=== PATIENT | male | born 1985 | race Caucasian/White ===

== ENCOUNTER 2023-11-25 17:47 | Inpatient (IN) | payer MEDICAID, OTHER, SELFPAY ==
[2023-11-25 17:55] VITALS: BP 139/98; PULSE 123; RESP 18; TEMP 36.5; O2SAT 97; BMI 27.1
[2023-11-25 18:05] VITALS: BP 139/98; PULSE 123; RESP 18; TEMP 36.5; O2SAT 97
[2023-11-25 18:23] LABS: Appearance Urine Clear; Color Urine Yellow; Glucose Urine UA Negative (Negative); Leukocyte Esterase Urine Negative (Negative); Nitrite Urine Negative (Negative); Specific Gravity - Urine <= 1.005 (1.005-1.025); Urine Blood Negative (Negative); Urine Ketones Negative (Negative); Urine Protein Negative (Neg-Trace)
[2023-11-25] MEDS: LORazepam 1 MG TABLET 2 MG PO (18:25)
--- NOTE | 2023-11-25 18:25 | ED.PSYCH ---
HPI - Psych General Chief Complaint: Psychiatric Symptoms Stated Complaint: sec.12 Time Seen by Provider: 11/25/23 17:49 Source: patient and eye care professional Mode of arrival: EMS Limitations: other (poor historian) History of Present Illness HPI Narrative: 38 yo male with reported schizophrenia per S12 here with agitation, aggression not on medications and ETOH use. No SI/HI. MD complaint: anxiety and alcohol abuse Onset (ago): unknown Duration: constant History of same: Yes Relieving factors: none Exacerbating factors: alcohol Context: not taking psychiatric medications Associated psychiatric symptoms: racing thoughts Associated symptoms: denies other symptoms Treatments prior to arrival: placed on mental health hold Related Data Allergies Allergy/AdvReac Type Severity Reaction Status Date / Time Unable to Assess Allergy Verified 11/25/23 17:57 Review of Systems Review of Systems: ROS unable to be obtained due to poor historian PMFSH Past Medical History Source: old records reviewed Medical History (Updated 11/25/23 @ 18:29 by Nisha Alegre DO) Schizophrenia Social History Social History Alcohol intake: current Alcohol intake frequency: a few times a week Alcohol type: beer Smoked in Last 30 Days: Yes Use of substances other than those prescribed or required for medical reasons: No Any prior treatment program specific to substance use: No Physical Exam Vital Signs: Vital Signs: Last Vital Signs Temp 97.7 F 11/25/23 18:05 Pulse 123 H 11/25/23 18:05 Resp 18 11/25/23 18:05 BP 139/98 H 11/25/23 18:05 Pulse Ox 97 11/25/23 18:05 O2 Del Method Room Air 11/25/23 18:05 BMI result Body Mass Index 27.1 Appearance: Alert. Oriented X3. ETOH odor, very loud belligerent talks about forming roll operator and money over and over. very close in proximity to staff and somewhat touchy with staff at times including myself. No acute distress. Eyes: Pupils equal, round and reactive to light. ENT: Pharynx normal. atraumatic. Neck: Normal inspection. Neck supple. CVS: Normal heart rate and rhythm. Pulses normal. Respiratory: No respiratory distress. Breath sounds normal. Abdomen: Soft and non-tender. Skin: Skin warm and dry. Normal skin color. Normal skin turgor. Extremities: No lower extremity edema. Neuro: Oriented X 3. No motor deficit. No sensory deficit. CN2-12 intact Course Course Course Narrative: physician observation started at 631pm Medical Decision Making Medical Decision Making [facility] Narrative: 38 yo male with PMH of schizophrenia seen here with c/o not taking meds, ETOH, agitation he is aggressive with certain staff was yelling into the eye care professional phone fixated on money and forming roll operator then inappropriately rubbing my arm and telling me he liked my ugandan body. At this time will obtain labs, given oral zyprexa and ativan - refer to CARE team as I cannot get much of a history. Differential Diagnosis Differential Diagnoses: The differential diagnosis associated with the presentation includes alcohol intoxication, schizophrenia Admission/Observation Consideration of admission/observation: Escalation of care including admission/observation considered observation until seen by CARE team Consult Healthcare Provider Management of the patient was discussed with: Behavioral Health Provider Lab Data [facility] Lab Attestation statement: I reviewed the patient's lab results. Labs: Lab Results 11/25/23 Range/Units 18:16 Urine Color Yellow Urine Appearance Clear Urine pH 6.0 (5.0-9.0) Ur Specific [place] <= 1.005 (1.005-1.025) Urine Protein Negative (Neg-Trace) mg/dL Urine Glucose (UA) Negative (Negative) mg/dL Urine Ketones Negative (Negative) mg/dL Urine Blood Negative (Negative) Urine Nitrite Negative (Negative) Ur Leukocyte Esterase Negative (Negative) Independent Historian Clinical information obtained from an independent historian. History obtained from or confirmed by: EMS External Record Review External record reviewed: Outpatient record Discharge Plan Discharge Clinical Impression: Alcohol abuse Patient Disposition: Still a Patient Interventions: Mccracken-Suicide Risk Severity Scale Last Done: 11/25/23 18:15
[2023-11-25] MEDS: OLANZapine ODT 10 MG TAB.RAPDIS TRANSLINGU (18:26)
[2023-11-25 18:32] LABS: Amphetamine Screen Urine Not Detected (Not Detect); Barbiturates, Urine Not Detected (Not Detect); Benzodiazepines Screen Urine Not Detected (Not Detect); Cannabinoid Screen Urine Not Detected (Not Detect); Cocaine Screen Urine Not Detected (Not Detect); Fentanyl, urine Not Detected (Not Detect); Opiate Screen Urine Not Detected (Not Detect); Phencyclidine Screen Urine Not Detected (Not Detect)
[2023-11-25 18:50] LABS: MANUAL DIFF FLAG NO
[2023-11-25 18:58] LABS: Basophils Absolute Auto 0.1 X10*3/uL (0.0-0.2); Eosinophils Absolute Auto 0.2 X10*3/uL (0.0-0.4); Hematocrit 39.2 % (42.0-52.0); Hemoglobin 13.5 g/dl (14.0-18.0); Imm Gran Abs Auto 0.02 X10*3/uL (0.00-0.03); Imm Gran Pct Auto 0.3 % (0.0-0.4); Lymphocytes Absolute Auto 2.3 X10*3/uL (1.2-4.9); Lymphocytes Percent Auto 33.6 % (20-40); Mean Corpuscular HGB Conc 34.4 g/dl (31.0-36.0); Mean Corpuscular Hemoglobin 28.9 pg (27.0-33.0); Mean Corpuscular Volume 83.9 fL (80.0-98.0); Mean Platelet Volume 10.1 fL (9.4-12.4); Monocytes Absolute Auto 0.6 X10*3/uL (0.1-1.2); Monocytes Percent Auto 8.2 % (2-11); Neutrophils Absolute Auto 3.6 x10*3/uL (2.0-8.3); Neutrophils Percent Auto 53.9 % (45-73); Platelet Count 314 X10*3/uL (160-400); Red Blood Count 4.67 X10*6/uL (4.60-5.80); Red Cell Distribution Width 13.4 % (11.0-16.0); White Blood Count 6.7 X10*3/uL (4.8-10.8)
[2023-11-25 18:59] LABS: Influenza A PCR NEGATIVE (Negative); Influenza B PCR NEGATIVE (Negative); Resp Syncy Virus RNA Qual PCR NEGATIVE (Negative); SARS COV2 PCR INHOUSE NEGATIVE (Negative)
[2023-11-25 19:08] LABS: Alanine Aminotransferase 20 U/L (0-40); Albumin Level 4.3 g/dL (3.5-5.0); Alkaline Phosphatase 79 U/L (39-117); Anion Gap 12 (12-20); Aspartate Amino Transferase 27 U/L (5-37); Bilirubin Direct 0.2 mg/dL (0.0-0.5); Bilirubin Total 0.5 mg/dL (0.0-1.0); Blood Urea Nitrogen 7 mg/dL (9-16); Carbon Dioxide 25 mmol/L (22-29); Chloride 109 mmol/L (96-108); Creatinine Clr Calc Pharmacy 98.8; Estimated Glomerular Filt Rate > 60; Ethanol 211 mg/dL; Glucose Random 120 mg/dL (60-115); Magnesium 2.1 mg/dL (1.6-2.6); Sodium 142 mmol/L (135-145); Total Protein 7.3 g/dL (6.5-8.0)
--- NOTE | 2023-11-25 19:13 | PC.NURSE ---
patient appears to remain at rest at present respirations are even and unlabored patient appears in no distress.
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
--- NOTE | 2023-11-26 00:07 | PC.NURSE ---
sister called inquiring about brothers conduct, phone number- jennifer [phone]
[2023-11-26 07:15] VITALS: RESP 12
--- NOTE | 2023-11-26 07:15 | MHC.EDTECH ---
Pt is asleep, reparations were documented and are even and unlabored, rn aware
--- NOTE | 2023-11-26 08:00 | PC.NURSE ---
PT IS ASLEEP, RESP EVEN AND UNLABORED. WILL CONTINUE TO MONITOR.
[2023-11-26 08:47] VITALS: RESP 16
--- NOTE | 2023-11-26 09:00 | PC.NURSE ---
PT SEEN BY CARE TEAM, PT AWARE OF PLAN OF CARE.
--- NOTE | 2023-11-26 11:26 | ECG_ITS ---
Test Reason : CHECK QTC INTERVAL Blood Pressure : / mmHG Vent. Rate : 064 BPM Atrial Rate : 064 BPM P-R Int : 162 ms QRS Dur : 084 ms QT Int : 406 ms P-R-T Axes : 038 035 039 degrees QTc Int : 418 ms Normal sinus rhythm with sinus arrhythmia Normal ECG No previous ECGs available Referred By: Reilly Caceres Electronically Signed By:JASON MULLER MD
[2023-11-26 13:45] VITALS: BP 146/91; PULSE 91; RESP 15; TEMP 37.1; O2SAT 96
--- NOTE | 2023-11-26 14:42 | PC.NURSE ---
RN TO RN REPORT GIVEN TO NELY. PT AWARE OF PLAN OF CARE FOR TRANSFER TO M3.
[2023-11-26 15:12] VITALS: BP 149/91; PULSE 105; RESP 18; TEMP 36.7; O2SAT 98
[2023-11-26 16:15] VITALS: BP 167/75; BP 171/96; PULSE 67; PULSE 97; RESP 15; RESP 16; TEMP 36.7; TEMP 36.8; O2SAT 97
[2023-11-26 17:25] VITALS: BMI 30.7
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
--- NOTE | 2023-11-26 22:50 | PC.NURSE ---
Patient reported that he is allergic to Sudanese medication and refused to take scheduled medications.
[2023-11-27 06:00] VITALS: BP 151/90; PULSE 84; RESP 16; TEMP 36.9; O2SAT 97
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
[2023-11-27] MEDS: Lithium Carbonate ER 300 MG TABLET.ER 600 MG PO (20:32)
[2023-11-27 20:35] VITALS: BP 154/90; PULSE 98; RESP 18; TEMP 36.1; O2SAT 100
[2023-11-28 08:45] VITALS: BP 154/101; PULSE 73; RESP 16; TEMP 36.3; O2SAT 97
--- NOTE | 2023-11-28 18:14 | P.PNPSI_ITS ---
Subjective Subjective Date of Service: 11/28/23 Reason For Visit: Marge Interim History: labile, irritable, quickly escalates to screaming at MD in akhtar about prosthetic assistant and court. interview impossible. per staff, 12b up tomorrow. not attending groups. sitting on floor rocking back and forth talking to himself. Mental Status Exam Mental Status Exam Narrative: adequately dressed and groomed. not cooperative. PMA of screaming at MD in akhtar, leaning forward, intrusion in personal space. speech british virgin islander language, rapid, increased amount, incr loudness, decr latency. thoughts perseverative on prosthetic assistant and court. affect hyper-intense, labile. mood not assessed. no SI/SIBI/HI/AVH expressed. Diagnostics Vital Signs (24Hr): Vital Signs - 24 hr 11/27/23 20:35 11/28/23 08:45 Temperature 97.0 F 97.3 F Pulse Rate 98 73 Respiratory Rate 18 16 Blood Pressure 154/90 H 154/101 H Pulse Oximetry 100 97 Oxygen Delivery Method Room Air Room Air BMI result Body Mass Index 30.7 Labs 11/25/23 18:46 11/25/23 18:46 Medications Medications Current Medications Acetaminophen (Acetaminophen 325 Mg Tablet) 650 mg PO Q6H PRN PRN Reason: Headache/Pain Mild Scale (1-3) Al Hydroxide/Mg Hydroxide (Magnesium Hydrox/Alum Hydrox 30 Ml Oral.Susp) 30 ml PO Q6H PRN PRN Reason: Heartburn/Nausea Hydroxyzine HCl (Hydroxyzine Hcl 25 Mg Tablet) 25 mg PO Q6H PRN PRN Reason: Anxiety [place] Carbonate ([place] Carbonate Er 300 Mg Tablet.Er) 1,200 mg PO BEDTIME KENDALL Lorazepam (Lorazepam 1 Mg Tablet) 2 mg PO Q6H PRN PRN Reason: agitation Lorazepam (Lorazepam 1 Mg Tablet) 1 mg PO Q2H PRN PRN Reason: CIWA 8-11 Lorazepam (Lorazepam 1 Mg Tablet) 2 mg PO Q2H PRN PRN Reason: CIWA 12-15 Lorazepam (Lorazepam 1 Mg Tablet) 3 mg PO Q2H PRN PRN Reason: CIWA > 15; and call MD Magnesium Hydroxide (Milk Of Magnesia 30 Ml Oral.Susp) 30 ml PO DAILY PRN PRN Reason: Constipation Nicotine Polacrilex (Nicotine Polacrilex 2 Mg Gum) 4 mg BUCCAL Q2H PRN PRN Reason: Nicotine Cravings Olanzapine (Olanzapine Odt 10 Mg Tab.Rapdis) 10 mg TRANSLINGU Q6H PRN PRN Reason: agitation Trazodone HCl (Trazodone Hcl 50 Mg Tablet) 50 mg PO BEDTIME MRX1 PRN PRN Reason: Insomnia Allergies Allergies Allergy/AdvReac Type Severity Reaction Status Date / Time Unable to Assess Allergy Verified 11/25/23 17:57 Assessment & Plan Assessment & Plan (1) Moderate bipolar I disorder with marge as current episode: Status: Acute Code(s): F31.12 - Bipolar disorder, current episode manic without psychotic features, moderate Plan 11/26: offer lithium. hold haldol for now. 11/27: took HS dose, refused morning dose. reportedly he will only take medications at night. reschedule all lithium to HS, 1200 mg. Reason for continued inpatient stay Substantial Risk for: harm to others and inability to function Time Spent With Patient Time: Total time managing care of this patient today __25__ minutes.
[2023-11-29 07:10] VITALS: BP 117/73; PULSE 69; RESP 14; TEMP 36.4; O2SAT 95
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
[2023-11-29 20:05] VITALS: BP 136/90; PULSE 91; RESP 16; TEMP 37.3; O2SAT 98
--- NOTE | 2023-11-30 05:09 | PC.NURSE ---
Robyn is noted to have been very irritable during the evening. loud pressured speech, pressured pacing. pleasant with peers verbally aggressive with staff. refused HS medications. repeatedly told this engineering writer his name is Blue and demanding that we speak to him only in Bulgarian. Patient refused to use the LIANA for Bulgarian interpretation. Patient has been yelling, swearing, making grunting noises; he has also been rude, demanding, intentionally intimidating. patient said we were all going to alf and getting fired. continue to encourage medication compliance, encourage appropriate behaviors and tone of voice monitor for safety, continue Plan of Care
[2023-11-30 07:28] VITALS: BP 133/90; PULSE 93; RESP 16; TEMP 36.6; O2SAT 97
--- NOTE | 2023-11-30 11:37 | HO.PSYCHPN ---
Subjective Subjective Date of Service: 11/30/23 Reason For Visit: Marge Subjective Notes: Section 7 Interim History: met with patient. Discussed with Nursing. Patient has been loud on the unit, can be intimidating, speaking in Guinean and Kazakh. Earlier in the day verbally hostile with marketing copywriter, later pleasant, but would not engage in interview. Has been calling the police and telephone restriction in place, which expires today. Running along the chairs in the common area. Medication Compliance: No Side effects from medications: No Attending Groups: No Review of Systems Acute medical concerns: No Mental Status Exam Mental Status Exam Narrative: In common area. Casually dressed. Loud, pressured speech, internally preoccupied, paranoid. angry. Unable to assess SI or HI. Insight and judgment poor Diagnostics Vital Signs (24Hr): Vital Signs - 24 hr 11/29/23 20:05 11/30/23 07:28 Temperature 99.1 F 97.9 F Pulse Rate 91 93 Respiratory Rate 16 16 Blood Pressure 136/90 H 133/90 H Pulse Oximetry 98 97 Oxygen Delivery Method Room Air Room Air BMI result Body Mass Index 30.7 Labs 11/25/23 18:46 11/25/23 18:46 Medications Medications Current Medications Acetaminophen (Acetaminophen 325 Mg Tablet) 650 mg PO Q6H PRN PRN Reason: Headache/Pain Mild Scale (1-3) Al Hydroxide/Mg Hydroxide (Magnesium Hydrox/Alum Hydrox 30 Ml Oral.Susp) 30 ml PO Q6H PRN PRN Reason: Heartburn/Nausea Hydroxyzine HCl (Hydroxyzine Hcl 25 Mg Tablet) 25 mg PO Q6H PRN PRN Reason: Anxiety [place] Carbonate ([place] Carbonate Er 300 Mg Tablet.Er) 1,200 mg PO BEDTIME KENDALL Last Admin: 11/30/23 00:58 Dose: Not Given Lorazepam (Lorazepam 1 Mg Tablet) 2 mg PO Q6H PRN PRN Reason: agitation Magnesium Hydroxide (Milk Of Magnesia 30 Ml Oral.Susp) 30 ml PO DAILY PRN PRN Reason: Constipation Nicotine Polacrilex (Nicotine Polacrilex 2 Mg Gum) 4 mg BUCCAL Q2H PRN PRN Reason: Nicotine Cravings Olanzapine (Olanzapine Odt 10 Mg Tab.Rapdis) 10 mg TRANSLINGU Q6H PRN PRN Reason: agitation Olanzapine (Olanzapine Odt 10 Mg Tab.Rapdis) 20 mg TRANSLINGU BEDTIME KENDALL Last Admin: 11/30/23 00:58 Dose: Not Given Trazodone HCl (Trazodone Hcl 50 Mg Tablet) 50 mg PO BEDTIME MRX1 PRN PRN Reason: Insomnia Allergies Allergies Allergy/AdvReac Type Severity Reaction Status Date / Time Unable to Assess Allergy Verified 11/25/23 17:57 Assessment & Plan Assessment & Plan (1) Moderate bipolar I disorder with marge as current episode: Status: Acute Code(s): F31.12 - Bipolar disorder, current episode manic without psychotic features, moderate Plan 11/26: offer lithium. hold haldol for now. 11/27: took HS dose, refused morning dose. reportedly he will only take medications at night. reschedule all lithium to HS, 1200 mg. 11/28: pt refused lithium last night. screamed at MD yesterday, calmly declines interview today: see you in court. olanzapine 20 mg QHS added to regimen, commitment paperwork filed. records from [facility] received and reviewed. 11/29: Court hearing pending. Declining medications in the meantime. Reason for continued inpatient stay Substantial Risk for: harm to others and inability to function Time Spent With Patient Time: Total time managing care of this patient today ____ minutes.
[2023-11-30 19:53] VITALS: BP 147/92; PULSE 76; RESP 18; TEMP 36.8; O2SAT 98
[2023-12-01 06:00] VITALS: BP 139/92; PULSE 77; RESP 16; TEMP 36.9; O2SAT 98
--- NOTE | 2023-12-01 11:40 | P.PNPSI_ITS ---
Subjective Subjective Date of Service: 12/01/23 Reason For Visit: Marge Subjective Notes: Section 7 Interim History: met with patient. Discussed with Nursing. Patient continues to be psychotic, talking to himself, internally preoccupied. Last night was running across the chairs. Through a hard back book which almost hit another patient. Also swelling some food at another patient. Significant difficulty with personal boundaries and space and very intrusive. Did not want to meet with contract technical writer today- was last hostile regarding this. Continues to refuse medications. Medication Compliance: No Side effects from medications: No Attending Groups: No Review of Systems Acute medical concerns: No Review of Systems Review of Systems ROS unable to be obtained due to poor historian Yes Unobtainable due to mental condition Mental Status Exam Mental Status Exam Narrative: In common area. Casually dressed. Loud, pressured speech, internally preoccupied, paranoid. Labile. Unable to assess SI or HI. Insight and judgment poor Diagnostics Vital Signs (24Hr): Vital Signs - 24 hr 11/30/23 19:53 12/01/23 06:00 Temperature 98.3 F 98.5 F Pulse Rate 76 77 Respiratory Rate 18 16 Blood Pressure 147/92 H 139/92 H Pulse Oximetry 98 98 Oxygen Delivery Method Room Air Room Air BMI result Body Mass Index 30.7 Labs 11/25/23 18:46 11/25/23 18:46 Medications Medications Current Medications Acetaminophen (Acetaminophen 325 Mg Tablet) 650 mg PO Q6H PRN PRN Reason: Headache/Pain Mild Scale (1-3) Al Hydroxide/Mg Hydroxide (Magnesium Hydrox/Alum Hydrox 30 Ml Oral.Susp) 30 ml PO Q6H PRN PRN Reason: Heartburn/Nausea Hydroxyzine HCl (Hydroxyzine Hcl 25 Mg Tablet) 25 mg PO Q6H PRN PRN Reason: Anxiety [place] Carbonate ([place] Carbonate Er 300 Mg Tablet.Er) 1,200 mg PO BEDTIME KENDALL Last Admin: 11/30/23 20:56 Dose: Not Given Lorazepam (Lorazepam 1 Mg Tablet) 2 mg PO Q6H PRN PRN Reason: agitation Magnesium Hydroxide (Milk Of Magnesia 30 Ml Oral.Susp) 30 ml PO DAILY PRN PRN Reason: Constipation Nicotine Polacrilex (Nicotine Polacrilex 2 Mg Gum) 4 mg BUCCAL Q2H PRN PRN Reason: Nicotine Cravings Olanzapine (Olanzapine Odt 10 Mg Tab.Rapdis) 10 mg TRANSLINGU Q6H PRN PRN Reason: agitation Olanzapine (Olanzapine Odt 10 Mg Tab.Rapdis) 20 mg TRANSLINGU BEDTIME KENDALL Last Admin: 11/30/23 20:56 Dose: Not Given Trazodone HCl (Trazodone Hcl 50 Mg Tablet) 50 mg PO BEDTIME MRX1 PRN PRN Reason: Insomnia Allergies Allergies Allergy/AdvReac Type Severity Reaction Status Date / Time Unable to Assess Allergy Verified 11/25/23 17:57 Assessment & Plan Assessment & Plan (1) Moderate bipolar I disorder with marge as current episode: Status: Acute Code(s): F31.12 - Bipolar disorder, current episode manic without psychotic features, moderate Plan 11/26: offer lithium. hold haldol for now. 11/27: took HS dose, refused morning dose. reportedly he will only take medications at night. reschedule all lithium to HS, 1200 mg. 11/28: pt refused lithium last night. screamed at MD yesterday, calmly declines interview today: see you in court. olanzapine 20 mg QHS added to regimen, commitment paperwork filed. records from [facility] [place] received and reviewed. 11/29: Court hearing pending. Declining medications in the meantime. 11/30: no changes Reason for continued inpatient stay Substantial Risk for: harm to others and inability to function Time Spent With Patient Time: Total time managing care of this patient today ____ minutes.
[2023-12-01 20:00] VITALS: BP 135/90; PULSE 85; RESP 18; TEMP 36.5; O2SAT 97
[2023-12-02 07:26] VITALS: BP 133/84; PULSE 102; RESP 16; TEMP 36; O2SAT 98
--- NOTE | 2023-12-02 10:53 | HO.PSYCHPN ---
Subjective Subjective Date of Service: 12/02/23 Reason For Visit: Marge Subjective Notes: Section 7 Interim History: Pt was up most of the night, self dialoguing. Pt reports he is very good. He has a book which he states is about God. Book is from the unit's library but has been writing all over it. He reports he is from [place]. When asked why is he here, he states I don't know. He has been intrusive with peers, entering others room. Yesterday he threw book at female peer. He continues to decline medications poor boundaries with this underwriter solicitation director, commenting on looks, oh you're sexy. Review of Systems Review of Systems ROS unable to be obtained due to poor historian Yes Unobtainable due to mental condition Mental Status Exam Mental Status Exam Narrative: In common area. Casually dressed. Loud, pressured speech, internally preoccupied, paranoid. Labile.Unable to assess SI or HI. Insight and judgment poor Diagnostics Vital Signs (24Hr): Vital Signs - 24 hr 12/01/23 20:00 12/02/23 07:26 Temperature 97.7 F 96.8 F Pulse Rate 85 102 H Respiratory Rate 18 16 Blood Pressure 135/90 H 133/84 Pulse Oximetry 97 98 Oxygen Delivery Method Room Air Room Air BMI result Body Mass Index 30.7 Labs 11/25/23 18:46 11/25/23 18:46 Medications Medications Current Medications Acetaminophen (Acetaminophen 325 Mg Tablet) 650 mg PO Q6H PRN PRN Reason: Headache/Pain Mild Scale (1-3) Al Hydroxide/Mg Hydroxide (Magnesium Hydrox/Alum Hydrox 30 Ml Oral.Susp) 30 ml PO Q6H PRN PRN Reason: Heartburn/Nausea Hydroxyzine HCl (Hydroxyzine Hcl 25 Mg Tablet) 25 mg PO Q6H PRN PRN Reason: Anxiety [place] Carbonate ([place] Carbonate Er 300 Mg Tablet.Er) 1,200 mg PO BEDTIME KENDALL Last Admin: 12/01/23 21:28 Dose: Not Given Lorazepam (Lorazepam 1 Mg Tablet) 2 mg PO Q6H PRN PRN Reason: agitation Magnesium Hydroxide (Milk Of Magnesia 30 Ml Oral.Susp) 30 ml PO DAILY PRN PRN Reason: Constipation Nicotine Polacrilex (Nicotine Polacrilex 2 Mg Gum) 4 mg BUCCAL Q2H PRN PRN Reason: Nicotine Cravings Olanzapine (Olanzapine Odt 10 Mg Tab.Rapdis) 10 mg TRANSLINGU Q6H PRN PRN Reason: agitation Olanzapine (Olanzapine Odt 10 Mg Tab.Rapdis) 20 mg TRANSLINGU BEDTIME KENDALL Last Admin: 12/01/23 21:28 Dose: Not Given Trazodone HCl (Trazodone Hcl 50 Mg Tablet) 50 mg PO BEDTIME MRX1 PRN PRN Reason: Insomnia Allergies Allergies Allergy/AdvReac Type Severity Reaction Status Date / Time Unable to Assess Allergy Verified 11/25/23 17:57 Assessment & Plan Assessment & Plan (1) Moderate bipolar I disorder with marge as current episode: Status: Acute Code(s): F31.12 - Bipolar disorder, current episode manic without psychotic features, moderate Plan 11/26: offer lithium. hold haldol for now. 11/27: took HS dose, refused morning dose. reportedly he will only take medications at night. reschedule all lithium to HS, 1200 mg. 11/28: pt refused lithium last night. screamed at MD yesterday, calmly declines interview today: see you in court. olanzapine 20 mg QHS added to regimen, commitment paperwork filed. records from [facility] received and reviewed. 11/29: Court hearing pending. Declining medications in the meantime. 11/30: no changes 12/01 intrusive, poor boundaries. declines medications. Reason for continued inpatient stay Substantial Risk for: harm to others and inability to function Time Spent With Patient Time: Total time managing care of this patient today ____ minutes.
[2023-12-02 19:40] VITALS: BP 131/67; PULSE 85; RESP 16; TEMP 36.8; O2SAT 97
[2023-12-03 07:31] VITALS: BP 160/97; PULSE 93; RESP 16; TEMP 36.3; O2SAT 97
--- NOTE | 2023-12-03 16:31 | HO.PSYCHPN ---
Subjective Subjective Date of Service: 12/03/23 Reason For Visit: Marge Subjective Notes: Section 7 Interim History: Pt continues to refuse medication states problems are due to his sister and father he is on close obs secondary to behavoir . Pt with periods of agitation paranoid agitated at times refuses medication labile easily agitated Mental Status Exam Mental Status Exam Narrative: Casually dressed disheveled poor grooming Loud, pressured speech, internally preoccupied, paranoid. Labile.. Insight and judgment poor denies hallucinations Diagnostics Vital Signs (24Hr): Vital Signs - 24 hr 12/02/23 19:40 12/03/23 07:31 Temperature 98.3 F 97.4 F Pulse Rate 85 93 Respiratory Rate 16 16 Blood Pressure 131/67 160/97 H Pulse Oximetry 97 97 Oxygen Delivery Method Room Air Room Air BMI result Body Mass Index 30.7 Labs 11/25/23 18:46 11/25/23 18:46 Medications Medications Current Medications Acetaminophen (Acetaminophen 325 Mg Tablet) 650 mg PO Q6H PRN PRN Reason: Headache/Pain Mild Scale (1-3) Al Hydroxide/Mg Hydroxide (Magnesium Hydrox/Alum Hydrox 30 Ml Oral.Susp) 30 ml PO Q6H PRN PRN Reason: Heartburn/Nausea Hydroxyzine HCl (Hydroxyzine Hcl 25 Mg Tablet) 25 mg PO Q6H PRN PRN Reason: Anxiety [place] Carbonate ([place] Carbonate Er 300 Mg Tablet.Er) 1,200 mg PO BEDTIME KENDALL Last Admin: 12/02/23 21:13 Dose: Not Given Lorazepam (Lorazepam 1 Mg Tablet) 2 mg PO Q6H PRN PRN Reason: agitation Magnesium Hydroxide (Milk Of Magnesia 30 Ml Oral.Susp) 30 ml PO DAILY PRN PRN Reason: Constipation Nicotine Polacrilex (Nicotine Polacrilex 2 Mg Gum) 4 mg BUCCAL Q2H PRN PRN Reason: Nicotine Cravings Olanzapine (Olanzapine Odt 10 Mg Tab.Rapdis) 10 mg TRANSLINGU Q6H PRN PRN Reason: agitation Olanzapine (Olanzapine Odt 10 Mg Tab.Rapdis) 20 mg TRANSLINGU BEDTIME KENDALL Last Admin: 12/02/23 21:13 Dose: Not Given Trazodone HCl (Trazodone Hcl 50 Mg Tablet) 50 mg PO BEDTIME MRX1 PRN PRN Reason: Insomnia Allergies Allergies Allergy/AdvReac Type Severity Reaction Status Date / Time Unable to Assess Allergy Verified 11/25/23 17:57 Assessment & Plan Assessment & Plan (1) Moderate bipolar I disorder with marge as current episode: Status: Acute Code(s): F31.12 - Bipolar disorder, current episode manic without psychotic features, moderate Plan 11/26: offer lithium. hold haldol for now. 11/27: took HS dose, refused morning dose. reportedly he will only take medications at night. reschedule all lithium to HS, 1200 mg. 11/28: pt refused lithium last night. screamed at MD yesterday, calmly declines interview today: see you in court. olanzapine 20 mg QHS added to regimen, commitment paperwork filed. records from [facility] received and reviewed. 11/29: Court hearing pending. Declining medications in the meantime. 11/30: no changes 12/01 intrusive, poor boundaries. declines medications. 12/02 easily agitated refuses medication pressured Reason for continued inpatient stay Substantial Risk for: inability to function and rapid decompensation Time Spent With Patient Time: Total time managing care of this patient today ____ minutes.
[2023-12-03 19:50] VITALS: BP 125/70; PULSE 84; RESP 16; TEMP 36.3; O2SAT 97
[2023-12-04 06:00] VITALS: BP 128/84; PULSE 89; RESP 16; TEMP 36.5; O2SAT 98
--- NOTE | 2023-12-04 16:32 | HO.PSYCHPN ---
Subjective Subjective Date of Service: 12/04/23 Reason For Visit: Marge [facility] Proxy: No Interim History: Patient with bizarre behavior smearing feces on the kaur writing things on the kaur in the bathroom stuffing the toilet can not explain behavior continues to refuse medication Mental Status Exam Mental Status Exam Narrative: Casually dressed disheveled poor grooming feces on hands and on the wall Loud, pressured speech, internally preoccupied, paranoid. Labile.Insight and judgment poor denies hallucinations Talks about grandiose material with no relation to reality Diagnostics Vital Signs (24Hr): Vital Signs - 24 hr 12/03/23 19:50 12/04/23 06:00 Temperature 97.3 F 97.7 F Pulse Rate 84 89 Respiratory Rate 16 16 Blood Pressure 125/70 128/84 Pulse Oximetry 97 98 Oxygen Delivery Method Room Air Room Air BMI result Body Mass Index 30.7 Labs 11/25/23 18:46 11/25/23 18:46 Medications Medications Current Medications Acetaminophen (Acetaminophen 325 Mg Tablet) 650 mg PO Q6H PRN PRN Reason: Headache/Pain Mild Scale (1-3) Al Hydroxide/Mg Hydroxide (Magnesium Hydrox/Alum Hydrox 30 Ml Oral.Susp) 30 ml PO Q6H PRN PRN Reason: Heartburn/Nausea Hydroxyzine HCl (Hydroxyzine Hcl 25 Mg Tablet) 25 mg PO Q6H PRN PRN Reason: Anxiety [place] Carbonate ([place] Carbonate Er 300 Mg Tablet.Er) 1,200 mg PO BEDTIME KENDALL Last Admin: 12/03/23 20:52 Dose: Not Given Lorazepam (Lorazepam 1 Mg Tablet) 2 mg PO Q6H PRN PRN Reason: agitation Magnesium Hydroxide (Milk Of Magnesia 30 Ml Oral.Susp) 30 ml PO DAILY PRN PRN Reason: Constipation Nicotine Polacrilex (Nicotine Polacrilex 2 Mg Gum) 4 mg BUCCAL Q2H PRN PRN Reason: Nicotine Cravings Olanzapine (Olanzapine Odt 10 Mg Tab.Rapdis) 10 mg TRANSLINGU Q6H PRN PRN Reason: agitation Olanzapine (Olanzapine Odt 10 Mg Tab.Rapdis) 20 mg TRANSLINGU BEDTIME KENDALL Last Admin: 12/03/23 20:52 Dose: Not Given Trazodone HCl (Trazodone Hcl 50 Mg Tablet) 50 mg PO BEDTIME MRX1 PRN PRN Reason: Insomnia Allergies Allergies Allergy/AdvReac Type Severity Reaction Status Date / Time Unable to Assess Allergy Verified 11/25/23 17:57 Assessment & Plan Assessment & Plan (1) Moderate bipolar I disorder with marge as current episode: Status: Acute Code(s): F31.12 - Bipolar disorder, current episode manic without psychotic features, moderate Plan 11/26: offer lithium. hold haldol for now. 11/27: took HS dose, refused morning dose. reportedly he will only take medications at night. reschedule all lithium to HS, 1200 mg. 11/28: pt refused lithium last night. screamed at MD yesterday, calmly declines interview today: see you in court. olanzapine 20 mg QHS added to regimen, commitment paperwork filed. records from [facility] received and reviewed. 11/29: Court hearing pending. Declining medications in the meantime. 11/30: no changes 12/01 intrusive, poor boundaries. declines medications. 12/02 easily agitated refuses medication pressured 12/04/2023 Continues to refuse medication bizarre behavior illogical poor impulse control writing things on the kaur smearing feces on himself and on the kaur stuffing toilet Reason for continued inpatient stay Substantial Risk for: harm to others, inability to function and rapid decompensation Time Spent With Patient Time: Total time managing care of this patient today ____ minutes.
[2023-12-04 19:20] VITALS: BP 143/92; PULSE 97; RESP 18; TEMP 37.1; O2SAT 98
[2023-12-05 07:00] VITALS: BMI 31.9
[2023-12-05 08:00] VITALS: BP 124/85; PULSE 116; RESP 14; TEMP 36.6; O2SAT 95
--- NOTE | 2023-12-05 15:22 | HO.PSYCHPN ---
Subjective Subjective Date of Service: 12/05/23 Reason For Visit: Marge Subjective Notes: Section 7 Interim History: Patient was irritable dysphoric yelling at different points he is on close observation more withdrawn refused to engage with roving court reporter intermittently yelling at other times was telling women he loved them when told about sister coming tomorrow he kept showing his sister is crazy he continues to refuse medication Mental Status Exam Mental Status Exam Narrative: Casually dressed disheveled internally preoccupied, Labile.Insight and judgment poor impulse control Became enraged healing about his sister when her that she was going to visit Diagnostics Vital Signs (24Hr): Vital Signs - 24 hr 12/04/23 19:20 12/05/23 08:00 Temperature 98.7 F 97.8 F Pulse Rate 97 116 H Respiratory Rate 18 14 Blood Pressure 143/92 H 124/85 Pulse Oximetry 98 95 Oxygen Delivery Method Room Air Room Air BMI result Body Mass Index 31.9 Labs 11/25/23 18:46 11/25/23 18:46 Medications Medications Current Medications Acetaminophen (Acetaminophen 325 Mg Tablet) 650 mg PO Q6H PRN PRN Reason: Headache/Pain Mild Scale (1-3) Al Hydroxide/Mg Hydroxide (Magnesium Hydrox/Alum Hydrox 30 Ml Oral.Susp) 30 ml PO Q6H PRN PRN Reason: Heartburn/Nausea Hydroxyzine HCl (Hydroxyzine Hcl 25 Mg Tablet) 25 mg PO Q6H PRN PRN Reason: Anxiety [place] Carbonate ([place] Carbonate Er 300 Mg Tablet.Er) 1,200 mg PO BEDTIME KENDALL Last Admin: 12/04/23 20:17 Dose: Not Given Lorazepam (Lorazepam 1 Mg Tablet) 2 mg PO Q6H PRN PRN Reason: agitation Magnesium Hydroxide (Milk Of Magnesia 30 Ml Oral.Susp) 30 ml PO DAILY PRN PRN Reason: Constipation Nicotine Polacrilex (Nicotine Polacrilex 2 Mg Gum) 4 mg BUCCAL Q2H PRN PRN Reason: Nicotine Cravings Olanzapine (Olanzapine Odt 10 Mg Tab.Rapdis) 10 mg TRANSLINGU Q6H PRN PRN Reason: agitation Olanzapine (Olanzapine Odt 10 Mg Tab.Rapdis) 20 mg TRANSLINGU BEDTIME KENDALL Last Admin: 12/04/23 20:17 Dose: Not Given Trazodone HCl (Trazodone Hcl 50 Mg Tablet) 50 mg PO BEDTIME MRX1 PRN PRN Reason: Insomnia Allergies Allergies Allergy/AdvReac Type Severity Reaction Status Date / Time Unable to Assess Allergy Verified 11/25/23 17:57 Assessment & Plan Assessment & Plan (1) Moderate bipolar I disorder with marge as current episode: Status: Acute Code(s): F31.12 - Bipolar disorder, current episode manic without psychotic features, moderate Plan 11/26: offer lithium. hold haldol for now. 11/27: took HS dose, refused morning dose. reportedly he will only take medications at night. reschedule all lithium to HS, 1200 mg. 11/28: pt refused lithium last night. screamed at MD yesterday, calmly declines interview today: see you in court. olanzapine 20 mg QHS added to regimen, commitment paperwork filed. records from [facility] received and reviewed. 11/29: Court hearing pending. Declining medications in the meantime. 11/30: no changes 12/01 intrusive, poor boundaries. declines medications. 12/02 easily agitated refuses medication pressured 12/04/2023 Continues to refuse medication bizarre behavior illogical poor impulse control writing things on the kaur smearing feces on himself and on the kaur stuffing toilet 12/05/2023 Patient continues to refuse medication refused to use roving court reporter periods of yelling agitated screaming about his sister having mental illness other times isolated and withdrawn Reason for continued inpatient stay Substantial Risk for: harm to others, inability to function and rapid decompensation Time Spent With Patient Time: Total time managing care of this patient today ____ minutes.
[2023-12-05 19:40] VITALS: BP 135/83; PULSE 100; RESP 18; TEMP 36.2; O2SAT 98
[2023-12-06 07:27] VITALS: BP 138/89; PULSE 86; RESP 14; TEMP 36.4; O2SAT 99
[2023-12-06 21:05] VITALS: BP 140/80; PULSE 88; RESP 16; TEMP 36.6; O2SAT 99
--- NOTE | 2023-12-06 22:22 | HO.PSYCHPN ---
Subjective Subjective Date of Service: 12/06/23 Reason For Visit: Alfa Subjective Notes: Section 7 Interim History: The patient has no insight does state that he had an adverse reaction in [place] years ago but does not acknowledge that he was hospitalized since then yelling at times less labile some improved grooming continues to refuse medication declined Eloisa paraprofessional interpreter Mental Status Exam Mental Status Exam Narrative: Casually dressed disheveled internally preoccupied, Labile.Insight and judgment fair impulse control Yelling about his sister being drunk not to listen to her Diagnostics Vital Signs (24Hr): Vital Signs - 24 hr 12/06/23 07:27 12/06/23 21:05 Temperature 97.5 F 97.8 F Pulse Rate 86 88 Respiratory Rate 14 16 Blood Pressure 138/89 140/80 H Pulse Oximetry 99 99 Oxygen Delivery Method Room Air Room Air BMI result Body Mass Index 31.9 Labs 11/25/23 18:46 11/25/23 18:46 Medications Medications Current Medications Acetaminophen (Acetaminophen 325 Mg Tablet) 650 mg PO Q6H PRN PRN Reason: Headache/Pain Mild Scale (1-3) Al Hydroxide/Mg Hydroxide (Magnesium Hydrox/Alum Hydrox 30 Ml Oral.Susp) 30 ml PO Q6H PRN PRN Reason: Heartburn/Nausea Hydroxyzine HCl (Hydroxyzine Hcl 25 Mg Tablet) 25 mg PO Q6H PRN PRN Reason: Anxiety [place] Carbonate ([place] Carbonate Er 300 Mg Tablet.Er) 1,200 mg PO BEDTIME KENDALL Last Admin: 12/06/23 21:02 Dose: Not Given Lorazepam (Lorazepam 1 Mg Tablet) 2 mg PO Q6H PRN PRN Reason: agitation Magnesium Hydroxide (Milk Of Magnesia 30 Ml Oral.Susp) 30 ml PO DAILY PRN PRN Reason: Constipation Nicotine Polacrilex (Nicotine Polacrilex 2 Mg Gum) 4 mg BUCCAL Q2H PRN PRN Reason: Nicotine Cravings Olanzapine (Olanzapine Odt 10 Mg Tab.Rapdis) 10 mg TRANSLINGU Q6H PRN PRN Reason: agitation Olanzapine (Olanzapine Odt 10 Mg Tab.Rapdis) 20 mg TRANSLINGU BEDTIME KENDALL Last Admin: 12/06/23 21:03 Dose: Not Given Trazodone HCl (Trazodone Hcl 50 Mg Tablet) 50 mg PO BEDTIME MRX1 PRN PRN Reason: Insomnia Allergies Allergies Allergy/AdvReac Type Severity Reaction Status Date / Time Unable to Assess Allergy Verified 11/25/23 17:57 Assessment & Plan Assessment & Plan (1) Moderate bipolar I disorder with alfa as current episode: Status: Acute Code(s): F31.12 - Bipolar disorder, current episode manic without psychotic features, moderate Plan 11/26: offer lithium. hold haldol for now. 11/27: took HS dose, refused morning dose. reportedly he will only take medications at night. reschedule all lithium to HS, 1200 mg. 11/28: pt refused lithium last night. screamed at MD yesterday, calmly declines interview today: see you in court. olanzapine 20 mg QHS added to regimen, commitment paperwork filed. records from [facility] received and reviewed. 11/29: Court hearing pending. Declining medications in the meantime. 11/30: no changes 12/01 intrusive, poor boundaries. declines medications. 12/02 easily agitated refuses medication pressured 12/04/2023 Continues to refuse medication bizarre behavior illogical poor impulse control writing things on the kaur smearing feces on himself and on the kaur stuffing toilet 12/05/2023 Patient continues to refuse medication refused to use electronic publishing specialist periods of yelling agitated screaming about his sister having mental illness other times isolated and withdrawn 12/06/2023 Patient continues to refuse medication refuses to engage in ongoing conversation with electronic publishing specialist difficult to have reality based conversation Reason for continued inpatient stay Substantial Risk for: inability to function and rapid decompensation Time Spent With Patient Time: Total time managing care of this patient today ____ minutes.
--- NOTE | 2023-12-07 08:40 | HO.PSYCHPN ---
Subjective Subjective Date of Service: 12/07/23 Reason For Visit: Marge Subjective Notes: Section 7 Healthcare Proxy: No Guardianship: No Interim History: Patient was seen and reviewed in rounds today. Records and plans were reviewed. He continues to be irritable, labile, guarded. No medications taken. Not attending groups. Slept 6 or 7 hours with an interruption. No changes were made today Medication Compliance: No Review of Systems Review of Systems Yes all other systems are reviewed and are negative Mental Status Exam Mental Status Exam Narrative: In today's visit he is alert, interactive within his means. Speech is loud. Good eye contact. Affect is labile. No overt signs of psychosis. No SI. Could not assess cognitively. Judgment is marginal. No musculoskeletal difficulties. Able to move all limbs. No abnormalities of gait Diagnostics Vital Signs (24Hr): Vital Signs - 24 hr 12/06/23 21:05 Temperature 97.8 F Pulse Rate 88 Respiratory Rate 16 Blood Pressure 140/80 H Pulse Oximetry 99 Oxygen Delivery Method Room Air BMI result Body Mass Index 31.9 Labs 11/25/23 18:46 11/25/23 18:46 Medications Medications Current Medications Acetaminophen (Acetaminophen 325 Mg Tablet) 650 mg PO Q6H PRN PRN Reason: Headache/Pain Mild Scale (1-3) Al Hydroxide/Mg Hydroxide (Magnesium Hydrox/Alum Hydrox 30 Ml Oral.Susp) 30 ml PO Q6H PRN PRN Reason: Heartburn/Nausea Hydroxyzine HCl (Hydroxyzine Hcl 25 Mg Tablet) 25 mg PO Q6H PRN PRN Reason: Anxiety [place] Carbonate ([place] Carbonate Er 300 Mg Tablet.Er) 1,200 mg PO BEDTIME [facility] Last Admin: 12/06/23 21:02 Dose: Not Given Lorazepam (Lorazepam 1 Mg Tablet) 2 mg PO Q6H PRN PRN Reason: agitation Magnesium Hydroxide (Milk Of Magnesia 30 Ml Oral.Susp) 30 ml PO DAILY PRN PRN Reason: Constipation Nicotine Polacrilex (Nicotine Polacrilex 2 Mg Gum) 4 mg BUCCAL Q2H PRN PRN Reason: Nicotine Cravings Olanzapine (Olanzapine Odt 10 Mg Tab.Rapdis) 10 mg TRANSLINGU Q6H PRN PRN Reason: agitation Olanzapine (Olanzapine Odt 10 Mg Tab.Rapdis) 20 mg TRANSLINGU BEDTIME [facility] Last Admin: 12/06/23 21:03 Dose: Not Given Trazodone HCl (Trazodone Hcl 50 Mg Tablet) 50 mg PO BEDTIME MRX1 PRN PRN Reason: Insomnia Allergies Allergies Allergy/AdvReac Type Severity Reaction Status Date / Time Unable to Assess Allergy Verified 11/25/23 17:57 Assessment & Plan Assessment & Plan (1) Moderate bipolar I disorder with marge as current episode: Status: Acute Code(s): F31.12 - Bipolar disorder, current episode manic without psychotic features, moderate Plan 11/26: offer lithium. hold haldol for now. 11/27: took HS dose, refused morning dose. reportedly he will only take medications at night. reschedule all lithium to HS, 1200 mg. 11/28: pt refused lithium last night. screamed at MD yesterday, calmly declines interview today: see you in court. olanzapine 20 mg QHS added to regimen, commitment paperwork filed. records from [facility] received and reviewed. 11/29: Court hearing pending. Declining medications in the meantime. 11/30: no changes 12/01 intrusive, poor boundaries. declines medications. 12/02 easily agitated refuses medication pressured 12/04/2023 Continues to refuse medication bizarre behavior illogical poor impulse control writing things on the kaur smearing feces on himself and on the kaur stuffing toilet 12/05/2023 Patient continues to refuse medication refused to use manager nuclear periods of yelling agitated screaming about his sister having mental illness other times isolated and withdrawn 12/06/2023 Patient continues to refuse medication refuses to engage in ongoing conversation with manager nuclear difficult to have reality based conversation 12/07/2023: Continue current regimen and plans. Refuses meds and cord is scheduled for 12/08 Reason for continued inpatient stay Substantial Risk for: med/psych decompensation Time Spent With Patient Time: Total time managing care of this patient today ____ minutes.
[2023-12-07 20:00] VITALS: BP 142/85; PULSE 97; RESP 16; TEMP 36.4; O2SAT 100
[2023-12-08 07:15] VITALS: BP 131/85; PULSE 98; RESP 16; TEMP 36.6; O2SAT 97
--- NOTE | 2023-12-08 09:12 | HO.PSYCHPN ---
Subjective Subjective Date of Service: 12/08/23 Reason For Visit: Marge Subjective Notes: Section 7 Healthcare Proxy: No Guardianship: No Interim History: Patient was seen and reviewed in rounds today. Records and plans were reviewed. He has been visible. Continues to not take any medications. Refused one-to-one. He is responding to internal stimuli. Slept [address] or [address] hearing scheduled for 12/13. No behavioral issues. No changes were made today Medication Compliance: No Review of Systems Review of Systems Yes all other systems are reviewed and are negative Mental Status Exam Mental Status Exam Narrative: In today's visit he is alert, interactive within his means. Speech normal. Good eye contact. Affect is labile. No overt signs of psychosis. Observed to be responding to internal stimuli and self dialogue. No SI. Could not assess cognitively. Judgment is marginal. No musculoskeletal difficulties. Able to move all limbs. No abnormalities of gait Diagnostics Vital Signs (24Hr): Vital Signs - 24 hr 12/07/23 20:00 12/08/23 07:15 Temperature 97.6 F 97.8 F Pulse Rate 97 98 Respiratory Rate 16 16 Blood Pressure 142/85 H 131/85 Pulse Oximetry 100 97 Oxygen Delivery Method Room Air Room Air BMI result Body Mass Index 31.9 Labs 11/25/23 18:46 11/25/23 18:46 Medications Medications Current Medications Acetaminophen (Acetaminophen 325 Mg Tablet) 650 mg PO Q6H PRN PRN Reason: Headache/Pain Mild Scale (1-3) Al Hydroxide/Mg Hydroxide (Magnesium Hydrox/Alum Hydrox 30 Ml Oral.Susp) 30 ml PO Q6H PRN PRN Reason: Heartburn/Nausea Hydroxyzine HCl (Hydroxyzine Hcl 25 Mg Tablet) 25 mg PO Q6H PRN PRN Reason: Anxiety [place] Carbonate ([place] Carbonate Er 300 Mg Tablet.Er) 1,200 mg PO BEDTIME [facility] Last Admin: 12/07/23 22:21 Dose: Not Given Lorazepam (Lorazepam 1 Mg Tablet) 2 mg PO Q6H PRN PRN Reason: agitation Magnesium Hydroxide (Milk Of Magnesia 30 Ml Oral.Susp) 30 ml PO DAILY PRN PRN Reason: Constipation Nicotine Polacrilex (Nicotine Polacrilex 2 Mg Gum) 4 mg BUCCAL Q2H PRN PRN Reason: Nicotine Cravings Olanzapine (Olanzapine Odt 10 Mg Tab.Rapdis) 10 mg TRANSLINGU Q6H PRN PRN Reason: agitation Olanzapine (Olanzapine Odt 10 Mg Tab.Rapdis) 20 mg TRANSLINGU BEDTIME [facility] Last Admin: 12/07/23 22:21 Dose: Not Given Trazodone HCl (Trazodone Hcl 50 Mg Tablet) 50 mg PO BEDTIME MRX1 PRN PRN Reason: Insomnia Allergies Allergies Allergy/AdvReac Type Severity Reaction Status Date / Time Unable to Assess Allergy Verified 11/25/23 17:57 Assessment & Plan Assessment & Plan (1) Moderate bipolar I disorder with marge as current episode: Status: Acute Code(s): F31.12 - Bipolar disorder, current episode manic without psychotic features, moderate Plan 11/26: offer lithium. hold haldol for now. 11/27: took HS dose, refused morning dose. reportedly he will only take medications at night. reschedule all lithium to HS, 1200 mg. 11/28: pt refused lithium last night. screamed at MD yesterday, calmly declines interview today: see you in court. olanzapine 20 mg QHS added to regimen, commitment paperwork filed. records from [facility] received and reviewed. 11/29: Court hearing pending. Declining medications in the meantime. 11/30: no changes 12/01 intrusive, poor boundaries. declines medications. 12/02 easily agitated refuses medication pressured 12/04/2023 Continues to refuse medication bizarre behavior illogical poor impulse control writing things on the kaur smearing feces on himself and on the kaur stuffing toilet 12/05/2023 Patient continues to refuse medication refused to use self contained behavior unit teacher periods of yelling agitated screaming about his sister having mental illness other times isolated and withdrawn 12/06/2023 Patient continues to refuse medication refuses to engage in ongoing conversation with self contained behavior unit teacher difficult to have reality based conversation 12/07/2023: Continue current regimen and plans. Refuses meds and cord is scheduled for 12/0812/08/2023: Continue current regimen and plans Reason for continued inpatient stay Substantial Risk for: med/psych decompensation Time Spent With Patient Time: Total time managing care of this patient today ____ minutes.
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
[2023-12-08 19:40] VITALS: BP 123/74; PULSE 89; RESP 17; TEMP 36.4; O2SAT 98
--- NOTE | 2023-12-09 14:24 | PC.NURSE ---
Patient seen writing on furniture n in day room . litzy ALBARRAN attempted to redirect patient began to scream loudly at her ., was able to calm self , Remains on CO status .
--- NOTE | 2023-12-09 14:34 | P.PNPSI_ITS ---
Subjective Subjective Date of Service: 12/09/23 Reason For Visit: Marge Interim History: politely declines interview with MD when approached, states everything is fine. observed pacing the akhtar much of the day, seated in the milieu. one outburst observed in part as pt began yelling very loudly at staff member who was attempting to remove the ink from a chair he had written all over. per staff, denies psychiatric Sx. irritable, labile, agitated.+ RIS. pacing. loud. threw water bottle at staff yesterday. poor ADLs, quite malodorous. aggressive posturing, flexing muscles and staring intently at staff over w/e. Mental Status Exam Mental Status Exam Narrative: adequately dressed and groomed. not cooperative. variable PMA/PMR. speech nml rate, decr amount, nml latency, incr loudness. thoughts linear in very brief interaction. affect hyper-intense, labile. mood unable to assess. no SI/SIBI/HI/AVH expressed. Diagnostics Vital Signs (24Hr): Vital Signs - 24 hr 12/08/23 19:40 Temperature 97.6 F Pulse Rate 89 Respiratory Rate 17 Blood Pressure 123/74 Pulse Oximetry 98 Oxygen Delivery Method Room Air BMI result Body Mass Index 31.9 Labs 11/25/23 18:46 11/25/23 18:46 Medications Medications Current Medications Acetaminophen (Acetaminophen 325 Mg Tablet) 650 mg PO Q6H PRN PRN Reason: Headache/Pain Mild Scale (1-3) Al Hydroxide/Mg Hydroxide (Magnesium Hydrox/Alum Hydrox 30 Ml Oral.Susp) 30 ml PO Q6H PRN PRN Reason: Heartburn/Nausea Hydroxyzine HCl (Hydroxyzine Hcl 25 Mg Tablet) 25 mg PO Q6H PRN PRN Reason: Anxiety [place] Carbonate ([place] Carbonate Er 300 Mg Tablet.Er) 1,200 mg PO BEDTIME [facility] Last Admin: 12/08/23 22:13 Dose: Not Given Lorazepam (Lorazepam 1 Mg Tablet) 2 mg PO Q6H PRN PRN Reason: agitation Magnesium Hydroxide (Milk Of Magnesia 30 Ml Oral.Susp) 30 ml PO DAILY PRN PRN Reason: Constipation Nicotine Polacrilex (Nicotine Polacrilex 2 Mg Gum) 4 mg BUCCAL Q2H PRN PRN Reason: Nicotine Cravings Olanzapine (Olanzapine Odt 10 Mg Tab.Rapdis) 10 mg TRANSLINGU Q6H PRN PRN Reason: agitation Olanzapine (Olanzapine Odt 10 Mg Tab.Rapdis) 20 mg TRANSLINGU BEDTIME [facility] Last Admin: 12/08/23 22:13 Dose: Not Given Trazodone HCl (Trazodone Hcl 50 Mg Tablet) 50 mg PO BEDTIME MRX1 PRN PRN Reason: Insomnia Allergies Allergies Allergy/AdvReac Type Severity Reaction Status Date / Time Unable to Assess Allergy Verified 11/25/23 17:57 Assessment & Plan Assessment & Plan (1) Moderate bipolar I disorder with marge as current episode: Status: Acute Code(s): F31.12 - Bipolar disorder, current episode manic without psychotic features, moderate Plan 11/26: offer lithium. hold haldol for now. 11/27: took HS dose, refused morning dose. reportedly he will only take medications at night. reschedule all lithium to HS, 1200 mg. 11/28: pt refused lithium last night. screamed at MD yesterday, calmly declines interview today: see you in court. olanzapine 20 mg QHS added to regimen, commitment paperwork filed. records from [facility] received and reviewed. 11/29: Court hearing pending. Declining medications in the meantime. 11/30: no changes 12/01 intrusive, poor boundaries. declines medications. 12/02 easily agitated refuses medication pressured 12/04/2023 Continues to refuse medication bizarre behavior illogical poor impulse control writing things on the kaur smearing feces on himself and on the kaur stuffing toilet 12/05/2023 Patient continues to refuse medication refused to use supervisor shearing periods of yelling agitated screaming about his sister having mental illness other times isolated and withdrawn 12/06/2023 Patient continues to refuse medication refuses to engage in ongoing conversation with supervisor shearing difficult to have reality based conversation 12/07/2023: Continue current regimen and plans. Refuses meds and cord is scheduled for 12/0812/08/2023: Continue current regimen and plans 12/08: refusing medications, labile, angry. some posturing over weekend, yelling at staff for trying to clean the couch that he wrote all over in ink. declined interview today. court tomorrow. Reason for continued inpatient stay Substantial Risk for: harm to self, harm to others and inability to function Time Spent With Patient Time: Total time managing care of this patient today __25__ minutes.
[2023-12-09 20:45] VITALS: RESP 18
[2023-12-10 07:58] VITALS: BP 127/78; PULSE 81; RESP 16; TEMP 37.1; O2SAT 98
--- NOTE | 2023-12-10 15:35 | P.PNPSI_ITS ---
Subjective Subjective Date of Service: 12/10/23 Reason For Visit: Marge Interim History: politely declined interview today, informed MD he is a good man. MD asked if pt wanted to see director safety today, pt declined: no, i don't want. hearing held, pt committed with med order as well. per staff, denies dep/anx. irritable. tense. visible. not taking meds. +RIS. when asked to give up marker and not write on couch, screamed at RN. Mental Status Exam Mental Status Exam Narrative: adequately dressed and groomed. not cooperative. variable PMA/PMR. speech nml rate, decr amount, nml latency, nml loudness. thoughts linear in very brief interaction. affect hyper-intense, non-labile. mood unable to assess. no SI/SIBI/HI/AVH expressed. Diagnostics Vital Signs (24Hr): Vital Signs - 24 hr 12/09/23 20:45 12/10/23 07:58 Temperature 98.7 F Pulse Rate 81 Respiratory Rate 18 16 Blood Pressure 127/78 Pulse Oximetry 98 Oxygen Delivery Method Room Air BMI result Body Mass Index 31.9 Labs 11/25/23 18:46 11/25/23 18:46 Medications Medications Current Medications Acetaminophen (Acetaminophen 325 Mg Tablet) 650 mg PO Q6H PRN PRN Reason: Headache/Pain Mild Scale (1-3) Al Hydroxide/Mg Hydroxide (Magnesium Hydrox/Alum Hydrox 30 Ml Oral.Susp) 30 ml PO Q6H PRN PRN Reason: Heartburn/Nausea Hydroxyzine HCl (Hydroxyzine Hcl 25 Mg Tablet) 25 mg PO Q6H PRN PRN Reason: Anxiety [place] Carbonate ([place] Carbonate Er 300 Mg Tablet.Er) 1,200 mg PO BEDTIME [facility] Last Admin: 12/09/23 21:57 Dose: Not Given Lorazepam (Lorazepam 1 Mg Tablet) 2 mg PO Q6H PRN PRN Reason: agitation Magnesium Hydroxide (Milk Of Magnesia 30 Ml Oral.Susp) 30 ml PO DAILY PRN PRN Reason: Constipation Nicotine Polacrilex (Nicotine Polacrilex 2 Mg Gum) 4 mg BUCCAL Q2H PRN PRN Reason: Nicotine Cravings Olanzapine (Olanzapine Odt 10 Mg Tab.Rapdis) 10 mg TRANSLINGU Q6H PRN PRN Reason: agitation Olanzapine (Olanzapine Odt 10 Mg Tab.Rapdis) 20 mg TRANSLINGU BEDTIME [facility] Last Admin: 12/09/23 21:57 Dose: Not Given Trazodone HCl (Trazodone Hcl 50 Mg Tablet) 50 mg PO BEDTIME MRX1 PRN PRN Reason: Insomnia Allergies Allergies Allergy/AdvReac Type Severity Reaction Status Date / Time Unable to Assess Allergy Verified 11/25/23 17:57 Assessment & Plan Assessment & Plan (1) Moderate bipolar I disorder with marge as current episode: Status: Acute Code(s): F31.12 - Bipolar disorder, current episode manic without psychotic features, moderate Plan 11/26: offer lithium. hold haldol for now. 11/27: took HS dose, refused morning dose. reportedly he will only take medications at night. reschedule all lithium to HS, 1200 mg. 11/28: pt refused lithium last night. screamed at MD yesterday, calmly declines interview today: see you in court. olanzapine 20 mg QHS added to regimen, commitment paperwork filed. records from [facility] received and reviewed. 11/29: Court hearing pending. Declining medications in the meantime. 11/30: no changes 12/01 intrusive, poor boundaries. declines medications. 12/02 easily agitated refuses medication pressured 12/04/2023 Continues to refuse medication bizarre behavior illogical poor impulse control writing things on the kaur smearing feces on himself and on the kaur stuffing toilet 12/05/2023 Patient continues to refuse medication refused to use ex assistant/program director periods of yelling agitated screaming about his sister having mental illness other times isolated and withdrawn 12/06/2023 Patient continues to refuse medication refuses to engage in ongoing conversation with ex assistant/program director difficult to have reality based conversation 12/07/2023: Continue current regimen and plans. Refuses meds and cord is scheduled for 12/0812/08/2023: Continue current regimen and plans 12/08: refusing medications, labile, angry. some posturing over weekend, yelling at staff for trying to clean the couch that he wrote all over in ink. declined interview today. court tomorrow. 12/09: declines to speak with MD beyond saying he does not wish to attend court or meet with MD. 1.5 hr hearing, pt was committed and meds ordered by court. will await in-person nepalese ex assistant/program director tomorrow to inform pt of results of court and necessity to take medication. Reason for continued inpatient stay Substantial Risk for: harm to self, harm to others, inability to function and rapid decompensation Time Spent With Patient Time: Total time managing care of this patient today __105__ minutes.
[2023-12-10 20:00] VITALS: BP 154/78; PULSE 78; RESP 16; TEMP 36.6; O2SAT 96
[2023-12-11 08:57] VITALS: BP 134/89; PULSE 104; RESP 18; TEMP 36.3; O2SAT 99
[2023-12-11] MEDS: OLANZapine ODT 10 MG TAB.RAPDIS 20 MG TRANSLINGU ×2 (10:30→21:13)
[2023-12-11] MEDS: Lithium Carbonate ER 450 MG TABLET.ER PO (10:38)
--- NOTE | 2023-12-11 14:15 | P.PNPSI_ITS ---
Subjective Subjective Date of Service: 12/11/23 Reason For Visit: Alfa Interim History: pt approached with cape verdean corrugated sheet material sheeter ivon, multiple staff, security for discussion on commitment, medication, and sharpie. pt requesting copy of court order and MD's credentials prior to taking medication, as well as documentation of room assignment. after much back and forth, various tangents, pt finally agreed to take medication and allow skin check for sharpie. pt was provided with copy or isamar haider, information data from [employer] for sharon mendez MD, and a note informing pt that he has been assigned to room 308-1 but that he may not be assigned to that room for the entirety of his stay. situation de- escalated, pt took medication. it was explained to pt by corrugated sheet material sheeter that medication is court-ordered and if he refuses PO dosing he will be given IM. Mental Status Exam Mental Status Exam Narrative: adequately dressed and groomed. cooperative. PMA. speech incr rate, amount; decr latency, incr loudness. thoughts linear to tangential. affect hyper- intense, labile. mood not assessed. no SI/SIBI/HI/AVH expressed. Diagnostics Vital Signs (24Hr): Vital Signs - 24 hr 12/10/23 20:00 12/11/23 08:57 Temperature 97.8 F 97.4 F Pulse Rate 78 104 H Respiratory Rate 16 18 Blood Pressure 154/78 H 134/89 Pulse Oximetry 96 99 Oxygen Delivery Method Room Air Room Air BMI result Body Mass Index 31.9 Labs 11/25/23 18:46 11/25/23 18:46 Medications Medications Current Medications Acetaminophen (Acetaminophen 325 Mg Tablet) 650 mg PO Q6H PRN PRN Reason: Headache/Pain Mild Scale (1-3) Al Hydroxide/Mg Hydroxide (Magnesium Hydrox/Alum Hydrox 30 Ml Oral.Susp) 30 ml PO Q6H PRN PRN Reason: Heartburn/Nausea Hydroxyzine HCl (Hydroxyzine Hcl 25 Mg Tablet) 25 mg PO Q6H PRN PRN Reason: Anxiety [place] Carbonate ([place] Carbonate Er 450 Mg Tablet.Er) 450 mg PO BID [facility] Last Admin: 12/11/23 10:38 Dose: 450 mg Lorazepam (Lorazepam 1 Mg Tablet) 2 mg PO Q6H PRN PRN Reason: agitation Magnesium Hydroxide (Milk Of Magnesia 30 Ml Oral.Susp) 30 ml PO DAILY PRN PRN Reason: Constipation Nicotine Polacrilex (Nicotine Polacrilex 2 Mg Gum) 4 mg BUCCAL Q2H PRN PRN Reason: Nicotine Cravings Olanzapine (Olanzapine Odt 10 Mg Tab.Rapdis) 10 mg TRANSLINGU Q6H PRN PRN Reason: agitation Olanzapine (Olanzapine Odt 10 Mg Tab.Rapdis) 20 mg TRANSLINGU BEDTIME [facility] Last Admin: 12/10/23 20:20 Dose: Not Given Olanzapine (Olanzapine 10 Mg Vial) 10 mg IM BEDTIME PRN PRN Reason: refusal of ODT: per court ord Trazodone HCl (Trazodone Hcl 50 Mg Tablet) 50 mg PO BEDTIME MRX1 PRN PRN Reason: Insomnia Allergies Allergies Allergy/AdvReac Type Severity Reaction Status Date / Time Unable to Assess Allergy Verified 11/25/23 17:57 Assessment & Plan Assessment & Plan (1) Moderate bipolar I disorder with alfa as current episode: Status: Acute Code(s): F31.12 - Bipolar disorder, current episode manic without psychotic features, moderate Plan 11/26: offer lithium. hold haldol for now. 11/27: took HS dose, refused morning dose. reportedly he will only take medications at night. reschedule all lithium to HS, 1200 mg. 11/28: pt refused lithium last night. screamed at MD yesterday, calmly declines interview today: see you in court. olanzapine 20 mg QHS added to regimen, commitment paperwork filed. records from [facility] received and reviewed. 11/29: Court hearing pending. Declining medications in the meantime. 11/30: no changes 12/01 intrusive, poor boundaries. declines medications. 12/02 easily agitated refuses medication pressured 12/04/2023 Continues to refuse medication bizarre behavior illogical poor impulse control writing things on the kaur smearing feces on himself and on the kaur stuffing toilet 12/05/2023 Patient continues to refuse medication refused to use corrugated sheet material sheeter periods of yelling agitated screaming about his sister having mental illness other times isolated and withdrawn 12/06/2023 Patient continues to refuse medication refuses to engage in ongoing conversation with corrugated sheet material sheeter difficult to have reality based conversation 12/07/2023: Continue current regimen and plans. Refuses meds and cord is scheduled for 12/0812/08/2023: Continue current regimen and plans 12/08: refusing medications, labile, angry. some posturing over weekend, yelling at staff for trying to clean the couch that he wrote all over in ink. declined interview today. court tomorrow. 12/09: declines to speak with MD beyond saying he does not wish to attend court or meet with MD. 1.5 hr hearing, pt was committed and meds ordered by court. will await in-person cape verdean corrugated sheet material sheeter tomorrow to inform pt of results of court and necessity to take medication. 12/10: discussion held with pt, architect intern, various staff re commitment and court-ordered medication. changed context of hospitalization explained to pt, including PO refusal's leading to IM; pt appeared to understand. pt accepted Zydis and lithium this morning. Reason for continued inpatient stay Substantial Risk for: harm to self, harm to others, inability to function and rapid decompensation Time Spent With Patient Time: Total time managing care of this patient today __55__ minutes.
[2023-12-11 20:00] VITALS: RESP 16
--- NOTE | 2023-12-12 14:13 | P.PNPSI_ITS ---
Subjective Subjective Date of Service: 12/12/23 Reason For Visit: Marge Interim History: irritable today, says he is tired, says medication is too much. seen with foreign language interpreter and JOSE Cancino. says will not talk while he is under the medication. reiterated he is under court order to take it. pt dismissive of and JOSE. per staff, quieter. slept most all the day yesterday. Mental Status Exam Mental Status Exam Narrative: adequately dressed, disheveled. cooperative. PMA when agitated. speech incr rate, amount; decr latency, incr loudness. thoughts linear to tangential. affect hyper-intense, labile. mood not assessed. no SI/SIBI/HI/AVH expressed. Diagnostics Vital Signs (24Hr): Vital Signs - 24 hr 12/11/23 20:00 Respiratory Rate 16 BMI result Body Mass Index 31.9 Labs 11/25/23 18:46 11/25/23 18:46 Medications Medications Current Medications Acetaminophen (Acetaminophen 325 Mg Tablet) 650 mg PO Q6H PRN PRN Reason: Headache/Pain Mild Scale (1-3) Al Hydroxide/Mg Hydroxide (Magnesium Hydrox/Alum Hydrox 30 Ml Oral.Susp) 30 ml PO Q6H PRN PRN Reason: Heartburn/Nausea Hydroxyzine HCl (Hydroxyzine Hcl 25 Mg Tablet) 25 mg PO Q6H PRN PRN Reason: Anxiety [place] Carbonate ([place] Carbonate Er 450 Mg Tablet.Er) 900 mg PO BID KENDALL Lorazepam (Lorazepam 1 Mg Tablet) 2 mg PO Q6H PRN PRN Reason: agitation Magnesium Hydroxide (Milk Of Magnesia 30 Ml Oral.Susp) 30 ml PO DAILY PRN PRN Reason: Constipation Nicotine Polacrilex (Nicotine Polacrilex 2 Mg Gum) 4 mg BUCCAL Q2H PRN PRN Reason: Nicotine Cravings Olanzapine (Olanzapine Odt 10 Mg Tab.Rapdis) 10 mg TRANSLINGU Q6H PRN PRN Reason: agitation Olanzapine (Olanzapine 10 Mg Vial) 10 mg IM BEDTIME PRN PRN Reason: refusal of ODT: per court ord Olanzapine (Olanzapine Odt 10 Mg Tab.Rapdis) 10 mg TRANSLINGU BEDTIME KENDALL Trazodone HCl (Trazodone Hcl 50 Mg Tablet) 50 mg PO BEDTIME MRX1 PRN PRN Reason: Insomnia Allergies Allergies Allergy/AdvReac Type Severity Reaction Status Date / Time Unable to Assess Allergy Verified 11/25/23 17:57 Assessment & Plan Assessment & Plan (1) Moderate bipolar I disorder with marge as current episode: Status: Acute Code(s): F31.12 - Bipolar disorder, current episode manic without psychotic features, moderate Plan 11/26: offer lithium. hold haldol for now. 11/27: took HS dose, refused morning dose. reportedly he will only take medications at night. reschedule all lithium to HS, 1200 mg. 11/28: pt refused lithium last night. screamed at MD yesterday, calmly declines interview today: see you in court. olanzapine 20 mg QHS added to regimen, commitment paperwork filed. records from [facility] received and reviewed. 11/29: Court hearing pending. Declining medications in the meantime. 11/30: no changes 12/01 intrusive, poor boundaries. declines medications. 12/02 easily agitated refuses medication pressured 12/04/2023 Continues to refuse medication bizarre behavior illogical poor impulse control writing things on the kaur smearing feces on himself and on the kaur stuffing toilet 12/05/2023 Patient continues to refuse medication refused to use renewable energy consultant periods of yelling agitated screaming about his sister having mental illness other times isolated and withdrawn 12/06/2023 Patient continues to refuse medication refuses to engage in ongoing conversation with renewable energy consultant difficult to have reality based conversation 12/07/2023: Continue current regimen and plans. Refuses meds and cord is scheduled for 12/0812/08/2023: Continue current regimen and plans 12/08: refusing medications, labile, angry. some posturing over weekend, yelling at staff for trying to clean the couch that he wrote all over in ink. declined interview today. court tomorrow. 12/09: declines to speak with MD beyond saying he does not wish to attend court or meet with MD. 1.5 hr hearing, pt was committed and meds ordered by court. will await in-person afghan renewable energy consultant tomorrow to inform pt of results of court and necessity to take medication. 12/10: discussion held with pt, foreign language interpreter, various staff re commitment and court-ordered medication. changed context of hospitalization explained to pt, including PO refusal's leading to IM; pt appeared to understand. pt accepted Zydis and lithium this morning. 12/11: med-compliant. seen with JOSE Cancino and foreign language interpreter. feeling overmedicated, slept all day yesterday. will change all meds to HS and decrease olanzapine to 10 mg. new regimen lithium ER 900 QHS and zyprexa 10 QHS. Reason for continued inpatient stay Substantial Risk for: harm to self, harm to others, inability to function and rapid decompensation Time Spent With Patient Time: Total time managing care of this patient today __40__ minutes.
[2023-12-12 19:45] VITALS: BP 116/74; PULSE 101; RESP 16; TEMP 36.3; O2SAT 96
[2023-12-12] MEDS: OLANZapine ODT 10 MG TAB.RAPDIS TRANSLINGU (21:34)
[2023-12-13 07:10] VITALS: BP 132/91; PULSE 114; RESP 16; TEMP 36.2; O2SAT 95
[2023-12-13] MEDS: Lithium Carbonate ER 450 MG TABLET.ER 900 MG PO ×2 (08:38→20:46)
--- NOTE | 2023-12-13 15:34 | HO.PSYCHPN ---
Subjective Subjective Date of Service: 12/13/23 Reason For Visit: Marge Interim History: seen with JOSE Cancino and bahamian colliery clerk. irritable, labile. at one point furiously smashing one fist into the palm of his other hand (punching) to make his point. says everything is fine, no need to talk, tells us to go away, which we ultimately do. per staff, refused HS lithium. pacing, self-dialoguing, up at 0500. slept 8 hours. Mental Status Exam Mental Status Exam Narrative: adequately dressed, disheveled. cooperative. PMA when agitated. speech incr rate, amount; decr latency, incr loudness. thoughts linear to tangential. affect hyper-intense, labile. mood not assessed. no SI/SIBI/HI/AVH expressed. Diagnostics Vital Signs (24Hr): Vital Signs - 24 hr 12/12/23 19:45 12/13/23 07:10 Temperature 97.4 F 97.2 F Pulse Rate 101 H 114 H Respiratory Rate 16 16 Blood Pressure 116/74 132/91 H Pulse Oximetry 96 95 Oxygen Delivery Method Room Air Room Air BMI result Body Mass Index 31.9 Labs 11/25/23 18:46 11/25/23 18:46 Medications Medications Current Medications Acetaminophen (Acetaminophen 325 Mg Tablet) 650 mg PO Q6H PRN PRN Reason: Headache/Pain Mild Scale (1-3) Al Hydroxide/Mg Hydroxide (Magnesium Hydrox/Alum Hydrox 30 Ml Oral.Susp) 30 ml PO Q6H PRN PRN Reason: Heartburn/Nausea Diazepam (Diazepam 10 Mg/2 Ml Cartridge) 10 mg IM BEDTIME PRN PRN Reason: refusal of lithium, per court order Hydroxyzine HCl (Hydroxyzine Hcl 25 Mg Tablet) 25 mg PO Q6H PRN PRN Reason: Anxiety [place] Carbonate ([place] Carbonate Er 450 Mg Tablet.Er) 900 mg PO BEDTIME KENDALL Magnesium Hydroxide (Milk Of Magnesia 30 Ml Oral.Susp) 30 ml PO DAILY PRN PRN Reason: Constipation Nicotine Polacrilex (Nicotine Polacrilex 2 Mg Gum) 4 mg BUCCAL Q2H PRN PRN Reason: Nicotine Cravings Olanzapine (Olanzapine Odt 10 Mg Tab.Rapdis) 10 mg TRANSLINGU Q6H PRN PRN Reason: agitation Olanzapine (Olanzapine 10 Mg Vial) 10 mg IM BEDTIME PRN PRN Reason: refusal of ODT: per court ord Olanzapine (Olanzapine Odt 10 Mg Tab.Rapdis) 20 mg TRANSLINGU BEDTIME KENDALL Trazodone HCl (Trazodone Hcl 50 Mg Tablet) 50 mg PO BEDTIME MRX1 PRN PRN Reason: Insomnia Allergies Allergies Allergy/AdvReac Type Severity Reaction Status Date / Time Unable to Assess Allergy Verified 11/25/23 17:57 Assessment & Plan Assessment & Plan (1) Moderate bipolar I disorder with marge as current episode: Status: Acute Code(s): F31.12 - Bipolar disorder, current episode manic without psychotic features, moderate Plan 11/26: offer lithium. hold haldol for now. 11/27: took HS dose, refused morning dose. reportedly he will only take medications at night. reschedule all lithium to HS, 1200 mg. 11/28: pt refused lithium last night. screamed at MD yesterday, calmly declines interview today: see you in court. olanzapine 20 mg QHS added to regimen, commitment paperwork filed. records from [facility] received and reviewed. 11/29: Court hearing pending. Declining medications in the meantime. 11/30: no changes 12/01 intrusive, poor boundaries. declines medications. 12/02 easily agitated refuses medication pressured 12/04/2023 Continues to refuse medication bizarre behavior illogical poor impulse control writing things on the kaur smearing feces on himself and on the kaur stuffing toilet 12/05/2023 Patient continues to refuse medication refused to use deoiling machine operator periods of yelling agitated screaming about his sister having mental illness other times isolated and withdrawn 12/06/2023 Patient continues to refuse medication refuses to engage in ongoing conversation with deoiling machine operator difficult to have reality based conversation 12/07/2023: Continue current regimen and plans. Refuses meds and cord is scheduled for 12/0812/08/2023: Continue current regimen and plans 12/08: refusing medications, labile, angry. some posturing over weekend, yelling at staff for trying to clean the couch that he wrote all over in ink. declined interview today. court tomorrow. 12/09: declines to speak with MD beyond saying he does not wish to attend court or meet with MD. 1.5 hr hearing, pt was committed and meds ordered by court. will await in-person bahamian deoiling machine operator tomorrow to inform pt of results of court and necessity to take medication. 12/10: discussion held with pt, colliery clerk, various staff re commitment and court-ordered medication. changed context of hospitalization explained to pt, including PO refusal's leading to IM; pt appeared to understand. pt accepted Zydis and lithium this morning. 12/11: med-compliant. seen with JOSE Cancino and colliery clerk. feeling overmedicated, slept all day yesterday. will change all meds to HS and decrease olanzapine to 10 mg. new regimen lithium ER 900 QHS and zyprexa 10 QHS. 12/12: more labile and agitated this morning, furiously punching his palm in making his point. refused HS lithium last night, took it this morning. up at 0500. will return HS olanzapine dosing to 20 mg. add valium IM if lithium is refused. Reason for continued inpatient stay Substantial Risk for: harm to self, harm to others, inability to function and rapid decompensation Time Spent With Patient Time: Total time managing care of this patient today __35__ minutes.
[2023-12-13 19:40] VITALS: BP 129/81; PULSE 103; RESP 18; TEMP 36.8; O2SAT 96
[2023-12-13] MEDS: OLANZapine ODT 10 MG TAB.RAPDIS 20 MG TRANSLINGU (20:46)
[2023-12-14 08:05] VITALS: BP 115/86; PULSE 100; RESP 16; TEMP 36.6; O2SAT 97
[2023-12-14] MEDS: Nicotine Polacrilex 2 MG GUM 4 MG BUCCAL (09:02)
--- NOTE | 2023-12-14 13:47 | HO.PSYCHPN ---
Subjective Subjective Date of Service: 12/14/23 Reason For Visit: Marge Subjective Notes: Section 8 Interim History: Pt slept most of the night. He declines talking much with this magazine writer other than to say that I'm fine. he continues on one to one due to impulsive, erratic behaviors. Review of Systems Review of Systems ROS unable to be obtained due to poor historian Yes all other systems are reviewed and are negative and Unobtainable due to mental condition Mental Status Exam Mental Status Exam Narrative: adequately dressed, disheveled. cooperative. PMA when agitated. speech incr rate, amount; decr latency, incr loudness. thoughts linear to tangential. affect hyper-intense, labile. mood not assessed. no SI/SIBI/HI/AVH expressed. Diagnostics Vital Signs (24Hr): Vital Signs - 24 hr 12/13/23 19:40 12/14/23 08:05 Temperature 98.3 F 97.8 F Pulse Rate 103 H 100 Respiratory Rate 18 16 Blood Pressure 129/81 115/86 Pulse Oximetry 96 97 Oxygen Delivery Method Room Air Room Air BMI result Body Mass Index 31.9 Labs 11/25/23 18:46 11/25/23 18:46 Medications Medications Current Medications Acetaminophen (Acetaminophen 325 Mg Tablet) 650 mg PO Q6H PRN PRN Reason: Headache/Pain Mild Scale (1-3) Al Hydroxide/Mg Hydroxide (Magnesium Hydrox/Alum Hydrox 30 Ml Oral.Susp) 30 ml PO Q6H PRN PRN Reason: Heartburn/Nausea Diazepam (Diazepam 10 Mg/2 Ml Cartridge) 10 mg IM BEDTIME PRN PRN Reason: refusal of lithium, per court order Hydroxyzine HCl (Hydroxyzine Hcl 25 Mg Tablet) 25 mg PO Q6H PRN PRN Reason: Anxiety [place] Carbonate ([place] Carbonate Er 450 Mg Tablet.Er) 900 mg PO BEDTIME KENDALL Last Admin: 12/13/23 20:46 Dose: 900 mg Magnesium Hydroxide (Milk Of Magnesia 30 Ml Oral.Susp) 30 ml PO DAILY PRN PRN Reason: Constipation Nicotine Polacrilex (Nicotine Polacrilex 2 Mg Gum) 4 mg BUCCAL Q2H PRN PRN Reason: Nicotine Cravings Last Admin: 12/14/23 09:02 Dose: 4 mg Olanzapine (Olanzapine Odt 10 Mg Tab.Rapdis) 10 mg TRANSLINGU Q6H PRN PRN Reason: agitation Olanzapine (Olanzapine 10 Mg Vial) 10 mg IM BEDTIME PRN PRN Reason: refusal of ODT: per court ord Olanzapine (Olanzapine Odt 10 Mg Tab.Rapdis) 20 mg TRANSLINGU BEDTIME KENDALL Last Admin: 12/13/23 20:46 Dose: 20 mg Trazodone HCl (Trazodone Hcl 50 Mg Tablet) 50 mg PO BEDTIME MRX1 PRN PRN Reason: Insomnia Allergies Allergies Allergy/AdvReac Type Severity Reaction Status Date / Time Unable to Assess Allergy Verified 11/25/23 17:57 Assessment & Plan Assessment & Plan (1) Moderate bipolar I disorder with marge as current episode: Status: Acute Code(s): F31.12 - Bipolar disorder, current episode manic without psychotic features, moderate Plan 11/26: offer lithium. hold haldol for now. 11/27: took HS dose, refused morning dose. reportedly he will only take medications at night. reschedule all lithium to HS, 1200 mg. 11/28: pt refused lithium last night. screamed at MD yesterday, calmly declines interview today: see you in court. olanzapine 20 mg QHS added to regimen, commitment paperwork filed. records from [facility] received and reviewed. 11/29: Court hearing pending. Declining medications in the meantime. 11/30: no changes 12/01 intrusive, poor boundaries. declines medications. 12/02 easily agitated refuses medication pressured 12/04/2023 Continues to refuse medication bizarre behavior illogical poor impulse control writing things on the kaur smearing feces on himself and on the kaur stuffing toilet 12/05/2023 Patient continues to refuse medication refused to use global sales manager periods of yelling agitated screaming about his sister having mental illness other times isolated and withdrawn 12/06/2023 Patient continues to refuse medication refuses to engage in ongoing conversation with global sales manager difficult to have reality based conversation 12/07/2023: Continue current regimen and plans. Refuses meds and cord is scheduled for 12/0812/08/2023: Continue current regimen and plans 12/08: refusing medications, labile, angry. some posturing over weekend, yelling at staff for trying to clean the couch that he wrote all over in ink. declined interview today. court tomorrow. 12/09: declines to speak with MD beyond saying he does not wish to attend court or meet with MD. 1.5 hr hearing, pt was committed and meds ordered by court. will await in-person french global sales manager tomorrow to inform pt of results of court and necessity to take medication. 12/10: discussion held with pt, wallpaper printer helper, various staff re commitment and court-ordered medication. changed context of hospitalization explained to pt, including PO refusal's leading to IM; pt appeared to understand. pt accepted Zydis and lithium this morning. 12/11: med-compliant. seen with JOSE Cancino and wallpaper printer helper. feeling overmedicated, slept all day yesterday. will change all meds to HS and decrease olanzapine to 10 mg. new regimen lithium ER 900 QHS and zyprexa 10 QHS. 12/12: more labile and agitated this morning, furiously punching his palm in making his point. refused HS lithium last night, took it this morning. up at 0500. will return HS olanzapine dosing to 20 mg. add valium IM if lithium is refused. 12/13 continue tx Reason for continued inpatient stay Substantial Risk for: harm to others and inability to function Time Spent With Patient Time: Total time managing care of this patient today ____ minutes.
[2023-12-14 20:42] VITALS: BP 131/97; PULSE 106; RESP 18; TEMP 36.3; O2SAT 98
[2023-12-14] MEDS: OLANZapine ODT 10 MG TAB.RAPDIS 20 MG TRANSLINGU (20:46)
[2023-12-14] MEDS: Lithium Carbonate ER 450 MG TABLET.ER 900 MG PO (20:46)
[2023-12-15 07:30] VITALS: BP 141/97; PULSE 84; RESP 20; TEMP 36.8; O2SAT 97
[2023-12-15 08:19] VITALS: BP 126/78; PULSE 70; RESP 16; TEMP 36.8; O2SAT 97
--- NOTE | 2023-12-15 14:55 | HO.PSYCHPN ---
Subjective Subjective Date of Service: 12/15/23 Reason For Visit: Marge Interim History: Pt slept most of the night. He declines talking much with this clinical writer other than to say that I'm fine. he continues on one to one due to impulsive, erratic behaviors. Review of Systems Review of Systems ROS unable to be obtained due to poor historian Yes all other systems are reviewed and are negative and Unobtainable due to mental condition Mental Status Exam Mental Status Exam Narrative: adequately dressed, disheveled. cooperative. PMA when agitated. speech incr rate, amount; decr latency, incr loudness. thoughts linear to tangential. affect hyper-intense, labile. mood not assessed. no SI/SIBI/HI/AVH expressed. Diagnostics Vital Signs (24Hr): Vital Signs - 24 hr 12/14/23 20:42 12/15/23 07:30 12/15/23 08:19 Temperature 97.3 F 98.3 F 98.3 F Pulse Rate 106 H 84 70 Respiratory Rate 18 20 16 Blood Pressure 131/97 H 141/97 H 126/78 Pulse Oximetry 98 97 97 Oxygen Delivery Method Room Air Room Air Room Air BMI result Body Mass Index 31.9 Labs 11/25/23 18:46 11/25/23 18:46 Medications Medications Current Medications Acetaminophen (Acetaminophen 325 Mg Tablet) 650 mg PO Q6H PRN PRN Reason: Headache/Pain Mild Scale (1-3) Al Hydroxide/Mg Hydroxide (Magnesium Hydrox/Alum Hydrox 30 Ml Oral.Susp) 30 ml PO Q6H PRN PRN Reason: Heartburn/Nausea Diazepam (Diazepam 10 Mg/2 Ml Cartridge) 10 mg IM BEDTIME PRN PRN Reason: refusal of lithium, per court order Hydroxyzine HCl (Hydroxyzine Hcl 25 Mg Tablet) 25 mg PO Q6H PRN PRN Reason: Anxiety [place] Carbonate ([place] Carbonate Er 450 Mg Tablet.Er) 900 mg PO BEDTIME KENDALL Last Admin: 12/14/23 20:46 Dose: 900 mg Magnesium Hydroxide (Milk Of Magnesia 30 Ml Oral.Susp) 30 ml PO DAILY PRN PRN Reason: Constipation Nicotine Polacrilex (Nicotine Polacrilex 2 Mg Gum) 4 mg BUCCAL Q2H PRN PRN Reason: Nicotine Cravings Last Admin: 12/14/23 09:02 Dose: 4 mg Olanzapine (Olanzapine Odt 10 Mg Tab.Rapdis) 10 mg TRANSLINGU Q6H PRN PRN Reason: agitation Olanzapine (Olanzapine 10 Mg Vial) 10 mg IM BEDTIME PRN PRN Reason: refusal of ODT: per court ord Olanzapine (Olanzapine Odt 10 Mg Tab.Rapdis) 20 mg TRANSLINGU BEDTIME KENDALL Last Admin: 12/14/23 20:46 Dose: 20 mg Trazodone HCl (Trazodone Hcl 50 Mg Tablet) 50 mg PO BEDTIME MRX1 PRN PRN Reason: Insomnia Allergies Allergies Allergy/AdvReac Type Severity Reaction Status Date / Time Unable to Assess Allergy Verified 11/25/23 17:57 Assessment & Plan Assessment & Plan (1) Moderate bipolar I disorder with marge as current episode: Status: Acute Code(s): F31.12 - Bipolar disorder, current episode manic without psychotic features, moderate Plan 11/26: offer lithium. hold haldol for now. 11/27: took HS dose, refused morning dose. reportedly he will only take medications at night. reschedule all lithium to HS, 1200 mg. 11/28: pt refused lithium last night. screamed at MD yesterday, calmly declines interview today: see you in court. olanzapine 20 mg QHS added to regimen, commitment paperwork filed. records from [facility] received and reviewed. 11/29: Court hearing pending. Declining medications in the meantime. 11/30: no changes 12/01 intrusive, poor boundaries. declines medications. 12/02 easily agitated refuses medication pressured 12/04/2023 Continues to refuse medication bizarre behavior illogical poor impulse control writing things on the kaur smearing feces on himself and on the kaur stuffing toilet 12/05/2023 Patient continues to refuse medication refused to use editor farm journal periods of yelling agitated screaming about his sister having mental illness other times isolated and withdrawn 12/06/2023 Patient continues to refuse medication refuses to engage in ongoing conversation with editor farm journal difficult to have reality based conversation 12/07/2023: Continue current regimen and plans. Refuses meds and cord is scheduled for 12/0812/08/2023: Continue current regimen and plans 12/08: refusing medications, labile, angry. some posturing over weekend, yelling at staff for trying to clean the couch that he wrote all over in ink. declined interview today. court tomorrow. 12/09: declines to speak with MD beyond saying he does not wish to attend court or meet with MD. 1.5 hr hearing, pt was committed and meds ordered by court. will await in-person jamaican editor farm journal tomorrow to inform pt of results of court and necessity to take medication. 12/10: discussion held with pt, commercial journeyman electrician, various staff re commitment and court-ordered medication. changed context of hospitalization explained to pt, including PO refusal's leading to IM; pt appeared to understand. pt accepted Zydis and lithium this morning. 12/11: med-compliant. seen with JOSE Cancino and commercial journeyman electrician. feeling overmedicated, slept all day yesterday. will change all meds to HS and decrease olanzapine to 10 mg. new regimen lithium ER 900 QHS and zyprexa 10 QHS. 12/12: more labile and agitated this morning, furiously punching his palm in making his point. refused HS lithium last night, took it this morning. up at 0500. will return HS olanzapine dosing to 20 mg. add valium IM if lithium is refused. 12/13 continue tx 12/14 continue tx. Reason for continued inpatient stay Substantial Risk for: harm to others and inability to function Time Spent With Patient Time: Total time managing care of this patient today ____ minutes.
[2023-12-15 20:00] VITALS: BP 136/80; PULSE 96; RESP 18; TEMP 36.8; O2SAT 97
[2023-12-15] MEDS: Lithium Carbonate ER 450 MG TABLET.ER 900 MG PO (21:10)
[2023-12-15] MEDS: OLANZapine ODT 10 MG TAB.RAPDIS 20 MG TRANSLINGU (21:10)
--- NOTE | 2023-12-16 15:13 | HO.PSYCHPN ---
Subjective Subjective Date of Service: 12/16/23 Reason For Visit: Marge Interim History: calm, cooperative. not labile, comes to interview room to meet with JOSE KELLEY, and pit hand. asking about discharge. informed of need to draw labs tomorrow night. per staff, not attending groups. some resistance to taking meds last night, but ended up taking them. slept well. Mental Status Exam Mental Status Exam Narrative: adequately dressed, improved grooming. cooperative. no PMA/PMR. speech incr rate, nml amount, nml latency, nml loudness. thoughts linear. affect normo-intense, non-labile. mood not assessed. no SI/SIBI/HI/AVH expressed. Diagnostics Vital Signs (24Hr): Vital Signs - 24 hr 12/15/23 20:00 Temperature 98.2 F Pulse Rate 96 Respiratory Rate 18 Blood Pressure 136/80 Pulse Oximetry 97 Oxygen Delivery Method Room Air BMI result Body Mass Index 31.9 Labs 11/25/23 18:46 11/25/23 18:46 Medications Medications Current Medications Acetaminophen (Acetaminophen 325 Mg Tablet) 650 mg PO Q6H PRN PRN Reason: Headache/Pain Mild Scale (1-3) Al Hydroxide/Mg Hydroxide (Magnesium Hydrox/Alum Hydrox 30 Ml Oral.Susp) 30 ml PO Q6H PRN PRN Reason: Heartburn/Nausea Diazepam (Diazepam 10 Mg/2 Ml Cartridge) 10 mg IM BEDTIME PRN PRN Reason: refusal of lithium, per court order Hydroxyzine HCl (Hydroxyzine Hcl 25 Mg Tablet) 25 mg PO Q6H PRN PRN Reason: Anxiety [place] Carbonate ([place] Carbonate Er 450 Mg Tablet.Er) 900 mg PO BEDTIME KENDALL Last Admin: 12/15/23 21:10 Dose: 900 mg Magnesium Hydroxide (Milk Of Magnesia 30 Ml Oral.Susp) 30 ml PO DAILY PRN PRN Reason: Constipation Nicotine Polacrilex (Nicotine Polacrilex 2 Mg Gum) 4 mg BUCCAL Q2H PRN PRN Reason: Nicotine Cravings Last Admin: 12/14/23 09:02 Dose: 4 mg Olanzapine (Olanzapine Odt 10 Mg Tab.Rapdis) 10 mg TRANSLINGU Q6H PRN PRN Reason: agitation Olanzapine (Olanzapine 10 Mg Vial) 10 mg IM BEDTIME PRN PRN Reason: refusal of ODT: per court ord Olanzapine (Olanzapine Odt 10 Mg Tab.Rapdis) 20 mg TRANSLINGU BEDTIME KENDALL Last Admin: 12/15/23 21:10 Dose: 20 mg Trazodone HCl (Trazodone Hcl 50 Mg Tablet) 50 mg PO BEDTIME MRX1 PRN PRN Reason: Insomnia Allergies Allergies Allergy/AdvReac Type Severity Reaction Status Date / Time Unable to Assess Allergy Verified 11/25/23 17:57 Assessment & Plan Assessment & Plan (1) Moderate bipolar I disorder with marge as current episode: Status: Acute Code(s): F31.12 - Bipolar disorder, current episode manic without psychotic features, moderate Plan 11/26: offer lithium. hold haldol for now. 11/27: took HS dose, refused morning dose. reportedly he will only take medications at night. reschedule all lithium to HS, 1200 mg. 11/28: pt refused lithium last night. screamed at MD yesterday, calmly declines interview today: see you in court. olanzapine 20 mg QHS added to regimen, commitment paperwork filed. records from [facility] received and reviewed. 11/29: Court hearing pending. Declining medications in the meantime. 11/30: no changes 12/01 intrusive, poor boundaries. declines medications. 12/02 easily agitated refuses medication pressured 12/04/2023 Continues to refuse medication bizarre behavior illogical poor impulse control writing things on the kaur smearing feces on himself and on the kaur stuffing toilet 12/05/2023 Patient continues to refuse medication refused to use shuttle route vehicle operator periods of yelling agitated screaming about his sister having mental illness other times isolated and withdrawn 12/06/2023 Patient continues to refuse medication refuses to engage in ongoing conversation with shuttle route vehicle operator difficult to have reality based conversation 12/07/2023: Continue current regimen and plans. Refuses meds and cord is scheduled for 12/0812/08/2023: Continue current regimen and plans 12/08: refusing medications, labile, angry. some posturing over weekend, yelling at staff for trying to clean the couch that he wrote all over in ink. declined interview today. court tomorrow. 12/09: declines to speak with MD beyond saying he does not wish to attend court or meet with MD. 1.5 hr hearing, pt was committed and meds ordered by court. will await in-person israeli shuttle route vehicle operator tomorrow to inform pt of results of court and necessity to take medication. 12/10: discussion held with pt, pit hand, various staff re commitment and court-ordered medication. changed context of hospitalization explained to pt, including PO refusal's leading to IM; pt appeared to understand. pt accepted Zydis and lithium this morning. 12/11: med-compliant. seen with JOSE Cancino and pit hand. feeling overmedicated, slept all day yesterday. will change all meds to HS and decrease olanzapine to 10 mg. new regimen lithium ER 900 QHS and zyprexa 10 QHS. 12/12: more labile and agitated this morning, furiously punching his palm in making his point. refused HS lithium last night, took it this morning. up at 0500. will return HS olanzapine dosing to 20 mg. add valium IM if lithium is refused. 12/13 continue tx 12/14 continue tx. 12/15: substantially less labile, irritable than last week. able to sit and have calm discussion. check labs tomorrow night. Reason for continued inpatient stay Substantial Risk for: inability to function and rapid decompensation Time Spent With Patient Time: Total time managing care of this patient today _25___ minutes.
[2023-12-16 20:00] VITALS: BP 135/89; PULSE 116; RESP 14; TEMP 36.6; O2SAT 99
[2023-12-16] MEDS: Lithium Carbonate ER 450 MG TABLET.ER 900 MG PO (20:59)
[2023-12-16] MEDS: OLANZapine ODT 10 MG TAB.RAPDIS 20 MG TRANSLINGU (20:59)
[2023-12-17 09:14] VITALS: BP 135/88; PULSE 105; RESP 18; TEMP 36.8; O2SAT 96
[2023-12-17 20:00] VITALS: BP 121/86; PULSE 104; RESP 18; TEMP 37; O2SAT 98
[2023-12-17 20:53] LABS: Lithium 0.52 mmol/L (0.60-1.20)
[2023-12-17 20:59] LABS: Anion Gap 17 (12-20); Blood Urea Nitrogen 14 mg/dL (9-16); Calcium 9.6 mg/dL (8.4-10.2); Carbon Dioxide 24 mmol/L (22-29); Chloride 105 mmol/L (96-108); Creatinine Clr Calc Pharmacy 108.7; Estimated Glomerular Filt Rate > 60; Glucose Random 111 mg/dL (60-115); Potassium 3.9 mmol/L (3.3-5.1); Sodium 142 mmol/L (135-145)
[2023-12-17] MEDS: Lithium Carbonate ER 450 MG TABLET.ER 900 MG PO (21:00)
[2023-12-17] MEDS: OLANZapine ODT 10 MG TAB.RAPDIS 20 MG TRANSLINGU (21:00)
--- NOTE | 2023-12-18 10:11 | P.PNPSI_ITS ---
Subjective Subjective Date of Service: 12/17/23 Reason For Visit: Marge Interim History: observed in the milieu, calmly seated or with his head down on the table resting. no notable behaviors, no requests or complaints to MD. per staff, med compliant, sleeping well, no issues. Mental Status Exam Mental Status Exam Narrative: observed in milieu, adequately dressed and groomed. no PMA/PMR. cooperative with staff. Diagnostics Vital Signs (24Hr): Vital Signs - 24 hr 12/17/23 20:00 Temperature 98.6 F Pulse Rate 104 H Respiratory Rate 18 Blood Pressure 121/86 Pulse Oximetry 98 Oxygen Delivery Method Room Air BMI result Body Mass Index 31.9 Labs 11/25/23 18:46 12/17/23 20:25 Labs: Laboratory Results - last 48 hr 12/17/23 20:25 Sodium 142 Potassium 3.9 Chloride 105 Carbon Dioxide 24 Anion Gap 17 BUN 14 Creatinine 1.03 Estim Creat Clear Calc 108.7 Estimated GFR > 60 Random Glucose 111 Calcium 9.6 D [place] 0.52 L Medications Medications Current Medications Acetaminophen (Acetaminophen 325 Mg Tablet) 650 mg PO Q6H PRN PRN Reason: Headache/Pain Mild Scale (1-3) Al Hydroxide/Mg Hydroxide (Magnesium Hydrox/Alum Hydrox 30 Ml Oral.Susp) 30 ml PO Q6H PRN PRN Reason: Heartburn/Nausea Diazepam (Diazepam 10 Mg/2 Ml Cartridge) 10 mg IM BEDTIME PRN PRN Reason: refusal of lithium, per court order Hydroxyzine HCl (Hydroxyzine Hcl 25 Mg Tablet) 25 mg PO Q6H PRN PRN Reason: Anxiety [place] Carbonate ([place] Carbonate Er 450 Mg Tablet.Er) 900 mg PO BEDTIME KENDALL Last Admin: 12/17/23 21:00 Dose: 900 mg Magnesium Hydroxide (Milk Of Magnesia 30 Ml Oral.Susp) 30 ml PO DAILY PRN PRN Reason: Constipation Nicotine Polacrilex (Nicotine Polacrilex 2 Mg Gum) 4 mg BUCCAL Q2H PRN PRN Reason: Nicotine Cravings Last Admin: 12/14/23 09:02 Dose: 4 mg Olanzapine (Olanzapine Odt 10 Mg Tab.Rapdis) 10 mg TRANSLINGU Q6H PRN PRN Reason: agitation Olanzapine (Olanzapine 10 Mg Vial) 10 mg IM BEDTIME PRN PRN Reason: refusal of ODT: per court ord Olanzapine (Olanzapine Odt 10 Mg Tab.Rapdis) 20 mg TRANSLINGU BEDTIME KENDALL Last Admin: 12/17/23 21:00 Dose: 20 mg Trazodone HCl (Trazodone Hcl 50 Mg Tablet) 50 mg PO BEDTIME MRX1 PRN PRN Reason: Insomnia Allergies Allergies Allergy/AdvReac Type Severity Reaction Status Date / Time Unable to Assess Allergy Verified 11/25/23 17:57 Assessment & Plan Assessment & Plan (1) Moderate bipolar I disorder with marge as current episode: Status: Acute Code(s): F31.12 - Bipolar disorder, current episode manic without psychotic features, moderate Plan 11/26: offer lithium. hold haldol for now. 11/27: took HS dose, refused morning dose. reportedly he will only take medications at night. reschedule all lithium to HS, 1200 mg. 11/28: pt refused lithium last night. screamed at MD yesterday, calmly declines interview today: see you in court. olanzapine 20 mg QHS added to regimen, commitment paperwork filed. records from [facility] received and reviewed. 11/29: Court hearing pending. Declining medications in the meantime. 11/30: no changes 12/01 intrusive, poor boundaries. declines medications. 12/02 easily agitated refuses medication pressured 12/04/2023 Continues to refuse medication bizarre behavior illogical poor impulse control writing things on the kaur smearing feces on himself and on the kaur stuffing toilet 12/05/2023 Patient continues to refuse medication refused to use geospatial intelligence analyst periods of yelling agitated screaming about his sister having mental illness other times isolated and withdrawn 12/06/2023 Patient continues to refuse medication refuses to engage in ongoing conversation with geospatial intelligence analyst difficult to have reality based conversation 12/07/2023: Continue current regimen and plans. Refuses meds and cord is scheduled for 12/0812/08/2023: Continue current regimen and plans 12/08: refusing medications, labile, angry. some posturing over weekend, yelling at staff for trying to clean the couch that he wrote all over in ink. declined interview today. court tomorrow. 12/09: declines to speak with MD beyond saying he does not wish to attend court or meet with MD. 1.5 hr hearing, pt was committed and meds ordered by court. will await in-person [employer] geospatial intelligence analyst tomorrow to inform pt of results of court and necessity to take medication. 12/10: discussion held with pt, medical interpreter, various staff re commitment and court-ordered medication. changed context of hospitalization explained to pt, including PO refusal's leading to IM; pt appeared to understand. pt accepted Zydis and lithium this morning. 12/11: med-compliant. seen with JOSE Cancino and medical interpreter. feeling overmedicated, slept all day yesterday. will change all meds to HS and decrease olanzapine to 10 mg. new regimen lithium ER 900 QHS and zyprexa 10 QHS. 12/12: more labile and agitated this morning, furiously punching his palm in making his point. refused HS lithium last night, took it this morning. up at 0500. will return HS olanzapine dosing to 20 mg. add valium IM if lithium is refused. 12/13 continue tx 12/14 continue tx. 12/15: substantially less labile, irritable than last week. able to sit and have calm discussion. check labs tomorrow night. 12/16: no notable behaviors, stable presentation, continue current mgmt. Reason for continued inpatient stay Substantial Risk for: harm to self, harm to others, inability to function and rapid decompensation Time Spent With Patient Time: Total time managing care of this patient today ____ minutes.
[2023-12-18 10:17] VITALS: BP 138/93; PULSE 81; RESP 20; TEMP 36; O2SAT 98
--- NOTE | 2023-12-18 15:53 | P.PNPSI_ITS ---
Subjective Subjective Date of Service: 12/18/23 Reason For Visit: Marge Interim History: irritable, denies feeling sedated. informed lithium level is low and dosing will be increased. no complaints or requests, other than to say he needs to work and would like to discharge from the hospital. per staff, paranoid. +RIS. pacing, malodorous. taking meds. slept 8 hours. lithium 0.52. Mental Status Exam Mental Status Exam Narrative: adequately dressed, improved grooming. cooperative. no PMA/PMR. speech incr rate, nml amount, nml latency, nml loudness. thoughts linear. affect hyper- intense, labile. mood irritable. no SI/SIBI/HI/AVH expressed. Diagnostics Vital Signs (24Hr): Vital Signs - 24 hr 12/17/23 20:00 12/18/23 10:17 Temperature 98.6 F 96.8 F Pulse Rate 104 H 81 Respiratory Rate 18 20 Blood Pressure 121/86 138/93 H Pulse Oximetry 98 98 Oxygen Delivery Method Room Air Room Air BMI result Body Mass Index 31.9 Labs 11/25/23 18:46 12/17/23 20:25 Labs: Laboratory Results - last 48 hr 12/17/23 20:25 Sodium 142 Potassium 3.9 Chloride 105 Carbon Dioxide 24 Anion Gap 17 BUN 14 Creatinine 1.03 Estim Creat Clear Calc 108.7 Estimated GFR > 60 Random Glucose 111 Calcium 9.6 D [place] 0.52 L Medications Medications Current Medications Acetaminophen (Acetaminophen 325 Mg Tablet) 650 mg PO Q6H PRN PRN Reason: Headache/Pain Mild Scale (1-3) Al Hydroxide/Mg Hydroxide (Magnesium Hydrox/Alum Hydrox 30 Ml Oral.Susp) 30 ml PO Q6H PRN PRN Reason: Heartburn/Nausea Diazepam (Diazepam 10 Mg/2 Ml Cartridge) 10 mg IM BEDTIME PRN PRN Reason: refusal of lithium, per court order Hydroxyzine HCl (Hydroxyzine Hcl 25 Mg Tablet) 25 mg PO Q6H PRN PRN Reason: Anxiety [place] Carbonate ([place] Carbonate Er 300 Mg Tablet.Er) 1,200 mg PO BEDTIME KENDALL Magnesium Hydroxide (Milk Of Magnesia 30 Ml Oral.Susp) 30 ml PO DAILY PRN PRN Reason: Constipation Nicotine Polacrilex (Nicotine Polacrilex 2 Mg Gum) 4 mg BUCCAL Q2H PRN PRN Reason: Nicotine Cravings Last Admin: 12/14/23 09:02 Dose: 4 mg Olanzapine (Olanzapine Odt 10 Mg Tab.Rapdis) 10 mg TRANSLINGU Q6H PRN PRN Reason: agitation Olanzapine (Olanzapine 10 Mg Vial) 10 mg IM BEDTIME PRN PRN Reason: refusal of ODT: per court ord Olanzapine (Olanzapine Odt 10 Mg Tab.Rapdis) 20 mg TRANSLINGU BEDTIME KENDALL Last Admin: 12/17/23 21:00 Dose: 20 mg Trazodone HCl (Trazodone Hcl 50 Mg Tablet) 50 mg PO BEDTIME MRX1 PRN PRN Reason: Insomnia Allergies Allergies Allergy/AdvReac Type Severity Reaction Status Date / Time Unable to Assess Allergy Verified 11/25/23 17:57 Assessment & Plan Assessment & Plan (1) Moderate bipolar I disorder with marge as current episode: Status: Acute Code(s): F31.12 - Bipolar disorder, current episode manic without psychotic features, moderate Plan 11/26: offer lithium. hold haldol for now. 11/27: took HS dose, refused morning dose. reportedly he will only take medications at night. reschedule all lithium to HS, 1200 mg. 11/28: pt refused lithium last night. screamed at MD yesterday, calmly declines interview today: see you in court. olanzapine 20 mg QHS added to regimen, commitment paperwork filed. records from [facility] received and reviewed. 11/29: Court hearing pending. Declining medications in the meantime. 11/30: no changes 12/01 intrusive, poor boundaries. declines medications. 12/02 easily agitated refuses medication pressured 12/04/2023 Continues to refuse medication bizarre behavior illogical poor impulse control writing things on the kaur smearing feces on himself and on the kaur stuffing toilet 12/05/2023 Patient continues to refuse medication refused to use wool washer periods of yelling agitated screaming about his sister having mental illness other times isolated and withdrawn 12/06/2023 Patient continues to refuse medication refuses to engage in ongoing conversation with wool washer difficult to have reality based conversation 12/07/2023: Continue current regimen and plans. Refuses meds and cord is scheduled for 12/0812/08/2023: Continue current regimen and plans 4/22: refusing medications, labile, angry. some posturing over weekend, yelling at staff for trying to clean the couch that he wrote all over in ink. declined interview today. court tomorrow. 12/09: declines to speak with MD beyond saying he does not wish to attend court or meet with MD. 1.5 hr hearing, pt was committed and meds ordered by court. will await in-person dominican wool washer tomorrow to inform pt of results of court and necessity to take medication. 12/10: discussion held with pt, aerial photograph interpreter, various staff re commitment and court-ordered medication. changed context of hospitalization explained to pt, including PO refusal's leading to IM; pt appeared to understand. pt accepted Zydis and lithium this morning. 12/11: med-compliant. seen with JOSE Cancino and aerial photograph interpreter. feeling overmedicated, slept all day yesterday. will change all meds to HS and decrease olanzapine to 10 mg. new regimen lithium ER 900 QHS and zyprexa 10 QHS. 12/12: more labile and agitated this morning, furiously punching his palm in making his point. refused HS lithium last night, took it this morning. up at 0500. will return HS olanzapine dosing to 20 mg. add valium IM if lithium is refused. 12/13 continue tx 12/14 continue tx. 12/15: substantially less labile, irritable than last week. able to sit and have calm discussion. check labs tomorrow night. 12/16: no notable behaviors, stable presentation, continue current mgmt. 12/17: irritable. lithium level 0.52, dosing increased to 1200 mg QHS. other labs reassuring. Reason for continued inpatient stay Substantial Risk for: harm to self, harm to others, inability to function and rapid decompensation Time Spent With Patient Time: Total time managing care of this patient today __35__ minutes.
[2023-12-18 19:58] VITALS: RESP 18
[2023-12-18] MEDS: OLANZapine ODT 10 MG TAB.RAPDIS 20 MG TRANSLINGU (20:48)
[2023-12-18] MEDS: Lithium Carbonate ER 300 MG TABLET.ER 1200 MG PO (20:48)
[2023-12-19 07:00] VITALS: BMI 33.0
[2023-12-19 08:00] VITALS: BP 131/71; PULSE 90; RESP 14; TEMP 36.5; O2SAT 99
--- NOTE | 2023-12-19 14:24 | P.PNPSI_ITS ---
Subjective Subjective Date of Service: 12/19/23 Reason For Visit: Marge Interim History: brief check-in. pt declines interview, says everything is good, states he does not wish to meet with MD and motor vehicle parts interpreter tomorrow. per staff, 1:1. flat, withdrawn. no outbursts. mild agitation eves. +RIS. appeared to have slept. Mental Status Exam Mental Status Exam Narrative: adequately dressed, improved grooming. not cooperative. no PMA/PMR. speech incr rate, nml amount, decr latency, incr loudness. thoughts linear. affect hyper-intense, labile. mood irritable. no SI/SIBI/HI/AVH expressed. Diagnostics Vital Signs (24Hr): Vital Signs - 24 hr 12/18/23 19:58 12/19/23 08:00 Temperature 97.7 F Pulse Rate 90 Respiratory Rate 18 14 Blood Pressure 131/71 Pulse Oximetry 99 Oxygen Delivery Method Room Air BMI result Body Mass Index 33.0 Labs 11/25/23 18:46 12/17/23 20:25 Labs: Laboratory Results - last 48 hr 12/17/23 20:25 Sodium 142 Potassium 3.9 Chloride 105 Carbon Dioxide 24 Anion Gap 17 BUN 14 Creatinine 1.03 Estim Creat Clear Calc 108.7 Estimated GFR > 60 Random Glucose 111 Calcium 9.6 D [place] 0.52 L Medications Medications Current Medications Acetaminophen (Acetaminophen 325 Mg Tablet) 650 mg PO Q6H PRN PRN Reason: Headache/Pain Mild Scale (1-3) Al Hydroxide/Mg Hydroxide (Magnesium Hydrox/Alum Hydrox 30 Ml Oral.Susp) 30 ml PO Q6H PRN PRN Reason: Heartburn/Nausea Diazepam (Diazepam 10 Mg/2 Ml Cartridge) 10 mg IM BEDTIME PRN PRN Reason: refusal of lithium, per court order Hydroxyzine HCl (Hydroxyzine Hcl 25 Mg Tablet) 25 mg PO Q6H PRN PRN Reason: Anxiety [place] Carbonate ([place] Carbonate Er 300 Mg Tablet.Er) 1,200 mg PO BEDTIME KENDALL Last Admin: 12/18/23 20:48 Dose: 1,200 mg Magnesium Hydroxide (Milk Of Magnesia 30 Ml Oral.Susp) 30 ml PO DAILY PRN PRN Reason: Constipation Nicotine Polacrilex (Nicotine Polacrilex 2 Mg Gum) 4 mg BUCCAL Q2H PRN PRN Reason: Nicotine Cravings Last Admin: 12/14/23 09:02 Dose: 4 mg Olanzapine (Olanzapine Odt 10 Mg Tab.Rapdis) 10 mg TRANSLINGU Q6H PRN PRN Reason: agitation Olanzapine (Olanzapine 10 Mg Vial) 10 mg IM BEDTIME PRN PRN Reason: refusal of ODT: per court ord Olanzapine (Olanzapine Odt 10 Mg Tab.Rapdis) 20 mg TRANSLINGU BEDTIME KENDALL Last Admin: 12/18/23 20:48 Dose: 20 mg Trazodone HCl (Trazodone Hcl 50 Mg Tablet) 50 mg PO BEDTIME MRX1 PRN PRN Reason: Insomnia Allergies Allergies Allergy/AdvReac Type Severity Reaction Status Date / Time Unable to Assess Allergy Verified 11/25/23 17:57 Assessment & Plan Assessment & Plan (1) Moderate bipolar I disorder with marge as current episode: Status: Acute Code(s): F31.12 - Bipolar disorder, current episode manic without psychotic features, moderate Plan 11/26: offer lithium. hold haldol for now. 11/27: took HS dose, refused morning dose. reportedly he will only take medications at night. reschedule all lithium to HS, 1200 mg. 11/28: pt refused lithium last night. screamed at MD yesterday, calmly declines interview today: see you in court. olanzapine 20 mg QHS added to regimen, commitment paperwork filed. records from [facility] received and reviewed. 11/29: Court hearing pending. Declining medications in the meantime. 11/30: no changes 12/01 intrusive, poor boundaries. declines medications. 12/02 easily agitated refuses medication pressured 12/04/2023 Continues to refuse medication bizarre behavior illogical poor impulse control writing things on the kaur smearing feces on himself and on the kaur stuffing toilet 12/05/2023 Patient continues to refuse medication refused to use dentist/owner periods of yelling agitated screaming about his sister having mental illness other times isolated and withdrawn 12/06/2023 Patient continues to refuse medication refuses to engage in ongoing conversation with dentist/owner difficult to have reality based conversation 12/07/2023: Continue current regimen and plans. Refuses meds and cord is scheduled for 12/0812/08/2023: Continue current regimen and plans 12/08: refusing medications, labile, angry. some posturing over weekend, yelling at staff for trying to clean the couch that he wrote all over in ink. declined interview today. court tomorrow. 12/09: declines to speak with MD beyond saying he does not wish to attend court or meet with MD. 1.5 hr hearing, pt was committed and meds ordered by court. will await in-person slovenian dentist/owner tomorrow to inform pt of results of court and necessity to take medication. 12/10: discussion held with pt, motor vehicle parts interpreter, various staff re commitment and court-ordered medication. changed context of hospitalization explained to pt, including PO refusal's leading to IM; pt appeared to understand. pt accepted Zydis and lithium this morning. 12/11: med-compliant. seen with JOSE Cancino and motor vehicle parts interpreter. feeling overmedicated, slept all day yesterday. will change all meds to HS and decrease olanzapine to 10 mg. new regimen lithium ER 900 QHS and zyprexa 10 QHS. 12/12: more labile and agitated this morning, furiously punching his palm in making his point. refused HS lithium last night, took it this morning. up at 0500. will return HS olanzapine dosing to 20 mg. add valium IM if lithium is refused. 12/13 continue tx 12/14 continue tx. 12/15: substantially less labile, irritable than last week. able to sit and have calm discussion. check labs tomorrow night. 12/16: no notable behaviors, stable presentation, continue current mgmt. 12/17: irritable. lithium level 0.52, dosing increased to 1200 mg QHS. other labs reassuring. 12/18: remains irritable, rejecting interview. continue current mgmt. Reason for continued inpatient stay Substantial Risk for: harm to self, harm to others, inability to function and rapid decompensation Time Spent With Patient Time: Total time managing care of this patient today ____ minutes.
[2023-12-19 19:20] VITALS: BP 126/74; PULSE 95; RESP 16; TEMP 36.4; O2SAT 96
[2023-12-19] MEDS: Lithium Carbonate ER 300 MG TABLET.ER 1200 MG PO (20:58)
[2023-12-19] MEDS: OLANZapine ODT 10 MG TAB.RAPDIS 20 MG TRANSLINGU (20:59)
[2023-12-20 08:00] VITALS: RESP 18
--- NOTE | 2023-12-20 12:23 | HO.PSYCHPN ---
Subjective Subjective Date of Service: 12/20/23 Reason For Visit: Marge Interim History: irritable, labile, accusing and JOSE Cancino of having threatened him today, doubting credentials of MD. refusing to speak with MD and JOSE, shouting over nuclear auxiliary operator. per staff, on Q5s. flat, withdrawn, guarded. taking meds. visible, pacing, no outbursts. slept 8-9 hours. +RIS. Mental Status Exam Mental Status Exam Narrative: adequately dressed, improved grooming. not cooperative. no PMA/PMR. speech incr rate, nml amount, decr latency, incr loudness. thoughts linear, paranoid delusions. affect hyper-intense, labile. mood irritable. no SI/SIBI/HI/AVH expressed. Diagnostics Vital Signs (24Hr): Vital Signs - 24 hr 12/19/23 19:20 Temperature 97.6 F Pulse Rate 95 Respiratory Rate 16 Blood Pressure 126/74 Pulse Oximetry 96 Oxygen Delivery Method Room Air BMI result Body Mass Index 33.0 Labs 11/25/23 18:46 12/17/23 20:25 Medications Medications Current Medications Acetaminophen (Acetaminophen 325 Mg Tablet) 650 mg PO Q6H PRN PRN Reason: Headache/Pain Mild Scale (1-3) Al Hydroxide/Mg Hydroxide (Magnesium Hydrox/Alum Hydrox 30 Ml Oral.Susp) 30 ml PO Q6H PRN PRN Reason: Heartburn/Nausea Diazepam (Diazepam 10 Mg/2 Ml Cartridge) 10 mg IM BEDTIME PRN PRN Reason: refusal of lithium, per court order Hydroxyzine HCl (Hydroxyzine Hcl 25 Mg Tablet) 25 mg PO Q6H PRN PRN Reason: Anxiety [place] Carbonate ([place] Carbonate Er 300 Mg Tablet.Er) 1,200 mg PO BEDTIME [facility] Last Admin: 12/19/23 20:58 Dose: 1,200 mg Magnesium Hydroxide (Milk Of Magnesia 30 Ml Oral.Susp) 30 ml PO DAILY PRN PRN Reason: Constipation Nicotine Polacrilex (Nicotine Polacrilex 2 Mg Gum) 4 mg BUCCAL Q2H PRN PRN Reason: Nicotine Cravings Last Admin: 12/14/23 09:02 Dose: 4 mg Olanzapine (Olanzapine Odt 10 Mg Tab.Rapdis) 10 mg TRANSLINGU Q6H PRN PRN Reason: agitation Olanzapine (Olanzapine 10 Mg Vial) 10 mg IM BEDTIME PRN PRN Reason: refusal of ODT: per court ord Olanzapine (Olanzapine Odt 10 Mg Tab.Rapdis) 20 mg TRANSLINGU BEDTIME [facility] Last Admin: 12/19/23 20:59 Dose: 20 mg Trazodone HCl (Trazodone Hcl 50 Mg Tablet) 50 mg PO BEDTIME MRX1 PRN PRN Reason: Insomnia Allergies Allergies Allergy/AdvReac Type Severity Reaction Status Date / Time Unable to Assess Allergy Verified 11/25/23 17:57 Assessment & Plan Assessment & Plan (1) Moderate bipolar I disorder with marge as current episode: Status: Acute Code(s): F31.12 - Bipolar disorder, current episode manic without psychotic features, moderate Plan 11/26: offer lithium. hold haldol for now. 11/27: took HS dose, refused morning dose. reportedly he will only take medications at night. reschedule all lithium to HS, 1200 mg. 11/28: pt refused lithium last night. screamed at MD yesterday, calmly declines interview today: see you in court. olanzapine 20 mg QHS added to regimen, commitment paperwork filed. records from [facility] received and reviewed. 11/29: Court hearing pending. Declining medications in the meantime. 11/30: no changes 12/01 intrusive, poor boundaries. declines medications. 12/02 easily agitated refuses medication pressured 12/04/2023 Continues to refuse medication bizarre behavior illogical poor impulse control writing things on the kaur smearing feces on himself and on the kaur stuffing toilet 12/05/2023 Patient continues to refuse medication refused to use chipper machine operator periods of yelling agitated screaming about his sister having mental illness other times isolated and withdrawn 12/06/2023 Patient continues to refuse medication refuses to engage in ongoing conversation with chipper machine operator difficult to have reality based conversation 12/07/2023: Continue current regimen and plans. Refuses meds and cord is scheduled for 12/0812/08/2023: Continue current regimen and plans 12/08: refusing medications, labile, angry. some posturing over weekend, yelling at staff for trying to clean the couch that he wrote all over in ink. declined interview today. court tomorrow. 12/09: declines to speak with MD beyond saying he does not wish to attend court or meet with MD. 1.5 hr hearing, pt was committed and meds ordered by court. will await in-person georgian chipper machine operator tomorrow to inform pt of results of court and necessity to take medication. 12/10: discussion held with pt, nuclear auxiliary operator, various staff re commitment and court-ordered medication. changed context of hospitalization explained to pt, including PO refusal's leading to IM; pt appeared to understand. pt accepted Zydis and lithium this morning. 12/11: med-compliant. seen with JOSE Cancino and nuclear auxiliary operator. feeling overmedicated, slept all day yesterday. will change all meds to HS and decrease olanzapine to 10 mg. new regimen lithium ER 900 QHS and zyprexa 10 QHS. 12/12: more labile and agitated this morning, furiously punching his palm in making his point. refused HS lithium last night, took it this morning. up at 0500. will return HS olanzapine dosing to 20 mg. add valium IM if lithium is refused. 12/13 continue tx 12/14 continue tx. 12/15: substantially less labile, irritable than last week. able to sit and have calm discussion. check labs tomorrow night. 12/16: no notable behaviors, stable presentation, continue current mgmt. 12/17: irritable. lithium level 0.52, dosing increased to 1200 mg QHS. other labs reassuring. 12/18: remains irritable, rejecting interview. continue current mgmt. 12/19: continues irritable, rejecting interview. accuses MD and SW of having threatened him yesterday. continue current mgmt. Reason for continued inpatient stay Substantial Risk for: harm to self, harm to others, inability to function and rapid decompensation Time Spent With Patient Time: Total time managing care of this patient today _25___ minutes.
[2023-12-20 20:00] VITALS: BP 126/81; PULSE 112; RESP 18; TEMP 37.1; O2SAT 96
[2023-12-20] MEDS: Lithium Carbonate ER 300 MG TABLET.ER 1200 MG PO (20:58)
[2023-12-20] MEDS: OLANZapine ODT 10 MG TAB.RAPDIS 20 MG TRANSLINGU (20:59)
--- NOTE | 2023-12-21 13:38 | P.PNPSI_ITS ---
Subjective Subjective Date of Service: 12/21/23 Reason For Visit: Marge Subjective Notes: Section 7 and Section 8 Interim History: The nursing staff reported the patient had been compliant with treatment, but he was seen self dialogue in. On interview the patient refused to engage he was on his room internally preoccupied. Mental Status Exam Mental Status Exam Patient Appearance: Appropriate Patient Orientation: Person and Situation Level of Consciousness: Awake Patient Behavior: Guarded Mood Description: Blunted Affect Description: Withdrawn Ability to Follow Directions: Fair Speech Pattern: Impoverished Hallucinations: None Delusions: Paranoid Ideation and Ideas of Reference Thought Process: Distracted and Slowed Thinking Thought Content: positive for Poverty of Content and positive for Thought Blocking Judgement: Fair Diagnostics Vital Signs (24Hr): Vital Signs - 24 hr 12/20/23 20:00 Temperature 98.7 F Pulse Rate 112 H Respiratory Rate 18 Blood Pressure 126/81 Pulse Oximetry 96 Oxygen Delivery Method Room Air BMI result Body Mass Index 33.0 Labs 11/25/23 18:46 12/17/23 20:25 Medications Medications Current Medications Acetaminophen (Acetaminophen 325 Mg Tablet) 650 mg PO Q6H PRN PRN Reason: Headache/Pain Mild Scale (1-3) Al Hydroxide/Mg Hydroxide (Magnesium Hydrox/Alum Hydrox 30 Ml Oral.Susp) 30 ml PO Q6H PRN PRN Reason: Heartburn/Nausea Diazepam (Diazepam 10 Mg/2 Ml Cartridge) 10 mg IM BEDTIME PRN PRN Reason: refusal of lithium, per court order Hydroxyzine HCl (Hydroxyzine Hcl 25 Mg Tablet) 25 mg PO Q6H PRN PRN Reason: Anxiety [place] Carbonate ([place] Carbonate Er 300 Mg Tablet.Er) 1,200 mg PO BEDTIME [facility] Last Admin: 12/20/23 20:58 Dose: 1,200 mg Magnesium Hydroxide (Milk Of Magnesia 30 Ml Oral.Susp) 30 ml PO DAILY PRN PRN Reason: Constipation Nicotine Polacrilex (Nicotine Polacrilex 2 Mg Gum) 4 mg BUCCAL Q2H PRN PRN Reason: Nicotine Cravings Last Admin: 12/14/23 09:02 Dose: 4 mg Olanzapine (Olanzapine Odt 10 Mg Tab.Rapdis) 10 mg TRANSLINGU Q6H PRN PRN Reason: agitation Olanzapine (Olanzapine 10 Mg Vial) 10 mg IM BEDTIME PRN PRN Reason: refusal of ODT: per court ord Olanzapine (Olanzapine Odt 10 Mg Tab.Rapdis) 20 mg TRANSLINGU BEDTIME [facility] Last Admin: 12/20/23 20:59 Dose: 20 mg Trazodone HCl (Trazodone Hcl 50 Mg Tablet) 50 mg PO BEDTIME MRX1 PRN PRN Reason: Insomnia Allergies Allergies Allergy/AdvReac Type Severity Reaction Status Date / Time Unable to Assess Allergy Verified 11/25/23 17:57 Assessment & Plan Assessment & Plan (1) Moderate bipolar I disorder with marge as current episode: Status: Acute Code(s): F31.12 - Bipolar disorder, current episode manic without psychotic features, moderate Plan 11/26: offer lithium. hold haldol for now. 11/27: took HS dose, refused morning dose. reportedly he will only take medications at night. reschedule all lithium to HS, 1200 mg. 11/28: pt refused lithium last night. screamed at MD yesterday, calmly declines interview today: see you in court. olanzapine 20 mg QHS added to regimen, commitment paperwork filed. records from [facility] received and reviewed. 11/29: Court hearing pending. Declining medications in the meantime. 11/30: no changes 12/01 intrusive, poor boundaries. declines medications. 12/02 easily agitated refuses medication pressured 12/04/2023 Continues to refuse medication bizarre behavior illogical poor impulse control writing things on the kaur smearing feces on himself and on the kaur stuffing toilet 12/05/2023 Patient continues to refuse medication refused to use fire protection equipment technician periods of yelling agitated screaming about his sister having mental illness other times isolated and withdrawn 12/06/2023 Patient continues to refuse medication refuses to engage in ongoing conversation with fire protection equipment technician difficult to have reality based conversation 12/07/2023: Continue current regimen and plans. Refuses meds and cord is scheduled for 12/0812/08/2023: Continue current regimen and plans 12/08: refusing medications, labile, angry. some posturing over weekend, yelling at staff for trying to clean the couch that he wrote all over in ink. declined interview today. court tomorrow. 12/09: declines to speak with MD beyond saying he does not wish to attend court or meet with MD. 1.5 hr hearing, pt was committed and meds ordered by court. will await in-person emirati fire protection equipment technician tomorrow to inform pt of results of court and necessity to take medication. 12/10: discussion held with pt, assessment manager, various staff re commitment and court-ordered medication. changed context of hospitalization explained to pt, including PO refusal's leading to IM; pt appeared to understand. pt accepted Zydis and lithium this morning. 12/11: med-compliant. seen with JOSE Cancino and assessment manager. feeling overmedicated, slept all day yesterday. will change all meds to HS and decrease olanzapine to 10 mg. new regimen lithium ER 900 QHS and zyprexa 10 QHS. 12/12: more labile and agitated this morning, furiously punching his palm in making his point. refused HS lithium last night, took it this morning. up at 0500. will return HS olanzapine dosing to 20 mg. add valium IM if lithium is refused. 12/13 continue tx 12/14 continue tx. 12/15: substantially less labile, irritable than last week. able to sit and have calm discussion. check labs tomorrow night. 12/16: no notable behaviors, stable presentation, continue current mgmt. 5/1: irritable. lithium level 0.52, dosing increased to 1200 mg QHS. other labs reassuring. 12/18: remains irritable, rejecting interview. continue current mgmt. 5/3: continues irritable, rejecting interview. accuses MD and JOSE of having threatened him yesterday. continue current mgmt. 5/4 continue treatment Reason for continued inpatient stay Substantial Risk for: inability to function, rapid decompensation and med/psych decompensation Time Spent With Patient Time: Total time managing care of this patient today __20__ minutes.
[2023-12-21] MEDS: Lithium Carbonate ER 300 MG TABLET.ER 1200 MG PO (21:06)
[2023-12-21] MEDS: OLANZapine ODT 10 MG TAB.RAPDIS 20 MG TRANSLINGU (21:06)
[2023-12-21 21:10] VITALS: BP 126/67; PULSE 94; RESP 14; TEMP 36.7; O2SAT 97
[2023-12-22 09:22] VITALS: BP 124/87; PULSE 92; RESP 18; TEMP 36.7; O2SAT 96
--- NOTE | 2023-12-22 12:01 | P.PNPSI_ITS ---
Subjective Subjective Date of Service: 12/22/23 Reason For Visit: Marge Subjective Notes: Section 7 and Section 8 Interim History: The nursing staff reported poor ADL less very smelly no hygiene. The patient denies new symptoms he looks slightly sedated. Mental Status Exam Mental Status Exam Patient Appearance: Unkempt Patient Orientation: Person and Situation Level of Consciousness: Awake Patient Behavior: Guarded and Passive Mood Description: Calm Affect Description: Blunted Patient Cognition Impaired: Yes Ability to Follow Directions: Good Speech Pattern: Clear Hallucinations: None Delusions: Paranoid Ideation and Ideas of Reference Thought Process: Distracted and Slowed Thinking Thought Content: positive for [place] and positive for Poverty of Content Judgement: Fair Diagnostics Vital Signs (24Hr): Vital Signs - 24 hr 12/21/23 21:10 12/22/23 09:22 Temperature 98.1 F 98.0 F Pulse Rate 94 92 Respiratory Rate 14 18 Blood Pressure 126/67 124/87 Pulse Oximetry 97 96 Oxygen Delivery Method Room Air Room Air BMI result Body Mass Index 33.0 Labs 11/25/23 18:46 12/17/23 20:25 Medications Medications Current Medications Acetaminophen (Acetaminophen 325 Mg Tablet) 650 mg PO Q6H PRN PRN Reason: Headache/Pain Mild Scale (1-3) Al Hydroxide/Mg Hydroxide (Magnesium Hydrox/Alum Hydrox 30 Ml Oral.Susp) 30 ml PO Q6H PRN PRN Reason: Heartburn/Nausea Diazepam (Diazepam 10 Mg/2 Ml Cartridge) 10 mg IM BEDTIME PRN PRN Reason: refusal of lithium, per court order Hydroxyzine HCl (Hydroxyzine Hcl 25 Mg Tablet) 25 mg PO Q6H PRN PRN Reason: Anxiety [place] Carbonate ([place] Carbonate Er 300 Mg Tablet.Er) 1,200 mg PO BEDTIME [facility] Last Admin: 12/21/23 21:06 Dose: 1,200 mg Magnesium Hydroxide (Milk Of Magnesia 30 Ml Oral.Susp) 30 ml PO DAILY PRN PRN Reason: Constipation Nicotine Polacrilex (Nicotine Polacrilex 2 Mg Gum) 4 mg BUCCAL Q2H PRN PRN Reason: Nicotine Cravings Last Admin: 12/14/23 09:02 Dose: 4 mg Olanzapine (Olanzapine Odt 10 Mg Tab.Rapdis) 10 mg TRANSLINGU Q6H PRN PRN Reason: agitation Olanzapine (Olanzapine 10 Mg Vial) 10 mg IM BEDTIME PRN PRN Reason: refusal of ODT: per court ord Olanzapine (Olanzapine Odt 10 Mg Tab.Rapdis) 20 mg TRANSLINGU BEDTIME [facility] Last Admin: 12/21/23 21:06 Dose: 20 mg Trazodone HCl (Trazodone Hcl 50 Mg Tablet) 50 mg PO BEDTIME MRX1 PRN PRN Reason: Insomnia Allergies Allergies Allergy/AdvReac Type Severity Reaction Status Date / Time Unable to Assess Allergy Verified 11/25/23 17:57 Assessment & Plan Assessment & Plan (1) Moderate bipolar I disorder with marge as current episode: Status: Acute Code(s): F31.12 - Bipolar disorder, current episode manic without psychotic features, moderate Plan 11/26: offer lithium. hold haldol for now. 11/27: took HS dose, refused morning dose. reportedly he will only take medications at night. reschedule all lithium to HS, 1200 mg. 11/28: pt refused lithium last night. screamed at MD yesterday, calmly declines interview today: see you in court. olanzapine 20 mg QHS added to regimen, commitment paperwork filed. records from [facility] received and reviewed. 11/29: Court hearing pending. Declining medications in the meantime. 11/30: no changes 12/01 intrusive, poor boundaries. declines medications. 12/02 easily agitated refuses medication pressured 12/04/2023 Continues to refuse medication bizarre behavior illogical poor impulse control writing things on the kaur smearing feces on himself and on the kaur stuffing toilet 12/05/2023 Patient continues to refuse medication refused to use epic stork specialists periods of yelling agitated screaming about his sister having mental illness other times isolated and withdrawn 12/06/2023 Patient continues to refuse medication refuses to engage in ongoing conversation with epic stork specialists difficult to have reality based conversation 12/07/2023: Continue current regimen and plans. Refuses meds and cord is scheduled for 12/0812/08/2023: Continue current regimen and plans 12/08: refusing medications, labile, angry. some posturing over weekend, yelling at staff for trying to clean the couch that he wrote all over in ink. declined interview today. court tomorrow. 12/09: declines to speak with MD beyond saying he does not wish to attend court or meet with MD. 1.5 hr hearing, pt was committed and meds ordered by court. will await in-person cook islander epic stork specialists tomorrow to inform pt of results of court and necessity to take medication. 12/10: discussion held with pt, white lead grinder, various staff re commitment and court-ordered medication. changed context of hospitalization explained to pt, including PO refusal's leading to IM; pt appeared to understand. pt accepted Zydis and lithium this morning. 12/11: med-compliant. seen with JOSE Cancino and white lead grinder. feeling overmedicated, slept all day yesterday. will change all meds to HS and decrease olanzapine to 10 mg. new regimen lithium ER 900 QHS and zyprexa 10 QHS. 12/12: more labile and agitated this morning, furiously punching his palm in making his point. refused HS lithium last night, took it this morning. up at 0500. will return HS olanzapine dosing to 20 mg. add valium IM if lithium is refused. 12/13 continue tx 12/14 continue tx. 12/15: substantially less labile, irritable than last week. able to sit and have calm discussion. check labs tomorrow night. 12/16: no notable behaviors, stable presentation, continue current mgmt. 5/: irritable. lithium level 0.52, dosing increased to 1200 mg QHS. other labs reassuring. 12/18: remains irritable, rejecting interview. continue current mgmt. /: continues irritable, rejecting interview. accuses MD and SW of having threatened him yesterday. continue current mgmt. 12/20 continue treatment. 12/21 continue same treatment. Reason for continued inpatient stay Substantial Risk for: inability to function, rapid decompensation and med/psych decompensation Time Spent With Patient Time: Total time managing care of this patient today __20__ minutes.
[2023-12-22] MEDS: OLANZapine ODT 10 MG TAB.RAPDIS 20 MG TRANSLINGU (20:53)
[2023-12-22] MEDS: Lithium Carbonate ER 300 MG TABLET.ER 1200 MG PO (20:53)
[2023-12-22 20:56] VITALS: BP 122/78; PULSE 99; RESP 16; TEMP 37.2; O2SAT 95
--- NOTE | 2023-12-23 13:36 | P.PNPSI_ITS ---
Subjective Subjective Date of Service: 12/23/23 Reason For Visit: Marge Subjective Notes: Section 7 and Section 8 Guardianship: No Interim History: pt with periods of agitation irritability some periods of sedation Mental Status Exam Mental Status Exam Patient Appearance: Unkempt Patient Orientation: Person and Situation Level of Consciousness: Awake Patient Behavior: Guarded and Passive Mood Description: Calm Affect Description: Blunted Patient Cognition Impaired: Yes Ability to Follow Directions: Good Speech Pattern: Clear Hallucinations: None Delusions: Paranoid Ideation and Ideas of Reference Thought Process: Distracted and Slowed Thinking Thought Content: positive for [place] and positive for Poverty of Content Judgement: Fair Diagnostics Vital Signs (24Hr): Vital Signs - 24 hr 12/22/23 20:56 Temperature 98.9 F Pulse Rate 99 Respiratory Rate 16 Blood Pressure 122/78 Pulse Oximetry 95 Oxygen Delivery Method Room Air BMI result Body Mass Index 33.0 Labs 11/25/23 18:46 12/17/23 20:25 Medications Medications Current Medications Acetaminophen (Acetaminophen 325 Mg Tablet) 650 mg PO Q6H PRN PRN Reason: Headache/Pain Mild Scale (1-3) Al Hydroxide/Mg Hydroxide (Magnesium Hydrox/Alum Hydrox 30 Ml Oral.Susp) 30 ml PO Q6H PRN PRN Reason: Heartburn/Nausea Diazepam (Diazepam 10 Mg/2 Ml Cartridge) 10 mg IM BEDTIME PRN PRN Reason: refusal of lithium, per court order Hydroxyzine HCl (Hydroxyzine Hcl 25 Mg Tablet) 25 mg PO Q6H PRN PRN Reason: Anxiety [place] Carbonate ([place] Carbonate Er 300 Mg Tablet.Er) 1,200 mg PO BEDTIME [facility] Last Admin: 12/22/23 20:53 Dose: 1,200 mg Magnesium Hydroxide (Milk Of Magnesia 30 Ml Oral.Susp) 30 ml PO DAILY PRN PRN Reason: Constipation Nicotine Polacrilex (Nicotine Polacrilex 2 Mg Gum) 4 mg BUCCAL Q2H PRN PRN Reason: Nicotine Cravings Last Admin: 12/14/23 09:02 Dose: 4 mg Olanzapine (Olanzapine Odt 10 Mg Tab.Rapdis) 10 mg TRANSLINGU Q6H PRN PRN Reason: agitation Olanzapine (Olanzapine 10 Mg Vial) 10 mg IM BEDTIME PRN PRN Reason: refusal of ODT: per court ord Olanzapine (Olanzapine Odt 10 Mg Tab.Rapdis) 20 mg TRANSLINGU BEDTIME [facility] Last Admin: 12/22/23 20:53 Dose: 20 mg Trazodone HCl (Trazodone Hcl 50 Mg Tablet) 50 mg PO BEDTIME MRX1 PRN PRN Reason: Insomnia Allergies Allergies Allergy/AdvReac Type Severity Reaction Status Date / Time Unable to Assess Allergy Verified 11/25/23 17:57 Assessment & Plan Assessment & Plan (1) Moderate bipolar I disorder with marge as current episode: Status: Acute Code(s): F31.12 - Bipolar disorder, current episode manic without psychotic features, moderate Plan 11/26: offer lithium. hold haldol for now. 11/27: took HS dose, refused morning dose. reportedly he will only take medications at night. reschedule all lithium to HS, 1200 mg. 11/28: pt refused lithium last night. screamed at MD yesterday, calmly declines interview today: see you in court. olanzapine 20 mg QHS added to regimen, commitment paperwork filed. records from [facility] received and reviewed. 11/29: Court hearing pending. Declining medications in the meantime. 11/30: no changes 12/01 intrusive, poor boundaries. declines medications. 12/02 easily agitated refuses medication pressured 12/04/2023 Continues to refuse medication bizarre behavior illogical poor impulse control writing things on the kaur smearing feces on himself and on the kaur stuffing toilet 12/05/2023 Patient continues to refuse medication refused to use private branch exchange repairer periods of yelling agitated screaming about his sister having mental illness other times isolated and withdrawn 12/06/2023 Patient continues to refuse medication refuses to engage in ongoing conversation with private branch exchange repairer difficult to have reality based conversation 12/07/2023: Continue current regimen and plans. Refuses meds and cord is scheduled for 12/0812/08/2023: Continue current regimen and plans 12/08: refusing medications, labile, angry. some posturing over weekend, yelling at staff for trying to clean the couch that he wrote all over in ink. declined interview today. court tomorrow. 12/09: declines to speak with MD beyond saying he does not wish to attend court or meet with MD. 1.5 hr hearing, pt was committed and meds ordered by court. will await in-person ch[place] private branch exchange repairer tomorrow to inform pt of results of court and necessity to take medication. 12/10: discussion held with pt, program evaluator, various staff re commitment and court-ordered medication. changed context of hospitalization explained to pt, including PO refusal's leading to IM; pt appeared to understand. pt accepted Zydis and lithium this morning. 12/11: med-compliant. seen with JOSE Cancino and program evaluator. feeling overmedicated, slept all day yesterday. will change all meds to HS and decrease olanzapine to 10 mg. new regimen lithium ER 900 QHS and zyprexa 10 QHS. 12/12: more labile and agitated this morning, furiously punching his palm in making his point. refused HS lithium last night, took it this morning. up at 0500. will return HS olanzapine dosing to 20 mg. add valium IM if lithium is refused. 12/13 continue tx 12/14 continue tx. 12/15: substantially less labile, irritable than last week. able to sit and have calm discussion. check labs tomorrow night. 12/16: no notable behaviors, stable presentation, continue current mgmt. 5/1: irritable. lithium level 0.52, dosing increased to 1200 mg QHS. other labs reassuring. 12/18: remains irritable, rejecting interview. continue current mgmt. 3: continues irritable, rejecting interview. accuses MD and SW of having threatened him yesterday. continue current mgmt. 12/20 continue treatment. 12/21 continue same treatment. 12/23/23 continue plan of care Reason for continued inpatient stay Substantial Risk for: inability to function and rapid decompensation Time Spent With Patient Time: Total time managing care of this patient today ____ minutes.
[2023-12-23 20:00] VITALS: BP 125/75; PULSE 81; RESP 17; TEMP 36.6; O2SAT 96
[2023-12-23] MEDS: Lithium Carbonate ER 300 MG TABLET.ER 1200 MG PO (21:30)
[2023-12-23] MEDS: OLANZapine ODT 10 MG TAB.RAPDIS 20 MG TRANSLINGU (21:30)
--- NOTE | 2023-12-24 19:36 | P.PNPSI_ITS ---
Subjective Subjective Date of Service: 12/24/23 Reason For Visit: Marge Subjective Notes: Section 8 Interim History: Pt slept through the night. He is no longer on one to one, less intrusive with peers. Pt denies any concerns, stating I'm fine, I'm okay, everything is good! when this lead technical writer asked him if we could meet and have [place] artificial pearl maker. He is taking medications as prescribed. Not sedated during day today. No SI/HI. less delusions of zoroastrianism nature. Review of Systems Review of Systems ROS unable to be obtained due to poor historian Yes all other systems are reviewed and are negative and Unobtainable due to mental condition Mental Status Exam Mental Status Exam Patient Appearance: Unkempt Patient Orientation: Person and Situation Level of Consciousness: Awake Patient Behavior: Guarded and Passive Mood Description: Calm Affect Description: Blunted Patient Cognition Impaired: Yes Ability to Follow Directions: Good Speech Pattern: Clear Diagnostics Vital Signs (24Hr): Vital Signs - 24 hr 12/23/23 20:00 Temperature 97.8 F Pulse Rate 81 Respiratory Rate 17 Blood Pressure 125/75 Pulse Oximetry 96 Oxygen Delivery Method Room Air BMI result Body Mass Index 33.0 Labs 11/25/23 18:46 12/17/23 20:25 Medications Medications Current Medications Acetaminophen (Acetaminophen 325 Mg Tablet) 650 mg PO Q6H PRN PRN Reason: Headache/Pain Mild Scale (1-3) Al Hydroxide/Mg Hydroxide (Magnesium Hydrox/Alum Hydrox 30 Ml Oral.Susp) 30 ml PO Q6H PRN PRN Reason: Heartburn/Nausea Diazepam (Diazepam 10 Mg/2 Ml Cartridge) 10 mg IM BEDTIME PRN PRN Reason: refusal of lithium, per court order Hydroxyzine HCl (Hydroxyzine Hcl 25 Mg Tablet) 25 mg PO Q6H PRN PRN Reason: Anxiety [place] Carbonate ([place] Carbonate Er 300 Mg Tablet.Er) 1,200 mg PO BEDTIME KENDALL Last Admin: 12/23/23 21:30 Dose: 1,200 mg Magnesium Hydroxide (Milk Of Magnesia 30 Ml Oral.Susp) 30 ml PO DAILY PRN PRN Reason: Constipation Nicotine Polacrilex (Nicotine Polacrilex 2 Mg Gum) 4 mg BUCCAL Q2H PRN PRN Reason: Nicotine Cravings Last Admin: 12/14/23 09:02 Dose: 4 mg Olanzapine (Olanzapine Odt 10 Mg Tab.Rapdis) 10 mg TRANSLINGU Q6H PRN PRN Reason: agitation Olanzapine (Olanzapine 10 Mg Vial) 10 mg IM BEDTIME PRN PRN Reason: refusal of ODT: per court ord Olanzapine (Olanzapine Odt 10 Mg Tab.Rapdis) 20 mg TRANSLINGU BEDTIME KENDALL Last Admin: 12/23/23 21:30 Dose: 20 mg Trazodone HCl (Trazodone Hcl 50 Mg Tablet) 50 mg PO BEDTIME MRX1 PRN PRN Reason: Insomnia Allergies Allergies Allergy/AdvReac Type Severity Reaction Status Date / Time Unable to Assess Allergy Verified 11/25/23 17:57 Assessment & Plan Assessment & Plan (1) Moderate bipolar I disorder with marge as current episode: Status: Acute Code(s): F31.12 - Bipolar disorder, current episode manic without psychotic features, moderate Plan 11/26: offer lithium. hold haldol for now. 11/27: took HS dose, refused morning dose. reportedly he will only take medications at night. reschedule all lithium to HS, 1200 mg. 11/28: pt refused lithium last night. screamed at MD yesterday, calmly declines interview today: see you in court. olanzapine 20 mg QHS added to regimen, commitment paperwork filed. records from [facility] received and reviewed. 11/29: Court hearing pending. Declining medications in the meantime. 11/30: no changes 12/01 intrusive, poor boundaries. declines medications. 12/02 easily agitated refuses medication pressured 12/04/2023 Continues to refuse medication bizarre behavior illogical poor impulse control writing things on the kaur smearing feces on himself and on the kaur stuffing toilet 12/05/2023 Patient continues to refuse medication refused to use manager front periods of yelling agitated screaming about his sister having mental illness other times isolated and withdrawn 12/06/2023 Patient continues to refuse medication refuses to engage in ongoing conversation with manager front difficult to have reality based conversation 12/07/2023: Continue current regimen and plans. Refuses meds and cord is scheduled for 12/0812/08/2023: Continue current regimen and plans 12/08: refusing medications, labile, angry. some posturing over weekend, yelling at staff for trying to clean the couch that he wrote all over in ink. declined interview today. court tomorrow. 12/09: declines to speak with MD beyond saying he does not wish to attend court or meet with MD. 1.5 hr hearing, pt was committed and meds ordered by court. will await in-person british manager front tomorrow to inform pt of results of court and necessity to take medication. 12/10: discussion held with pt, artificial pearl maker, various staff re commitment and court-ordered medication. changed context of hospitalization explained to pt, including PO refusal's leading to IM; pt appeared to understand. pt accepted Zydis and lithium this morning. 12/11: med-compliant. seen with JOSE Cancino and artificial pearl maker. feeling overmedicated, slept all day yesterday. will change all meds to HS and decrease olanzapine to 10 mg. new regimen lithium ER 900 QHS and zyprexa 10 QHS. 12/12: more labile and agitated this morning, furiously punching his palm in making his point. refused HS lithium last night, took it this morning. up at 0500. will return HS olanzapine dosing to 20 mg. add valium IM if lithium is refused. 12/13 continue tx 12/14 continue tx. 12/15: substantially less labile, irritable than last week. able to sit and have calm discussion. check labs tomorrow night. 12/16: no notable behaviors, stable presentation, continue current mgmt. 12/17: irritable. lithium level 0.52, dosing increased to 1200 mg QHS. other labs reassuring. 12/18: remains irritable, rejecting interview. continue current mgmt. 12/19: continues irritable, rejecting interview. accuses MD and SW of having threatened him yesterday. continue current mgmt. 12/20 continue treatment. 12/21 continue same treatment. 12/23/23 continue plan of care 12/23 continue tx. Reason for continued inpatient stay Substantial Risk for: inability to function Time Spent With Patient Time: Total time managing care of this patient today ____ minutes.
[2023-12-24 20:00] VITALS: BP 127/87; PULSE 111; RESP 16; TEMP 36.9; O2SAT 95
[2023-12-24] MEDS: Lithium Carbonate ER 300 MG TABLET.ER 1200 MG PO (20:29)
[2023-12-24] MEDS: OLANZapine ODT 10 MG TAB.RAPDIS 20 MG TRANSLINGU (20:29)
[2023-12-25 09:12] LABS: Lithium 1.52 mmol/L (0.60-1.20)
--- NOTE | 2023-12-25 09:16 | PC.NURSE ---
Critical Value [place] 1.52 relayed to Radha Patel NP at 0912 no further orders at present.
--- NOTE | 2023-12-25 17:00 | HO.PSYCHPN ---
Subjective Subjective Date of Service: 12/25/23 Reason For Visit: Alfa Subjective Notes: Section 8 Interim History: Pt slept through the night. Met with pt and [place] ux design lead. He reports he has been very worried about his life. He reports he wrote prayers and things related to God and Dante as he felt that that way he would be protected. He also reports he thought his family was stealing from him, he now questions if this was the case but states that he knows he was screaming at them and this is not his usual nor his family member way of communicating. However, when asked if he trusts his family, he stills states not with his finances. He reports food here is draining his blood and he does not have enough blood for blood work. He also reports he is terrified of MD as he reports he believes he is trying to harm him. His lithium level elevated at 1.5- discussed decreasing dose from 1200mg po qhs to 900mg po qhs. He was somewhat reluctant to change dose, but this scientific technical writer explained toxic effects if dose continues to go up. Ordered labs for tomorrow morning. He is off one to one, not intrusive to peers. seems still somewhat paranoid about food, people. Medication Compliance: Yes Side effects from medications: No Attending Groups: No Review of Systems Review of Systems ROS unable to be obtained due to poor historian Yes all other systems are reviewed and are negative and Unobtainable due to mental condition Mental Status Exam Mental Status Exam Patient Appearance: Unkempt Patient Orientation: Person and Situation Level of Consciousness: Awake Patient Behavior: Guarded and Passive Mood Description: Calm Affect Description: Blunted Patient Cognition Impaired: Yes Ability to Follow Directions: Good Speech Pattern: Clear Diagnostics Vital Signs (24Hr): Vital Signs - 24 hr 12/24/23 20:00 Temperature 98.5 F Pulse Rate 111 H Respiratory Rate 16 Blood Pressure 127/87 Pulse Oximetry 95 Oxygen Delivery Method Room Air BMI result Body Mass Index 33.0 Labs 11/25/23 18:46 12/17/23 20:25 Labs: Laboratory Results - last 48 hr 12/25/23 07:59 [place] 1.52 H* Medications Medications Current Medications Acetaminophen (Acetaminophen 325 Mg Tablet) 650 mg PO Q6H PRN PRN Reason: Headache/Pain Mild Scale (1-3) Al Hydroxide/Mg Hydroxide (Magnesium Hydrox/Alum Hydrox 30 Ml Oral.Susp) 30 ml PO Q6H PRN PRN Reason: Heartburn/Nausea Diazepam (Diazepam 10 Mg/2 Ml Cartridge) 10 mg IM BEDTIME PRN PRN Reason: refusal of lithium, per court order Hydroxyzine HCl (Hydroxyzine Hcl 25 Mg Tablet) 25 mg PO Q6H PRN PRN Reason: Anxiety [place] Carbonate ([place] Carbonate Er 450 Mg Tablet.Er) 900 mg PO BEDTIME KENDALL Magnesium Hydroxide (Milk Of Magnesia 30 Ml Oral.Susp) 30 ml PO DAILY PRN PRN Reason: Constipation Nicotine Polacrilex (Nicotine Polacrilex 2 Mg Gum) 4 mg BUCCAL Q2H PRN PRN Reason: Nicotine Cravings Last Admin: 12/14/23 09:02 Dose: 4 mg Olanzapine (Olanzapine Odt 10 Mg Tab.Rapdis) 10 mg TRANSLINGU Q6H PRN PRN Reason: agitation Olanzapine (Olanzapine 10 Mg Vial) 10 mg IM BEDTIME PRN PRN Reason: refusal of ODT: per court ord Olanzapine (Olanzapine Odt 10 Mg Tab.Rapdis) 20 mg TRANSLINGU BEDTIME KENDALL Last Admin: 12/24/23 20:29 Dose: 20 mg Trazodone HCl (Trazodone Hcl 50 Mg Tablet) 50 mg PO BEDTIME MRX1 PRN PRN Reason: Insomnia Allergies Allergies Allergy/AdvReac Type Severity Reaction Status Date / Time Unable to Assess Allergy Verified 11/25/23 17:57 Assessment & Plan Assessment & Plan (1) Moderate bipolar I disorder with alfa as current episode: Status: Acute Code(s): F31.12 - Bipolar disorder, current episode manic without psychotic features, moderate Plan 11/26: offer lithium. hold haldol for now. 11/27: took HS dose, refused morning dose. reportedly he will only take medications at night. reschedule all lithium to HS, 1200 mg. 11/28: pt refused lithium last night. screamed at MD yesterday, calmly declines interview today: see you in court. olanzapine 20 mg QHS added to regimen, commitment paperwork filed. records from [facility] received and reviewed. 11/29: Court hearing pending. Declining medications in the meantime. 11/30: no changes 12/01 intrusive, poor boundaries. declines medications. 12/02 easily agitated refuses medication pressured 12/04/2023 Continues to refuse medication bizarre behavior illogical poor impulse control writing things on the kaur smearing feces on himself and on the kaur stuffing toilet 12/05/2023 Patient continues to refuse medication refused to use principal law clerk periods of yelling agitated screaming about his sister having mental illness other times isolated and withdrawn 12/06/2023 Patient continues to refuse medication refuses to engage in ongoing conversation with principal law clerk difficult to have reality based conversation 12/07/2023: Continue current regimen and plans. Refuses meds and cord is scheduled for 12/0812/08/2023: Continue current regimen and plans 12/08: refusing medications, labile, angry. some posturing over weekend, yelling at staff for trying to clean the couch that he wrote all over in ink. declined interview today. court tomorrow. 12/09: declines to speak with MD beyond saying he does not wish to attend court or meet with MD. 1.5 hr hearing, pt was committed and meds ordered by court. will await in-person [place] principal law clerk tomorrow to inform pt of results of court and necessity to take medication. 12/10: discussion held with pt, ux design lead, various staff re commitment and court-ordered medication. changed context of hospitalization explained to pt, including PO refusal's leading to IM; pt appeared to understand. pt accepted Zydis and lithium this morning. 12/11: med-compliant. seen with JOSE Cancino and ux design lead. feeling overmedicated, slept all day yesterday. will change all meds to HS and decrease olanzapine to 10 mg. new regimen lithium ER 900 QHS and zyprexa 10 QHS. 12/12: more labile and agitated this morning, furiously punching his palm in making his point. refused HS lithium last night, took it this morning. up at 0500. will return HS olanzapine dosing to 20 mg. add valium IM if lithium is refused. 12/13 continue tx 12/14 continue tx. 12/15: substantially less labile, irritable than last week. able to sit and have calm discussion. check labs tomorrow night. 12/16: no notable behaviors, stable presentation, continue current mgmt. 12/17: irritable. lithium level 0.52, dosing increased to 1200 mg QHS. other labs reassuring. 12/18: remains irritable, rejecting interview. continue current mgmt. 12/19: continues irritable, rejecting interview. accuses MD and SW of having threatened him yesterday. continue current mgmt. 12/20 continue treatment. 12/21 continue same treatment. 12/23/23 continue plan of care 12/23 continue tx. 12/24 lithium level high 1.5, lowered lithium to 900mg po qhs, recheck lithium level tomorrow morning along with cmp and TSH. Reason for continued inpatient stay Substantial Risk for: inability to function Time Spent With Patient Time: Total time managing care of this patient today ____ minutes.
--- NOTE | 2023-12-25 18:02 | PC.NURSE ---
Patient met with me with american sign language interpreter present today. For the first time he was very active in his meeting with me. Patient explained that while we believe he is talking to himself he is actually rapping in Algerian. In addition, he says he has a speech impediment and is sometimes doing exercises he was given to practice to improve his speech by a speech therapist.? Pt states prior to adm he was very angry at his family when $2000.00 went missing and over reacted, yelling ?more than I should have? and that he knows he was out of control. Pt states his current medications make him feel ?much more calm. I can sleep at night and I am less stressed out.? He says he plans to take them when he leaves the hospital. I explained his elevated lithium level? and the plan to decrease his doses. He verbalized understanding and denied s/s lithium toxicity. I asked patient why he has not spoken to staff about these things in the past. He stated, ? I am terrified of that doctor. He is the one who called all of the police officers up here to get me. I need a different doctor. I can?t talk to him.?? Pt states that he needs to leave the hospital, go back to work, pay his bills, be with his family.
[2023-12-25 20:00] VITALS: BP 120/78; PULSE 97; RESP 16; TEMP 36.9; O2SAT 95
[2023-12-25] MEDS: Lithium Carbonate ER 450 MG TABLET.ER 900 MG PO (20:29)
[2023-12-25] MEDS: OLANZapine ODT 10 MG TAB.RAPDIS 20 MG TRANSLINGU (20:29)
[2023-12-26 07:00] VITALS: BMI 33.2
[2023-12-26 08:15] VITALS: BP 125/83; PULSE 115; RESP 18; TEMP 36.9; O2SAT 96
--- NOTE | 2023-12-26 14:59 | P.PNPSI_ITS ---
Subjective Subjective Date of Service: 12/26/23 Reason For Visit: Marge Interim History: more relaxed and pleasant today. gradual escalation in discussion of blood draws, then pt stormed out of interview. lasted far longer today than on any previous day, however. does not want to change medications. per staff, compliant with medication. lithium 1.52 yesterday. rapping in norwegian. thinks MD called the police on him to get him into the hospital. not attending groups. Mental Status Exam Mental Status Exam Narrative: adequately dressed, improved grooming. cooperative. no PMA/PMR. speech incr rate, nml amount, decr latency, incr loudness. thoughts linear, paranoid delusions. affect normo-intense, mod-labile. mood irritable. no SI/SIBI/HI/AVH expressed. Diagnostics Vital Signs (24Hr): Vital Signs - 24 hr 12/25/23 20:00 12/26/23 08:15 Temperature 98.5 F 98.4 F Pulse Rate 97 115 H Respiratory Rate 16 18 Blood Pressure 120/78 125/83 Pulse Oximetry 95 96 Oxygen Delivery Method Room Air Room Air BMI result Body Mass Index 33.2 Labs 11/25/23 18:46 12/17/23 20:25 Labs: Laboratory Results - last 48 hr 12/25/23 07:59 [place] 1.52 H* Medications Medications Current Medications Acetaminophen (Acetaminophen 325 Mg Tablet) 650 mg PO Q6H PRN PRN Reason: Headache/Pain Mild Scale (1-3) Al Hydroxide/Mg Hydroxide (Magnesium Hydrox/Alum Hydrox 30 Ml Oral.Susp) 30 ml PO Q6H PRN PRN Reason: Heartburn/Nausea Diazepam (Diazepam 10 Mg/2 Ml Cartridge) 10 mg IM BEDTIME PRN PRN Reason: refusal of lithium, per court order Hydroxyzine HCl (Hydroxyzine Hcl 25 Mg Tablet) 25 mg PO Q6H PRN PRN Reason: Anxiety [place] Carbonate ([place] Carbonate Er 450 Mg Tablet.Er) 900 mg PO BEDTIME KENDALL Last Admin: 12/25/23 20:29 Dose: 900 mg Magnesium Hydroxide (Milk Of Magnesia 30 Ml Oral.Susp) 30 ml PO DAILY PRN PRN Reason: Constipation Nicotine Polacrilex (Nicotine Polacrilex 2 Mg Gum) 4 mg BUCCAL Q2H PRN PRN Reason: Nicotine Cravings Last Admin: 12/14/23 09:02 Dose: 4 mg Olanzapine (Olanzapine Odt 10 Mg Tab.Rapdis) 10 mg TRANSLINGU Q6H PRN PRN Reason: agitation Olanzapine (Olanzapine 10 Mg Vial) 10 mg IM BEDTIME PRN PRN Reason: refusal of ODT: per court ord Olanzapine (Olanzapine Odt 10 Mg Tab.Rapdis) 20 mg TRANSLINGU BEDTIME KENDALL Last Admin: 12/25/23 20:29 Dose: 20 mg Trazodone HCl (Trazodone Hcl 50 Mg Tablet) 50 mg PO BEDTIME MRX1 PRN PRN Reason: Insomnia Allergies Allergies Allergy/AdvReac Type Severity Reaction Status Date / Time Unable to Assess Allergy Verified 11/25/23 17:57 Assessment & Plan Assessment & Plan (1) Moderate bipolar I disorder with marge as current episode: Status: Acute Code(s): F31.12 - Bipolar disorder, current episode manic without psychotic features, moderate Plan 11/26: offer lithium. hold haldol for now. 11/27: took HS dose, refused morning dose. reportedly he will only take medications at night. reschedule all lithium to HS, 1200 mg. 11/28: pt refused lithium last night. screamed at MD yesterday, calmly declines interview today: see you in court. olanzapine 20 mg QHS added to regimen, commitment paperwork filed. records from [facility] received and reviewed. 11/29: Court hearing pending. Declining medications in the meantime. 11/30: no changes 12/01 intrusive, poor boundaries. declines medications. 12/02 easily agitated refuses medication pressured 12/04/2023 Continues to refuse medication bizarre behavior illogical poor impulse control writing things on the kaur smearing feces on himself and on the kaur stuffing toilet 12/05/2023 Patient continues to refuse medication refused to use wearing apparel shaker periods of yelling agitated screaming about his sister having mental illness other times isolated and withdrawn 12/06/2023 Patient continues to refuse medication refuses to engage in ongoing conversation with wearing apparel shaker difficult to have reality based conversation 12/07/2023: Continue current regimen and plans. Refuses meds and cord is scheduled for 12/0812/08/2023: Continue current regimen and plans 12/08: refusing medications, labile, angry. some posturing over weekend, yelling at staff for trying to clean the couch that he wrote all over in ink. declined interview today. court tomorrow. 12/09: declines to speak with MD beyond saying he does not wish to attend court or meet with MD. 1.5 hr hearing, pt was committed and meds ordered by court. will await in-person norwegian wearing apparel shaker tomorrow to inform pt of results of court and necessity to take medication. 12/10: discussion held with pt, paint maker, various staff re commitment and court-ordered medication. changed context of hospitalization explained to pt, including PO refusal's leading to IM; pt appeared to understand. pt accepted Zydis and lithium this morning. 12/11: med-compliant. seen with JOSE Canicno and paint maker. feeling overmedicated, slept all day yesterday. will change all meds to HS and decrease olanzapine to 10 mg. new regimen lithium ER 900 QHS and zyprexa 10 QHS. 12/12: more labile and agitated this morning, furiously punching his palm in making his point. refused HS lithium last night, took it this morning. up at 0500. will return HS olanzapine dosing to 20 mg. add valium IM if lithium is refused. 12/13 continue tx 12/14 continue tx. 12/15: substantially less labile, irritable than last week. able to sit and have calm discussion. check labs tomorrow night. 12/16: no notable behaviors, stable presentation, continue current mgmt. 12/17: irritable. lithium level 0.52, dosing increased to 1200 mg QHS. other labs reassuring. 12/18: remains irritable, rejecting interview. continue current mgmt. 12/19: continues irritable, rejecting interview. accuses MD and SW of having threatened him yesterday. continue current mgmt. 12/20 continue treatment. 12/21 continue same treatment. 12/23/23 continue plan of care 12/23 continue tx. 12/24 lithium level high 1.5, lowered lithium to 900mg po qhs, recheck lithium level tomorrow morning along with cmp and TSH. 12/25: pt declining labs, apparently fearful of needles. no signs of lithium toxicity. pt denies any problems or side effects, does not want to change medication. does c/o gaining weight, which he does not appreciate is related to medication. will DC zyprexa in favor of paliperidone. Reason for continued inpatient stay Substantial Risk for: inability to function and rapid decompensation Time Spent With Patient Time: Total time managing care of this patient today __35__ minutes.
[2023-12-26 19:20] VITALS: BP 121/79; PULSE 123; RESP 18; TEMP 36.9; O2SAT 97
[2023-12-26] MEDS: OLANZapine ODT 10 MG TAB.RAPDIS TRANSLINGU (20:08)
[2023-12-26] MEDS: Paliperidone ER 6 MG TAB.ER.24 PO (20:08)
[2023-12-26] MEDS: Lithium Carbonate ER 450 MG TABLET.ER 900 MG PO (20:08)
--- NOTE | 2023-12-27 16:37 | P.PNPSI_ITS ---
Subjective Subjective Date of Service: 12/27/23 Reason For Visit: Marge Interim History: seen with JOSE Cancino and audit clerk. calm, cooperative, agreeable. per staff, refusing labs. taking meds. slept well. got zydis 10 and invega 6 at HS last night. Mental Status Exam Mental Status Exam Narrative: adequately dressed, improved grooming. cooperative. no PMA/PMR. speech incr rate, nml amount, nml latency, nml loudness. thoughts linear, no paranoid delusions expressed. affect normo-intense, non-labile. mood irritable. no SI/SIBI/HI/AVH expressed. Diagnostics Vital Signs (24Hr): Vital Signs - 24 hr 12/26/23 19:20 Temperature 98.4 F Pulse Rate 123 H Respiratory Rate 18 Blood Pressure 121/79 Pulse Oximetry 97 Oxygen Delivery Method Room Air BMI result Body Mass Index 33.2 Labs 11/25/23 18:46 12/17/23 20:25 Medications Medications Current Medications Acetaminophen (Acetaminophen 325 Mg Tablet) 650 mg PO Q6H PRN PRN Reason: Headache/Pain Mild Scale (1-3) Al Hydroxide/Mg Hydroxide (Magnesium Hydrox/Alum Hydrox 30 Ml Oral.Susp) 30 ml PO Q6H PRN PRN Reason: Heartburn/Nausea Diazepam (Diazepam 10 Mg/2 Ml Cartridge) 10 mg IM BEDTIME PRN PRN Reason: refusal of lithium, per court order Hydroxyzine HCl (Hydroxyzine Hcl 25 Mg Tablet) 25 mg PO Q6H PRN PRN Reason: Anxiety [place] Carbonate ([place] Carbonate Er 450 Mg Tablet.Er) 900 mg PO BEDTIME KENDALL Last Admin: 12/26/23 20:08 Dose: 900 mg Magnesium Hydroxide (Milk Of Magnesia 30 Ml Oral.Susp) 30 ml PO DAILY PRN PRN Reason: Constipation Nicotine Polacrilex (Nicotine Polacrilex 2 Mg Gum) 4 mg BUCCAL Q2H PRN PRN Reason: Nicotine Cravings Last Admin: 12/14/23 09:02 Dose: 4 mg Olanzapine (Olanzapine 10 Mg Vial) 10 mg IM BEDTIME PRN PRN Reason: invega refusal: per court ord Paliperidone (Paliperidone Er 9 Mg Tab.Er.24) 9 mg PO BEDTIME KENDALL Paliperidone (Paliperidone Er 3 Mg Tab.Er.24) 3 mg PO DAILY PRN PRN Reason: agitation Trazodone HCl (Trazodone Hcl 50 Mg Tablet) 50 mg PO BEDTIME MRX1 PRN PRN Reason: Insomnia Allergies Allergies Allergy/AdvReac Type Severity Reaction Status Date / Time Unable to Assess Allergy Verified 11/25/23 17:57 Assessment & Plan Assessment & Plan (1) Moderate bipolar I disorder with marge as current episode: Status: Acute Code(s): F31.12 - Bipolar disorder, current episode manic without psychotic features, moderate Plan 11/26: offer lithium. hold haldol for now. 11/27: took HS dose, refused morning dose. reportedly he will only take medications at night. reschedule all lithium to HS, 1200 mg. 11/28: pt refused lithium last night. screamed at MD yesterday, calmly declines interview today: see you in court. olanzapine 20 mg QHS added to regimen, commitment paperwork filed. records from [facility] received and reviewed. 11/29: Court hearing pending. Declining medications in the meantime. 11/30: no changes 12/01 intrusive, poor boundaries. declines medications. 12/02 easily agitated refuses medication pressured 12/04/2023 Continues to refuse medication bizarre behavior illogical poor impulse control writing things on the kaur smearing feces on himself and on the kaur stuffing toilet 12/05/2023 Patient continues to refuse medication refused to use biopharmaceutical rep periods of yelling agitated screaming about his sister having mental illness other times isolated and withdrawn 12/06/2023 Patient continues to refuse medication refuses to engage in ongoing conversation with biopharmaceutical rep difficult to have reality based conversation 12/07/2023: Continue current regimen and plans. Refuses meds and cord is scheduled for 12/0812/08/2023: Continue current regimen and plans 12/08: refusing medications, labile, angry. some posturing over weekend, yelling at staff for trying to clean the couch that he wrote all over in ink. declined interview today. court tomorrow. 12/09: declines to speak with MD beyond saying he does not wish to attend court or meet with MD. 1.5 hr hearing, pt was committed and meds ordered by court. will await in-person belize[place] biopharmaceutical rep tomorrow to inform pt of results of court and necessity to take medication. 12/10: discussion held with pt, audit clerk, various staff re commitment and court-ordered medication. changed context of hospitalization explained to pt, including PO refusal's leading to IM; pt appeared to understand. pt accepted Zydis and lithium this morning. 12/11: med-compliant. seen with JOSE Cancino and audit clerk. feeling overmedicated, slept all day yesterday. will change all meds to HS and decrease olanzapine to 10 mg. new regimen lithium ER 900 QHS and zyprexa 10 QHS. 12/12: more labile and agitated this morning, furiously punching his palm in making his point. refused HS lithium last night, took it this morning. up at 0500. will return HS olanzapine dosing to 20 mg. add valium IM if lithium is refused. 12/13 continue tx 12/14 continue tx. 12/15: substantially less labile, irritable than last week. able to sit and have calm discussion. check labs tomorrow night. 12/16: no notable behaviors, stable presentation, continue current mgmt. 12/17: irritable. lithium level 0.52, dosing increased to 1200 mg QHS. other labs reassuring. 12/18: remains irritable, rejecting interview. continue current mgmt. 12/19: continues irritable, rejecting interview. accuses and JOSE of having threatened him yesterday. continue current mgmt. 12/20 continue treatment. 12/21 continue same treatment. 12/23/23 continue plan of care 12/23 continue tx. 12/24 lithium level high 1.5, lowered lithium to 900mg po qhs, recheck lithium level tomorrow morning along with cmp and TSH. 12/25: pt declining labs, apparently fearful of needles. no signs of lithium toxicity. pt denies any problems or side effects, does not want to change medication. does c/o gaining weight, which he does not appreciate is related to medication. will DC zyprexa in favor of paliperidone. 12/26: DC zyprexa PO PRN, change to invega. increase HS invega to 9 mg. otherwise continue current mgmt. calm today, but the issue of needles was not raised. Reason for continued inpatient stay Substantial Risk for: harm to self, harm to others, inability to function and rapid decompensation Time Spent With Patient Time: Total time managing care of this patient today __25__ minutes.
[2023-12-27 20:05] VITALS: BP 126/75; PULSE 99; RESP 16; TEMP 36.1; O2SAT 97
[2023-12-27] MEDS: Paliperidone ER 9 MG TAB.ER.24 PO (20:51)
[2023-12-27] MEDS: Lithium Carbonate ER 450 MG TABLET.ER 900 MG PO (20:51)
[2023-12-28 07:46] VITALS: BP 128/80; PULSE 103; RESP 16; TEMP 36.5; O2SAT 96
--- NOTE | 2023-12-28 10:47 | P.PNPSI_ITS ---
Subjective Subjective Date of Service: 12/28/23 Reason For Visit: Alfa Subjective Notes: Section 8 Interim History: Reviewed with Dr. Delatorre. pacing unit [facility]. met pt with RN, Yonis, while utilizing tele-certified court interpreter Ipad service. pt presents irritable; pt stated, I'm feeling excellent. I feel excellent everyday. How many more day do I have to stay here? I want to go home and go back to work . Pt was directed to speak with his primary team on Saturday regarding treatment plan. Pt became upset and left interview room. Medication Compliance: Yes Review of Systems Constitutional: Reports as per HPI Eyes: Reports as per HPI Reports as per HPI Cardiovascular: Reports as per HPI Respiratory: Reports as per HPI Gastrointestinal: Reports as per HPI Genitourinary: Reports as per HPI Musculoskeletal: Reports as per HPI Skin/Breast: Reports as per HPI Reports as per HPI Psychiatric: Reports as per HPI Endocrine: Reports as per HPI Hematologic/Lymphatic: Reports as per HPI Allergic/Immunologic: Reports as per HPI Mental Status Exam Mental Status Exam Patient Appearance: Disheveled Patient Orientation: Person, Place, Time and Situation Level of Consciousness: Awake Patient Behavior: Pacing Mood Description: Angry Affect Description: Angry Speech Pattern: Clear Thought Process: Goal Oriented Thought Content: positive for Goal Oriented Diagnostics Vital Signs (24Hr): Vital Signs - 24 hr 12/27/23 20:05 12/28/23 07:46 Temperature 97.0 F 97.7 F Pulse Rate 99 103 H Respiratory Rate 16 16 Blood Pressure 126/75 128/80 Pulse Oximetry 97 96 Oxygen Delivery Method Room Air Room Air BMI result Body Mass Index 33.2 Labs 11/25/23 18:46 12/17/23 20:25 Medications Medications Current Medications Acetaminophen (Acetaminophen 325 Mg Tablet) 650 mg PO Q6H PRN PRN Reason: Headache/Pain Mild Scale (1-3) Al Hydroxide/Mg Hydroxide (Magnesium Hydrox/Alum Hydrox 30 Ml Oral.Susp) 30 ml PO Q6H PRN PRN Reason: Heartburn/Nausea Diazepam (Diazepam 10 Mg/2 Ml Cartridge) 10 mg IM BEDTIME PRN PRN Reason: refusal of lithium, per court order Hydroxyzine HCl (Hydroxyzine Hcl 25 Mg Tablet) 25 mg PO Q6H PRN PRN Reason: Anxiety [place] Carbonate ([place] Carbonate Er 450 Mg Tablet.Er) 900 mg PO BEDTIME KENDALL Last Admin: 12/27/23 20:51 Dose: 900 mg Magnesium Hydroxide (Milk Of Magnesia 30 Ml Oral.Susp) 30 ml PO DAILY PRN PRN Reason: Constipation Nicotine Polacrilex (Nicotine Polacrilex 2 Mg Gum) 4 mg BUCCAL Q2H PRN PRN Reason: Nicotine Cravings Last Admin: 12/14/23 09:02 Dose: 4 mg Olanzapine (Olanzapine 10 Mg Vial) 10 mg IM BEDTIME PRN PRN Reason: invega refusal: per court ord Paliperidone (Paliperidone Er 9 Mg Tab.Er.24) 9 mg PO BEDTIME KENDALL Last Admin: 12/27/23 20:51 Dose: 9 mg Paliperidone (Paliperidone Er 3 Mg Tab.Er.24) 3 mg PO DAILY PRN PRN Reason: agitation Trazodone HCl (Trazodone Hcl 50 Mg Tablet) 50 mg PO BEDTIME MRX1 PRN PRN Reason: Insomnia Allergies Allergies Allergy/AdvReac Type Severity Reaction Status Date / Time Unable to Assess Allergy Verified 11/25/23 17:57 Assessment & Plan Assessment & Plan (1) Moderate bipolar I disorder with alfa as current episode: Status: Acute Code(s): F31.12 - Bipolar disorder, current episode manic without psychotic features, moderate Plan 11/26: offer lithium. hold haldol for now. 11/27: took HS dose, refused morning dose. reportedly he will only take medications at night. reschedule all lithium to HS, 1200 mg. 11/28: pt refused lithium last night. screamed at MD yesterday, calmly declines interview today: see you in court. olanzapine 20 mg QHS added to regimen, commitment paperwork filed. records from [facility] received and reviewed. 11/29: Court hearing pending. Declining medications in the meantime. 11/30: no changes 12/01 intrusive, poor boundaries. declines medications. 12/02 easily agitated refuses medication pressured 12/04/2023 Continues to refuse medication bizarre behavior illogical poor impulse control writing things on the kaur smearing feces on himself and on the kaur stuffing toilet 12/05/2023 Patient continues to refuse medication refused to use trouble dispatcher periods of yelling agitated screaming about his sister having mental illness other times isolated and withdrawn 12/06/2023 Patient continues to refuse medication refuses to engage in ongoing conversation with trouble dispatcher difficult to have reality based conversation 12/07/2023: Continue current regimen and plans. Refuses meds and cord is scheduled for 12/0812/08/2023: Continue current regimen and plans 12/08: refusing medications, labile, angry. some posturing over weekend, yelling at staff for trying to clean the couch that he wrote all over in ink. declined interview today. court tomorrow. 12/09: declines to speak with MD beyond saying he does not wish to attend court or meet with MD. 1.5 hr hearing, pt was committed and meds ordered by court. will await in-person [place] trouble dispatcher tomorrow to inform pt of results of court and necessity to take medication. 12/10: discussion held with pt, certified court interpreter, various staff re commitment and court-ordered medication. changed context of hospitalization explained to pt, including PO refusal's leading to IM; pt appeared to understand. pt accepted Zydis and lithium this morning. 12/11: med-compliant. seen with JOSE Cancino and certified court interpreter. feeling overmedicated, slept all day yesterday. will change all meds to HS and decrease olanzapine to 10 mg. new regimen lithium ER 900 QHS and zyprexa 10 QHS. 12/12: more labile and agitated this morning, furiously punching his palm in making his point. refused HS lithium last night, took it this morning. up at 0500. will return HS olanzapine dosing to 20 mg. add valium IM if lithium is refused. 12/13 continue tx 12/14 continue tx. 12/15: substantially less labile, irritable than last week. able to sit and have calm discussion. check labs tomorrow night. 12/16: no notable behaviors, stable presentation, continue current mgmt. 12/17: irritable. lithium level 0.52, dosing increased to 1200 mg QHS. other labs reassuring. 12/18: remains irritable, rejecting interview. continue current mgmt. 12/19: continues irritable, rejecting interview. accuses MD and SW of having threatened him yesterday. continue current mgmt. 12/20 continue treatment. 12/21 continue same treatment. 12/23/23 continue plan of care 12/23 continue tx. 12/24 lithium level high 1.5, lowered lithium to 900mg po qhs, recheck lithium level tomorrow morning along with cmp and TSH. 12/25: pt declining labs, apparently fearful of needles. no signs of lithium toxicity. pt denies any problems or side effects, does not want to change medication. does c/o gaining weight, which he does not appreciate is related to medication. will DC zyprexa in favor of paliperidone. 12/26: DC zyprexa PO PRN, change to invega. increase HS invega to 9 mg. otherwise continue current mgmt. calm today, but the issue of needles was not raised. 12/27: continue current tx plan. Patient educated on: diagnosis and medication risk/benefits Informed Consent: further education needed Reason for continued inpatient stay Substantial Risk for: med/psych decompensation Time Spent With Patient Time: Total time managing care of this patient today _20___ minutes.
[2023-12-28 19:20] VITALS: BP 141/89; PULSE 105; RESP 18; TEMP 36.6; O2SAT 97
[2023-12-28] MEDS: Lithium Carbonate ER 450 MG TABLET.ER 900 MG PO (20:29)
[2023-12-28] MEDS: Paliperidone ER 9 MG TAB.ER.24 PO (20:29)
--- NOTE | 2023-12-29 08:32 | HO.PSYCHPN ---
Subjective Subjective Date of Service: 12/29/23 Reason For Visit: Alfa Subjective Notes: Section 8 Interim History: Reviewed with Dr. Delatorre. pacing unit [facility]. met pt with RN, Yonis, while utilizing tele-medical interpreter Ipad service. pt presents calmer today; pt stated, everything is perfect. I have no complaints . Pt reports sleeping well. When asked if he is experiencing auditory hallucinations d/t staff witnessing pt talking to self; pt stated, I'm just rapping to myself . Pt denies SI/HI/VH/AH. Medication Compliance: Yes Side effects from medications: No Attending Groups: No Review of Systems Constitutional: Reports as per HPI Eyes: Reports as per HPI Reports as per HPI Cardiovascular: Reports as per HPI Respiratory: Reports as per HPI Gastrointestinal: Reports as per HPI Genitourinary: Reports as per HPI Musculoskeletal: Reports as per HPI Skin/Breast: Reports as per HPI Reports as per HPI Psychiatric: Reports as per HPI Endocrine: Reports as per HPI Hematologic/Lymphatic: Reports as per HPI Allergic/Immunologic: Reports as per HPI Mental Status Exam Mental Status Exam Narrative: Pt is alert and oriented; behavior is cooperative and calm; dressed in casual attire; mood is described as good ; eye contact appropriate; Speech is normal rate, volume and prosody and not pressured; focused on discharge; denies SI/HI/VH/AH. Diagnostics Vital Signs (24Hr): Vital Signs - 24 hr 12/28/23 19:20 Temperature 97.9 F Pulse Rate 105 H Respiratory Rate 18 Blood Pressure 141/89 H Pulse Oximetry 97 Oxygen Delivery Method Room Air BMI result Body Mass Index 33.2 Labs 11/25/23 18:46 12/17/23 20:25 Medications Medications Current Medications Acetaminophen (Acetaminophen 325 Mg Tablet) 650 mg PO Q6H PRN PRN Reason: Headache/Pain Mild Scale (1-3) Al Hydroxide/Mg Hydroxide (Magnesium Hydrox/Alum Hydrox 30 Ml Oral.Susp) 30 ml PO Q6H PRN PRN Reason: Heartburn/Nausea Diazepam (Diazepam 10 Mg/2 Ml Cartridge) 10 mg IM BEDTIME PRN PRN Reason: refusal of lithium, per court order Hydroxyzine HCl (Hydroxyzine Hcl 25 Mg Tablet) 25 mg PO Q6H PRN PRN Reason: Anxiety [place] Carbonate ([place] Carbonate Er 450 Mg Tablet.Er) 900 mg PO BEDTIME KENDALL Last Admin: 12/28/23 20:29 Dose: 900 mg Magnesium Hydroxide (Milk Of Magnesia 30 Ml Oral.Susp) 30 ml PO DAILY PRN PRN Reason: Constipation Nicotine Polacrilex (Nicotine Polacrilex 2 Mg Gum) 4 mg BUCCAL Q2H PRN PRN Reason: Nicotine Cravings Last Admin: 12/14/23 09:02 Dose: 4 mg Olanzapine (Olanzapine 10 Mg Vial) 10 mg IM BEDTIME PRN PRN Reason: invega refusal: per court ord Paliperidone (Paliperidone Er 9 Mg Tab.Er.24) 9 mg PO BEDTIME KENDALL Last Admin: 12/28/23 20:29 Dose: 9 mg Paliperidone (Paliperidone Er 3 Mg Tab.Er.24) 3 mg PO DAILY PRN PRN Reason: agitation Trazodone HCl (Trazodone Hcl 50 Mg Tablet) 50 mg PO BEDTIME MRX1 PRN PRN Reason: Insomnia Allergies Allergies Allergy/AdvReac Type Severity Reaction Status Date / Time Unable to Assess Allergy Verified 11/25/23 17:57 Assessment & Plan Assessment & Plan (1) Moderate bipolar I disorder with alfa as current episode: Status: Acute Code(s): F31.12 - Bipolar disorder, current episode manic without psychotic features, moderate Plan 11/26: offer lithium. hold haldol for now. 11/27: took HS dose, refused morning dose. reportedly he will only take medications at night. reschedule all lithium to HS, 1200 mg. 11/28: pt refused lithium last night. screamed at MD yesterday, calmly declines interview today: see you in court. olanzapine 20 mg QHS added to regimen, commitment paperwork filed. records from [facility] received and reviewed. 11/29: Court hearing pending. Declining medications in the meantime. 11/30: no changes 12/01 intrusive, poor boundaries. declines medications. 12/02 easily agitated refuses medication pressured 12/04/2023 Continues to refuse medication bizarre behavior illogical poor impulse control writing things on the kaur smearing feces on himself and on the kaur stuffing toilet 12/05/2023 Patient continues to refuse medication refused to use homemaking rehabilitation consultant periods of yelling agitated screaming about his sister having mental illness other times isolated and withdrawn 12/06/2023 Patient continues to refuse medication refuses to engage in ongoing conversation with homemaking rehabilitation consultant difficult to have reality based conversation 12/07/2023: Continue current regimen and plans. Refuses meds and cord is scheduled for 12/0812/08/2023: Continue current regimen and plans 12/08: refusing medications, labile, angry. some posturing over weekend, yelling at staff for trying to clean the couch that he wrote all over in ink. declined interview today. court tomorrow. 12/09: declines to speak with MD beyond saying he does not wish to attend court or meet with MD. 1.5 hr hearing, pt was committed and meds ordered by court. will await in-person mauritian homemaking rehabilitation consultant tomorrow to inform pt of results of court and necessity to take medication. 12/10: discussion held with pt, medical interpreter, various staff re commitment and court-ordered medication. changed context of hospitalization explained to pt, including PO refusal's leading to IM; pt appeared to understand. pt accepted Zydis and lithium this morning. 12/11: med-compliant. seen with JOSE Cancino and medical interpreter. feeling overmedicated, slept all day yesterday. will change all meds to HS and decrease olanzapine to 10 mg. new regimen lithium ER 900 QHS and zyprexa 10 QHS. 12/12: more labile and agitated this morning, furiously punching his palm in making his point. refused HS lithium last night, took it this morning. up at 0500. will return HS olanzapine dosing to 20 mg. add valium IM if lithium is refused. 12/13 continue tx 12/14 continue tx. 12/15: substantially less labile, irritable than last week. able to sit and have calm discussion. check labs tomorrow night. 12/16: no notable behaviors, stable presentation, continue current mgmt. 12/17: irritable. lithium level 0.52, dosing increased to 1200 mg QHS. other labs reassuring. 12/18: remains irritable, rejecting interview. continue current mgmt. 12/19: continues irritable, rejecting interview. accuses MD and SW of having threatened him yesterday. continue current mgmt. 12/20 continue treatment. 12/21 continue same treatment. 12/23/23 continue plan of care 5/7 continue tx. 12/24 lithium level high 1.5, lowered lithium to 900mg po qhs, recheck lithium level tomorrow morning along with cmp and TSH. 12/25: pt declining labs, apparently fearful of needles. no signs of lithium toxicity. pt denies any problems or side effects, does not want to change medication. does c/o gaining weight, which he does not appreciate is related to medication. will DC zyprexa in favor of paliperidone. 12/26: DC zyprexa PO PRN, change to invega. increase HS invega to 9 mg. otherwise continue current mgmt. calm today, but the issue of needles was not raised. 12/27: continue current tx plan. 12/28: continue tx plan. Patient educated on: diagnosis and medication risk/benefits Informed Consent: understands Reason for continued inpatient stay Substantial Risk for: med/psych decompensation Time Spent With Patient Time: Total time managing care of this patient today _20___ minutes.
[2023-12-29 08:40] VITALS: BP 125/78; PULSE 118; RESP 20; TEMP 36.2; O2SAT 97
[2023-12-29 20:00] VITALS: BP 125/83; PULSE 101; RESP 16; TEMP 35.9; O2SAT 97
[2023-12-29] MEDS: Lithium Carbonate ER 450 MG TABLET.ER 900 MG PO (20:16)
[2023-12-29] MEDS: Paliperidone ER 9 MG TAB.ER.24 PO (20:16)
[2023-12-30 07:35] VITALS: BP 126/87; PULSE 98; RESP 16; TEMP 36.6; O2SAT 97
--- NOTE | 2023-12-30 14:28 | P.PNPSI_ITS ---
Subjective Subjective Date of Service: 12/30/23 Reason For Visit: Marge Interim History: seen with logistics service representative and JOSE Cancino. calm, cooperative. declines SMITH of invega, states he will take the pills. seems to have unreasonable expectations for how he might continue to take medications after discharge. initially declining referral to [facility], finally seems to accept. no questions or complaints, other than asking how long until he may be discharged. Mental Status Exam Mental Status Exam Narrative: adequately dressed, improved grooming. cooperative. no PMA/PMR. speech incr rate, nml amount, nml latency, nml loudness. thoughts linear, no paranoid delusions expressed. affect normo-intense, min-labile. mood less irritable. no SI/SIBI/HI/AVH expressed. Diagnostics Vital Signs (24Hr): Vital Signs - 24 hr 12/29/23 20:00 12/30/23 07:35 Temperature 96.6 F L 97.8 F Pulse Rate 101 H 98 Respiratory Rate 16 16 Blood Pressure 125/83 126/87 Pulse Oximetry 97 97 Oxygen Delivery Method Room Air Room Air BMI result Body Mass Index 33.2 Labs 11/25/23 18:46 12/17/23 20:25 Medications Medications Current Medications Acetaminophen (Acetaminophen 325 Mg Tablet) 650 mg PO Q6H PRN PRN Reason: Headache/Pain Mild Scale (1-3) Al Hydroxide/Mg Hydroxide (Magnesium Hydrox/Alum Hydrox 30 Ml Oral.Susp) 30 ml PO Q6H PRN PRN Reason: Heartburn/Nausea Diazepam (Diazepam 10 Mg/2 Ml Cartridge) 10 mg IM BEDTIME PRN PRN Reason: refusal of lithium, per court order Hydroxyzine HCl (Hydroxyzine Hcl 25 Mg Tablet) 25 mg PO Q6H PRN PRN Reason: Anxiety [place] Carbonate ([place] Carbonate Er 450 Mg Tablet.Er) 900 mg PO BEDTIME KENDALL Last Admin: 12/29/23 20:16 Dose: 900 mg Magnesium Hydroxide (Milk Of Magnesia 30 Ml Oral.Susp) 30 ml PO DAILY PRN PRN Reason: Constipation Nicotine Polacrilex (Nicotine Polacrilex 2 Mg Gum) 4 mg BUCCAL Q2H PRN PRN Reason: Nicotine Cravings Last Admin: 12/14/23 09:02 Dose: 4 mg Olanzapine (Olanzapine 10 Mg Vial) 10 mg IM BEDTIME PRN PRN Reason: invega refusal: per court ord Paliperidone (Paliperidone Er 9 Mg Tab.Er.24) 9 mg PO BEDTIME KENDALL Last Admin: 12/29/23 20:16 Dose: 9 mg Paliperidone (Paliperidone Er 3 Mg Tab.Er.24) 3 mg PO DAILY PRN PRN Reason: agitation Trazodone HCl (Trazodone Hcl 50 Mg Tablet) 50 mg PO BEDTIME MRX1 PRN PRN Reason: Insomnia Allergies Allergies Allergy/AdvReac Type Severity Reaction Status Date / Time Unable to Assess Allergy Verified 11/25/23 17:57 Assessment & Plan Assessment & Plan (1) Moderate bipolar I disorder with marge as current episode: Status: Acute Code(s): F31.12 - Bipolar disorder, current episode manic without psychotic features, moderate Plan 11/26: offer lithium. hold haldol for now. 11/27: took HS dose, refused morning dose. reportedly he will only take medications at night. reschedule all lithium to HS, 1200 mg. 11/28: pt refused lithium last night. screamed at MD yesterday, calmly declines interview today: see you in court. olanzapine 20 mg QHS added to regimen, commitment paperwork filed. records from [facility] received and reviewed. 11/29: Court hearing pending. Declining medications in the meantime. 11/30: no changes 12/01 intrusive, poor boundaries. declines medications. 12/02 easily agitated refuses medication pressured 12/04/2023 Continues to refuse medication bizarre behavior illogical poor impulse control writing things on the kaur smearing feces on himself and on the kaur stuffing toilet 12/05/2023 Patient continues to refuse medication refused to use agricultural chemicals inspector periods of yelling agitated screaming about his sister having mental illness other times isolated and withdrawn 12/06/2023 Patient continues to refuse medication refuses to engage in ongoing conversation with agricultural chemicals inspector difficult to have reality based conversation 12/07/2023: Continue current regimen and plans. Refuses meds and cord is scheduled for 12/0812/08/2023: Continue current regimen and plans 12/08: refusing medications, labile, angry. some posturing over weekend, yelling at staff for trying to clean the couch that he wrote all over in ink. declined interview today. court tomorrow. 12/09: declines to speak with MD beyond saying he does not wish to attend court or meet with MD. 1.5 hr hearing, pt was committed and meds ordered by court. will await in-person gabonese agricultural chemicals inspector tomorrow to inform pt of results of court and necessity to take medication. 12/10: discussion held with pt, logistics service representative, various staff re commitment and court-ordered medication. changed context of hospitalization explained to pt, including PO refusal's leading to IM; pt appeared to understand. pt accepted Zydis and lithium this morning. 12/11: med-compliant. seen with JOSE Cancino and logistics service representative. feeling overmedicated, slept all day yesterday. will change all meds to HS and decrease olanzapine to 10 mg. new regimen lithium ER 900 QHS and zyprexa 10 QHS. 12/12: more labile and agitated this morning, furiously punching his palm in making his point. refused HS lithium last night, took it this morning. up at 0500. will return HS olanzapine dosing to 20 mg. add valium IM if lithium is refused. 12/13 continue tx 12/14 continue tx. 12/15: substantially less labile, irritable than last week. able to sit and have calm discussion. check labs tomorrow night. 12/16: no notable behaviors, stable presentation, continue current mgmt. 12/17: irritable. lithium level 0.52, dosing increased to 1200 mg QHS. other labs reassuring. 12/18: remains irritable, rejecting interview. continue current mgmt. /3: continues irritable, rejecting interview. accuses MD and SW of having threatened him yesterday. continue current mgmt. / continue treatment. 12/21 continue same treatment. 12/23/23 continue plan of care 12/23 continue tx. 12/24 lithium level high 1.5, lowered lithium to 900mg po qhs, recheck lithium level tomorrow morning along with cmp and TSH. 12/25: pt declining labs, apparently fearful of needles. no signs of lithium toxicity. pt denies any problems or side effects, does not want to change medication. does c/o gaining weight, which he does not appreciate is related to medication. will DC zyprexa in favor of paliperidone. 12/26: DC zyprexa PO PRN, change to invega. increase HS invega to 9 mg. otherwise continue current mgmt. calm today, but the issue of needles was not raised. 12/27: continue current tx plan. 12/28: continue tx plan. 12/29: increase invega to 12 mg PO QHS for inadequately controlled marge/psychosis. continue current mgmt otherwise. Reason for continued inpatient stay Substantial Risk for: inability to function and rapid decompensation Time Spent With Patient Time: Total time managing care of this patient today __35__ minutes.
[2023-12-30 20:00] VITALS: BP 136/87; PULSE 85; RESP 18; TEMP 36.8; O2SAT 97
[2023-12-30] MEDS: Lithium Carbonate ER 450 MG TABLET.ER 900 MG PO (20:22)
[2023-12-30] MEDS: Paliperidone ER 6 MG TAB.ER.24 12 MG PO (20:22)
[2023-12-31 08:00] VITALS: BP 140/95; PULSE 115; RESP 18; TEMP 36.7; O2SAT 99
--- NOTE | 2023-12-31 15:39 | P.PNPSI_ITS ---
Subjective Subjective Date of Service: 12/31/23 Reason For Visit: Marge Interim History: calm, cooperative. invites MD to have a seat. denies any problems or symptoms. aware of head teacher's coming tomorrow and sister coming as well. per staff, denies any issues. +RIS. +AH, but they're decreased. Mental Status Exam Mental Status Exam Narrative: adequately dressed, improved grooming. cooperative. no PMA/PMR. speech incr rate, nml amount, nml latency, nml loudness. thoughts linear, no paranoid delusions expressed. affect normo-intense, non-labile. mood not irritable. no SI/SIBI/HI/AVH expressed. Diagnostics Vital Signs (24Hr): Vital Signs - 24 hr 12/30/23 20:00 12/31/23 08:00 Temperature 98.3 F 98.1 F Pulse Rate 85 115 H Respiratory Rate 18 18 Blood Pressure 136/87 140/95 H Pulse Oximetry 97 99 Oxygen Delivery Method Room Air Room Air BMI result Body Mass Index 33.2 Labs 11/25/23 18:46 12/17/23 20:25 Medications Medications Current Medications Acetaminophen (Acetaminophen 325 Mg Tablet) 650 mg PO Q6H PRN PRN Reason: Headache/Pain Mild Scale (1-3) Al Hydroxide/Mg Hydroxide (Magnesium Hydrox/Alum Hydrox 30 Ml Oral.Susp) 30 ml PO Q6H PRN PRN Reason: Heartburn/Nausea Diazepam (Diazepam 10 Mg/2 Ml Cartridge) 10 mg IM BEDTIME PRN PRN Reason: refusal of lithium, per court order Hydroxyzine HCl (Hydroxyzine Hcl 25 Mg Tablet) 25 mg PO Q6H PRN PRN Reason: Anxiety [place] Carbonate ([place] Carbonate Er 450 Mg Tablet.Er) 900 mg PO BEDTIME KENDALL Last Admin: 12/30/23 20:22 Dose: 900 mg Magnesium Hydroxide (Milk Of Magnesia 30 Ml Oral.Susp) 30 ml PO DAILY PRN PRN Reason: Constipation Nicotine Polacrilex (Nicotine Polacrilex 2 Mg Gum) 4 mg BUCCAL Q2H PRN PRN Reason: Nicotine Cravings Last Admin: 12/14/23 09:02 Dose: 4 mg Olanzapine (Olanzapine 10 Mg Vial) 10 mg IM BEDTIME PRN PRN Reason: invega refusal: per court ord Paliperidone (Paliperidone Er 6 Mg Tab.Er.24) 12 mg PO BEDTIME KENDALL Last Admin: 12/30/23 20:22 Dose: 12 mg Trazodone HCl (Trazodone Hcl 50 Mg Tablet) 50 mg PO BEDTIME MRX1 PRN PRN Reason: Insomnia Allergies Allergies Allergy/AdvReac Type Severity Reaction Status Date / Time Unable to Assess Allergy Verified 11/25/23 17:57 Assessment & Plan Assessment & Plan (1) Moderate bipolar I disorder with marge as current episode: Status: Acute Code(s): F31.12 - Bipolar disorder, current episode manic without psychotic features, moderate Plan 11/26: offer lithium. hold haldol for now. 11/27: took HS dose, refused morning dose. reportedly he will only take medications at night. reschedule all lithium to HS, 1200 mg. 11/28: pt refused lithium last night. screamed at MD yesterday, calmly declines interview today: see you in court. olanzapine 20 mg QHS added to regimen, commitment paperwork filed. records from [facility] received and reviewed. 11/29: Court hearing pending. Declining medications in the meantime. 11/30: no changes 12/01 intrusive, poor boundaries. declines medications. 12/02 easily agitated refuses medication pressured 12/04/2023 Continues to refuse medication bizarre behavior illogical poor impulse control writing things on the kaur smearing feces on himself and on the kaur stuffing toilet 12/05/2023 Patient continues to refuse medication refused to use wastewater project engineer periods of yelling agitated screaming about his sister having mental illness other times isolated and withdrawn 12/06/2023 Patient continues to refuse medication refuses to engage in ongoing conversation with wastewater project engineer difficult to have reality based conversation 12/07/2023: Continue current regimen and plans. Refuses meds and cord is scheduled for 12/0812/08/2023: Continue current regimen and plans 12/08: refusing medications, labile, angry. some posturing over weekend, yelling at staff for trying to clean the couch that he wrote all over in ink. declined interview today. court tomorrow. 12/09: declines to speak with MD beyond saying he does not wish to attend court or meet with MD. 1.5 hr hearing, pt was committed and meds ordered by court. will await in-person [place] wastewater project engineer tomorrow to inform pt of results of court and necessity to take medication. 12/10: discussion held with pt, head teacher, various staff re commitment and court-ordered medication. changed context of hospitalization explained to pt, including PO refusal's leading to IM; pt appeared to understand. pt accepted Zydis and lithium this morning. 12/11: med-compliant. seen with JOSE Cancino and head teacher. feeling overmedicated, slept all day yesterday. will change all meds to HS and decrease olanzapine to 10 mg. new regimen lithium ER 900 QHS and zyprexa 10 QHS. 12/12: more labile and agitated this morning, furiously punching his palm in making his point. refused HS lithium last night, took it this morning. up at 0500. will return HS olanzapine dosing to 20 mg. add valium IM if lithium is refused. 12/13 continue tx 12/14 continue tx. 12/15: substantially less labile, irritable than last week. able to sit and have calm discussion. check labs tomorrow night. 12/16: no notable behaviors, stable presentation, continue current mgmt. 12/17: irritable. lithium level 0.52, dosing increased to 1200 mg QHS. other labs reassuring. 12/18: remains irritable, rejecting interview. continue current mgmt. 12/19: continues irritable, rejecting interview. accuses MD and SW of having threatened him yesterday. continue current mgmt. 12/20 continue treatment. 12/21 continue same treatment. 12/23/23 continue plan of care 12/23 continue tx. 12/24 lithium level high 1.5, lowered lithium to 900mg po qhs, recheck lithium level tomorrow morning along with cmp and TSH. 12/25: pt declining labs, apparently fearful of needles. no signs of lithium toxicity. pt denies any problems or side effects, does not want to change medication. does c/o gaining weight, which he does not appreciate is related to medication. will DC zyprexa in favor of paliperidone. 12/26: DC zyprexa PO PRN, change to invega. increase HS invega to 9 mg. otherwise continue current mgmt. calm today, but the issue of needles was not raised. 12/27: continue current tx plan. 12/28: continue tx plan. 12/29: increase invega to 12 mg PO QHS for inadequately controlled marge/psychosis. continue current mgmt otherwise. 12/30: calm, even inviting today. no complaints or requests. continue current mgmt. mtg with sister tomorrow. Reason for continued inpatient stay Substantial Risk for: harm to self, harm to others, inability to function and rapid decompensation Time Spent With Patient Time: Total time managing care of this patient today __25__ minutes.
[2023-12-31 20:07] VITALS: BP 144/77; PULSE 114; RESP 16; TEMP 37; O2SAT 97
[2023-12-31] MEDS: Lithium Carbonate ER 450 MG TABLET.ER 900 MG PO (20:07)
[2023-12-31] MEDS: Paliperidone ER 6 MG TAB.ER.24 12 MG PO (20:07)
[2024-01-01 07:39] VITALS: BP 137/85; PULSE 105; RESP 16; TEMP 36.2; O2SAT 97
--- NOTE | 2024-01-01 16:07 | HO.PSYCHPN ---
Subjective Subjective Date of Service: 01/01/24 Reason For Visit: Marge Interim History: seen with JOSE Cancino and site monitor. initially calm and cooperative, gradually escalated demanding to know who hospitalized him, talking about their having had fake badges, then stormed out of the room. per staff, flat, withdrawn, guarded. no groups. sleeping well. Mental Status Exam Mental Status Exam Narrative: adequately dressed, improved grooming. cooperative. PMS of agitated pacing, gesturing. speech incr rate, amount; decr latency, incr loudness. thoughts linear, but paranoid and delusional. affect hyper-intense, labile. mood irritable. no SI/SIBI/HI/AVH expressed. Diagnostics Vital Signs (24Hr): Vital Signs - 24 hr 12/31/23 20:07 01/01/24 07:39 Temperature 98.6 F 97.1 F Pulse Rate 114 H 105 H Respiratory Rate 16 16 Blood Pressure 144/77 H 137/85 Pulse Oximetry 97 97 Oxygen Delivery Method Room Air Room Air BMI result Body Mass Index 33.2 Labs 11/25/23 18:46 12/17/23 20:25 Medications Medications Current Medications Acetaminophen (Acetaminophen 325 Mg Tablet) 650 mg PO Q6H PRN PRN Reason: Headache/Pain Mild Scale (1-3) Al Hydroxide/Mg Hydroxide (Magnesium Hydrox/Alum Hydrox 30 Ml Oral.Susp) 30 ml PO Q6H PRN PRN Reason: Heartburn/Nausea Diazepam (Diazepam 10 Mg/2 Ml Cartridge) 10 mg IM BEDTIME PRN PRN Reason: refusal of lithium, per court order Hydroxyzine HCl (Hydroxyzine Hcl 25 Mg Tablet) 25 mg PO Q6H PRN PRN Reason: Anxiety [place] Carbonate ([place] Carbonate Er 450 Mg Tablet.Er) 900 mg PO BEDTIME KENDALL Last Admin: 12/31/23 20:07 Dose: 900 mg Magnesium Hydroxide (Milk Of Magnesia 30 Ml Oral.Susp) 30 ml PO DAILY PRN PRN Reason: Constipation Nicotine Polacrilex (Nicotine Polacrilex 2 Mg Gum) 4 mg BUCCAL Q2H PRN PRN Reason: Nicotine Cravings Last Admin: 12/14/23 09:02 Dose: 4 mg Olanzapine (Olanzapine 10 Mg Vial) 10 mg IM BEDTIME PRN PRN Reason: invega refusal: per court ord Paliperidone (Paliperidone Er 6 Mg Tab.Er.24) 12 mg PO BEDTIME KENDALL Last Admin: 12/31/23 20:07 Dose: 12 mg Trazodone HCl (Trazodone Hcl 50 Mg Tablet) 50 mg PO BEDTIME MRX1 PRN PRN Reason: Insomnia Allergies Allergies Allergy/AdvReac Type Severity Reaction Status Date / Time Unable to Assess Allergy Verified 11/25/23 17:57 Assessment & Plan Assessment & Plan (1) Moderate bipolar I disorder with marge as current episode: Status: Acute Code(s): F31.12 - Bipolar disorder, current episode manic without psychotic features, moderate Plan 11/26: offer lithium. hold haldol for now. 11/27: took HS dose, refused morning dose. reportedly he will only take medications at night. reschedule all lithium to HS, 1200 mg. 11/28: pt refused lithium last night. screamed at MD yesterday, calmly declines interview today: see you in court. olanzapine 20 mg QHS added to regimen, commitment paperwork filed. records from [facility] received and reviewed. 11/29: Court hearing pending. Declining medications in the meantime. 11/30: no changes 12/01 intrusive, poor boundaries. declines medications. 12/02 easily agitated refuses medication pressured 12/04/2023 Continues to refuse medication bizarre behavior illogical poor impulse control writing things on the karu smearing feces on himself and on the kaur stuffing toilet 12/05/2023 Patient continues to refuse medication refused to use first line supervisor periods of yelling agitated screaming about his sister having mental illness other times isolated and withdrawn 12/06/2023 Patient continues to refuse medication refuses to engage in ongoing conversation with first line supervisor difficult to have reality based conversation 12/07/2023: Continue current regimen and plans. Refuses meds and cord is scheduled for 12/0812/08/2023: Continue current regimen and plans 12/08: refusing medications, labile, angry. some posturing over weekend, yelling at staff for trying to clean the couch that he wrote all over in ink. declined interview today. court tomorrow. 12/09: declines to speak with MD beyond saying he does not wish to attend court or meet with MD. 1.5 hr hearing, pt was committed and meds ordered by court. will await in-person [place] first line supervisor tomorrow to inform pt of results of court and necessity to take medication. 12/10: discussion held with pt, site monitor, various staff re commitment and court-ordered medication. changed context of hospitalization explained to pt, including PO refusal's leading to IM; pt appeared to understand. pt accepted Zydis and lithium this morning. 12/11: med-compliant. seen with JOSE Cancino and site monitor. feeling overmedicated, slept all day yesterday. will change all meds to HS and decrease olanzapine to 10 mg. new regimen lithium ER 900 QHS and zyprexa 10 QHS. 12/12: more labile and agitated this morning, furiously punching his palm in making his point. refused HS lithium last night, took it this morning. up at 0500. will return HS olanzapine dosing to 20 mg. add valium IM if lithium is refused. 12/13 continue tx 12/14 continue tx. 12/15: substantially less labile, irritable than last week. able to sit and have calm discussion. check labs tomorrow night. 12/16: no notable behaviors, stable presentation, continue current mgmt. 12/17: irritable. lithium level 0.52, dosing increased to 1200 mg QHS. other labs reassuring. 12/18: remains irritable, rejecting interview. continue current mgmt. 12/19: continues irritable, rejecting interview. accuses MD and SW of having threatened him yesterday. continue current mgmt. 12/20 continue treatment. 12/21 continue same treatment. 12/23/23 continue plan of care 12/23 continue tx. 12/24 lithium level high 1.5, lowered lithium to 900mg po qhs, recheck lithium level tomorrow morning along with cmp and TSH. 12/25: pt declining labs, apparently fearful of needles. no signs of lithium toxicity. pt denies any problems or side effects, does not want to change medication. does c/o gaining weight, which he does not appreciate is related to medication. will DC zyprexa in favor of paliperidone. 12/26: DC zyprexa PO PRN, change to invega. increase HS invega to 9 mg. otherwise continue current mgmt. calm today, but the issue of needles was not raised. 12/27: continue current tx plan. 12/28: continue tx plan. 12/29: increase invega to 12 mg PO QHS for inadequately controlled marge/psychosis. continue current mgmt otherwise. 12/30: calm, even inviting today. no complaints or requests. continue current mgmt. mtg with sister tomorrow. 12/31: labile, irritable paranoid, delusional today. planning to add trileptal later this week. otherwise continue current mgmt. T/C invega sustenna. Reason for continued inpatient stay Substantial Risk for: harm to others and inability to function Time Spent With Patient Time: Total time managing care of this patient today __35__ minutes.
[2024-01-01 19:42] VITALS: BP 132/85; PULSE 105; RESP 18; TEMP 36.8; O2SAT 97
[2024-01-01] MEDS: Lithium Carbonate ER 450 MG TABLET.ER 900 MG PO (20:36)
[2024-01-01] MEDS: Paliperidone ER 6 MG TAB.ER.24 12 MG PO (20:36)
[2024-01-02 07:00] VITALS: BMI 74.7
[2024-01-02 07:41] VITALS: BP 130/86; PULSE 117; RESP 16; TEMP 35.5; O2SAT 97
--- NOTE | 2024-01-02 13:44 | HO.PSYCHPN ---
Subjective Subjective Date of Service: 01/02/24 Reason For Visit: Marge Interim History: calm, cooperative. asks only how long he will stay, MD indicates he is unable to answer. pt reports he is eating, sleeping, toileting, getting along well. per staff, no dep/anx. labile. denies psych Sx. +RIS. +HS meds. pleasant, cooperative. Mental Status Exam Mental Status Exam Narrative: adequately dressed, improved grooming. cooperative. no PMA/PMR. speech incr rate, nml amount; nml latency, nml loudness. thoughts linear. affect normo-intense, non-labile. mood calm.. no SI/SIBI/HI/AVH expressed. Diagnostics Vital Signs (24Hr): Vital Signs - 24 hr 01/01/24 19:42 01/02/24 07:41 Temperature 98.3 F 95.9 F L Pulse Rate 105 H 117 H Respiratory Rate 18 16 Blood Pressure 132/85 130/86 Pulse Oximetry 97 97 Oxygen Delivery Method Room Air Room Air BMI result Body Mass Index 74.7 Labs 11/25/23 18:46 12/17/23 20:25 Medications Medications Current Medications Acetaminophen (Acetaminophen 325 Mg Tablet) 650 mg PO Q6H PRN PRN Reason: Headache/Pain Mild Scale (1-3) Al Hydroxide/Mg Hydroxide (Magnesium Hydrox/Alum Hydrox 30 Ml Oral.Susp) 30 ml PO Q6H PRN PRN Reason: Heartburn/Nausea Diazepam (Diazepam 10 Mg/2 Ml Cartridge) 10 mg IM BEDTIME PRN PRN Reason: refusal of lithium, per court order Hydroxyzine HCl (Hydroxyzine Hcl 25 Mg Tablet) 25 mg PO Q6H PRN PRN Reason: Anxiety [place] Carbonate ([place] Carbonate Er 450 Mg Tablet.Er) 900 mg PO BEDTIME [facility] Last Admin: 01/01/24 20:36 Dose: 900 mg Magnesium Hydroxide (Milk Of Magnesia 30 Ml Oral.Susp) 30 ml PO DAILY PRN PRN Reason: Constipation Nicotine Polacrilex (Nicotine Polacrilex 2 Mg Gum) 4 mg BUCCAL Q2H PRN PRN Reason: Nicotine Cravings Last Admin: 12/14/23 09:02 Dose: 4 mg Olanzapine (Olanzapine 10 Mg Vial) 10 mg IM BEDTIME PRN PRN Reason: invega refusal: per court ord Paliperidone (Paliperidone Er 6 Mg Tab.Er.24) 12 mg PO BEDTIME [facility] Last Admin: 01/01/24 20:36 Dose: 12 mg Trazodone HCl (Trazodone Hcl 50 Mg Tablet) 50 mg PO BEDTIME MRX1 PRN PRN Reason: Insomnia Allergies Allergies Allergy/AdvReac Type Severity Reaction Status Date / Time Unable to Assess Allergy Verified 11/25/23 17:57 Assessment & Plan Assessment & Plan (1) Moderate bipolar I disorder with marge as current episode: Status: Acute Code(s): F31.12 - Bipolar disorder, current episode manic without psychotic features, moderate Plan 11/26: offer lithium. hold haldol for now. 11/27: took HS dose, refused morning dose. reportedly he will only take medications at night. reschedule all lithium to HS, 1200 mg. 11/28: pt refused lithium last night. screamed at MD yesterday, calmly declines interview today: see you in court. olanzapine 20 mg QHS added to regimen, commitment paperwork filed. records from [facility] received and reviewed. 11/29: Court hearing pending. Declining medications in the meantime. 11/30: no changes 12/01 intrusive, poor boundaries. declines medications. 12/02 easily agitated refuses medication pressured 12/04/2023 Continues to refuse medication bizarre behavior illogical poor impulse control writing things on the kaur smearing feces on himself and on the kaur stuffing toilet 12/05/2023 Patient continues to refuse medication refused to use sales representative electric service periods of yelling agitated screaming about his sister having mental illness other times isolated and withdrawn 12/06/2023 Patient continues to refuse medication refuses to engage in ongoing conversation with sales representative electric service difficult to have reality based conversation 12/07/2023: Continue current regimen and plans. Refuses meds and cord is scheduled for 12/0812/08/2023: Continue current regimen and plans 12/08: refusing medications, labile, angry. some posturing over weekend, yelling at staff for trying to clean the couch that he wrote all over in ink. declined interview today. court tomorrow. 12/09: declines to speak with MD beyond saying he does not wish to attend court or meet with MD. 1.5 hr hearing, pt was committed and meds ordered by court. will await in-person indian sales representative electric service tomorrow to inform pt of results of court and necessity to take medication. 12/10: discussion held with pt, lockstitch waistband setter, various staff re commitment and court-ordered medication. changed context of hospitalization explained to pt, including PO refusal's leading to IM; pt appeared to understand. pt accepted Zydis and lithium this morning. 12/11: med-compliant. seen with JOSE Cancino and lockstitch waistband setter. feeling overmedicated, slept all day yesterday. will change all meds to HS and decrease olanzapine to 10 mg. new regimen lithium ER 900 QHS and zyprexa 10 QHS. 12/12: more labile and agitated this morning, furiously punching his palm in making his point. refused HS lithium last night, took it this morning. up at 0500. will return HS olanzapine dosing to 20 mg. add valium IM if lithium is refused. 12/13 continue tx 12/14 continue tx. 12/15: substantially less labile, irritable than last week. able to sit and have calm discussion. check labs tomorrow night. 12/16: no notable behaviors, stable presentation, continue current mgmt. 12/17: irritable. lithium level 0.52, dosing increased to 1200 mg QHS. other labs reassuring. 12/18: remains irritable, rejecting interview. continue current mgmt. 12/19: continues irritable, rejecting interview. accuses MD and SW of having threatened him yesterday. continue current mgmt. 12/20 continue treatment. 12/21 continue same treatment. 12/23/23 continue plan of care 12/23 continue tx. 12/24 lithium level high 1.5, lowered lithium to 900mg po qhs, recheck lithium level tomorrow morning along with cmp and TSH. 12/25: pt declining labs, apparently fearful of needles. no signs of lithium toxicity. pt denies any problems or side effects, does not want to change medication. does c/o gaining weight, which he does not appreciate is related to medication. will DC zyprexa in favor of paliperidone. 12/26: DC zyprexa PO PRN, change to invega. increase HS invega to 9 mg. otherwise continue current mgmt. calm today, but the issue of needles was not raised. 12/27: continue current tx plan. 12/28: continue tx plan. 12/29: increase invega to 12 mg PO QHS for inadequately controlled marge/psychosis. continue current mgmt otherwise. 12/30: calm, even inviting today. no complaints or requests. continue current mgmt. mtg with sister tomorrow. 12/31: labile, irritable paranoid, delusional today. planning to add trileptal later this week. otherwise continue current mgmt. T/C invega sustenna. 01/01: calm, cooperative. no complaints. med-compliant. Reason for continued inpatient stay Substantial Risk for: harm to self, harm to others, inability to function and rapid decompensation Time Spent With Patient Time: Total time managing care of this patient today _25___ minutes.
[2024-01-02 19:55] VITALS: BP 128/77; PULSE 100; RESP 16; TEMP 37; O2SAT 96
[2024-01-02] MEDS: Paliperidone ER 6 MG TAB.ER.24 12 MG PO (20:45)
[2024-01-02] MEDS: Lithium Carbonate ER 450 MG TABLET.ER 900 MG PO (20:45)
[2024-01-03 07:42] VITALS: BP 133/89; PULSE 92; RESP 16; TEMP 36.7; O2SAT 98
--- NOTE | 2024-01-03 13:26 | P.PNPSI_ITS ---
Subjective Subjective Date of Service: 01/03/24 Reason For Visit: Marge Interim History: seen with educational interpreter. rejects any med changes. labile, irritable, impulsive. per staff, pleasant, withdrawn, guarded. slept well. Mental Status Exam Mental Status Exam Narrative: adequately dressed, disheveled. partially cooperative. no PMR. speech incr rate, nml amount; nml latency, nml loudness. thoughts linear. affect normo- intense, mod-labile. mood labile/irritable. no SI/SIBI/HI/AVH expressed. Diagnostics Vital Signs (24Hr): Vital Signs - 24 hr 01/02/24 19:55 01/03/24 07:42 Temperature 98.6 F 98.1 F Pulse Rate 100 92 Respiratory Rate 16 16 Blood Pressure 128/77 133/89 Pulse Oximetry 96 98 Oxygen Delivery Method Room Air Room Air BMI result Body Mass Index 74.7 Labs 11/25/23 18:46 12/17/23 20:25 Medications Medications Current Medications Acetaminophen (Acetaminophen 325 Mg Tablet) 650 mg PO Q6H PRN PRN Reason: Headache/Pain Mild Scale (1-3) Al Hydroxide/Mg Hydroxide (Magnesium Hydrox/Alum Hydrox 30 Ml Oral.Susp) 30 ml PO Q6H PRN PRN Reason: Heartburn/Nausea Diazepam (Diazepam 10 Mg/2 Ml Cartridge) 10 mg IM BEDTIME PRN PRN Reason: refusal of lithium, per court order Hydroxyzine HCl (Hydroxyzine Hcl 25 Mg Tablet) 25 mg PO Q6H PRN PRN Reason: Anxiety [place] Carbonate ([place] Carbonate Er 450 Mg Tablet.Er) 900 mg PO BEDTIME [facility] Last Admin: 01/02/24 20:45 Dose: 900 mg Magnesium Hydroxide (Milk Of Magnesia 30 Ml Oral.Susp) 30 ml PO DAILY PRN PRN Reason: Constipation Nicotine Polacrilex (Nicotine Polacrilex 2 Mg Gum) 4 mg BUCCAL Q2H PRN PRN Reason: Nicotine Cravings Last Admin: 12/14/23 09:02 Dose: 4 mg Olanzapine (Olanzapine 10 Mg Vial) 10 mg IM BEDTIME PRN PRN Reason: invega refusal: per court ord Paliperidone (Paliperidone Er 6 Mg Tab.Er.24) 12 mg PO BEDTIME [facility] Last Admin: 01/02/24 20:45 Dose: 12 mg Trazodone HCl (Trazodone Hcl 50 Mg Tablet) 50 mg PO BEDTIME MRX1 PRN PRN Reason: Insomnia Allergies Allergies Allergy/AdvReac Type Severity Reaction Status Date / Time Unable to Assess Allergy Verified 11/25/23 17:57 Assessment & Plan Assessment & Plan (1) Moderate bipolar I disorder with marge as current episode: Status: Acute Code(s): F31.12 - Bipolar disorder, current episode manic without psychotic features, moderate Plan 11/26: offer lithium. hold haldol for now. 11/27: took HS dose, refused morning dose. reportedly he will only take medications at night. reschedule all lithium to HS, 1200 mg. 11/28: pt refused lithium last night. screamed at MD yesterday, calmly declines interview today: see you in court. olanzapine 20 mg QHS added to regimen, commitment paperwork filed. records from [facility] received and reviewed. 11/29: Court hearing pending. Declining medications in the meantime. 11/30: no changes 12/01 intrusive, poor boundaries. declines medications. 12/02 easily agitated refuses medication pressured 12/04/2023 Continues to refuse medication bizarre behavior illogical poor impulse control writing things on the kaur smearing feces on himself and on the kaur stuffing toilet 12/05/2023 Patient continues to refuse medication refused to use linux devops engineer periods of yelling agitated screaming about his sister having mental illness other times isolated and withdrawn 12/06/2023 Patient continues to refuse medication refuses to engage in ongoing conversation with linux devops engineer difficult to have reality based conversation 12/07/2023: Continue current regimen and plans. Refuses meds and cord is scheduled for 12/0812/08/2023: Continue current regimen and plans 12/08: refusing medications, labile, angry. some posturing over weekend, yelling at staff for trying to clean the couch that he wrote all over in ink. declined interview today. court tomorrow. 12/09: declines to speak with MD beyond saying he does not wish to attend court or meet with MD. 1.5 hr hearing, pt was committed and meds ordered by court. will await in-person [place] citizen linux devops engineer tomorrow to inform pt of results of court and necessity to take medication. 12/10: discussion held with pt, educational interpreter, various staff re commitment and court-ordered medication. changed context of hospitalization explained to pt, including PO refusal's leading to IM; pt appeared to understand. pt accepted Zydis and lithium this morning. 12/11: med-compliant. seen with JOSE Cancino and educational interpreter. feeling overmedicated, slept all day yesterday. will change all meds to HS and decrease olanzapine to 10 mg. new regimen lithium ER 900 QHS and zyprexa 10 QHS. 12/12: more labile and agitated this morning, furiously punching his palm in making his point. refused HS lithium last night, took it this morning. up at 0500. will return HS olanzapine dosing to 20 mg. add valium IM if lithium is refused. 12/13 continue tx 12/14 continue tx. 12/15: substantially less labile, irritable than last week. able to sit and have calm discussion. check labs tomorrow night. 12/16: no notable behaviors, stable presentation, continue current mgmt. 12/17: irritable. lithium level 0.52, dosing increased to 1200 mg QHS. other labs reassuring. 12/18: remains irritable, rejecting interview. continue current mgmt. 12/19: continues irritable, rejecting interview. accuses MD and SW of having threatened him yesterday. continue current mgmt. 12/20 continue treatment. 12/21 continue same treatment. 12/23/23 continue plan of care 12/23 continue tx. 12/24 lithium level high 1.5, lowered lithium to 900mg po qhs, recheck lithium level tomorrow morning along with cmp and TSH. 12/25: pt declining labs, apparently fearful of needles. no signs of lithium toxicity. pt denies any problems or side effects, does not want to change medication. does c/o gaining weight, which he does not appreciate is related to medication. will DC zyprexa in favor of paliperidone. 12/26: DC zyprexa PO PRN, change to invega. increase HS invega to 9 mg. otherwise continue current mgmt. calm today, but the issue of needles was not raised. 12/27: continue current tx plan. 12/28: continue tx plan. 12/29: increase invega to 12 mg PO QHS for inadequately controlled marge/psychosis. continue current mgmt otherwise. 12/30: calm, even inviting today. no complaints or requests. continue current mgmt. mtg with sister tomorrow. 12/31: labile, irritable paranoid, delusional today. planning to add trileptal later this week. otherwise continue current mgmt. T/C invega sustenna. 01/01: calm, cooperative. no complaints. med-compliant. 01/02: add trileptal for added mood stabilization, as it does not require blood draws. otherwise continue current mgmt. Reason for continued inpatient stay Substantial Risk for: harm to self, harm to others, inability to function and rapid decompensation Time Spent With Patient Time: Total time managing care of this patient today __35__ minutes.
[2024-01-03 20:00] VITALS: BP 134/85; PULSE 94; RESP 16; TEMP 36.7; O2SAT 97
[2024-01-03] MEDS: Lithium Carbonate ER 450 MG TABLET.ER 900 MG PO (22:15)
[2024-01-03] MEDS: Paliperidone ER 6 MG TAB.ER.24 12 MG PO (22:16)
[2024-01-03] MEDS: OXcarbazepine 150 MG TABLET PO (22:16)
[2024-01-04 08:05] VITALS: BP 126/76; PULSE 110; RESP 14; TEMP 37.8; O2SAT 97
[2024-01-04] MEDS: OXcarbazepine 150 MG TABLET PO ×2 (08:42→20:38)
[2024-01-04 09:06] VITALS: TEMP 36.8
--- NOTE | 2024-01-04 11:59 | HO.PSYCHPN ---
Subjective Subjective Date of Service: 01/04/24 Reason For Visit: Marge Subjective Notes: Conditional Voluntary Interim History: Patient was seen and discussed in rounds today. Records and plans were reviewed. He has been stable with no behavioral problems and continues to respond to internal stimuli. No side effects reported. Eating and sleeping adequately. No changes were made today Review of Systems Review of Systems Yes Unobtainable due to mental status Diagnostics Vital Signs (24Hr): Vital Signs - 24 hr 01/03/24 20:00 01/04/24 08:05 01/04/24 09:06 Temperature 98.1 F 100.1 F 98.3 F Pulse Rate 94 110 H Respiratory Rate 16 14 Blood Pressure 134/85 126/76 Pulse Oximetry 97 97 Oxygen Delivery Method Room Air Room Air BMI result Body Mass Index 74.7 Labs 11/25/23 18:46 12/17/23 20:25 Medications Medications Current Medications Acetaminophen (Acetaminophen 325 Mg Tablet) 650 mg PO Q6H PRN PRN Reason: Headache/Pain Mild Scale (1-3) Al Hydroxide/Mg Hydroxide (Magnesium Hydrox/Alum Hydrox 30 Ml Oral.Susp) 30 ml PO Q6H PRN PRN Reason: Heartburn/Nausea Diazepam (Diazepam 10 Mg/2 Ml Cartridge) 10 mg IM BEDTIME PRN PRN Reason: refusal of lithium, per court order Hydroxyzine HCl (Hydroxyzine Hcl 25 Mg Tablet) 25 mg PO Q6H PRN PRN Reason: Anxiety [place] Carbonate ([place] Carbonate Er 450 Mg Tablet.Er) 900 mg PO BEDTIME [facility] Last Admin: 01/03/24 22:15 Dose: 900 mg Magnesium Hydroxide (Milk Of Magnesia 30 Ml Oral.Susp) 30 ml PO DAILY PRN PRN Reason: Constipation Nicotine Polacrilex (Nicotine Polacrilex 2 Mg Gum) 4 mg BUCCAL Q2H PRN PRN Reason: Nicotine Cravings Last Admin: 12/14/23 09:02 Dose: 4 mg Olanzapine (Olanzapine 10 Mg Vial) 10 mg IM BEDTIME PRN PRN Reason: invega refusal: per court ord Oxcarbazepine (Oxcarbazepine 150 Mg Tablet) 150 mg PO BID [facility] Last Admin: 01/04/24 08:42 Dose: 150 mg Paliperidone (Paliperidone Er 6 Mg Tab.Er.24) 12 mg PO BEDTIME [facility] Last Admin: 01/03/24 22:16 Dose: 12 mg Trazodone HCl (Trazodone Hcl 50 Mg Tablet) 50 mg PO BEDTIME MRX1 PRN PRN Reason: Insomnia Allergies Allergies Allergy/AdvReac Type Severity Reaction Status Date / Time Unable to Assess Allergy Verified 11/25/23 17:57 Assessment & Plan Assessment & Plan (1) Moderate bipolar I disorder with marge as current episode: Status: Acute Code(s): F31.12 - Bipolar disorder, current episode manic without psychotic features, moderate Plan 11/26: offer lithium. hold haldol for now. 11/27: took HS dose, refused morning dose. reportedly he will only take medications at night. reschedule all lithium to HS, 1200 mg. 11/28: pt refused lithium last night. screamed at MD yesterday, calmly declines interview today: see you in court. olanzapine 20 mg QHS added to regimen, commitment paperwork filed. records from [facility] received and reviewed. 11/29: Court hearing pending. Declining medications in the meantime. 11/30: no changes 12/01 intrusive, poor boundaries. declines medications. 12/02 easily agitated refuses medication pressured 12/04/2023 Continues to refuse medication bizarre behavior illogical poor impulse control writing things on the kaur smearing feces on himself and on the kaur stuffing toilet 12/05/2023 Patient continues to refuse medication refused to use finishing machine operator automatic periods of yelling agitated screaming about his sister having mental illness other times isolated and withdrawn 12/06/2023 Patient continues to refuse medication refuses to engage in ongoing conversation with finishing machine operator automatic difficult to have reality based conversation 12/07/2023: Continue current regimen and plans. Refuses meds and cord is scheduled for 12/0812/08/2023: Continue current regimen and plans 12/08: refusing medications, labile, angry. some posturing over weekend, yelling at staff for trying to clean the couch that he wrote all over in ink. declined interview today. court tomorrow. 12/09: declines to speak with MD beyond saying he does not wish to attend court or meet with MD. 1.5 hr hearing, pt was committed and meds ordered by court. will await in-person [place] finishing machine operator automatic tomorrow to inform pt of results of court and necessity to take medication. 12/10: discussion held with pt, bench repair technician, various staff re commitment and court-ordered medication. changed context of hospitalization explained to pt, including PO refusal's leading to IM; pt appeared to understand. pt accepted Zydis and lithium this morning. 12/11: med-compliant. seen with JOSE Cancino and bench repair technician. feeling overmedicated, slept all day yesterday. will change all meds to HS and decrease olanzapine to 10 mg. new regimen lithium ER 900 QHS and zyprexa 10 QHS. 12/12: more labile and agitated this morning, furiously punching his palm in making his point. refused HS lithium last night, took it this morning. up at 0500. will return HS olanzapine dosing to 20 mg. add valium IM if lithium is refused. 12/13 continue tx 12/14 continue tx. 12/15: substantially less labile, irritable than last week. able to sit and have calm discussion. check labs tomorrow night. 12/16: no notable behaviors, stable presentation, continue current mgmt. 12/17: irritable. lithium level 0.52, dosing increased to 1200 mg QHS. other labs reassuring. 12/18: remains irritable, rejecting interview. continue current mgmt. 12/19: continues irritable, rejecting interview. accuses and JOSE of having threatened him yesterday. continue current mgmt. 12/20 continue treatment. 12/21 continue same treatment. 12/23/23 continue plan of care 12/23 continue tx. 12/24 lithium level high 1.5, lowered lithium to 900mg po qhs, recheck lithium level tomorrow morning along with cmp and TSH. 12/25: pt declining labs, apparently fearful of needles. no signs of lithium toxicity. pt denies any problems or side effects, does not want to change medication. does c/o gaining weight, which he does not appreciate is related to medication. will DC zyprexa in favor of paliperidone. 12/26: DC zyprexa PO PRN, change to invega. increase HS invega to 9 mg. otherwise continue current mgmt. calm today, but the issue of needles was not raised. 12/27: continue current tx plan. 12/28: continue tx plan. 12/29: increase invega to 12 mg PO QHS for inadequately controlled marge/psychosis. continue current mgmt otherwise. 12/30: calm, even inviting today. no complaints or requests. continue current mgmt. mtg with sister tomorrow. 12/31: labile, irritable paranoid, delusional today. planning to add trileptal later this week. otherwise continue current mgmt. T/C invega sustenna. 01/01: calm, cooperative. no complaints. med-compliant. 01/02: add trileptal for added mood stabilization, as it does not require blood draws. otherwise continue current mgmt. 01/03: Continue current treatment and plan Reason for continued inpatient stay Substantial Risk for: med/psych decompensation Time Spent With Patient Time: Total time managing care of this patient today ____ minutes.
[2024-01-04 20:00] VITALS: BP 133/89; PULSE 95; RESP 16; TEMP 37.2; O2SAT 97
[2024-01-04] MEDS: Paliperidone ER 6 MG TAB.ER.24 12 MG PO (20:37)
[2024-01-04] MEDS: Lithium Carbonate ER 450 MG TABLET.ER 900 MG PO (20:38)
[2024-01-05 07:41] VITALS: BP 132/86; PULSE 100; RESP 16; TEMP 35.8; O2SAT 97
[2024-01-05] MEDS: OXcarbazepine 150 MG TABLET PO ×2 (08:19→21:39)
--- NOTE | 2024-01-05 08:48 | P.PNPSI_ITS ---
Subjective Subjective Date of Service: 01/05/24 Reason For Visit: Marge Subjective Notes: Conditional Voluntary Interim History: Patient was seen and discussed in rounds today. Records and plans were reviewed. He has been mostly isolative and in his room. Having self dialogue and response to internal stimuli. Eating and sleeping adequately. No SI. No behavioral issues. No changes were made today Review of Systems Review of Systems Yes all other systems are reviewed and are negative Mental Status Exam Mental Status Exam Narrative: In today's visit he is alert, pleasant and interactive with an his means. Normal speech. Moderate eye contact. Affect is constricted. Having some tree hallucinations. Thought processes are slow and some latency present. No SI. Cognitively could not be assessed. Diagnostics Vital Signs (24Hr): Vital Signs - 24 hr 01/04/24 09:06 01/04/24 20:00 01/05/24 07:41 Temperature 98.3 F 99 F 96.4 F L Pulse Rate 95 100 Respiratory Rate 16 16 Blood Pressure 133/89 132/86 Pulse Oximetry 97 97 Oxygen Delivery Method Room Air Room Air BMI result Body Mass Index 74.7 Labs 11/25/23 18:46 12/17/23 20:25 Medications Medications Current Medications Acetaminophen (Acetaminophen 325 Mg Tablet) 650 mg PO Q6H PRN PRN Reason: Headache/Pain Mild Scale (1-3) Al Hydroxide/Mg Hydroxide (Magnesium Hydrox/Alum Hydrox 30 Ml Oral.Susp) 30 ml PO Q6H PRN PRN Reason: Heartburn/Nausea Diazepam (Diazepam 10 Mg/2 Ml Cartridge) 10 mg IM BEDTIME PRN PRN Reason: refusal of lithium, per court order Hydroxyzine HCl (Hydroxyzine Hcl 25 Mg Tablet) 25 mg PO Q6H PRN PRN Reason: Anxiety [place] Carbonate ([place] Carbonate Er 450 Mg Tablet.Er) 900 mg PO BEDTIME [facility] Last Admin: 01/04/24 20:38 Dose: 900 mg Magnesium Hydroxide (Milk Of Magnesia 30 Ml Oral.Susp) 30 ml PO DAILY PRN PRN Reason: Constipation Nicotine Polacrilex (Nicotine Polacrilex 2 Mg Gum) 4 mg BUCCAL Q2H PRN PRN Reason: Nicotine Cravings Last Admin: 12/14/23 09:02 Dose: 4 mg Olanzapine (Olanzapine 10 Mg Vial) 10 mg IM BEDTIME PRN PRN Reason: invega refusal: per court ord Oxcarbazepine (Oxcarbazepine 150 Mg Tablet) 150 mg PO BID [facility] Last Admin: 01/05/24 08:19 Dose: 150 mg Paliperidone (Paliperidone Er 6 Mg Tab.Er.24) 12 mg PO BEDTIME [facility] Last Admin: 01/04/24 20:37 Dose: 12 mg Trazodone HCl (Trazodone Hcl 50 Mg Tablet) 50 mg PO BEDTIME MRX1 PRN PRN Reason: Insomnia Allergies Allergies Allergy/AdvReac Type Severity Reaction Status Date / Time Unable to Assess Allergy Verified 11/25/23 17:57 Assessment & Plan Assessment & Plan (1) Moderate bipolar I disorder with marge as current episode: Status: Acute Code(s): F31.12 - Bipolar disorder, current episode manic without psychotic features, moderate Plan 11/26: offer lithium. hold haldol for now. 11/27: took HS dose, refused morning dose. reportedly he will only take medications at night. reschedule all lithium to HS, 1200 mg. 11/28: pt refused lithium last night. screamed at MD yesterday, calmly declines interview today: see you in court. olanzapine 20 mg QHS added to regimen, commitment paperwork filed. records from [facility] received and reviewed. 11/29: Court hearing pending. Declining medications in the meantime. 11/30: no changes 12/01 intrusive, poor boundaries. declines medications. 12/02 easily agitated refuses medication pressured 12/04/2023 Continues to refuse medication bizarre behavior illogical poor impulse control writing things on the kaur smearing feces on himself and on the kaur stuffing toilet 12/05/2023 Patient continues to refuse medication refused to use brand ambassador promotional model periods of yelling agitated screaming about his sister having mental illness other times isolated and withdrawn 12/06/2023 Patient continues to refuse medication refuses to engage in ongoing conversation with brand ambassador promotional model difficult to have reality based conversation 12/07/2023: Continue current regimen and plans. Refuses meds and cord is scheduled for 12/0812/08/2023: Continue current regimen and plans 12/08: refusing medications, labile, angry. some posturing over weekend, yelling at staff for trying to clean the couch that he wrote all over in ink. declined interview today. court tomorrow. 12/09: declines to speak with MD beyond saying he does not wish to attend court or meet with MD. 1.5 hr hearing, pt was committed and meds ordered by court. will await in-person somali brand ambassador promotional model tomorrow to inform pt of results of court and necessity to take medication. 12/10: discussion held with pt, edge trimming machine operator, various staff re commitment and court-ordered medication. changed context of hospitalization explained to pt, including PO refusal's leading to IM; pt appeared to understand. pt accepted Zydis and lithium this morning. 12/11: med-compliant. seen with JOSE Cancino and edge trimming machine operator. feeling overmedicated, slept all day yesterday. will change all meds to HS and decrease olanzapine to 10 mg. new regimen lithium ER 900 QHS and zyprexa 10 QHS. 12/12: more labile and agitated this morning, furiously punching his palm in making his point. refused HS lithium last night, took it this morning. up at 0500. will return HS olanzapine dosing to 20 mg. add valium IM if lithium is refused. 12/13 continue tx 12/14 continue tx. 12/15: substantially less labile, irritable than last week. able to sit and have calm discussion. check labs tomorrow night. 12/16: no notable behaviors, stable presentation, continue current mgmt. 12/17: irritable. lithium level 0.52, dosing increased to 1200 mg QHS. other labs reassuring. 12/18: remains irritable, rejecting interview. continue current mgmt. /3: continues irritable, rejecting interview. accuses MD and SW of having threatened him yesterday. continue current mgmt. / continue treatment. 12/21 continue same treatment. 12/23/23 continue plan of care 12/23 continue tx. 12/24 lithium level high 1.5, lowered lithium to 900mg po qhs, recheck lithium level tomorrow morning along with cmp and TSH. 12/25: pt declining labs, apparently fearful of needles. no signs of lithium toxicity. pt denies any problems or side effects, does not want to change medication. does c/o gaining weight, which he does not appreciate is related to medication. will DC zyprexa in favor of paliperidone. 12/26: DC zyprexa PO PRN, change to invega. increase HS invega to 9 mg. otherwise continue current mgmt. calm today, but the issue of needles was not raised. 12/27: continue current tx plan. 12/28: continue tx plan. 12/29: increase invega to 12 mg PO QHS for inadequately controlled marge/psychosis. continue current mgmt otherwise. 12/30: calm, even inviting today. no complaints or requests. continue current mgmt. mtg with sister tomorrow. 12/31: labile, irritable paranoid, delusional today. planning to add trileptal later this week. otherwise continue current mgmt. T/C invega sustenna. 01/01: calm, cooperative. no complaints. med-compliant. 01/02: add trileptal for added mood stabilization, as it does not require blood draws. otherwise continue current mgmt. 01/03: Continue current treatment and plan 01/04: Continue current regimen and plans Reason for continued inpatient stay Substantial Risk for: rapid decompensation Time Spent With Patient Time: Total time managing care of this patient today ____ minutes.
[2024-01-05 19:59] VITALS: BP 119/79; PULSE 105; RESP 16; TEMP 36.1; O2SAT 97
[2024-01-05] MEDS: Lithium Carbonate ER 450 MG TABLET.ER 900 MG PO (21:38)
[2024-01-05] MEDS: Paliperidone ER 6 MG TAB.ER.24 12 MG PO (21:39)
[2024-01-06 07:45] VITALS: BP 132/87; PULSE 101; RESP 16; TEMP 35.9; O2SAT 99
[2024-01-06] MEDS: OXcarbazepine 150 MG TABLET PO (09:39)
--- NOTE | 2024-01-06 16:14 | HO.PSYCHPN ---
Subjective Subjective Date of Service: 01/06/24 Reason For Visit: Marge Interim History: seen with aerial photograph interpreter and JOSE Cancino. mostly calm and cooperative. period of irritation during which he hurriedly exited the interview room; he returned of his own accord several minutes later and calmly finished the interview. informed of plan for [facility] and to increase trileptal tonight. asking when he will be discharged. otherwise no questions or complaints, reports he is sleeping well. per staff, not attending groups. taking meds, eating. sleeping 9 hrs nightly. Mental Status Exam Mental Status Exam Narrative: adequately dressed, disheveled. largely cooperative. no PMR. speech incr rate, decr amount; nml latency, nml loudness. thoughts questionably linear. affect hypo-intense, min-labile. mood not assessed. no SI/SIBI/HI/AVH expressed. Diagnostics Vital Signs (24Hr): Vital Signs - 24 hr 01/05/24 19:59 01/06/24 07:45 Temperature 96.9 F 96.6 F L Pulse Rate 105 H 101 H Respiratory Rate 16 16 Blood Pressure 119/79 132/87 Pulse Oximetry 97 99 Oxygen Delivery Method Room Air Room Air BMI result Body Mass Index 74.7 Labs 11/25/23 18:46 12/17/23 20:25 Medications Medications Current Medications Acetaminophen (Acetaminophen 325 Mg Tablet) 650 mg PO Q6H PRN PRN Reason: Headache/Pain Mild Scale (1-3) Al Hydroxide/Mg Hydroxide (Magnesium Hydrox/Alum Hydrox 30 Ml Oral.Susp) 30 ml PO Q6H PRN PRN Reason: Heartburn/Nausea Diazepam (Diazepam 10 Mg/2 Ml Cartridge) 10 mg IM BEDTIME PRN PRN Reason: refusal of lithium, per court order Hydroxyzine HCl (Hydroxyzine Hcl 25 Mg Tablet) 25 mg PO Q6H PRN PRN Reason: Anxiety [place] Carbonate ([place] Carbonate Er 450 Mg Tablet.Er) 900 mg PO BEDTIME [facility] Last Admin: 01/05/24 21:38 Dose: 900 mg Magnesium Hydroxide (Milk Of Magnesia 30 Ml Oral.Susp) 30 ml PO DAILY PRN PRN Reason: Constipation Nicotine Polacrilex (Nicotine Polacrilex 2 Mg Gum) 4 mg BUCCAL Q2H PRN PRN Reason: Nicotine Cravings Last Admin: 12/14/23 09:02 Dose: 4 mg Oxcarbazepine (Oxcarbazepine 300 Mg Tablet) 300 mg PO BID [facility] Paliperidone Palmitate (Paliperidone Palmitate 234 Mg/1.5 Ml Syringe) 234 mg IM ONCE ONE Stop: 01/07/24 09:01 Paliperidone Palmitate (Paliperidone Palmitate 156 Mg/Ml Syringe) 156 mg IM ONCE ONE Stop: 01/13/24 09:01 Trazodone HCl (Trazodone Hcl 50 Mg Tablet) 50 mg PO BEDTIME MRX1 PRN PRN Reason: Insomnia Allergies Allergies Allergy/AdvReac Type Severity Reaction Status Date / Time Unable to Assess Allergy Verified 11/25/23 17:57 Assessment & Plan Assessment & Plan (1) Moderate bipolar I disorder with marge as current episode: Status: Acute Code(s): F31.12 - Bipolar disorder, current episode manic without psychotic features, moderate Plan 11/26: offer lithium. hold haldol for now. 11/27: took HS dose, refused morning dose. reportedly he will only take medications at night. reschedule all lithium to HS, 1200 mg. 11/28: pt refused lithium last night. screamed at MD yesterday, calmly declines interview today: see you in court. olanzapine 20 mg QHS added to regimen, commitment paperwork filed. records from [facility] received and reviewed. 11/29: Court hearing pending. Declining medications in the meantime. 11/30: no changes 12/01 intrusive, poor boundaries. declines medications. 12/02 easily agitated refuses medication pressured 12/04/2023 Continues to refuse medication bizarre behavior illogical poor impulse control writing things on the kaur smearing feces on himself and on the kaur stuffing toilet 12/05/2023 Patient continues to refuse medication refused to use equipment lead periods of yelling agitated screaming about his sister having mental illness other times isolated and withdrawn 12/06/2023 Patient continues to refuse medication refuses to engage in ongoing conversation with equipment lead difficult to have reality based conversation 12/07/2023: Continue current regimen and plans. Refuses meds and cord is scheduled for 12/0812/08/2023: Continue current regimen and plans 12/08: refusing medications, labile, angry. some posturing over weekend, yelling at staff for trying to clean the couch that he wrote all over in ink. declined interview today. court tomorrow. 12/09: declines to speak with MD beyond saying he does not wish to attend court or meet with MD. 1.5 hr hearing, pt was committed and meds ordered by court. will await in-person montenegr[place] equipment lead tomorrow to inform pt of results of court and necessity to take medication. 12/10: discussion held with pt, aerial photograph interpreter, various staff re commitment and court-ordered medication. changed context of hospitalization explained to pt, including PO refusal's leading to IM; pt appeared to understand. pt accepted Zydis and lithium this morning. 12/11: med-compliant. seen with JOSE Cancino and aerial photograph interpreter. feeling overmedicated, slept all day yesterday. will change all meds to HS and decrease olanzapine to 10 mg. new regimen lithium ER 900 QHS and zyprexa 10 QHS. 12/12: more labile and agitated this morning, furiously punching his palm in making his point. refused HS lithium last night, took it this morning. up at 0500. will return HS olanzapine dosing to 20 mg. add valium IM if lithium is refused. 12/13 continue tx 12/14 continue tx. 12/15: substantially less labile, irritable than last week. able to sit and have calm discussion. check labs tomorrow night. 12/16: no notable behaviors, stable presentation, continue current mgmt. 12/17: irritable. lithium level 0.52, dosing increased to 1200 mg QHS. other labs reassuring. 12/18: remains irritable, rejecting interview. continue current mgmt. 12/19: continues irritable, rejecting interview. accuses MD and SW of having threatened him yesterday. continue current mgmt. 12/20 continue treatment. 12/21 continue same treatment. 12/23/23 continue plan of care 12/23 continue tx. 12/24 lithium level high 1.5, lowered lithium to 900mg po qhs, recheck lithium level tomorrow morning along with cmp and TSH. 12/25: pt declining labs, apparently fearful of needles. no signs of lithium toxicity. pt denies any problems or side effects, does not want to change medication. does c/o gaining weight, which he does not appreciate is related to medication. will DC zyprexa in favor of paliperidone. 12/26: DC zyprexa PO PRN, change to invega. increase HS invega to 9 mg. otherwise continue current mgmt. calm today, but the issue of needles was not raised. 12/27: continue current tx plan. 12/28: continue tx plan. 12/29: increase invega to 12 mg PO QHS for inadequately controlled marge/psychosis. continue current mgmt otherwise. 12/30: calm, even inviting today. no complaints or requests. continue current mgmt. mtg with sister tomorrow. 12/31: labile, irritable paranoid, delusional today. planning to add trileptal later this week. otherwise continue current mgmt. T/C invega sustenna. 01/01: calm, cooperative. no complaints. med-compliant. 01/02: add trileptal for added mood stabilization, as it does not require blood draws. otherwise continue current mgmt. 01/03: Continue current treatment and plan 01/04: Continue current regimen and plans 01/05: DC PO invega, start sustenna 234 mg tomorrow. increase trileptal to 300 BID. otherwise continue current mgmt. still some impulsivity, irritability, and perhaps thought disorder interfering with attention/comprehension. Reason for continued inpatient stay Substantial Risk for: harm to self, harm to others, inability to function and rapid decompensation Time Spent With Patient Time: Total time managing care of this patient today __35__ minutes.
[2024-01-06 19:50] VITALS: BP 169/88; PULSE 98; RESP 18; TEMP 36.1; O2SAT 98
[2024-01-06] MEDS: OXcarbazepine 300 MG TABLET PO (22:39)
[2024-01-06] MEDS: Lithium Carbonate ER 450 MG TABLET.ER 900 MG PO (22:39)
[2024-01-07 07:47] VITALS: BP 123/82; PULSE 83; RESP 16; TEMP 36.4; O2SAT 98
[2024-01-07] MEDS: OXcarbazepine 300 MG TABLET PO ×2 (08:37→21:17)
[2024-01-07] MEDS: Paliperidone Palmitate 234 MG/1.5 ML SYRINGE IM (10:03)
--- NOTE | 2024-01-07 10:07 | PC.NURSE ---
Invega Sustenna 234mg IM administered on this date to L deltoid. Pt tolerated procedure well.
--- NOTE | 2024-01-07 14:07 | HO.PSYCHPN ---
Subjective Subjective Date of Service: 01/07/24 Reason For Visit: Marge Interim History: calm, cooperative. denies any problems. no complaints or requests. reports he received IM invega. per staff, taking meds. in room for the most part. constricted. w/drawn. slept about 9 hours. Mental Status Exam Mental Status Exam Narrative: adequately dressed, disheveled. cooperative. no PMA/PMR. speech nml rate, decr amount; nml latency, nml loudness. thoughts linear in brief interaction. affect hypo-intense, min-labile. mood not assessed. no SI/SIBI/HI/AVH expressed. Diagnostics Vital Signs (24Hr): Vital Signs - 24 hr 01/06/24 19:50 01/07/24 07:47 Temperature 96.9 F 97.6 F Pulse Rate 98 83 Respiratory Rate 18 16 Blood Pressure 169/88 H 123/82 Pulse Oximetry 98 98 Oxygen Delivery Method Room Air Room Air BMI result Body Mass Index 74.7 Labs 11/25/23 18:46 12/17/23 20:25 Medications Medications Current Medications Acetaminophen (Acetaminophen 325 Mg Tablet) 650 mg PO Q6H PRN PRN Reason: Headache/Pain Mild Scale (1-3) Al Hydroxide/Mg Hydroxide (Magnesium Hydrox/Alum Hydrox 30 Ml Oral.Susp) 30 ml PO Q6H PRN PRN Reason: Heartburn/Nausea Diazepam (Diazepam 10 Mg/2 Ml Cartridge) 10 mg IM BEDTIME PRN PRN Reason: refusal of lithium, per court order Hydroxyzine HCl (Hydroxyzine Hcl 25 Mg Tablet) 25 mg PO Q6H PRN PRN Reason: Anxiety [place] Carbonate ([place] Carbonate Er 450 Mg Tablet.Er) 900 mg PO BEDTIME [facility] Last Admin: 01/06/24 22:39 Dose: 900 mg Magnesium Hydroxide (Milk Of Magnesia 30 Ml Oral.Susp) 30 ml PO DAILY PRN PRN Reason: Constipation Nicotine Polacrilex (Nicotine Polacrilex 2 Mg Gum) 4 mg BUCCAL Q2H PRN PRN Reason: Nicotine Cravings Last Admin: 12/14/23 09:02 Dose: 4 mg Oxcarbazepine (Oxcarbazepine 300 Mg Tablet) 300 mg PO BID [facility] Last Admin: 01/07/24 08:37 Dose: 300 mg Paliperidone Palmitate (Paliperidone Palmitate 156 Mg/Ml Syringe) 156 mg IM ONCE ONE Stop: 01/13/24 09:01 Trazodone HCl (Trazodone Hcl 50 Mg Tablet) 50 mg PO BEDTIME MRX1 PRN PRN Reason: Insomnia Allergies Allergies Allergy/AdvReac Type Severity Reaction Status Date / Time Unable to Assess Allergy Verified 11/25/23 17:57 Assessment & Plan Assessment & Plan (1) Moderate bipolar I disorder with marge as current episode: Status: Acute Code(s): F31.12 - Bipolar disorder, current episode manic without psychotic features, moderate Plan 11/26: offer lithium. hold haldol for now. 11/27: took HS dose, refused morning dose. reportedly he will only take medications at night. reschedule all lithium to HS, 1200 mg. 11/28: pt refused lithium last night. screamed at MD yesterday, calmly declines interview today: see you in court. olanzapine 20 mg QHS added to regimen, commitment paperwork filed. records from [facility] received and reviewed. 11/29: Court hearing pending. Declining medications in the meantime. 11/30: no changes 12/01 intrusive, poor boundaries. declines medications. 12/02 easily agitated refuses medication pressured 12/04/2023 Continues to refuse medication bizarre behavior illogical poor impulse control writing things on the kaur smearing feces on himself and on the kaur stuffing toilet 12/05/2023 Patient continues to refuse medication refused to use robotic welding operator periods of yelling agitated screaming about his sister having mental illness other times isolated and withdrawn 12/06/2023 Patient continues to refuse medication refuses to engage in ongoing conversation with robotic welding operator difficult to have reality based conversation 12/07/2023: Continue current regimen and plans. Refuses meds and cord is scheduled for 12/0812/08/2023: Continue current regimen and plans 12/08: refusing medications, labile, angry. some posturing over weekend, yelling at staff for trying to clean the couch that he wrote all over in ink. declined interview today. court tomorrow. 12/09: declines to speak with MD beyond saying he does not wish to attend court or meet with MD. 1.5 hr hearing, pt was committed and meds ordered by court. will await in-person filipino robotic welding operator tomorrow to inform pt of results of court and necessity to take medication. 12/10: discussion held with pt, stitching department supervisor, various staff re commitment and court-ordered medication. changed context of hospitalization explained to pt, including PO refusal's leading to IM; pt appeared to understand. pt accepted Zydis and lithium this morning. 12/11: med-compliant. seen with JOSE Cancino and stitching department supervisor. feeling overmedicated, slept all day yesterday. will change all meds to HS and decrease olanzapine to 10 mg. new regimen lithium ER 900 QHS and zyprexa 10 QHS. 12/12: more labile and agitated this morning, furiously punching his palm in making his point. refused HS lithium last night, took it this morning. up at 0500. will return HS olanzapine dosing to 20 mg. add valium IM if lithium is refused. 12/13 continue tx 12/14 continue tx. 12/15: substantially less labile, irritable than last week. able to sit and have calm discussion. check labs tomorrow night. 12/16: no notable behaviors, stable presentation, continue current mgmt. 12/17: irritable. lithium level 0.52, dosing increased to 1200 mg QHS. other labs reassuring. 12/18: remains irritable, rejecting interview. continue current mgmt. 12/19: continues irritable, rejecting interview. accuses MD and SW of having threatened him yesterday. continue current mgmt. 12/20 continue treatment. 12/21 continue same treatment. 12/23/23 continue plan of care 12/23 continue tx. 12/24 lithium level high 1.5, lowered lithium to 900mg po qhs, recheck lithium level tomorrow morning along with cmp and TSH. 12/25: pt declining labs, apparently fearful of needles. no signs of lithium toxicity. pt denies any problems or side effects, does not want to change medication. does c/o gaining weight, which he does not appreciate is related to medication. will DC zyprexa in favor of paliperidone. 12/26: DC zyprexa PO PRN, change to invega. increase HS invega to 9 mg. otherwise continue current mgmt. calm today, but the issue of needles was not raised. 12/27: continue current tx plan. 12/28: continue tx plan. 12/29: increase invega to 12 mg PO QHS for inadequately controlled marge/psychosis. continue current mgmt otherwise. 12/30: calm, even inviting today. no complaints or requests. continue current mgmt. mtg with sister tomorrow. 12/31: labile, irritable paranoid, delusional today. planning to add trileptal later this week. otherwise continue current mgmt. T/C invega sustenna. 01/01: calm, cooperative. no complaints. med-compliant. 01/02: add trileptal for added mood stabilization, as it does not require blood draws. otherwise continue current mgmt. 01/03: Continue current treatment and plan 01/04: Continue current regimen and plans 01/05: DC PO invega, start sustenna 234 mg tomorrow. increase trileptal to 300 BID. otherwise continue current mgmt. still some impulsivity, irritability, and perhaps thought disorder interfering with attention/comprehension. 01/06: received sustenna 234 mg IM today. continue other medications as per prior. stable. Reason for continued inpatient stay Substantial Risk for: inability to function and rapid decompensation Time Spent With Patient Time: Total time managing care of this patient today ____ minutes.
[2024-01-07 20:00] VITALS: BP 136/88; PULSE 96; RESP 16; TEMP 36.9; O2SAT 97
[2024-01-07] MEDS: Lithium Carbonate ER 450 MG TABLET.ER 900 MG PO (21:17)
[2024-01-08] MEDS: OXcarbazepine 300 MG TABLET PO ×2 (08:15→21:29)
[2024-01-08 09:00] VITALS: BP 123/86; PULSE 95; RESP 18; TEMP 37.4; O2SAT 98
--- NOTE | 2024-01-08 13:39 | P.PNPSI_ITS ---
Subjective Subjective Date of Service: 01/08/24 Reason For Visit: Alfa Interim History: seen with addiction specialist and JOSE Cancino. per pt's sister (via JOSE Cancino), pt had complained to her of feeling too tired and slowed down on the medication. in discussion with pt, he is minimizing and avoidant, focussed on discharge. MD suggests decreasing lithium, which pt agrees to. per staff, denies dep/anx. sullen, isolative. received sustenna IM. no issues. slept 8 hours. Mental Status Exam Mental Status Exam Narrative: adequately dressed, disheveled. cooperative. general PMR. speech nml rate, decr amount; incr latency, decr loudness. thoughts linear. affect hypo- intense, non-labile. mood not assessed. no SI/SIBI/HI/AVH expressed. Diagnostics Vital Signs (24Hr): Vital Signs - 24 hr 01/07/24 20:00 01/08/24 09:00 Temperature 98.4 F 99.4 F Pulse Rate 96 95 Respiratory Rate 16 18 Blood Pressure 136/88 123/86 Pulse Oximetry 97 98 Oxygen Delivery Method Room Air Room Air BMI result Body Mass Index 74.7 Labs 11/25/23 18:46 12/17/23 20:25 Medications Medications Current Medications Acetaminophen (Acetaminophen 325 Mg Tablet) 650 mg PO Q6H PRN PRN Reason: Headache/Pain Mild Scale (1-3) Al Hydroxide/Mg Hydroxide (Magnesium Hydrox/Alum Hydrox 30 Ml Oral.Susp) 30 ml PO Q6H PRN PRN Reason: Heartburn/Nausea Diazepam (Diazepam 10 Mg/2 Ml Cartridge) 10 mg IM BEDTIME PRN PRN Reason: refusal of lithium, per court order Hydroxyzine HCl (Hydroxyzine Hcl 25 Mg Tablet) 25 mg PO Q6H PRN PRN Reason: Anxiety [place] Carbonate ([place] Carbonate Er 300 Mg Tablet.Er) 600 mg PO BEDTIME [facility] Magnesium Hydroxide (Milk Of Magnesia 30 Ml Oral.Susp) 30 ml PO DAILY PRN PRN Reason: Constipation Nicotine Polacrilex (Nicotine Polacrilex 2 Mg Gum) 4 mg BUCCAL Q2H PRN PRN Reason: Nicotine Cravings Last Admin: 12/14/23 09:02 Dose: 4 mg Oxcarbazepine (Oxcarbazepine 300 Mg Tablet) 300 mg PO BID [facility] Last Admin: 01/08/24 08:15 Dose: 300 mg Paliperidone Palmitate (Paliperidone Palmitate 156 Mg/Ml Syringe) 156 mg IM ONCE ONE Stop: 01/13/24 09:01 Trazodone HCl (Trazodone Hcl 50 Mg Tablet) 50 mg PO BEDTIME MRX1 PRN PRN Reason: Insomnia Allergies Allergies Allergy/AdvReac Type Severity Reaction Status Date / Time Unable to Assess Allergy Verified 11/25/23 17:57 Assessment & Plan Assessment & Plan (1) Moderate bipolar I disorder with alfa as current episode: Status: Acute Code(s): F31.12 - Bipolar disorder, current episode manic without psychotic features, moderate Plan 11/26: offer lithium. hold haldol for now. 11/27: took HS dose, refused morning dose. reportedly he will only take medications at night. reschedule all lithium to HS, 1200 mg. 11/28: pt refused lithium last night. screamed at MD yesterday, calmly declines interview today: see you in court. olanzapine 20 mg QHS added to regimen, commitment paperwork filed. records from [facility] received and reviewed. 11/29: Court hearing pending. Declining medications in the meantime. 11/30: no changes 12/01 intrusive, poor boundaries. declines medications. 12/02 easily agitated refuses medication pressured 12/04/2023 Continues to refuse medication bizarre behavior illogical poor impulse control writing things on the kaur smearing feces on himself and on the kaur stuffing toilet 12/05/2023 Patient continues to refuse medication refused to use pharmacy technician program director periods of yelling agitated screaming about his sister having mental illness other times isolated and withdrawn 12/06/2023 Patient continues to refuse medication refuses to engage in ongoing conversation with pharmacy technician program director difficult to have reality based conversation 12/07/2023: Continue current regimen and plans. Refuses meds and cord is scheduled for 12/0812/08/2023: Continue current regimen and plans 12/08: refusing medications, labile, angry. some posturing over weekend, yelling at staff for trying to clean the couch that he wrote all over in ink. declined interview today. court tomorrow. 12/09: declines to speak with MD beyond saying he does not wish to attend court or meet with MD. 1.5 hr hearing, pt was committed and meds ordered by court. will await in-person swiss pharmacy technician program director tomorrow to inform pt of results of court and necessity to take medication. 12/10: discussion held with pt, addiction specialist, various staff re commitment and court-ordered medication. changed context of hospitalization explained to pt, including PO refusal's leading to IM; pt appeared to understand. pt accepted Zydis and lithium this morning. 12/11: med-compliant. seen with JOSE Cancino and addiction specialist. feeling overmedicated, slept all day yesterday. will change all meds to HS and decrease olanzapine to 10 mg. new regimen lithium ER 900 QHS and zyprexa 10 QHS. 12/12: more labile and agitated this morning, furiously punching his palm in making his point. refused HS lithium last night, took it this morning. up at 0500. will return HS olanzapine dosing to 20 mg. add valium IM if lithium is refused. 12/13 continue tx 12/14 continue tx. 12/15: substantially less labile, irritable than last week. able to sit and have calm discussion. check labs tomorrow night. 12/16: no notable behaviors, stable presentation, continue current mgmt. 12/17: irritable. lithium level 0.52, dosing increased to 1200 mg QHS. other labs reassuring. 12/18: remains irritable, rejecting interview. continue current mgmt. 12/19: continues irritable, rejecting interview. accuses and JOSE of having threatened him yesterday. continue current mgmt. 12/20 continue treatment. 12/21 continue same treatment. 12/23/23 continue plan of care 12/23 continue tx. 12/24 lithium level high 1.5, lowered lithium to 900mg po qhs, recheck lithium level tomorrow morning along with cmp and TSH. 12/25: pt declining labs, apparently fearful of needles. no signs of lithium toxicity. pt denies any problems or side effects, does not want to change medication. does c/o gaining weight, which he does not appreciate is related to medication. will DC zyprexa in favor of paliperidone. 12/26: DC zyprexa PO PRN, change to invega. increase HS invega to 9 mg. otherwise continue current mgmt. calm today, but the issue of needles was not raised. 05/11: continue current tx plan. 12/28: continue tx plan. 12/29: increase invega to 12 mg PO QHS for inadequately controlled alfa/psychosis. continue current mgmt otherwise. 12/30: calm, even inviting today. no complaints or requests. continue current mgmt. mtg with sister tomorrow. 12/31: labile, irritable paranoid, delusional today. planning to add trileptal later this week. otherwise continue current mgmt. T/C invega sustenna. 01/01: calm, cooperative. no complaints. med-compliant. 01/02: add trileptal for added mood stabilization, as it does not require blood draws. otherwise continue current mgmt. 01/03: Continue current treatment and plan 01/04: Continue current regimen and plans 01/05: DC PO invega, start sustenna 234 mg tomorrow. increase trileptal to 300 BID. otherwise continue current mgmt. still some impulsivity, irritability, and perhaps thought disorder interfering with attention/comprehension. 01/06: received sustenna 234 mg IM today. continue other medications as per prior. stable. 01/07: feeling tired and slowed. due to transition from PO to SMITH versus manuel has been quashed and now regimen is more than is necessary. will decrease lithium 900 QHS to 600 QHS. otherwise continue current medication. Reason for continued inpatient stay Substantial Risk for: inability to function and rapid decompensation Time Spent With Patient Time: Total time managing care of this patient today __35__ minutes.
[2024-01-08 19:30] VITALS: BP 125/84; PULSE 87; RESP 16; TEMP 36.9; O2SAT 98
[2024-01-08] MEDS: Lithium Carbonate ER 300 MG TABLET.ER 600 MG PO (21:29)
[2024-01-09 07:00] VITALS: BMI 33.0
[2024-01-09 07:47] VITALS: BP 121/72; PULSE 96; RESP 16; TEMP 36.8; O2SAT 96
[2024-01-09] MEDS: OXcarbazepine 300 MG TABLET PO ×2 (08:34→21:24)
--- NOTE | 2024-01-09 13:52 | HO.PSYCHPN ---
Subjective Subjective Date of Service: 01/09/24 Reason For Visit: Marge Interim History: calm, cooperative. denies any problems or questions. indicates he is feeling less foggy now. per staff, no dep/anx. more sedated yesterday. taking meds. sleeping through the night. Mental Status Exam Mental Status Exam Narrative: adequately dressed, disheveled. cooperative. no PMA/PMR. speech nml rate, decr amount; nml latency, loudness. thoughts linear. affect normo-intense, non-labile. mood not assessed. no SI/SIBI/HI/AVH expressed. Diagnostics Vital Signs (24Hr): Vital Signs - 24 hr 01/08/24 19:30 01/09/24 07:47 Temperature 98.5 F 98.2 F Pulse Rate 87 96 Respiratory Rate 16 16 Blood Pressure 125/84 121/72 Pulse Oximetry 98 96 Oxygen Delivery Method Room Air Room Air BMI result Body Mass Index 33.0 Labs 11/25/23 18:46 12/17/23 20:25 Medications Medications Current Medications Acetaminophen (Acetaminophen 325 Mg Tablet) 650 mg PO Q6H PRN PRN Reason: Headache/Pain Mild Scale (1-3) Al Hydroxide/Mg Hydroxide (Magnesium Hydrox/Alum Hydrox 30 Ml Oral.Susp) 30 ml PO Q6H PRN PRN Reason: Heartburn/Nausea Diazepam (Diazepam 10 Mg/2 Ml Cartridge) 10 mg IM BEDTIME PRN PRN Reason: refusal of lithium, per court order Hydroxyzine HCl (Hydroxyzine Hcl 25 Mg Tablet) 25 mg PO Q6H PRN PRN Reason: Anxiety [place] Carbonate ([place] Carbonate Er 300 Mg Tablet.Er) 600 mg PO BEDTIME [facility] Last Admin: 01/08/24 21:29 Dose: 600 mg Magnesium Hydroxide (Milk Of Magnesia 30 Ml Oral.Susp) 30 ml PO DAILY PRN PRN Reason: Constipation Nicotine Polacrilex (Nicotine Polacrilex 2 Mg Gum) 4 mg BUCCAL Q2H PRN PRN Reason: Nicotine Cravings Last Admin: 12/14/23 09:02 Dose: 4 mg Oxcarbazepine (Oxcarbazepine 300 Mg Tablet) 300 mg PO BID [facility] Last Admin: 01/09/24 08:34 Dose: 300 mg Paliperidone Palmitate (Paliperidone Palmitate 156 Mg/Ml Syringe) 156 mg IM ONCE ONE Stop: 01/13/24 09:01 Trazodone HCl (Trazodone Hcl 50 Mg Tablet) 50 mg PO BEDTIME MRX1 PRN PRN Reason: Insomnia Allergies Allergies Allergy/AdvReac Type Severity Reaction Status Date / Time Unable to Assess Allergy Verified 11/25/23 17:57 Assessment & Plan Assessment & Plan (1) Moderate bipolar I disorder with marge as current episode: Status: Acute Code(s): F31.12 - Bipolar disorder, current episode manic without psychotic features, moderate Plan 11/26: offer lithium. hold haldol for now. 11/27: took HS dose, refused morning dose. reportedly he will only take medications at night. reschedule all lithium to HS, 1200 mg. 11/28: pt refused lithium last night. screamed at MD yesterday, calmly declines interview today: see you in court. olanzapine 20 mg QHS added to regimen, commitment paperwork filed. [facility]. 11/29: Court hearing pending. Declining medications in the meantime. 11/30: no changes 12/01 intrusive, poor boundaries. declines medications. 12/02 easily agitated refuses medication pressured 12/04/2023 Continues to refuse medication bizarre behavior illogical poor impulse control writing things on the kaur smearing feces on himself and on the kaur stuffing toilet 12/05/2023 Patient continues to refuse medication refused to use disability liaison officer periods of yelling agitated screaming about his sister having mental illness other times isolated and withdrawn 12/06/2023 Patient continues to refuse medication refuses to engage in ongoing conversation with disability liaison officer difficult to have reality based conversation 12/07/2023: Continue current regimen and plans. Refuses meds and cord is scheduled for 12/0812/08/2023: Continue current regimen and plans 12/08: refusing medications, labile, angry. some posturing over weekend, yelling at staff for trying to clean the couch that he wrote all over in ink. declined interview today. court tomorrow. 12/09: declines to speak with MD beyond saying he does not wish to attend court or meet with MD. 1.5 hr hearing, pt was committed and meds ordered by court. will await in-person urugu[place] disability liaison officer tomorrow to inform pt of results of court and necessity to take medication. 12/10: discussion held with pt, forestry farm laborer, various staff re commitment and court-ordered medication. changed context of hospitalization explained to pt, including PO refusal's leading to IM; pt appeared to understand. pt accepted Zydis and lithium this morning. 12/11: med-compliant. seen with JOSE Cancino and forestry farm laborer. feeling overmedicated, slept all day yesterday. will change all meds to HS and decrease olanzapine to 10 mg. new regimen lithium ER 900 QHS and zyprexa 10 QHS. 12/12: more labile and agitated this morning, furiously punching his palm in making his point. refused HS lithium last night, took it this morning. up at 0500. will return HS olanzapine dosing to 20 mg. add valium IM if lithium is refused. 12/13 continue tx 12/14 continue tx. 12/15: substantially less labile, irritable than last week. able to sit and have calm discussion. check labs tomorrow night. 12/16: no notable behaviors, stable presentation, continue current mgmt. 12/17: irritable. lithium level 0.52, dosing increased to 1200 mg QHS. other labs reassuring. 12/18: remains irritable, rejecting interview. continue current mgmt. 12/19: continues irritable, rejecting interview. accuses MD and JOSE of having threatened him yesterday. continue current mgmt. 12/20 continue treatment. 12/21 continue same treatment. 12/23/23 continue plan of care 12/23 continue tx. 12/24 lithium level high 1.5, lowered lithium to 900mg po qhs, recheck lithium level tomorrow morning along with cmp and TSH. 12/25: pt declining labs, apparently fearful of needles. no signs of lithium toxicity. pt denies any problems or side effects, does not want to change medication. does c/o gaining weight, which he does not appreciate is related to medication. will DC zyprexa in favor of paliperidone. 12/26: DC zyprexa PO PRN, change to invega. increase HS invega to 9 mg. otherwise continue current mgmt. calm today, but the issue of needles was not raised. 12/27: continue current tx plan. 12/28: continue tx plan. 12/29: increase invega to 12 mg PO QHS for inadequately controlled marge/psychosis. continue current mgmt otherwise. 12/30: calm, even inviting today. no complaints or requests. continue current mgmt. mtg with sister tomorrow. 12/31: labile, irritable paranoid, delusional today. planning to add trileptal later this week. otherwise continue current mgmt. T/C invega sustenna. 01/01: calm, cooperative. no complaints. med-compliant. 01/02: add trileptal for added mood stabilization, as it does not require blood draws. otherwise continue current mgmt. 01/03: Continue current treatment and plan 01/04: Continue current regimen and plans 01/05: DC PO invega, start sustenna 234 mg tomorrow. increase trileptal to 300 BID. otherwise continue current mgmt. still some impulsivity, irritability, and perhaps thought disorder interfering with attention/comprehension. 01/06: received sustenna 234 mg IM today. continue other medications as per prior. stable. 01/07: feeling tired and slowed. due to transition from PO to SMITH versus manuel has been quashed and now regimen is more than is necessary. will decrease lithium 900 QHS to 600 QHS. otherwise continue current medication. 01/08: feeling clearer mentally, speaking and moving more quickly than yesterday. no complaints or requests. continue current mgmt. Reason for continued inpatient stay Substantial Risk for: inability to function and rapid decompensation Time Spent With Patient Time: Total time managing care of this patient today ____ minutes.
[2024-01-09 20:00] VITALS: BP 129/88; PULSE 89; RESP 16; TEMP 37; O2SAT 98
[2024-01-09] MEDS: Lithium Carbonate ER 300 MG TABLET.ER 600 MG PO (21:24)
[2024-01-10 07:59] VITALS: BP 125/91; PULSE 78; RESP 16; TEMP 36.5; O2SAT 99
[2024-01-10] MEDS: OXcarbazepine 300 MG TABLET PO ×2 (09:21→20:43)
--- NOTE | 2024-01-10 14:36 | HO.PSYCHPN ---
Subjective Subjective Date of Service: 01/10/24 Reason For Visit: Alfa Interim History: calm, cooperative. seen with venezuel[place] parts interpreter. pt states he is no longer feeling foggy and tired. informed of plan to continue lithium taper. feling quiet and relaxed now, which is better than prior. per staff, isolative. taking meds. pleasant. no depression. no anxiety. +RIS, talking and laughing to self. Mental Status Exam Mental Status Exam Narrative: adequately dressed, disheveled. cooperative. no PMA/PMR. speech nml rate, decr amount; nml latency, loudness. thoughts linear. affect normo-intense, non-labile. mood quiet, relaxed, better. no SI/SIBI/HI/AVH expressed. Diagnostics Vital Signs (24Hr): Vital Signs - 24 hr 01/09/24 20:00 01/10/24 07:59 Temperature 98.6 F 97.7 F Pulse Rate 89 78 Respiratory Rate 16 16 Blood Pressure 129/88 125/91 H Pulse Oximetry 98 99 Oxygen Delivery Method Room Air Room Air BMI result Body Mass Index 33.0 Labs 11/25/23 18:46 12/17/23 20:25 Medications Medications Current Medications Acetaminophen (Acetaminophen 325 Mg Tablet) 650 mg PO Q6H PRN PRN Reason: Headache/Pain Mild Scale (1-3) Al Hydroxide/Mg Hydroxide (Magnesium Hydrox/Alum Hydrox 30 Ml Oral.Susp) 30 ml PO Q6H PRN PRN Reason: Heartburn/Nausea Diazepam (Diazepam 10 Mg/2 Ml Cartridge) 10 mg IM BEDTIME PRN PRN Reason: refusal of lithium, per court order Hydroxyzine HCl (Hydroxyzine Hcl 25 Mg Tablet) 25 mg PO Q6H PRN PRN Reason: Anxiety [place] Carbonate ([place] Carbonate Er 300 Mg Tablet.Er) 300 mg PO BEDTIME [facility] Magnesium Hydroxide (Milk Of Magnesia 30 Ml Oral.Susp) 30 ml PO DAILY PRN PRN Reason: Constipation Nicotine Polacrilex (Nicotine Polacrilex 2 Mg Gum) 4 mg BUCCAL Q2H PRN PRN Reason: Nicotine Cravings Last Admin: 12/14/23 09:02 Dose: 4 mg Oxcarbazepine (Oxcarbazepine 300 Mg Tablet) 300 mg PO BID [facility] Last Admin: 01/10/24 09:21 Dose: 300 mg Paliperidone Palmitate (Paliperidone Palmitate 156 Mg/Ml Syringe) 156 mg IM ONCE ONE Stop: 01/13/24 09:01 Trazodone HCl (Trazodone Hcl 50 Mg Tablet) 50 mg PO BEDTIME MRX1 PRN PRN Reason: Insomnia Allergies Allergies Allergy/AdvReac Type Severity Reaction Status Date / Time Unable to Assess Allergy Verified 11/25/23 17:57 Assessment & Plan Assessment & Plan (1) Moderate bipolar I disorder with alfa as current episode: Status: Acute Code(s): F31.12 - Bipolar disorder, current episode manic without psychotic features, moderate Plan 11/26: offer lithium. hold haldol for now. 11/27: took HS dose, refused morning dose. reportedly he will only take medications at night. reschedule all lithium to HS, 1200 mg. 11/28: pt refused lithium last night. screamed at MD yesterday, calmly declines interview today: see you in court. olanzapine 20 mg QHS added to regimen, commitment paperwork filed. records from [facility] received and reviewed. 11/29: Court hearing pending. Declining medications in the meantime. 11/30: no changes 12/01 intrusive, poor boundaries. declines medications. 12/02 easily agitated refuses medication pressured 12/04/2023 Continues to refuse medication bizarre behavior illogical poor impulse control writing things on the kaur smearing feces on himself and on the kaur stuffing toilet 12/05/2023 Patient continues to refuse medication refused to use test desk supervisor periods of yelling agitated screaming about his sister having mental illness other times isolated and withdrawn 12/06/2023 Patient continues to refuse medication refuses to engage in ongoing conversation with test desk supervisor difficult to have reality based conversation 12/07/2023: Continue current regimen and plans. Refuses meds and cord is scheduled for 12/0812/08/2023: Continue current regimen and plans 12/08: refusing medications, labile, angry. some posturing over weekend, yelling at staff for trying to clean the couch that he wrote all over in ink. declined interview today. court tomorrow. 12/09: declines to speak with MD beyond saying he does not wish to attend court or meet with MD. 1.5 hr hearing, pt was committed and meds ordered by court. will await in-person venezuel[place] test desk supervisor tomorrow to inform pt of results of court and necessity to take medication. 12/10: discussion held with pt, parts interpreter, various staff re commitment and court-ordered medication. changed context of hospitalization explained to pt, including PO refusal's leading to IM; pt appeared to understand. pt accepted Zydis and lithium this morning. 12/11: med-compliant. seen with JOSE Cancino and parts interpreter. feeling overmedicated, slept all day yesterday. will change all meds to HS and decrease olanzapine to 10 mg. new regimen lithium ER 900 QHS and zyprexa 10 QHS. 12/12: more labile and agitated this morning, furiously punching his palm in making his point. refused HS lithium last night, took it this morning. up at 0500. will return HS olanzapine dosing to 20 mg. add valium IM if lithium is refused. 12/13 continue tx 12/14 continue tx. 12/15: substantially less labile, irritable than last week. able to sit and have calm discussion. check labs tomorrow night. 12/16: no notable behaviors, stable presentation, continue current mgmt. 12/17: irritable. lithium level 0.52, dosing increased to 1200 mg QHS. other labs reassuring. 12/18: remains irritable, rejecting interview. continue current mgmt. 12/19: continues irritable, rejecting interview. accuses MD and SW of having threatened him yesterday. continue current mgmt. 12/20 continue treatment. 12/21 continue same treatment. 12/23/23 continue plan of care 12/23 continue tx. 12/24 lithium level high 1.5, lowered lithium to 900mg po qhs, recheck lithium level tomorrow morning along with cmp and TSH. 12/25: pt declining labs, apparently fearful of needles. no signs of lithium toxicity. pt denies any problems or side effects, does not want to change medication. does c/o gaining weight, which he does not appreciate is related to medication. will DC zyprexa in favor of paliperidone. 12/26: DC zyprexa PO PRN, change to invega. increase HS invega to 9 mg. otherwise continue current mgmt. calm today, but the issue of needles was not raised. 12/27: continue current tx plan. 12/28: continue tx plan. 12/29: increase invega to 12 mg PO QHS for inadequately controlled alfa/psychosis. continue current mgmt otherwise. 12/30: calm, even inviting today. no complaints or requests. continue current mgmt. mtg with sister tomorrow. 12/31: labile, irritable paranoid, delusional today. planning to add trileptal later this week. otherwise continue current mgmt. T/C invega sustenna. 01/01: calm, cooperative. no complaints. med-compliant. 01/02: add trileptal for added mood stabilization, as it does not require blood draws. otherwise continue current mgmt. 01/03: Continue current treatment and plan 01/04: Continue current regimen and plans 01/05: DC PO invega, start sustenna 234 mg tomorrow. increase trileptal to 300 BID. otherwise continue current mgmt. still some impulsivity, irritability, and perhaps thought disorder interfering with attention/comprehension. 01/06: received sustenna 234 mg IM today. continue other medications as per prior. stable. 01/07: feeling tired and slowed. due to transition from PO to SMITH versus manuel has been quashed and now regimen is more than is necessary. will decrease lithium 900 QHS to 600 QHS. otherwise continue current medication. 01/08: feeling clearer mentally, speaking and moving more quickly than yesterday. no complaints or requests. continue current mgmt. 01/09: continues feeling clearer mentally. mood relaxed. decrease lithium to 300 mg QHS. otherwise continue current mgmt. Reason for continued inpatient stay Substantial Risk for: harm to self, harm to others, inability to function and rapid decompensation Time Spent With Patient Time: Total time managing care of this patient today __25__ minutes.
[2024-01-10 20:06] VITALS: BP 134/88; PULSE 98; RESP 18; TEMP 36.8; O2SAT 99
[2024-01-10] MEDS: Lithium Carbonate ER 300 MG TABLET.ER PO (20:43)
--- NOTE | 2024-01-11 08:55 | P.PNPSI_ITS ---
Subjective Subjective Date of Service: 01/11/24 Reason For Visit: Alfa Interim History: Patient was in bed. He was laying staring at the ceiling and mumbling to self. He didn't engage with this casualty underwriter. He didn't respond to this casualty underwriter calling his name. He then looked at this casualty underwriter intensely and returned to looking at the ceiling and mumbling. Clearly responding to internal stimuli. He is compliant with medications. Has periods of clarity and can be pleasant and cooperative. +RIS, talking and laughing to self. Review of Systems Review of Systems ROS unable to be obtained due to poor historian Yes all other systems are reviewed and are negative, Unobtainable due to mental condition and Unobtainable due to mental status Constitutional: Reports as per HPI Eyes: Reports as per HPI Reports as per HPI Cardiovascular: Reports as per HPI Respiratory: Reports as per HPI Gastrointestinal: Reports as per HPI Genitourinary: Reports as per HPI Musculoskeletal: Reports as per HPI Skin/Breast: Reports as per HPI Reports as per HPI Psychiatric: Reports as per HPI Endocrine: Reports as per HPI Hematologic/Lymphatic: Reports as per HPI Allergic/Immunologic: Reports as per HPI Mental Status Exam Mental Status Exam Narrative: adequately dressed, disheveled. cooperative. no PMA/PMR. speech nml rate, decr amount; nml latency, loudness. thoughts linear. affect normo-intense, non-labile. mood quiet, relaxed, better. no SI/SIBI/HI/AVH expressed. Patient Appearance: Disheveled Patient Orientation: Person, Place, Time and Situation Level of Consciousness: Awake Patient Behavior: Pacing Mood Description: Angry Affect Description: Angry Patient Cognition Impaired: Yes Ability to Follow Directions: Good Speech Pattern: Clear Diagnostics Vital Signs (24Hr): Vital Signs - 24 hr 01/10/24 20:06 Temperature 98.3 F Pulse Rate 98 Respiratory Rate 18 Blood Pressure 134/88 Pulse Oximetry 99 Oxygen Delivery Method Room Air BMI result Body Mass Index 33.0 Labs 11/25/23 18:46 12/17/23 20:25 Medications Medications Current Medications Acetaminophen (Acetaminophen 325 Mg Tablet) 650 mg PO Q6H PRN PRN Reason: Headache/Pain Mild Scale (1-3) Al Hydroxide/Mg Hydroxide (Magnesium Hydrox/Alum Hydrox 30 Ml Oral.Susp) 30 ml PO Q6H PRN PRN Reason: Heartburn/Nausea Diazepam (Diazepam 10 Mg/2 Ml Cartridge) 10 mg IM BEDTIME PRN PRN Reason: refusal of lithium, per court order Hydroxyzine HCl (Hydroxyzine Hcl 25 Mg Tablet) 25 mg PO Q6H PRN PRN Reason: Anxiety [place] Carbonate ([place] Carbonate Er 300 Mg Tablet.Er) 300 mg PO BEDTIME KENDALL Last Admin: 01/10/24 20:43 Dose: 300 mg Magnesium Hydroxide (Milk Of Magnesia 30 Ml Oral.Susp) 30 ml PO DAILY PRN PRN Reason: Constipation Nicotine Polacrilex (Nicotine Polacrilex 2 Mg Gum) 4 mg BUCCAL Q2H PRN PRN Reason: Nicotine Cravings Last Admin: 12/14/23 09:02 Dose: 4 mg Oxcarbazepine (Oxcarbazepine 300 Mg Tablet) 300 mg PO BID [facility] Last Admin: 01/10/24 20:43 Dose: 300 mg Paliperidone Palmitate (Paliperidone Palmitate 156 Mg/Ml Syringe) 156 mg IM ONCE ONE Stop: 01/13/24 09:01 Trazodone HCl (Trazodone Hcl 50 Mg Tablet) 50 mg PO BEDTIME MRX1 PRN PRN Reason: Insomnia Allergies Allergies Allergy/AdvReac Type Severity Reaction Status Date / Time Unable to Assess Allergy Verified 11/25/23 17:57 Assessment & Plan Assessment & Plan (1) Moderate bipolar I disorder with alfa as current episode: Status: Acute Code(s): F31.12 - Bipolar disorder, current episode manic without psychotic features, moderate Plan 11/26: offer lithium. hold haldol for now. 11/27: took HS dose, refused morning dose. reportedly he will only take medications at night. reschedule all lithium to HS, 1200 mg. 11/28: pt refused lithium last night. screamed at MD yesterday, calmly declines interview today: see you in court. olanzapine 20 mg QHS added to regimen, commitment paperwork filed. records from [facility] received and reviewed. 11/29: Court hearing pending. Declining medications in the meantime. 11/30: no changes 12/01 intrusive, poor boundaries. declines medications. 12/02 easily agitated refuses medication pressured 12/04/2023 Continues to refuse medication bizarre behavior illogical poor impulse control writing things on the kaur smearing feces on himself and on the kaur stuffing toilet 12/05/2023 Patient continues to refuse medication refused to use logistics planning engineer periods of yelling agitated screaming about his sister having mental illness other times isolated and withdrawn 12/06/2023 Patient continues to refuse medication refuses to engage in ongoing conversation with logistics planning engineer difficult to have reality based conversation 12/07/2023: Continue current regimen and plans. Refuses meds and cord is scheduled for 12/0812/08/2023: Continue current regimen and plans 12/08: refusing medications, labile, angry. some posturing over weekend, yelling at staff for trying to clean the couch that he wrote all over in ink. declined interview today. court tomorrow. 12/09: declines to speak with MD beyond saying he does not wish to attend court or meet with MD. 1.5 hr hearing, pt was committed and meds ordered by court. will await in-person austrian logistics planning engineer tomorrow to inform pt of results of court and necessity to take medication. 12/10: discussion held with pt, board layer, various staff re commitment and court-ordered medication. changed context of hospitalization explained to pt, including PO refusal's leading to IM; pt appeared to understand. pt accepted Zydis and lithium this morning. 12/11: med-compliant. seen with JOSE Cancino and board layer. feeling overmedicated, slept all day yesterday. will change all meds to HS and decrease olanzapine to 10 mg. new regimen lithium ER 900 QHS and zyprexa 10 QHS. 12/12: more labile and agitated this morning, furiously punching his palm in making his point. refused HS lithium last night, took it this morning. up at 0500. will return HS olanzapine dosing to 20 mg. add valium IM if lithium is refused. 12/13 continue tx 12/14 continue tx. 12/15: substantially less labile, irritable than last week. able to sit and have calm discussion. check labs tomorrow night. 12/16: no notable behaviors, stable presentation, continue current mgmt. 12/17: irritable. lithium level 0.52, dosing increased to 1200 mg QHS. other labs reassuring. 12/18: remains irritable, rejecting interview. continue current mgmt. 12/19: continues irritable, rejecting interview. accuses MD and SW of having threatened him yesterday. continue current mgmt. 12/20 continue treatment. 12/21 continue same treatment. 12/23/23 continue plan of care 12/23 continue tx. 12/24 lithium level high 1.5, lowered lithium to 900mg po qhs, recheck lithium level tomorrow morning along with cmp and TSH. 12/25: pt declining labs, apparently fearful of needles. no signs of lithium toxicity. pt denies any problems or side effects, does not want to change medication. does c/o gaining weight, which he does not appreciate is related to medication. will DC zyprexa in favor of paliperidone. 12/26: DC zyprexa PO PRN, change to invega. increase HS invega to 9 mg. otherwise continue current mgmt. calm today, but the issue of needles was not raised. 12/27: continue current tx plan. 12/28: continue tx plan. 12/29: increase invega to 12 mg PO QHS for inadequately controlled alfa/psychosis. continue current mgmt otherwise. 12/30: calm, even inviting today. no complaints or requests. continue current mgmt. mtg with sister tomorrow. 12/31: labile, irritable paranoid, delusional today. planning to add trileptal later this week. otherwise continue current mgmt. T/C invega sustenna. 01/01: calm, cooperative. no complaints. med-compliant. 01/02: add trileptal for added mood stabilization, as it does not require blood draws. otherwise continue current mgmt. 01/03: Continue current treatment and plan 01/04: Continue current regimen and plans 01/05: DC PO invega, start sustenna 234 mg tomorrow. increase trileptal to 300 BID. otherwise continue current mgmt. still some impulsivity, irritability, and perhaps thought disorder interfering with attention/comprehension. 01/06: received sustenna 234 mg IM today. continue other medications as per prior. stable. 01/07: feeling tired and slowed. due to transition from PO to SMITH versus manuel has been quashed and now regimen is more than is necessary. will decrease lithium 900 QHS to 600 QHS. otherwise continue current medication. 01/08: feeling clearer mentally, speaking and moving more quickly than yesterday. no complaints or requests. continue current mgmt. 01/09: continues feeling clearer mentally. mood relaxed. decrease lithium to 300 mg QHS. otherwise continue current mgmt. 01/10: continue current management and treatment plan. Reason for continued inpatient stay Substantial Risk for: inability to function and rapid decompensation Time Spent With Patient Time: Total time managing care of this patient today ____ minutes.
[2024-01-11] MEDS: OXcarbazepine 300 MG TABLET PO ×2 (09:03→22:15)
[2024-01-11 20:40] VITALS: BP 123/85; PULSE 98; RESP 16; TEMP 36.8; O2SAT 98
[2024-01-11] MEDS: Lithium Carbonate ER 300 MG TABLET.ER PO (22:16)
[2024-01-12] MEDS: OXcarbazepine 300 MG TABLET PO ×2 (08:38→20:39)
[2024-01-12 09:00] VITALS: BP 121/78; PULSE 73; RESP 16; TEMP 36.7; O2SAT 97
--- NOTE | 2024-01-12 15:58 | HO.PSYCHPN ---
Subjective Subjective Date of Service: 01/12/24 Reason For Visit: Alfa Interim History: Patient was in bed. He was irritable and paranoid. He didn't want to talk with this underwriter mortgage loan and abruptly and curtly said I have a doctor psychiatrist. Good bye! He is isolated in room. He self dialogues. He is paranoid. He is compliant with medications. RN tried to use the translation machine [employer] and he refused. Review of Systems Review of Systems ROS unable to be obtained due to poor historian Yes all other systems are reviewed and are negative, Unobtainable due to mental condition and Unobtainable due to mental status Constitutional: Reports as per HPI Eyes: Reports as per HPI Reports as per HPI Cardiovascular: Reports as per HPI Respiratory: Reports as per HPI Gastrointestinal: Reports as per HPI Genitourinary: Reports as per HPI Musculoskeletal: Reports as per HPI Skin/Breast: Reports as per HPI Reports as per HPI Psychiatric: Reports as per HPI Endocrine: Reports as per HPI Hematologic/Lymphatic: Reports as per HPI Allergic/Immunologic: Reports as per HPI Mental Status Exam Mental Status Exam Narrative: adequately dressed, disheveled. cooperative. no PMA/PMR. speech nml rate, decr amount; nml latency, loudness. thoughts linear. affect normo-intense, non-labile. mood quiet, relaxed, better. no SI/SIBI/HI/AVH expressed. Patient Appearance: Disheveled Patient Orientation: Person, Place, Time and Situation Level of Consciousness: Awake Patient Behavior: Pacing Mood Description: Angry Affect Description: Angry Patient Cognition Impaired: Yes Ability to Follow Directions: Good Speech Pattern: Clear Diagnostics Vital Signs (24Hr): Vital Signs - 24 hr 01/11/24 20:40 01/12/24 09:00 Temperature 98.3 F 98.1 F Pulse Rate 98 73 Respiratory Rate 16 16 Blood Pressure 123/85 121/78 Pulse Oximetry 98 97 Oxygen Delivery Method Room Air Room Air BMI result Body Mass Index 33.0 Labs 11/25/23 18:46 12/17/23 20:25 Medications Medications Current Medications Acetaminophen (Acetaminophen 325 Mg Tablet) 650 mg PO Q6H PRN PRN Reason: Headache/Pain Mild Scale (1-3) Al Hydroxide/Mg Hydroxide (Magnesium Hydrox/Alum Hydrox 30 Ml Oral.Susp) 30 ml PO Q6H PRN PRN Reason: Heartburn/Nausea Diazepam (Diazepam 10 Mg/2 Ml Cartridge) 10 mg IM BEDTIME PRN PRN Reason: refusal of lithium, per court order Hydroxyzine HCl (Hydroxyzine Hcl 25 Mg Tablet) 25 mg PO Q6H PRN PRN Reason: Anxiety [place] Carbonate ([place] Carbonate Er 300 Mg Tablet.Er) 300 mg PO BEDTIME KENDALL Last Admin: 01/11/24 22:16 Dose: 300 mg Magnesium Hydroxide (Milk Of Magnesia 30 Ml Oral.Susp) 30 ml PO DAILY PRN PRN Reason: Constipation Nicotine Polacrilex (Nicotine Polacrilex 2 Mg Gum) 4 mg BUCCAL Q2H PRN PRN Reason: Nicotine Cravings Last Admin: 12/14/23 09:02 Dose: 4 mg Oxcarbazepine (Oxcarbazepine 300 Mg Tablet) 300 mg PO BID [facility] Last Admin: 01/12/24 08:38 Dose: 300 mg Paliperidone Palmitate (Paliperidone Palmitate 156 Mg/Ml Syringe) 156 mg IM ONCE ONE Stop: 01/13/24 09:01 Trazodone HCl (Trazodone Hcl 50 Mg Tablet) 50 mg PO BEDTIME MRX1 PRN PRN Reason: Insomnia Allergies Allergies Allergy/AdvReac Type Severity Reaction Status Date / Time Unable to Assess Allergy Verified 11/25/23 17:57 Assessment & Plan Assessment & Plan (1) Moderate bipolar I disorder with alfa as current episode: Status: Acute Code(s): F31.12 - Bipolar disorder, current episode manic without psychotic features, moderate Plan 11/26: offer lithium. hold haldol for now. 11/27: took HS dose, refused morning dose. reportedly he will only take medications at night. reschedule all lithium to HS, 1200 mg. 11/28: pt refused lithium last night. screamed at MD yesterday, calmly declines interview today: see you in court. olanzapine 20 mg QHS added to regimen, commitment paperwork filed. records from [facility] received and reviewed. 11/29: Court hearing pending. Declining medications in the meantime. 11/30: no changes 12/01 intrusive, poor boundaries. declines medications. 12/02 easily agitated refuses medication pressured 12/04/2023 Continues to refuse medication bizarre behavior illogical poor impulse control writing things on the kaur smearing feces on himself and on the kaur stuffing toilet 12/05/2023 Patient continues to refuse medication refused to use cost estimating clerk periods of yelling agitated screaming about his sister having mental illness other times isolated and withdrawn 12/06/2023 Patient continues to refuse medication refuses to engage in ongoing conversation with cost estimating clerk difficult to have reality based conversation 12/07/2023: Continue current regimen and plans. Refuses meds and cord is scheduled for 12/0812/08/2023: Continue current regimen and plans 12/08: refusing medications, labile, angry. some posturing over weekend, yelling at staff for trying to clean the couch that he wrote all over in ink. declined interview today. court tomorrow. 12/09: declines to speak with MD beyond saying he does not wish to attend court or meet with MD. 1.5 hr hearing, pt was committed and meds ordered by court. will await in-person bahamian cost estimating clerk tomorrow to inform pt of results of court and necessity to take medication. 12/10: discussion held with pt, lining stamper, various staff re commitment and court-ordered medication. changed context of hospitalization explained to pt, including PO refusal's leading to IM; pt appeared to understand. pt accepted Zydis and lithium this morning. 12/11: med-compliant. seen with JOSE Cancino and lining stamper. feeling overmedicated, slept all day yesterday. will change all meds to HS and decrease olanzapine to 10 mg. new regimen lithium ER 900 QHS and zyprexa 10 QHS. 12/12: more labile and agitated this morning, furiously punching his palm in making his point. refused HS lithium last night, took it this morning. up at 0500. will return HS olanzapine dosing to 20 mg. add valium IM if lithium is refused. 12/13 continue tx 12/14 continue tx. 12/15: substantially less labile, irritable than last week. able to sit and have calm discussion. check labs tomorrow night. 12/16: no notable behaviors, stable presentation, continue current mgmt. 12/17: irritable. lithium level 0.52, dosing increased to 1200 mg QHS. other labs reassuring. 12/18: remains irritable, rejecting interview. continue current mgmt. 5/3: continues irritable, rejecting interview. accuses MD and SW of having threatened him yesterday. continue current mgmt. 12/20 continue treatment. 12/21 continue same treatment. 12/23/23 continue plan of care 12/23 continue tx. 12/24 lithium level high 1.5, lowered lithium to 900mg po qhs, recheck lithium level tomorrow morning along with cmp and TSH. 12/25: pt declining labs, apparently fearful of needles. no signs of lithium toxicity. pt denies any problems or side effects, does not want to change medication. does c/o gaining weight, which he does not appreciate is related to medication. will DC zyprexa in favor of paliperidone. 12/26: DC zyprexa PO PRN, change to invega. increase HS invega to 9 mg. otherwise continue current mgmt. calm today, but the issue of needles was not raised. 12/27: continue current tx plan. 12/28: continue tx plan. 12/29: increase invega to 12 mg PO QHS for inadequately controlled alfa/psychosis. continue current mgmt otherwise. 12/30: calm, even inviting today. no complaints or requests. continue current mgmt. mtg with sister tomorrow. 12/31: labile, irritable paranoid, delusional today. planning to add trileptal later this week. otherwise continue current mgmt. T/C invega sustenna. 01/01: calm, cooperative. no complaints. med-compliant. 01/02: add trileptal for added mood stabilization, as it does not require blood draws. otherwise continue current mgmt. 01/03: Continue current treatment and plan 01/04: Continue current regimen and plans 01/05: DC PO invega, start sustenna 234 mg tomorrow. increase trileptal to 300 BID. otherwise continue current mgmt. still some impulsivity, irritability, and perhaps thought disorder interfering with attention/comprehension. 01/06: received sustenna 234 mg IM today. continue other medications as per prior. stable. 01/07: feeling tired and slowed. due to transition from PO to SMITH versus manuel has been quashed and now regimen is more than is necessary. will decrease lithium 900 QHS to 600 QHS. otherwise continue current medication. 01/08: feeling clearer mentally, speaking and moving more quickly than yesterday. no complaints or requests. continue current mgmt. 01/09: continues feeling clearer mentally. mood relaxed. decrease lithium to 300 mg QHS. otherwise continue current mgmt. 01/10: continue current management and treatment plan. 01/11: continue current management and treatment plan. Reason for continued inpatient stay Substantial Risk for: inability to function and rapid decompensation Time Spent With Patient Time: Total time managing care of this patient today ____ minutes.
[2024-01-12 20:00] VITALS: BP 119/81; PULSE 91; RESP 18; TEMP 36.9; O2SAT 97
[2024-01-12] MEDS: Lithium Carbonate ER 300 MG TABLET.ER PO (20:40)
[2024-01-13 08:25] VITALS: BP 130/82; PULSE 93; RESP 16; TEMP 36.9; O2SAT 98
[2024-01-13] MEDS: OXcarbazepine 300 MG TABLET PO ×2 (09:04→20:38)
--- NOTE | 2024-01-13 10:49 | HO.PSYCHPN ---
Subjective Subjective Date of Service: 01/13/24 Reason For Visit: Alfa Interim History: Patient was in bed. He had an order for Invega Sustenna 156 mg but it showed up as held. (He received loading dose on 01/05). Unclear from notes why it was held. Will defer to primary team on timing of next Sustenna dose. He remains responding to internal stimuli. Talking to self. He is mostly isolated in his room. He didn't want to talk with this telegraphic typewriter installer. He remains paranoid. He is compliant with medications. Review of Systems Review of Systems ROS unable to be obtained due to poor historian Yes all other systems are reviewed and are negative, Unobtainable due to mental condition and Unobtainable due to mental status Constitutional: Reports as per HPI Eyes: Reports as per HPI Reports as per HPI Cardiovascular: Reports as per HPI Respiratory: Reports as per HPI Gastrointestinal: Reports as per HPI Genitourinary: Reports as per HPI Musculoskeletal: Reports as per HPI Skin/Breast: Reports as per HPI Reports as per HPI Psychiatric: Reports as per HPI Endocrine: Reports as per HPI Hematologic/Lymphatic: Reports as per HPI Allergic/Immunologic: Reports as per HPI Mental Status Exam Mental Status Exam Narrative: adequately dressed, disheveled. cooperative. no PMA/PMR. speech nml rate, decr amount; nml latency, loudness. thoughts linear. affect normo-intense, non-labile. mood quiet, relaxed, better. no SI/SIBI/HI/AVH expressed. Patient Appearance: Disheveled Patient Orientation: Person, Place, Time and Situation Level of Consciousness: Awake Patient Behavior: Pacing Mood Description: Angry Affect Description: Angry Patient Cognition Impaired: Yes Ability to Follow Directions: Good Speech Pattern: Clear Diagnostics Vital Signs (24Hr): Vital Signs - 24 hr 01/12/24 20:00 01/13/24 08:25 Temperature 98.5 F 98.5 F Pulse Rate 91 93 Respiratory Rate 18 16 Blood Pressure 119/81 130/82 Pulse Oximetry 97 98 Oxygen Delivery Method Room Air Room Air BMI result Body Mass Index 33.0 Labs 11/25/23 18:46 12/17/23 20:25 Medications Medications Current Medications Acetaminophen (Acetaminophen 325 Mg Tablet) 650 mg PO Q6H PRN PRN Reason: Headache/Pain Mild Scale (1-3) Al Hydroxide/Mg Hydroxide (Magnesium Hydrox/Alum Hydrox 30 Ml Oral.Susp) 30 ml PO Q6H PRN PRN Reason: Heartburn/Nausea Diazepam (Diazepam 10 Mg/2 Ml Cartridge) 10 mg IM BEDTIME PRN PRN Reason: refusal of lithium, per court order Hydroxyzine HCl (Hydroxyzine Hcl 25 Mg Tablet) 25 mg PO Q6H PRN PRN Reason: Anxiety [place] Carbonate ([place] Carbonate Er 300 Mg Tablet.Er) 300 mg PO BEDTIME KENDALL Last Admin: 01/12/24 20:40 Dose: 300 mg Magnesium Hydroxide (Milk Of Magnesia 30 Ml Oral.Susp) 30 ml PO DAILY PRN PRN Reason: Constipation Nicotine Polacrilex (Nicotine Polacrilex 2 Mg Gum) 4 mg BUCCAL Q2H PRN PRN Reason: Nicotine Cravings Last Admin: 12/14/23 09:02 Dose: 4 mg Oxcarbazepine (Oxcarbazepine 300 Mg Tablet) 300 mg PO BID [facility], [facility] Last Admin: 01/13/24 09:04 Dose: 300 mg Trazodone HCl (Trazodone Hcl 50 Mg Tablet) 50 mg PO BEDTIME MRX1 PRN PRN Reason: Insomnia Allergies Allergies Allergy/AdvReac Type Severity Reaction Status Date / Time Unable to Assess Allergy Verified 11/25/23 17:57 Assessment & Plan Assessment & Plan (1) Moderate bipolar I disorder with alfa as current episode: Status: Acute Code(s): F31.12 - Bipolar disorder, current episode manic without psychotic features, moderate Plan 11/26: offer lithium. hold haldol for now. 11/27: took HS dose, refused morning dose. reportedly he will only take medications at night. reschedule all lithium to HS, 1200 mg. 11/28: pt refused lithium last night. screamed at MD yesterday, calmly declines interview today: see you in court. olanzapine 20 mg QHS added to regimen, commitment paperwork filed. records from [facility] received and reviewed. 11/29: Court hearing pending. Declining medications in the meantime. 11/30: no changes 12/01 intrusive, poor boundaries. declines medications. 12/02 easily agitated refuses medication pressured 12/04/2023 Continues to refuse medication bizarre behavior illogical poor impulse control writing things on the kaur smearing feces on himself and on the kaur stuffing toilet 12/05/2023 Patient continues to refuse medication refused to use pouncing lathe operator periods of yelling agitated screaming about his sister having mental illness other times isolated and withdrawn 12/06/2023 Patient continues to refuse medication refuses to engage in ongoing conversation with pouncing lathe operator difficult to have reality based conversation 12/07/2023: Continue current regimen and plans. Refuses meds and cord is scheduled for 12/0812/08/2023: Continue current regimen and plans 12/08: refusing medications, labile, angry. some posturing over weekend, yelling at staff for trying to clean the couch that he wrote all over in ink. declined interview today. court tomorrow. 12/09: declines to speak with MD beyond saying he does not wish to attend court or meet with MD. 1.5 hr hearing, pt was committed and meds ordered by court. will await in-person wallisian pouncing lathe operator tomorrow to inform pt of results of court and necessity to take medication. 12/10: discussion held with pt, supervisor reinforced steel placing, various staff re commitment and court-ordered medication. changed context of hospitalization explained to pt, including PO refusal's leading to IM; pt appeared to understand. pt accepted Zydis and lithium this morning. 12/11: med-compliant. seen with JOSE Cancino and supervisor reinforced steel placing. feeling overmedicated, slept all day yesterday. will change all meds to HS and decrease olanzapine to 10 mg. new regimen lithium ER 900 QHS and zyprexa 10 QHS. 12/12: more labile and agitated this morning, furiously punching his palm in making his point. refused HS lithium last night, took it this morning. up at 0500. will return HS olanzapine dosing to 20 mg. add valium IM if lithium is refused. 12/13 continue tx 12/14 continue tx. 12/15: substantially less labile, irritable than last week. able to sit and have calm discussion. check labs tomorrow night. 12/16: no notable behaviors, stable presentation, continue current mgmt. 12/17: irritable. lithium level 0.52, dosing increased to 1200 mg QHS. other labs reassuring. 12/18: remains irritable, rejecting interview. continue current mgmt. 12/19: continues irritable, rejecting interview. accuses MD and SW of having threatened him yesterday. continue current mgmt. 12/20 continue treatment. 12/21 continue same treatment. 12/23/23 continue plan of care 12/23 continue tx. 12/24 lithium level high 1.5, lowered lithium to 900mg po qhs, recheck lithium level tomorrow morning along with cmp and TSH. 12/25: pt declining labs, apparently fearful of needles. no signs of lithium toxicity. pt denies any problems or side effects, does not want to change medication. does c/o gaining weight, which he does not appreciate is related to medication. will DC zyprexa in favor of paliperidone. 12/26: DC zyprexa PO PRN, change to invega. increase HS invega to 9 mg. otherwise continue current mgmt. calm today, but the issue of needles was not raised. 12/27: continue current tx plan. 12/28: continue tx plan. 12/29: increase invega to 12 mg PO QHS for inadequately controlled alfa/psychosis. continue current mgmt otherwise. 12/30: calm, even inviting today. no complaints or requests. continue current mgmt. mtg with sister tomorrow. 12/31: labile, irritable paranoid, delusional today. planning to add trileptal later this week. otherwise continue current mgmt. T/C invega sustenna. 01/01: calm, cooperative. no complaints. med-compliant. 01/02: add trileptal for added mood stabilization, as it does not require blood draws. otherwise continue current mgmt. 01/03: Continue current treatment and plan 01/04: Continue current regimen and plans 01/05: DC PO invega, start sustenna 234 mg tomorrow. increase trileptal to 300 BID. otherwise continue current mgmt. still some impulsivity, irritability, and perhaps thought disorder interfering with attention/comprehension. 01/06: received sustenna 234 mg IM today. continue other medications as per prior. stable. 01/07: feeling tired and slowed. due to transition from PO to SMITH versus manuel has been quashed and now regimen is more than is necessary. will decrease lithium 900 QHS to 600 QHS. otherwise continue current medication. 01/08: feeling clearer mentally, speaking and moving more quickly than yesterday. no complaints or requests. continue current mgmt. 01/09: continues feeling clearer mentally. mood relaxed. decrease lithium to 300 mg QHS. otherwise continue current mgmt. 01/10: continue current management and treatment plan. 01/11: continue current management and treatment plan. 01/12: Will defer to primary team on timing of next Invega Sustenna dose. Otherwise continue current management and treatment plan. Reason for continued inpatient stay Substantial Risk for: inability to function and rapid decompensation Time Spent With Patient Time: Total time managing care of this patient today ____ minutes.
[2024-01-13 19:50] VITALS: BP 115/80; PULSE 85; RESP 16; TEMP 36.9; O2SAT 99
[2024-01-13] MEDS: Lithium Carbonate ER 300 MG TABLET.ER PO (20:38)
[2024-01-14 07:10] VITALS: BP 125/87; PULSE 96; RESP 16; TEMP 36.7; O2SAT 98
[2024-01-14] MEDS: OXcarbazepine 300 MG TABLET PO ×2 (08:47→20:50)
--- NOTE | 2024-01-14 14:08 | P.PNPSI_ITS ---
Subjective Subjective Date of Service: 01/14/24 Reason For Visit: Alfa Interim History: seen with JOSE Cancino and otr flatbed company truck driver. calm, cooperative. sedate, poor eye contact. denies any problems informed of med changes. per staff, blunted, guarded. isolative to room. Mental Status Exam Mental Status Exam Narrative: adequately dressed, disheveled. cooperative. no PMA/PMR. speech nml rate, decr amount; nml latency, loudness. thoughts linear. affect hypo-intense, non- labile. mood quiet, relaxed. no SI/SIBI/HI/AVH expressed. Diagnostics Vital Signs (24Hr): Vital Signs - 24 hr 01/13/24 19:50 01/14/24 07:10 Temperature 98.4 F 98.0 F Pulse Rate 85 96 Respiratory Rate 16 16 Blood Pressure 115/80 125/87 Pulse Oximetry 99 98 Oxygen Delivery Method Room Air Room Air BMI result Body Mass Index 33.0 Labs 11/25/23 18:46 12/17/23 20:25 Medications Medications Current Medications Acetaminophen (Acetaminophen 325 Mg Tablet) 650 mg PO Q6H PRN PRN Reason: Headache/Pain Mild Scale (1-3) Al Hydroxide/Mg Hydroxide (Magnesium Hydrox/Alum Hydrox 30 Ml Oral.Susp) 30 ml PO Q6H PRN PRN Reason: Heartburn/Nausea Diazepam (Diazepam 10 Mg/2 Ml Cartridge) 10 mg IM BEDTIME PRN PRN Reason: refusal of lithium, per court order Hydroxyzine HCl (Hydroxyzine Hcl 25 Mg Tablet) 25 mg PO Q6H PRN PRN Reason: Anxiety Magnesium Hydroxide (Milk Of Magnesia 30 Ml Oral.Susp) 30 ml PO DAILY PRN PRN Reason: Constipation Nicotine Polacrilex (Nicotine Polacrilex 2 Mg Gum) 4 mg BUCCAL Q2H PRN PRN Reason: Nicotine Cravings Last Admin: 12/14/23 09:02 Dose: 4 mg Oxcarbazepine (Oxcarbazepine 300 Mg Tablet) 300 mg PO BID KENDALL Last Admin: 01/14/24 08:47 Dose: 300 mg Trazodone HCl (Trazodone Hcl 50 Mg Tablet) 50 mg PO BEDTIME MRX1 PRN PRN Reason: Insomnia Allergies Allergies Allergy/AdvReac Type Severity Reaction Status Date / Time Unable to Assess Allergy Verified 11/25/23 17:57 Assessment & Plan Assessment & Plan (1) Moderate bipolar I disorder with alfa as current episode: Status: Acute Code(s): F31.12 - Bipolar disorder, current episode manic without psychotic features, moderate Plan 11/26: offer lithium. hold haldol for now. 11/27: took HS dose, refused morning dose. reportedly he will only take medications at night. reschedule all lithium to HS, 1200 mg. 11/28: pt refused lithium last night. screamed at MD yesterday, calmly declines interview today: see you in court. olanzapine 20 mg QHS added to regimen, commitment paperwork filed. records from [facility] received and reviewed. 11/29: Court hearing pending. Declining medications in the meantime. 11/30: no changes 12/01 intrusive, poor boundaries. declines medications. 12/02 easily agitated refuses medication pressured 12/04/2023 Continues to refuse medication bizarre behavior illogical poor impulse control writing things on the kaur smearing feces on himself and on the kaur stuffing toilet 12/05/2023 Patient continues to refuse medication refused to use marine resource economist periods of yelling agitated screaming about his sister having mental illness other times isolated and withdrawn 12/06/2023 Patient continues to refuse medication refuses to engage in ongoing conversation with marine resource economist difficult to have reality based conversation 12/07/2023: Continue current regimen and plans. Refuses meds and cord is scheduled for 12/0812/08/2023: Continue current regimen and plans 12/08: refusing medications, labile, angry. some posturing over weekend, yelling at staff for trying to clean the couch that he wrote all over in ink. declined interview today. court tomorrow. 12/09: declines to speak with MD beyond saying he does not wish to attend court or meet with MD. 1.5 hr hearing, pt was committed and meds ordered by court. will await in-person cam[place] marine resource economist tomorrow to inform pt of results of court and necessity to take medication. 12/10: discussion held with pt, otr flatbed company truck driver, various staff re commitment and court-ordered medication. changed context of hospitalization explained to pt, including PO refusal's leading to IM; pt appeared to understand. pt accepted Zydis and lithium this morning. 12/11: med-compliant. seen with JOSE Cancino and otr flatbed company truck driver. feeling overmedicated, slept all day yesterday. will change all meds to HS and decrease olanzapine to 10 mg. new regimen lithium ER 900 QHS and zyprexa 10 QHS. 12/12: more labile and agitated this morning, furiously punching his palm in making his point. refused HS lithium last night, took it this morning. up at 0500. will return HS olanzapine dosing to 20 mg. add valium IM if lithium is refused. 12/13 continue tx 12/14 continue tx. 12/15: substantially less labile, irritable than last week. able to sit and have calm discussion. check labs tomorrow night. 12/16: no notable behaviors, stable presentation, continue current mgmt. 12/17: irritable. lithium level 0.52, dosing increased to 1200 mg QHS. other labs reassuring. 12/18: remains irritable, rejecting interview. continue current mgmt. 12/19: continues irritable, rejecting interview. accuses and SW of having threatened him yesterday. continue current mgmt. 12/20 continue treatment. 12/21 continue same treatment. 12/23/23 continue plan of care 12/23 continue tx. 12/24 lithium level high 1.5, lowered lithium to 900mg po qhs, recheck lithium level tomorrow morning along with cmp and TSH. 12/25: pt declining labs, apparently fearful of needles. no signs of lithium toxicity. pt denies any problems or side effects, does not want to change medication. does c/o gaining weight, which he does not appreciate is related to medication. will DC zyprexa in favor of paliperidone. 12/26: DC zyprexa PO PRN, change to invega. increase HS invega to 9 mg. otherwise continue current mgmt. calm today, but the issue of needles was not raised. 12/27: continue current tx plan. 12/28: continue tx plan. 12/29: increase invega to 12 mg PO QHS for inadequately controlled alfa/psychosis. continue current mgmt otherwise. 12/30: calm, even inviting today. no complaints or requests. continue current mgmt. mtg with sister tomorrow. 12/31: labile, irritable paranoid, delusional today. planning to add trileptal later this week. otherwise continue current mgmt. T/C invega sustenna. 01/01: calm, cooperative. no complaints. med-compliant. 01/02: add trileptal for added mood stabilization, as it does not require blood draws. otherwise continue current mgmt. 01/03: Continue current treatment and plan 01/04: Continue current regimen and plans 01/05: DC PO invega, start sustenna 234 mg tomorrow. increase trileptal to 300 BID. otherwise continue current mgmt. still some impulsivity, irritability, and perhaps thought disorder interfering with attention/comprehension. 01/06: received sustenna 234 mg IM today. continue other medications as per prior. stable. 01/07: feeling tired and slowed. due to transition from PO to SMITH versus manuel has been quashed and now regimen is more than is necessary. will decrease lithium 900 QHS to 600 QHS. otherwise continue current medication. 01/08: feeling clearer mentally, speaking and moving more quickly than yesterday. no complaints or requests. continue current mgmt. 01/09: continues feeling clearer mentally. mood relaxed. decrease lithium to 300 mg QHS. otherwise continue current mgmt. 01/10: continue current management and treatment plan. 01/11: continue current management and treatment plan. 01/12: Will defer to primary team on timing of next Invega Sustenna dose. Otherwise continue current management and treatment plan. 01/13: hold invega sustenna booster dose for now as pt appears dulled. DC lithium. otherwise continue current mgmt. Reason for continued inpatient stay Substantial Risk for: harm to others and rapid decompensation Time Spent With Patient Time: Total time managing care of this patient today __35__ minutes.
[2024-01-14 20:05] VITALS: BP 118/84; PULSE 97; RESP 16; TEMP 36.9; O2SAT 98
[2024-01-15 07:05] VITALS: BP 121/85; PULSE 97; RESP 18; TEMP 37; O2SAT 99
[2024-01-15] MEDS: OXcarbazepine 300 MG TABLET PO ×2 (08:20→20:20)
--- NOTE | 2024-01-15 15:09 | HO.PSYCHPN ---
Subjective Subjective Date of Service: 01/15/24 Reason For Visit: Alfa Interim History: minimal responses. seen with bridge inspector. denies any problems, no complaints or requests. per staff, denies Sx. flat. slept 8 hours. Mental Status Exam Mental Status Exam Narrative: adequately dressed, disheveled. cooperative. decreased spontaneous movements. speech nml rate, decr amount; nml latency, loudness. thoughts linear. affect hypo-intense, non-labile. mood quiet, relaxed. no SI/SIBI/HI/AVH expressed. Diagnostics Vital Signs (24Hr): Vital Signs - 24 hr 01/14/24 20:05 01/15/24 07:05 Temperature 98.5 F 98.6 F Pulse Rate 97 97 Respiratory Rate 16 18 Blood Pressure 118/84 121/85 Pulse Oximetry 98 99 Oxygen Delivery Method Room Air Room Air BMI result Body Mass Index 33.0 Labs 11/25/23 18:46 12/17/23 20:25 Medications Medications Current Medications Acetaminophen (Acetaminophen 325 Mg Tablet) 650 mg PO Q6H PRN PRN Reason: Headache/Pain Mild Scale (1-3) Al Hydroxide/Mg Hydroxide (Magnesium Hydrox/Alum Hydrox 30 Ml Oral.Susp) 30 ml PO Q6H PRN PRN Reason: Heartburn/Nausea Diazepam (Diazepam 10 Mg/2 Ml Cartridge) 10 mg IM BEDTIME PRN PRN Reason: refusal of lithium, per court order Hydroxyzine HCl (Hydroxyzine Hcl 25 Mg Tablet) 25 mg PO Q6H PRN PRN Reason: Anxiety Magnesium Hydroxide (Milk Of Magnesia 30 Ml Oral.Susp) 30 ml PO DAILY PRN PRN Reason: Constipation Nicotine Polacrilex (Nicotine Polacrilex 2 Mg Gum) 4 mg BUCCAL Q2H PRN PRN Reason: Nicotine Cravings Last Admin: 12/14/23 09:02 Dose: 4 mg Oxcarbazepine (Oxcarbazepine 300 Mg Tablet) 300 mg PO BID KENDALL Last Admin: 01/15/24 08:20 Dose: 300 mg Trazodone HCl (Trazodone Hcl 50 Mg Tablet) 50 mg PO BEDTIME MRX1 PRN PRN Reason: Insomnia Allergies Allergies Allergy/AdvReac Type Severity Reaction Status Date / Time Unable to Assess Allergy Verified 11/25/23 17:57 Assessment & Plan Assessment & Plan (1) Moderate bipolar I disorder with alfa as current episode: Status: Acute Code(s): F31.12 - Bipolar disorder, current episode manic without psychotic features, moderate Plan 11/26: offer lithium. hold haldol for now. 11/27: took HS dose, refused morning dose. reportedly he will only take medications at night. reschedule all lithium to HS, 1200 mg. 11/28: pt refused lithium last night. screamed at MD yesterday, calmly declines interview today: see you in court. olanzapine 20 mg QHS added to regimen, commitment paperwork filed. records from [facility] received and reviewed. 11/29: Court hearing pending. Declining medications in the meantime. 11/30: no changes 12/01 intrusive, poor boundaries. declines medications. 12/02 easily agitated refuses medication pressured 12/04/2023 Continues to refuse medication bizarre behavior illogical poor impulse control writing things on the kaur smearing feces on himself and on the kaur stuffing toilet 12/05/2023 Patient continues to refuse medication refused to use electrical and instrumentation manager periods of yelling agitated screaming about his sister having mental illness other times isolated and withdrawn 12/06/2023 Patient continues to refuse medication refuses to engage in ongoing conversation with electrical and instrumentation manager difficult to have reality based conversation 12/07/2023: Continue current regimen and plans. Refuses meds and cord is scheduled for 12/0812/08/2023: Continue current regimen and plans 12/08: refusing medications, labile, angry. some posturing over weekend, yelling at staff for trying to clean the couch that he wrote all over in ink. declined interview today. court tomorrow. 12/09: declines to speak with MD beyond saying he does not wish to attend court or meet with MD. 1.5 hr hearing, pt was committed and meds ordered by court. will await in-person iranian electrical and instrumentation manager tomorrow to inform pt of results of court and necessity to take medication. 12/10: discussion held with pt, bridge inspector, various staff re commitment and court-ordered medication. changed context of hospitalization explained to pt, including PO refusal's leading to IM; pt appeared to understand. pt accepted Zydis and lithium this morning. 12/11: med-compliant. seen with JOSE Cancino and bridge inspector. feeling overmedicated, slept all day yesterday. will change all meds to HS and decrease olanzapine to 10 mg. new regimen lithium ER 900 QHS and zyprexa 10 QHS. 12/12: more labile and agitated this morning, furiously punching his palm in making his point. refused HS lithium last night, took it this morning. up at 0500. will return HS olanzapine dosing to 20 mg. add valium IM if lithium is refused. 12/13 continue tx 12/14 continue tx. 12/15: substantially less labile, irritable than last week. able to sit and have calm discussion. check labs tomorrow night. 12/16: no notable behaviors, stable presentation, continue current mgmt. 12/17: irritable. lithium level 0.52, dosing increased to 1200 mg QHS. other labs reassuring. 12/18: remains irritable, rejecting interview. continue current mgmt. 12/19: continues irritable, rejecting interview. accuses MD and SW of having threatened him yesterday. continue current mgmt. 12/20 continue treatment. 12/21 continue same treatment. 12/23/23 continue plan of care 12/23 continue tx. 12/24 lithium level high 1.5, lowered lithium to 900mg po qhs, recheck lithium level tomorrow morning along with cmp and TSH. 12/25: pt declining labs, apparently fearful of needles. no signs of lithium toxicity. pt denies any problems or side effects, does not want to change medication. does c/o gaining weight, which he does not appreciate is related to medication. will DC zyprexa in favor of paliperidone. 12/26: DC zyprexa PO PRN, change to invega. increase HS invega to 9 mg. otherwise continue current mgmt. calm today, but the issue of needles was not raised. 12/27: continue current tx plan. 12/28: continue tx plan. 12/29: increase invega to 12 mg PO QHS for inadequately controlled alfa/psychosis. continue current mgmt otherwise. 12/30: calm, even inviting today. no complaints or requests. continue current mgmt. mtg with sister tomorrow. 12/31: labile, irritable paranoid, delusional today. planning to add trileptal later this week. otherwise continue current mgmt. T/C invega sustenna. 01/01: calm, cooperative. no complaints. med-compliant. 01/02: add trileptal for added mood stabilization, as it does not require blood draws. otherwise continue current mgmt. 01/03: Continue current treatment and plan 01/04: Continue current regimen and plans 01/05: DC PO invega, start sustenna 234 mg tomorrow. increase trileptal to 300 BID. otherwise continue current mgmt. still some impulsivity, irritability, and perhaps thought disorder interfering with attention/comprehension. 01/06: received sustenna 234 mg IM today. continue other medications as per prior. stable. 01/07: feeling tired and slowed. due to transition from PO to SMITH versus manuel has been quashed and now regimen is more than is necessary. will decrease lithium 900 QHS to 600 QHS. otherwise continue current medication. 01/08: feeling clearer mentally, speaking and moving more quickly than yesterday. no complaints or requests. continue current mgmt. 01/09: continues feeling clearer mentally. mood relaxed. decrease lithium to 300 mg QHS. otherwise continue current mgmt. 01/10: continue current management and treatment plan. 01/11: continue current management and treatment plan. 01/12: Will defer to primary team on timing of next Invega Sustenna dose. Otherwise continue current management and treatment plan. 01/13: hold invega sustenna booster dose for now as pt appears dulled. DC lithium. otherwise continue current mgmt. 01/14: stable. slow, dulled. continue current mgmt. Reason for continued inpatient stay Substantial Risk for: inability to function and rapid decompensation Time Spent With Patient Time: Total time managing care of this patient today __35__ minutes.
[2024-01-15 20:00] VITALS: BP 121/83; PULSE 107; RESP 18; TEMP 36.8; O2SAT 98
[2024-01-16] MEDS: OXcarbazepine 300 MG TABLET PO ×2 (08:35→22:22)
[2024-01-16 10:22] VITALS: BMI 33.1
[2024-01-16 12:38] VITALS: BP 122/81; PULSE 101; RESP 20; TEMP 36.8; O2SAT 97
--- NOTE | 2024-01-16 13:31 | HO.PSYCHPN ---
Subjective Subjective Date of Service: 01/16/24 Reason For Visit: Alfa Interim History: isolative. calm. denying any problems. had a haircut last night. per staff, no issues. sleeping well. Mental Status Exam Mental Status Exam Narrative: adequately dressed. cooperative. decreased spontaneous movements. speech nml rate, decr amount; nml latency, loudness. thoughts linear. affect hypo-intense, non-labile. mood good. no SI/SIBI/HI/AVH expressed. Diagnostics Vital Signs (24Hr): Vital Signs - 24 hr 01/15/24 20:00 01/16/24 12:38 Temperature 98.2 F 98.3 F Pulse Rate 107 H 101 H Respiratory Rate 18 20 Blood Pressure 121/83 122/81 Pulse Oximetry 98 97 Oxygen Delivery Method Room Air Room Air BMI result Body Mass Index 33.1 Labs 11/25/23 18:46 12/17/23 20:25 Medications Medications Current Medications Acetaminophen (Acetaminophen 325 Mg Tablet) 650 mg PO Q6H PRN PRN Reason: Headache/Pain Mild Scale (1-3) Al Hydroxide/Mg Hydroxide (Magnesium Hydrox/Alum Hydrox 30 Ml Oral.Susp) 30 ml PO Q6H PRN PRN Reason: Heartburn/Nausea Diazepam (Diazepam 10 Mg/2 Ml Cartridge) 10 mg IM BEDTIME PRN PRN Reason: refusal of lithium, per court order Hydroxyzine HCl (Hydroxyzine Hcl 25 Mg Tablet) 25 mg PO Q6H PRN PRN Reason: Anxiety Magnesium Hydroxide (Milk Of Magnesia 30 Ml Oral.Susp) 30 ml PO DAILY PRN PRN Reason: Constipation Nicotine Polacrilex (Nicotine Polacrilex 2 Mg Gum) 4 mg BUCCAL Q2H PRN PRN Reason: Nicotine Cravings Last Admin: 12/14/23 09:02 Dose: 4 mg Oxcarbazepine (Oxcarbazepine 300 Mg Tablet) 300 mg PO BID KENDALL Last Admin: 01/16/24 08:35 Dose: 300 mg Trazodone HCl (Trazodone Hcl 50 Mg Tablet) 50 mg PO BEDTIME MRX1 PRN PRN Reason: Insomnia Allergies Allergies Allergy/AdvReac Type Severity Reaction Status Date / Time Unable to Assess Allergy Verified 11/25/23 17:57 Assessment & Plan Assessment & Plan (1) Moderate bipolar I disorder with alfa as current episode: Status: Acute Code(s): F31.12 - Bipolar disorder, current episode manic without psychotic features, moderate Plan 11/26: offer lithium. hold haldol for now. 11/27: took HS dose, refused morning dose. reportedly he will only take medications at night. reschedule all lithium to HS, 1200 mg. 11/28: pt refused lithium last night. screamed at MD yesterday, calmly declines interview today: see you in court. olanzapine 20 mg QHS added to regimen, commitment paperwork filed. records from [facility] received and reviewed. 11/29: Court hearing pending. Declining medications in the meantime. 11/30: no changes 12/01 intrusive, poor boundaries. declines medications. 12/02 easily agitated refuses medication pressured 12/04/2023 Continues to refuse medication bizarre behavior illogical poor impulse control writing things on the kaur smearing feces on himself and on the kaur stuffing toilet 12/05/2023 Patient continues to refuse medication refused to use clay machine operator periods of yelling agitated screaming about his sister having mental illness other times isolated and withdrawn 12/06/2023 Patient continues to refuse medication refuses to engage in ongoing conversation with clay machine operator difficult to have reality based conversation 12/07/2023: Continue current regimen and plans. Refuses meds and cord is scheduled for 12/0812/08/2023: Continue current regimen and plans 12/08: refusing medications, labile, angry. some posturing over weekend, yelling at staff for trying to clean the couch that he wrote all over in ink. declined interview today. court tomorrow. 12/09: declines to speak with MD beyond saying he does not wish to attend court or meet with MD. 1.5 hr hearing, pt was committed and meds ordered by court. will await in-person tuvaluan clay machine operator tomorrow to inform pt of results of court and necessity to take medication. 12/10: discussion held with pt, granite installer, various staff re commitment and court-ordered medication. changed context of hospitalization explained to pt, including PO refusal's leading to IM; pt appeared to understand. pt accepted Zydis and lithium this morning. 12/11: med-compliant. seen with JOSE Cancino and granite installer. feeling overmedicated, slept all day yesterday. will change all meds to HS and decrease olanzapine to 10 mg. new regimen lithium ER 900 QHS and zyprexa 10 QHS. 12/12: more labile and agitated this morning, furiously punching his palm in making his point. refused HS lithium last night, took it this morning. up at 0500. will return HS olanzapine dosing to 20 mg. add valium IM if lithium is refused. 12/13 continue tx 12/14 continue tx. 12/15: substantially less labile, irritable than last week. able to sit and have calm discussion. check labs tomorrow night. 12/16: no notable behaviors, stable presentation, continue current mgmt. 12/17: irritable. lithium level 0.52, dosing increased to 1200 mg QHS. other labs reassuring. 12/18: remains irritable, rejecting interview. continue current mgmt. 12/19: continues irritable, rejecting interview. accuses MD and SW of having threatened him yesterday. continue current mgmt. 12/20 continue treatment. 12/21 continue same treatment. 12/23/23 continue plan of care 12/23 continue tx. 12/24 lithium level high 1.5, lowered lithium to 900mg po qhs, recheck lithium level tomorrow morning along with cmp and TSH. 12/25: pt declining labs, apparently fearful of needles. no signs of lithium toxicity. pt denies any problems or side effects, does not want to change medication. does c/o gaining weight, which he does not appreciate is related to medication. will DC zyprexa in favor of paliperidone. 12/26: DC zyprexa PO PRN, change to invega. increase HS invega to 9 mg. otherwise continue current mgmt. calm today, but the issue of needles was not raised. 12/27: continue current tx plan. 12/28: continue tx plan. 12/29: increase invega to 12 mg PO QHS for inadequately controlled alfa/psychosis. continue current mgmt otherwise. 12/30: calm, even inviting today. no complaints or requests. continue current mgmt. mtg with sister tomorrow. 12/31: labile, irritable paranoid, delusional today. planning to add trileptal later this week. otherwise continue current mgmt. T/C invega sustenna. 01/01: calm, cooperative. no complaints. med-compliant. 01/02: add trileptal for added mood stabilization, as it does not require blood draws. otherwise continue current mgmt. 01/03: Continue current treatment and plan 01/04: Continue current regimen and plans 01/05: DC PO invega, start sustenna 234 mg tomorrow. increase trileptal to 300 BID. otherwise continue current mgmt. still some impulsivity, irritability, and perhaps thought disorder interfering with attention/comprehension. 01/06: received sustenna 234 mg IM today. continue other medications as per prior. stable. 01/07: feeling tired and slowed. due to transition from PO to SMITH versus manuel has been quashed and now regimen is more than is necessary. will decrease lithium 900 QHS to 600 QHS. otherwise continue current medication. 01/08: feeling clearer mentally, speaking and moving more quickly than yesterday. no complaints or requests. continue current mgmt. 01/09: continues feeling clearer mentally. mood relaxed. decrease lithium to 300 mg QHS. otherwise continue current mgmt. 01/10: continue current management and treatment plan. 01/11: continue current management and treatment plan. 01/12: Will defer to primary team on timing of next Invega Sustenna dose. Otherwise continue current management and treatment plan. 01/13: hold invega sustenna booster dose for now as pt appears dulled. DC lithium. otherwise continue current mgmt. 01/14: stable. slow, dulled. continue current mgmt. 01/15: no change. continue current mgmt. Reason for continued inpatient stay Substantial Risk for: inability to function and rapid decompensation Time Spent With Patient Time: Total time managing care of this patient today __25__ minutes.
[2024-01-16 19:54] VITALS: BP 114/73; PULSE 86; RESP 16; TEMP 36.6; O2SAT 98
[2024-01-17 08:00] VITALS: BP 123/90; PULSE 89; RESP 16; TEMP 36.5; O2SAT 100
[2024-01-17] MEDS: OXcarbazepine 300 MG TABLET PO ×2 (08:29→21:02)
--- NOTE | 2024-01-17 14:41 | P.PNPSI_ITS ---
Subjective Subjective Date of Service: 01/17/24 Reason For Visit: Alfa Interim History: evasive and vague re his family in [place], same as for the work that is awaiting him outside the hospital. denies Sx, no complaints or requests. per staff, no dep/anx. + meds. w/drawn. Mental Status Exam Mental Status Exam Narrative: adequately dressed. cooperative. decreased spontaneous movements. speech nml rate, decr amount; nml latency, loudness. thoughts linear. affect hypo- intense, non-labile. mood good. no SI/SIBI/HI/AVH expressed. Diagnostics Vital Signs (24Hr): Vital Signs - 24 hr 01/16/24 19:54 01/17/24 08:00 Temperature 97.9 F 97.7 F Pulse Rate 86 89 Respiratory Rate 16 16 Blood Pressure 114/73 123/90 H Pulse Oximetry 98 100 Oxygen Delivery Method Room Air Room Air BMI result Body Mass Index 33.1 Labs 11/25/23 18:46 12/17/23 20:25 Medications Medications Current Medications Acetaminophen (Acetaminophen 325 Mg Tablet) 650 mg PO Q6H PRN PRN Reason: Headache/Pain Mild Scale (1-3) Al Hydroxide/Mg Hydroxide (Magnesium Hydrox/Alum Hydrox 30 Ml Oral.Susp) 30 ml PO Q6H PRN PRN Reason: Heartburn/Nausea Diazepam (Diazepam 10 Mg/2 Ml Cartridge) 10 mg IM BEDTIME PRN PRN Reason: refusal of lithium, per court order Hydroxyzine HCl (Hydroxyzine Hcl 25 Mg Tablet) 25 mg PO Q6H PRN PRN Reason: Anxiety Magnesium Hydroxide (Milk Of Magnesia 30 Ml Oral.Susp) 30 ml PO DAILY PRN PRN Reason: Constipation Nicotine Polacrilex (Nicotine Polacrilex 2 Mg Gum) 4 mg BUCCAL Q2H PRN PRN Reason: Nicotine Cravings Last Admin: 12/14/23 09:02 Dose: 4 mg Oxcarbazepine (Oxcarbazepine 300 Mg Tablet) 300 mg PO BID KENDALL Last Admin: 01/17/24 08:29 Dose: 300 mg Trazodone HCl (Trazodone Hcl 50 Mg Tablet) 50 mg PO BEDTIME MRX1 PRN PRN Reason: Insomnia Allergies Allergies Allergy/AdvReac Type Severity Reaction Status Date / Time Unable to Assess Allergy Verified 11/25/23 17:57 Assessment & Plan Assessment & Plan (1) Moderate bipolar I disorder with alfa as current episode: Status: Acute Code(s): F31.12 - Bipolar disorder, current episode manic without psychotic features, moderate Plan 11/26: offer lithium. hold haldol for now. 11/27: took HS dose, refused morning dose. reportedly he will only take medications at night. reschedule all lithium to HS, 1200 mg. 11/28: pt refused lithium last night. screamed at MD yesterday, calmly declines interview today: see you in court. olanzapine 20 mg QHS added to regimen, commitment paperwork filed. records from [facility] received and reviewed. 11/29: Court hearing pending. Declining medications in the meantime. 11/30: no changes 12/01 intrusive, poor boundaries. declines medications. 12/02 easily agitated refuses medication pressured 12/04/2023 Continues to refuse medication bizarre behavior illogical poor impulse control writing things on the kaur smearing feces on himself and on the kaur stuffing toilet 12/05/2023 Patient continues to refuse medication refused to use cribber periods of yelling agitated screaming about his sister having mental illness other times isolated and withdrawn 12/06/2023 Patient continues to refuse medication refuses to engage in ongoing conversation with cribber difficult to have reality based conversation 12/07/2023: Continue current regimen and plans. Refuses meds and cord is scheduled for 12/0812/08/2023: Continue current regimen and plans 12/08: refusing medications, labile, angry. some posturing over weekend, yelling at staff for trying to clean the couch that he wrote all over in ink. declined interview today. court tomorrow. 12/09: declines to speak with MD beyond saying he does not wish to attend court or meet with MD. 1.5 hr hearing, pt was committed and meds ordered by court. will await in-person icelandic cribber tomorrow to inform pt of results of court and necessity to take medication. 12/10: discussion held with pt, spanish interpreter/translator, various staff re commitment and court-ordered medication. changed context of hospitalization explained to pt, including PO refusal's leading to IM; pt appeared to understand. pt accepted Zydis and lithium this morning. 12/11: med-compliant. seen with JOSE Cancino and spanish interpreter/translator. feeling overmedicated, slept all day yesterday. will change all meds to HS and decrease olanzapine to 10 mg. new regimen lithium ER 900 QHS and zyprexa 10 QHS. 12/12: more labile and agitated this morning, furiously punching his palm in making his point. refused HS lithium last night, took it this morning. up at 0500. will return HS olanzapine dosing to 20 mg. add valium IM if lithium is refused. 12/13 continue tx 12/14 continue tx. 12/15: substantially less labile, irritable than last week. able to sit and have calm discussion. check labs tomorrow night. 12/16: no notable behaviors, stable presentation, continue current mgmt. 12/17: irritable. lithium level 0.52, dosing increased to 1200 mg QHS. other labs reassuring. 12/18: remains irritable, rejecting interview. continue current mgmt. 12/19: continues irritable, rejecting interview. accuses MD and SW of having threatened him yesterday. continue current mgmt. 12/20 continue treatment. 12/21 continue same treatment. 12/23/23 continue plan of care 12/23 continue tx. 12/24 lithium level high 1.5, lowered lithium to 900mg po qhs, recheck lithium level tomorrow morning along with cmp and TSH. 12/25: pt declining labs, apparently fearful of needles. no signs of lithium toxicity. pt denies any problems or side effects, does not want to change medication. does c/o gaining weight, which he does not appreciate is related to medication. will DC zyprexa in favor of paliperidone. 12/26: DC zyprexa PO PRN, change to invega. increase HS invega to 9 mg. otherwise continue current mgmt. calm today, but the issue of needles was not raised. 12/27: continue current tx plan. 12/28: continue tx plan. 12/29: increase invega to 12 mg PO QHS for inadequately controlled alfa/psychosis. continue current mgmt otherwise. 12/30: calm, even inviting today. no complaints or requests. continue current mgmt. mtg with sister tomorrow. 12/31: labile, irritable paranoid, delusional today. planning to add trileptal later this week. otherwise continue current mgmt. T/C invega sustenna. 01/01: calm, cooperative. no complaints. med-compliant. 01/02: add trileptal for added mood stabilization, as it does not require blood draws. otherwise continue current mgmt. 01/03: Continue current treatment and plan 01/04: Continue current regimen and plans 01/05: DC PO invega, start sustenna 234 mg tomorrow. increase trileptal to 300 BID. otherwise continue current mgmt. still some impulsivity, irritability, and perhaps thought disorder interfering with attention/comprehension. 01/06: received sustenna 234 mg IM today. continue other medications as per prior. stable. 01/07: feeling tired and slowed. due to transition from PO to SMITH versus manuel has been quashed and now regimen is more than is necessary. will decrease lithium 900 QHS to 600 QHS. otherwise continue current medication. 01/08: feeling clearer mentally, speaking and moving more quickly than yesterday. no complaints or requests. continue current mgmt. 01/09: continues feeling clearer mentally. mood relaxed. decrease lithium to 300 mg QHS. otherwise continue current mgmt. 01/10: continue current management and treatment plan. 01/11: continue current management and treatment plan. 01/12: Will defer to primary team on timing of next Invega Sustenna dose. Otherwise continue current management and treatment plan. 01/13: hold invega sustenna booster dose for now as pt appears dulled. DC lithium. otherwise continue current mgmt. 01/14: stable. slow, dulled. continue current mgmt. 01/15: no change. continue current mgmt. 01/16: no change. continue current mgmt. case consultation arranged with insurance company for next saturday at 1 pm. Reason for continued inpatient stay Substantial Risk for: inability to function and rapid decompensation Time Spent With Patient Time: Total time managing care of this patient today __35__ minutes.
[2024-01-18 07:36] VITALS: BP 117/83; PULSE 95; RESP 18; TEMP 36.6; O2SAT 98
[2024-01-18] MEDS: OXcarbazepine 300 MG TABLET PO ×2 (08:27→20:49)
--- NOTE | 2024-01-18 11:14 | P.PNPSI_ITS ---
Subjective Subjective Date of Service: 01/18/24 Reason For Visit: Alfa Subjective Notes: Section 8 Interim History: met with patient. Discussed with Nursing. No management issues. Largely flat and subdued. Today patient did not want to meet with typewriter assembly and parts inspector. Was in his room and did appear to have some internal preoccupation. Was pleasant though. Medication Compliance: Yes Side effects from medications: No Attending Groups: No Mental Status Exam Mental Status Exam Narrative: in bed. Did not want to meet with typewriter assembly and parts inspector. Casually dressed fair hygiene. Some internal preoccupation. Was pleasant. Diagnostics Vital Signs (24Hr): Vital Signs - 24 hr 01/18/24 07:36 Temperature 97.9 F Pulse Rate 95 Respiratory Rate 18 Blood Pressure 117/83 Pulse Oximetry 98 Oxygen Delivery Method Room Air BMI result Body Mass Index 33.1 Labs 11/25/23 18:46 12/17/23 20:25 Medications Medications Current Medications Acetaminophen (Acetaminophen 325 Mg Tablet) 650 mg PO Q6H PRN PRN Reason: Headache/Pain Mild Scale (1-3) Al Hydroxide/Mg Hydroxide (Magnesium Hydrox/Alum Hydrox 30 Ml Oral.Susp) 30 ml PO Q6H PRN PRN Reason: Heartburn/Nausea Diazepam (Diazepam 10 Mg/2 Ml Cartridge) 10 mg IM BEDTIME PRN PRN Reason: refusal of lithium, per court order Hydroxyzine HCl (Hydroxyzine Hcl 25 Mg Tablet) 25 mg PO Q6H PRN PRN Reason: Anxiety Magnesium Hydroxide (Milk Of Magnesia 30 Ml Oral.Susp) 30 ml PO DAILY PRN PRN Reason: Constipation Nicotine Polacrilex (Nicotine Polacrilex 2 Mg Gum) 4 mg BUCCAL Q2H PRN PRN Reason: Nicotine Cravings Last Admin: 12/14/23 09:02 Dose: 4 mg Oxcarbazepine (Oxcarbazepine 300 Mg Tablet) 300 mg PO BID KENDALL Last Admin: 01/18/24 08:27 Dose: 300 mg Trazodone HCl (Trazodone Hcl 50 Mg Tablet) 50 mg PO BEDTIME MRX1 PRN PRN Reason: Insomnia Allergies Allergies Allergy/AdvReac Type Severity Reaction Status Date / Time Unable to Assess Allergy Verified 11/25/23 17:57 Assessment & Plan Assessment & Plan (1) Moderate bipolar I disorder with alfa as current episode: Status: Acute Code(s): F31.12 - Bipolar disorder, current episode manic without psychotic features, moderate Plan 11/26: offer lithium. hold haldol for now. 11/27: took HS dose, refused morning dose. reportedly he will only take medications at night. reschedule all lithium to HS, 1200 mg. 11/28: pt refused lithium last night. screamed at MD yesterday, calmly declines interview today: see you in court. olanzapine 20 mg QHS added to regimen, commitment paperwork filed. records from [facility] received and reviewed. 11/29: Court hearing pending. Declining medications in the meantime. 11/30: no changes 12/01 intrusive, poor boundaries. declines medications. 12/02 easily agitated refuses medication pressured 12/04/2023 Continues to refuse medication bizarre behavior illogical poor impulse control writing things on the kaur smearing feces on himself and on the kaur stuffing toilet 12/05/2023 Patient continues to refuse medication refused to use anthropologist periods of yelling agitated screaming about his sister having mental illness other times isolated and withdrawn 12/06/2023 Patient continues to refuse medication refuses to engage in ongoing conversation with anthropologist difficult to have reality based conversation 12/07/2023: Continue current regimen and plans. Refuses meds and cord is scheduled for 12/0812/08/2023: Continue current regimen and plans 12/08: refusing medications, labile, angry. some posturing over weekend, yelling at staff for trying to clean the couch that he wrote all over in ink. declined interview today. court tomorrow. 12/09: declines to speak with MD beyond saying he does not wish to attend court or meet with MD. 1.5 hr hearing, pt was committed and meds ordered by court. will await in-person faroese anthropologist tomorrow to inform pt of results of court and necessity to take medication. 12/10: discussion held with pt, general operations manager, various staff re commitment and court-ordered medication. changed context of hospitalization explained to pt, including PO refusal's leading to IM; pt appeared to understand. pt accepted Zydis and lithium this morning. 12/11: med-compliant. seen with JOSE Cancino and general operations manager. feeling overmedicated, slept all day yesterday. will change all meds to HS and decrease olanzapine to 10 mg. new regimen lithium ER 900 QHS and zyprexa 10 QHS. 12/12: more labile and agitated this morning, furiously punching his palm in making his point. refused HS lithium last night, took it this morning. up at 0500. will return HS olanzapine dosing to 20 mg. add valium IM if lithium is refused. 12/13 continue tx 12/14 continue tx. 12/15: substantially less labile, irritable than last week. able to sit and have calm discussion. check labs tomorrow night. 12/16: no notable behaviors, stable presentation, continue current mgmt. 12/17: irritable. lithium level 0.52, dosing increased to 1200 mg QHS. other labs reassuring. 12/18: remains irritable, rejecting interview. continue current mgmt. 12/19: continues irritable, rejecting interview. accuses MD and SW of having threatened him yesterday. continue current mgmt. 12/20 continue treatment. 12/21 continue same treatment. 12/23/23 continue plan of care 12/23 continue tx. 12/24 lithium level high 1.5, lowered lithium to 900mg po qhs, recheck lithium level tomorrow morning along with cmp and TSH. 12/25: pt declining labs, apparently fearful of needles. no signs of lithium toxicity. pt denies any problems or side effects, does not want to change medication. does c/o gaining weight, which he does not appreciate is related to medication. will DC zyprexa in favor of paliperidone. 12/26: DC zyprexa PO PRN, change to invega. increase HS invega to 9 mg. otherwise continue current mgmt. calm today, but the issue of needles was not raised. 12/27: continue current tx plan. 12/28: continue tx plan. 12/29: increase invega to 12 mg PO QHS for inadequately controlled alfa/psychosis. continue current mgmt otherwise. 12/30: calm, even inviting today. no complaints or requests. continue current mgmt. mtg with sister tomorrow. 12/31: labile, irritable paranoid, delusional today. planning to add trileptal later this week. otherwise continue current mgmt. T/C invega sustenna. 01/01: calm, cooperative. no complaints. med-compliant. 01/02: add trileptal for added mood stabilization, as it does not require blood draws. otherwise continue current mgmt. 01/03: Continue current treatment and plan 01/04: Continue current regimen and plans 01/05: DC PO invega, start sustenna 234 mg tomorrow. increase trileptal to 300 BID. otherwise continue current mgmt. still some impulsivity, irritability, and perhaps thought disorder interfering with attention/comprehension. 01/06: received sustenna 234 mg IM today. continue other medications as per prior. stable. 01/07: feeling tired and slowed. due to transition from PO to SMITH versus manuel has been quashed and now regimen is more than is necessary. will decrease lithium 900 QHS to 600 QHS. otherwise continue current medication. 01/08: feeling clearer mentally, speaking and moving more quickly than yesterday. no complaints or requests. continue current mgmt. 01/09: continues feeling clearer mentally. mood relaxed. decrease lithium to 300 mg QHS. otherwise continue current mgmt. 01/10: continue current management and treatment plan. 01/11: continue current management and treatment plan. 01/12: Will defer to primary team on timing of next Invega Sustenna dose. Otherwise continue current management and treatment plan. 01/13: hold invega sustenna booster dose for now as pt appears dulled. DC lithium. otherwise continue current mgmt. 01/14: stable. slow, dulled. continue current mgmt. 01/15: no change. continue current mgmt. 01/16: no change. continue current mgmt. case consultation arranged with [facility] for next saturday at 1 pm. 01/18/2024: No changes to current regimen Reason for continued inpatient stay Substantial Risk for: inability to function and rapid decompensation Time Spent With Patient Time: Total time managing care of this patient today ____ minutes.
[2024-01-18 20:00] VITALS: BP 131/76; PULSE 108; RESP 14; TEMP 36.8; O2SAT 99
[2024-01-19 07:40] VITALS: BP 131/85; PULSE 86; RESP 14; TEMP 36.9; O2SAT 98
[2024-01-19] MEDS: OXcarbazepine 300 MG TABLET PO ×2 (08:30→21:25)
--- NOTE | 2024-01-19 11:13 | P.PNPSI_ITS ---
Subjective Subjective Date of Service: 01/19/24 Reason For Visit: Alfa Interim History: Met with patient. Discussed with Nursing. No management issues. Largely flat and subdued. Today patient had no concerns. Very superficial engagement. Denied feeling depressed suicidal. Sleep energy and appetite reported as okay. Denied psychosis, but does appear internally preoccupied. Pleasant. Medication Compliance: Yes ( As per court order) Side effects from medications: No Attending Groups: No Review of Systems Acute medical concerns: No Mental Status Exam Mental Status Exam Narrative: in bed. fair self-care. Largely euthymic. Guarded. Casually dressed fair hygiene. Some internal preoccupation. Was pleasant. No SI or HI Diagnostics Vital Signs (24Hr): Vital Signs - 24 hr 01/18/24 20:00 01/19/24 07:40 Temperature 98.3 F 98.4 F Pulse Rate 108 H 86 Respiratory Rate 14 14 Blood Pressure 131/76 131/85 Pulse Oximetry 99 98 Oxygen Delivery Method Room Air Room Air BMI result Body Mass Index 33.1 Labs 11/25/23 18:46 12/17/23 20:25 Medications Medications Current Medications Acetaminophen (Acetaminophen 325 Mg Tablet) 650 mg PO Q6H PRN PRN Reason: Headache/Pain Mild Scale (1-3) Al Hydroxide/Mg Hydroxide (Magnesium Hydrox/Alum Hydrox 30 Ml Oral.Susp) 30 ml PO Q6H PRN PRN Reason: Heartburn/Nausea Diazepam (Diazepam 10 Mg/2 Ml Cartridge) 10 mg IM BEDTIME PRN PRN Reason: refusal of lithium, per court order Hydroxyzine HCl (Hydroxyzine Hcl 25 Mg Tablet) 25 mg PO Q6H PRN PRN Reason: Anxiety Magnesium Hydroxide (Milk Of Magnesia 30 Ml Oral.Susp) 30 ml PO DAILY PRN PRN Reason: Constipation Nicotine Polacrilex (Nicotine Polacrilex 2 Mg Gum) 4 mg BUCCAL Q2H PRN PRN Reason: Nicotine Cravings Last Admin: 12/14/23 09:02 Dose: 4 mg Oxcarbazepine (Oxcarbazepine 300 Mg Tablet) 300 mg PO BID KENDALL Last Admin: 01/19/24 08:30 Dose: 300 mg Trazodone HCl (Trazodone Hcl 50 Mg Tablet) 50 mg PO BEDTIME MRX1 PRN PRN Reason: Insomnia Allergies Allergies Allergy/AdvReac Type Severity Reaction Status Date / Time Unable to Assess Allergy Verified 11/25/23 17:57 Assessment & Plan Assessment & Plan (1) Moderate bipolar I disorder with alfa as current episode: Status: Acute Code(s): F31.12 - Bipolar disorder, current episode manic without psychotic features, moderate Plan 11/26: offer lithium. hold haldol for now. 11/27: took HS dose, refused morning dose. reportedly he will only take medications at night. reschedule all lithium to HS, 1200 mg. 11/28: pt refused lithium last night. screamed at MD yesterday, calmly declines interview today: see you in court. olanzapine 20 mg QHS added to regimen, commitment paperwork filed. records from [facility] received and reviewed. 11/29: Court hearing pending. Declining medications in the meantime. 11/30: no changes 12/01 intrusive, poor boundaries. declines medications. 12/02 easily agitated refuses medication pressured 12/04/2023 Continues to refuse medication bizarre behavior illogical poor impulse control writing things on the kaur smearing feces on himself and on the kaur stuffing toilet 12/05/2023 Patient continues to refuse medication refused to use transit mixer operator periods of yelling agitated screaming about his sister having mental illness other times isolated and withdrawn 12/06/2023 Patient continues to refuse medication refuses to engage in ongoing conversation with transit mixer operator difficult to have reality based conversation 12/07/2023: Continue current regimen and plans. Refuses meds and cord is scheduled for 12/0812/08/2023: Continue current regimen and plans 12/08: refusing medications, labile, angry. some posturing over weekend, yelling at staff for trying to clean the couch that he wrote all over in ink. declined interview today. court tomorrow. 12/09: declines to speak with MD beyond saying he does not wish to attend court or meet with MD. 1.5 hr hearing, pt was committed and meds ordered by court. will await in-person equ[place] guine[place] transit mixer operator tomorrow to inform pt of results of court and necessity to take medication. 12/10: discussion held with pt, interpreter and translator, various staff re commitment and court-ordered medication. changed context of hospitalization explained to pt, including PO refusal's leading to IM; pt appeared to understand. pt accepted Zydis and lithium this morning. 12/11: med-compliant. seen with JOSE Cancino and interpreter and translator. feeling overmedicated, slept all day yesterday. will change all meds to HS and decrease olanzapine to 10 mg. new regimen lithium ER 900 QHS and zyprexa 10 QHS. 12/12: more labile and agitated this morning, furiously punching his palm in making his point. refused HS lithium last night, took it this morning. up at 0500. will return HS olanzapine dosing to 20 mg. add valium IM if lithium is refused. 12/13 continue tx 12/14 continue tx. 12/15: substantially less labile, irritable than last week. able to sit and have calm discussion. check labs tomorrow night. 12/16: no notable behaviors, stable presentation, continue current mgmt. 12/17: irritable. lithium level 0.52, dosing increased to 1200 mg QHS. other labs reassuring. 12/18: remains irritable, rejecting interview. continue current mgmt. 12/19: continues irritable, rejecting interview. accuses MD and SW of having threatened him yesterday. continue current mgmt. 12/20 continue treatment. 12/21 continue same treatment. 12/23/23 continue plan of care 12/23 continue tx. 12/24 lithium level high 1.5, lowered lithium to 900mg po qhs, recheck lithium level tomorrow morning along with cmp and TSH. 12/25: pt declining labs, apparently fearful of needles. no signs of lithium toxicity. pt denies any problems or side effects, does not want to change medication. does c/o gaining weight, which he does not appreciate is related to medication. will DC zyprexa in favor of paliperidone. 12/26: DC zyprexa PO PRN, change to invega. increase HS invega to 9 mg. otherwise continue current mgmt. calm today, but the issue of needles was not raised. 12/27: continue current tx plan. 12/28: continue tx plan. 12/29: increase invega to 12 mg PO QHS for inadequately controlled alfa/psychosis. continue current mgmt otherwise. 12/30: calm, even inviting today. no complaints or requests. continue current mgmt. mtg with sister tomorrow. 12/31: labile, irritable paranoid, delusional today. planning to add trileptal later this week. otherwise continue current mgmt. T/C invega sustenna. 01/01: calm, cooperative. no complaints. med-compliant. 01/02: add trileptal for added mood stabilization, as it does not require blood draws. otherwise continue current mgmt. 01/03: Continue current treatment and plan 01/04: Continue current regimen and plans 01/05: DC PO invega, start sustenna 234 mg tomorrow. increase trileptal to 300 BID. otherwise continue current mgmt. still some impulsivity, irritability, and perhaps thought disorder interfering with attention/comprehension. 01/06: received sustenna 234 mg IM today. continue other medications as per prior. stable. 01/07: feeling tired and slowed. due to transition from PO to SMITH versus manuel has been quashed and now regimen is more than is necessary. will decrease lithium 900 QHS to 600 QHS. otherwise continue current medication. 01/08: feeling clearer mentally, speaking and moving more quickly than yesterday. no complaints or requests. continue current mgmt. 01/09: continues feeling clearer mentally. mood relaxed. decrease lithium to 300 mg QHS. otherwise continue current mgmt. 01/10: continue current management and treatment plan. 01/11: continue current management and treatment plan. 01/12: Will defer to primary team on timing of next Invega Sustenna dose. Otherwise continue current management and treatment plan. 01/13: hold invega sustenna booster dose for now as pt appears dulled. DC lithium. otherwise continue current mgmt. 01/14: stable. slow, dulled. continue current mgmt. 01/15: no change. continue current mgmt. 01/16: no change. continue current mgmt. case consultation arranged with [facility] for next saturday at 1 pm. 01/19/2024: No changes to current regimen Reason for continued inpatient stay Substantial Risk for: inability to function and rapid decompensation Time Spent With Patient Time: Total time managing care of this patient today ____ minutes.
[2024-01-19 20:12] VITALS: BP 132/91; PULSE 89; RESP 16; TEMP 36.8; O2SAT 99
[2024-01-20 07:37] VITALS: BP 119/81; PULSE 87; RESP 16; TEMP 36.4; O2SAT 99
[2024-01-20] MEDS: OXcarbazepine 300 MG TABLET PO ×2 (08:36→21:24)
--- NOTE | 2024-01-20 14:58 | P.PNPSI_ITS ---
Subjective Subjective Date of Service: 01/20/24 Reason For Visit: Alfa Interim History: no change in presentation. per staff, denies Sx. +RIS, self-dialoguing. withdrawn, guarded. slept 8 hours overnight. Mental Status Exam Mental Status Exam Narrative: in bed. fair self-care. Largely euthymic. Guarded. Casually dressed fair hygiene. Some internal preoccupation. Was pleasant. No SI or HI Diagnostics Vital Signs (24Hr): Vital Signs - 24 hr 01/19/24 20:12 01/20/24 07:37 Temperature 98.2 F 97.6 F Pulse Rate 89 87 Respiratory Rate 16 16 Blood Pressure 132/91 H 119/81 Pulse Oximetry 99 99 Oxygen Delivery Method Room Air Room Air BMI result Body Mass Index 33.1 Labs 11/25/23 18:46 12/17/23 20:25 Medications Medications Current Medications Acetaminophen (Acetaminophen 325 Mg Tablet) 650 mg PO Q6H PRN PRN Reason: Headache/Pain Mild Scale (1-3) Al Hydroxide/Mg Hydroxide (Magnesium Hydrox/Alum Hydrox 30 Ml Oral.Susp) 30 ml PO Q6H PRN PRN Reason: Heartburn/Nausea Diazepam (Diazepam 10 Mg/2 Ml Cartridge) 10 mg IM BEDTIME PRN PRN Reason: refusal of lithium, per court order Hydroxyzine HCl (Hydroxyzine Hcl 25 Mg Tablet) 25 mg PO Q6H PRN PRN Reason: Anxiety Magnesium Hydroxide (Milk Of Magnesia 30 Ml Oral.Susp) 30 ml PO DAILY PRN PRN Reason: Constipation Nicotine Polacrilex (Nicotine Polacrilex 2 Mg Gum) 4 mg BUCCAL Q2H PRN PRN Reason: Nicotine Cravings Last Admin: 12/14/23 09:02 Dose: 4 mg Oxcarbazepine (Oxcarbazepine 300 Mg Tablet) 300 mg PO BID KENDALL Last Admin: 01/20/24 08:36 Dose: 300 mg Trazodone HCl (Trazodone Hcl 50 Mg Tablet) 50 mg PO BEDTIME MRX1 PRN PRN Reason: Insomnia Allergies Allergies Allergy/AdvReac Type Severity Reaction Status Date / Time Unable to Assess Allergy Verified 11/25/23 17:57 Assessment & Plan Assessment & Plan (1) Moderate bipolar I disorder with alfa as current episode: Status: Acute Code(s): F31.12 - Bipolar disorder, current episode manic without psychotic features, moderate Plan 11/26: offer lithium. hold haldol for now. 11/27: took HS dose, refused morning dose. reportedly he will only take medications at night. reschedule all lithium to HS, 1200 mg. 11/28: pt refused lithium last night. screamed at MD yesterday, calmly declines interview today: see you in court. olanzapine 20 mg QHS added to regimen, commitment paperwork filed. records from [facility] received and reviewed. 11/29: Court hearing pending. Declining medications in the meantime. 11/30: no changes 12/01 intrusive, poor boundaries. declines medications. 12/02 easily agitated refuses medication pressured 12/04/2023 Continues to refuse medication bizarre behavior illogical poor impulse control writing things on the kaur smearing feces on himself and on the kaur stuffing toilet 12/05/2023 Patient continues to refuse medication refused to use tube inspector periods of yelling agitated screaming about his sister having mental illness other times isolated and withdrawn 12/06/2023 Patient continues to refuse medication refuses to engage in ongoing conversation with tube inspector difficult to have reality based conversation 12/07/2023: Continue current regimen and plans. Refuses meds and cord is scheduled for 12/0812/08/2023: Continue current regimen and plans 12/08: refusing medications, labile, angry. some posturing over weekend, yelling at staff for trying to clean the couch that he wrote all over in ink. declined interview today. court tomorrow. 12/09: declines to speak with MD beyond saying he does not wish to attend court or meet with MD. 1.5 hr hearing, pt was committed and meds ordered by court. will await in-person monegasque tube inspector tomorrow to inform pt of results of court and necessity to take medication. 12/10: discussion held with pt, hand stone polisher, various staff re commitment and court-ordered medication. changed context of hospitalization explained to pt, including PO refusal's leading to IM; pt appeared to understand. pt accepted Zydis and lithium this morning. 12/11: med-compliant. seen with JOSE Cancino and hand stone polisher. feeling overmedicated, slept all day yesterday. will change all meds to HS and decrease olanzapine to 10 mg. new regimen lithium ER 900 QHS and zyprexa 10 QHS. 12/12: more labile and agitated this morning, furiously punching his palm in making his point. refused HS lithium last night, took it this morning. up at 0500. will return HS olanzapine dosing to 20 mg. add valium IM if lithium is refused. 12/13 continue tx 12/14 continue tx. 12/15: substantially less labile, irritable than last week. able to sit and have calm discussion. check labs tomorrow night. 12/16: no notable behaviors, stable presentation, continue current mgmt. 12/17: irritable. lithium level 0.52, dosing increased to 1200 mg QHS. other labs reassuring. 12/18: remains irritable, rejecting interview. continue current mgmt. 12/19: continues irritable, rejecting interview. accuses MD and SW of having threatened him yesterday. continue current mgmt. 12/20 continue treatment. 12/21 continue same treatment. 12/23/23 continue plan of care 12/23 continue tx. 12/24 lithium level high 1.5, lowered lithium to 900mg po qhs, recheck lithium level tomorrow morning along with cmp and TSH. 12/25: pt declining labs, apparently fearful of needles. no signs of lithium toxicity. pt denies any problems or side effects, does not want to change medication. does c/o gaining weight, which he does not appreciate is related to medication. will DC zyprexa in favor of paliperidone. 12/26: DC zyprexa PO PRN, change to invega. increase HS invega to 9 mg. otherwise continue current mgmt. calm today, but the issue of needles was not raised. 12/27: continue current tx plan. 12/28: continue tx plan. 12/29: increase invega to 12 mg PO QHS for inadequately controlled alfa/psychosis. continue current mgmt otherwise. 12/30: calm, even inviting today. no complaints or requests. continue current mgmt. mtg with sister tomorrow. 12/31: labile, irritable paranoid, delusional today. planning to add trileptal later this week. otherwise continue current mgmt. T/C invega sustenna. 01/01: calm, cooperative. no complaints. med-compliant. 01/02: add trileptal for added mood stabilization, as it does not require blood draws. otherwise continue current mgmt. 01/03: Continue current treatment and plan 01/04: Continue current regimen and plans 01/05: DC PO invega, start sustenna 234 mg tomorrow. increase trileptal to 300 BID. otherwise continue current mgmt. still some impulsivity, irritability, and perhaps thought disorder interfering with attention/comprehension. 01/06: received sustenna 234 mg IM today. continue other medications as per prior. stable. 01/07: feeling tired and slowed. due to transition from PO to SMITH versus manuel has been quashed and now regimen is more than is necessary. will decrease lithium 900 QHS to 600 QHS. otherwise continue current medication. 01/08: feeling clearer mentally, speaking and moving more quickly than yesterday. no complaints or requests. continue current mgmt. 01/09: continues feeling clearer mentally. mood relaxed. decrease lithium to 300 mg QHS. otherwise continue current mgmt. 01/10: continue current management and treatment plan. 01/11: continue current management and treatment plan. 01/12: Will defer to primary team on timing of next Invega Sustenna dose. Otherwise continue current management and treatment plan. 01/13: hold invega sustenna booster dose for now as pt appears dulled. DC lithium. otherwise continue current mgmt. 01/14: stable. slow, dulled. continue current mgmt. 01/15: no change. continue current mgmt. 01/16: no change. continue current mgmt. case consultation arranged with [employer] for next saturday at 1 pm. 01/19/2024: No changes to current regimen 01/19: no change in presentation. case consultation with sid of [employer] completed. Reason for continued inpatient stay Substantial Risk for: harm to self, harm to others, inability to function and rapid decompensation Time Spent With Patient Time: Total time managing care of this patient today ____ minutes.
[2024-01-20 20:00] VITALS: BP 117/77; PULSE 106; RESP 18; TEMP 36.8; O2SAT 99
[2024-01-21 07:42] VITALS: BP 120/82; PULSE 98; RESP 20; TEMP 36.4; O2SAT 97
[2024-01-21] MEDS: OXcarbazepine 300 MG TABLET PO ×2 (08:17→21:09)
--- NOTE | 2024-01-21 15:33 | HO.PSYCHPN ---
Subjective Subjective Date of Service: 01/21/24 Reason For Visit: Alfa Interim History: seen with Julita GARCIA and buildings and grounds coordinator. denies any problems, no questions or concerns. unable to describe how he will be spending his days after discharge, says he needs to think about it a bit. informed fo january 27 discharge date. per staff, no dep/anx. sullen. denies AVH. sleeping 8 hours overnight. Mental Status Exam Mental Status Exam Narrative: fair self-care. Largely euthymic. Guarded. Casually dressed fair hygiene. Some internal preoccupation. Was pleasant. No SI or HI Diagnostics Vital Signs (24Hr): Vital Signs - 24 hr 01/20/24 20:00 01/21/24 07:42 Temperature 98.2 F 97.6 F Pulse Rate 106 H 98 Respiratory Rate 18 20 Blood Pressure 117/77 120/82 Pulse Oximetry 99 97 Oxygen Delivery Method Room Air Room Air BMI result Body Mass Index 33.1 Labs 11/25/23 18:46 12/17/23 20:25 Medications Medications Current Medications Acetaminophen (Acetaminophen 325 Mg Tablet) 650 mg PO Q6H PRN PRN Reason: Headache/Pain Mild Scale (1-3) Al Hydroxide/Mg Hydroxide (Magnesium Hydrox/Alum Hydrox 30 Ml Oral.Susp) 30 ml PO Q6H PRN PRN Reason: Heartburn/Nausea Diazepam (Diazepam 10 Mg/2 Ml Cartridge) 10 mg IM BEDTIME PRN PRN Reason: refusal of lithium, per court order Hydroxyzine HCl (Hydroxyzine Hcl 25 Mg Tablet) 25 mg PO Q6H PRN PRN Reason: Anxiety Magnesium Hydroxide (Milk Of Magnesia 30 Ml Oral.Susp) 30 ml PO DAILY PRN PRN Reason: Constipation Nicotine Polacrilex (Nicotine Polacrilex 2 Mg Gum) 4 mg BUCCAL Q2H PRN PRN Reason: Nicotine Cravings Last Admin: 12/14/23 09:02 Dose: 4 mg Oxcarbazepine (Oxcarbazepine 300 Mg Tablet) 300 mg PO BID KENDALL Last Admin: 01/21/24 08:17 Dose: 300 mg Trazodone HCl (Trazodone Hcl 50 Mg Tablet) 50 mg PO BEDTIME MRX1 PRN PRN Reason: Insomnia Allergies Allergies Allergy/AdvReac Type Severity Reaction Status Date / Time Unable to Assess Allergy Verified 11/25/23 17:57 Assessment & Plan Assessment & Plan (1) Moderate bipolar I disorder with alfa as current episode: Status: Acute Code(s): F31.12 - Bipolar disorder, current episode manic without psychotic features, moderate Plan 11/26: offer lithium. hold haldol for now. 11/27: took HS dose, refused morning dose. reportedly he will only take medications at night. reschedule all lithium to HS, 1200 mg. 11/28: pt refused lithium last night. screamed at MD yesterday, calmly declines interview today: see you in court. olanzapine 20 mg QHS added to regimen, commitment paperwork filed. records from [facility] received and reviewed. 11/29: Court hearing pending. Declining medications in the meantime. 11/30: no changes 12/01 intrusive, poor boundaries. declines medications. 12/02 easily agitated refuses medication pressured 12/04/2023 Continues to refuse medication bizarre behavior illogical poor impulse control writing things on the kaur smearing feces on himself and on the kaur stuffing toilet 12/05/2023 Patient continues to refuse medication refused to use supervisor customer services periods of yelling agitated screaming about his sister having mental illness other times isolated and withdrawn 12/06/2023 Patient continues to refuse medication refuses to engage in ongoing conversation with supervisor customer services difficult to have reality based conversation 12/07/2023: Continue current regimen and plans. Refuses meds and cord is scheduled for 12/0812/08/2023: Continue current regimen and plans 12/08: refusing medications, labile, angry. some posturing over weekend, yelling at staff for trying to clean the couch that he wrote all over in ink. declined interview today. court tomorrow. 12/09: declines to speak with MD beyond saying he does not wish to attend court or meet with MD. 1.5 hr hearing, pt was committed and meds ordered by court. will await in-person spanish supervisor customer services tomorrow to inform pt of results of court and necessity to take medication. 12/10: discussion held with pt, buildings and grounds coordinator, various staff re commitment and court-ordered medication. changed context of hospitalization explained to pt, including PO refusal's leading to IM; pt appeared to understand. pt accepted Zydis and lithium this morning. 12/11: med-compliant. seen with JOSE Cancino and buildings and grounds coordinator. feeling overmedicated, slept all day yesterday. will change all meds to HS and decrease olanzapine to 10 mg. new regimen lithium ER 900 QHS and zyprexa 10 QHS. 12/12: more labile and agitated this morning, furiously punching his palm in making his point. refused HS lithium last night, took it this morning. up at 0500. will return HS olanzapine dosing to 20 mg. add valium IM if lithium is refused. 12/13 continue tx 12/14 continue tx. 12/15: substantially less labile, irritable than last week. able to sit and have calm discussion. check labs tomorrow night. 12/16: no notable behaviors, stable presentation, continue current mgmt. 12/17: irritable. lithium level 0.52, dosing increased to 1200 mg QHS. other labs reassuring. 12/18: remains irritable, rejecting interview. continue current mgmt. 12/19: continues irritable, rejecting interview. accuses MD and SW of having threatened him yesterday. continue current mgmt. 12/20 continue treatment. 12/21 continue same treatment. 12/23/23 continue plan of care 12/23 continue tx. 12/24 lithium level high 1.5, lowered lithium to 900mg po qhs, recheck lithium level tomorrow morning along with cmp and TSH. 12/25: pt declining labs, apparently fearful of needles. no signs of lithium toxicity. pt denies any problems or side effects, does not want to change medication. does c/o gaining weight, which he does not appreciate is related to medication. will DC zyprexa in favor of paliperidone. 12/26: DC zyprexa PO PRN, change to invega. increase HS invega to 9 mg. otherwise continue current mgmt. calm today, but the issue of needles was not raised. 12/27: continue current tx plan. 12/28: continue tx plan. 12/29: increase invega to 12 mg PO QHS for inadequately controlled alfa/psychosis. continue current mgmt otherwise. 12/30: calm, even inviting today. no complaints or requests. continue current mgmt. mtg with sister tomorrow. 12/31: labile, irritable paranoid, delusional today. planning to add trileptal later this week. otherwise continue current mgmt. T/C invega sustenna. 01/01: calm, cooperative. no complaints. med-compliant. 01/02: add trileptal for added mood stabilization, as it does not require blood draws. otherwise continue current mgmt. 01/03: Continue current treatment and plan 01/04: Continue current regimen and plans 01/05: DC PO invega, start sustenna 234 mg tomorrow. increase trileptal to 300 BID. otherwise continue current mgmt. still some impulsivity, irritability, and perhaps thought disorder interfering with attention/comprehension. 01/06: received sustenna 234 mg IM today. continue other medications as per prior. stable. 01/07: feeling tired and slowed. due to transition from PO to SMITH versus manuel has been quashed and now regimen is more than is necessary. will decrease lithium 900 QHS to 600 QHS. otherwise continue current medication. 01/08: feeling clearer mentally, speaking and moving more quickly than yesterday. no complaints or requests. continue current mgmt. 01/09: continues feeling clearer mentally. mood relaxed. decrease lithium to 300 mg QHS. otherwise continue current mgmt. 01/10: continue current management and treatment plan. 01/11: continue current management and treatment plan. 01/12: Will defer to primary team on timing of next Invega Sustenna dose. Otherwise continue current management and treatment plan. 01/13: hold invega sustenna booster dose for now as pt appears dulled. DC lithium. otherwise continue current mgmt. 01/14: stable. slow, dulled. continue current mgmt. 01/15: no change. continue current mgmt. 01/16: no change. continue current mgmt. case consultation arranged with [employer] for next saturday at 1 pm. 01/19/2024: No changes to current regimen 01/19: no change in presentation. case consultation with sid of [employer] completed. 01/20: seen with JOSE Cancino and buildings and grounds coordinator. denies all problems, has no questions. informed pt of plan to discharge him 01/27. evasive. Reason for continued inpatient stay Substantial Risk for: rapid decompensation Time Spent With Patient Time: Total time managing care of this patient today __25__ minutes.
[2024-01-21 20:00] VITALS: BP 124/84; PULSE 88; RESP 18; TEMP 36.9; O2SAT 98
[2024-01-22 07:54] VITALS: BP 109/77; PULSE 104; RESP 16; TEMP 36.8; O2SAT 98
[2024-01-22] MEDS: OXcarbazepine 300 MG TABLET PO ×2 (09:00→21:48)
--- NOTE | 2024-01-22 13:40 | P.PNPSI_ITS ---
Subjective Subjective Date of Service: 01/22/24 Reason For Visit: Alfa Interim History: seen with JOSE Cancino and sander operator. denies any problems. on being asked his plans for after he returns home, he reports he plans to return to work, to live his life. 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 per staff, subdued, isolative. Mental Status Exam Mental Status Exam Narrative: adequately dressed. cooperative. decreased spontaneous movements. speech nml rate, decr amount; nml latency, loudness. thoughts linear. affect hypo- intense, non-labile. mood good. no SI/SIBI/HI/AVH expressed. Diagnostics Vital Signs (24Hr): Vital Signs - 24 hr 01/21/24 20:00 01/22/24 07:54 Temperature 98.5 F 98.2 F Pulse Rate 88 104 H Respiratory Rate 18 16 Blood Pressure 124/84 109/77 Pulse Oximetry 98 98 Oxygen Delivery Method Room Air Room Air BMI result Body Mass Index 33.1 Labs 11/25/23 18:46 12/17/23 20:25 Medications Medications Current Medications Acetaminophen (Acetaminophen 325 Mg Tablet) 650 mg PO Q6H PRN PRN Reason: Headache/Pain Mild Scale (1-3) Al Hydroxide/Mg Hydroxide (Magnesium Hydrox/Alum Hydrox 30 Ml Oral.Susp) 30 ml PO Q6H PRN PRN Reason: Heartburn/Nausea Diazepam (Diazepam 10 Mg/2 Ml Cartridge) 10 mg IM BEDTIME PRN PRN Reason: refusal of lithium, per court order Hydroxyzine HCl (Hydroxyzine Hcl 25 Mg Tablet) 25 mg PO Q6H PRN PRN Reason: Anxiety Magnesium Hydroxide (Milk Of Magnesia 30 Ml Oral.Susp) 30 ml PO DAILY PRN PRN Reason: Constipation Nicotine Polacrilex (Nicotine Polacrilex 2 Mg Gum) 4 mg BUCCAL Q2H PRN PRN Reason: Nicotine Cravings Last Admin: 12/14/23 09:02 Dose: 4 mg Oxcarbazepine (Oxcarbazepine 300 Mg Tablet) 300 mg PO BID KENDALL Last Admin: 01/22/24 09:00 Dose: 300 mg Trazodone HCl (Trazodone Hcl 50 Mg Tablet) 50 mg PO BEDTIME MRX1 PRN PRN Reason: Insomnia Allergies Allergies Allergy/AdvReac Type Severity Reaction Status Date / Time Unable to Assess Allergy Verified 11/25/23 17:57 Assessment & Plan Assessment & Plan (1) Moderate bipolar I disorder with alfa as current episode: Status: Acute Code(s): F31.12 - Bipolar disorder, current episode manic without psychotic features, moderate Plan 11/26: offer lithium. hold haldol for now. 11/27: took HS dose, refused morning dose. reportedly he will only take medications at night. reschedule all lithium to HS, 1200 mg. 11/28: pt refused lithium last night. screamed at MD yesterday, calmly declines interview today: see you in court. olanzapine 20 mg QHS added to regimen, commitment paperwork filed. records from [facility] received and reviewed. 11/29: Court hearing pending. Declining medications in the meantime. 11/30: no changes 12/01 intrusive, poor boundaries. declines medications. 12/02 easily agitated refuses medication pressured 12/04/2023 Continues to refuse medication bizarre behavior illogical poor impulse control writing things on the kaur smearing feces on himself and on the kaur stuffing toilet 12/05/2023 Patient continues to refuse medication refused to use fitness sales consultant periods of yelling agitated screaming about his sister having mental illness other times isolated and withdrawn 12/06/2023 Patient continues to refuse medication refuses to engage in ongoing conversation with fitness sales consultant difficult to have reality based conversation 12/07/2023: Continue current regimen and plans. Refuses meds and cord is scheduled for 12/0812/08/2023: Continue current regimen and plans 12/08: refusing medications, labile, angry. some posturing over weekend, yelling at staff for trying to clean the couch that he wrote all over in ink. declined interview today. court tomorrow. 12/09: declines to speak with MD beyond saying he does not wish to attend court or meet with MD. 1.5 hr hearing, pt was committed and meds ordered by court. will await in-person belarusian fitness sales consultant tomorrow to inform pt of results of court and necessity to take medication. 12/10: discussion held with pt, sander operator, various staff re commitment and court-ordered medication. changed context of hospitalization explained to pt, including PO refusal's leading to IM; pt appeared to understand. pt accepted Zydis and lithium this morning. 12/11: med-compliant. seen with JOSE Cancino and sander operator. feeling overmedicated, slept all day yesterday. will change all meds to HS and decrease olanzapine to 10 mg. new regimen lithium ER 900 QHS and zyprexa 10 QHS. 12/12: more labile and agitated this morning, furiously punching his palm in making his point. refused HS lithium last night, took it this morning. up at 0500. will return HS olanzapine dosing to 20 mg. add valium IM if lithium is refused. 12/13 continue tx 12/14 continue tx. 12/15: substantially less labile, irritable than last week. able to sit and have calm discussion. check labs tomorrow night. 12/16: no notable behaviors, stable presentation, continue current mgmt. 12/17: irritable. lithium level 0.52, dosing increased to 1200 mg QHS. other labs reassuring. 12/18: remains irritable, rejecting interview. continue current mgmt. 12/19: continues irritable, rejecting interview. accuses MD and SW of having threatened him yesterday. continue current mgmt. 12/20 continue treatment. 12/21 continue same treatment. 12/23/23 continue plan of care 12/23 continue tx. 12/24 lithium level high 1.5, lowered lithium to 900mg po qhs, recheck lithium level tomorrow morning along with cmp and TSH. 12/25: pt declining labs, apparently fearful of needles. no signs of lithium toxicity. pt denies any problems or side effects, does not want to change medication. does c/o gaining weight, which he does not appreciate is related to medication. will DC zyprexa in favor of paliperidone. 12/26: DC zyprexa PO PRN, change to invega. increase HS invega to 9 mg. otherwise continue current mgmt. calm today, but the issue of needles was not raised. 12/27: continue current tx plan. 12/28: continue tx plan. 12/29: increase invega to 12 mg PO QHS for inadequately controlled alfa/psychosis. continue current mgmt otherwise. 12/30: calm, even inviting today. no complaints or requests. continue current mgmt. mtg with sister tomorrow. 12/31: labile, irritable paranoid, delusional today. planning to add trileptal later this week. otherwise continue current mgmt. T/C invega sustenna. 01/01: calm, cooperative. no complaints. med-compliant. 01/02: add trileptal for added mood stabilization, as it does not require blood draws. otherwise continue current mgmt. 01/03: Continue current treatment and plan 01/04: Continue current regimen and plans 01/05: DC PO invega, start sustenna 234 mg tomorrow. increase trileptal to 300 BID. otherwise continue current mgmt. still some impulsivity, irritability, and perhaps thought disorder interfering with attention/comprehension. 01/06: received sustenna 234 mg IM today. continue other medications as per prior. stable. 01/07: feeling tired and slowed. due to transition from PO to SMITH versus manuel has been quashed and now regimen is more than is necessary. will decrease lithium 900 QHS to 600 QHS. otherwise continue current medication. 01/08: feeling clearer mentally, speaking and moving more quickly than yesterday. no complaints or requests. continue current mgmt. 01/09: continues feeling clearer mentally. mood relaxed. decrease lithium to 300 mg QHS. otherwise continue current mgmt. 01/10: continue current management and treatment plan. 01/11: continue current management and treatment plan. 01/12: Will defer to primary team on timing of next Invega Sustenna dose. Otherwise continue current management and treatment plan. 01/13: hold invega sustenna booster dose for now as pt appears dulled. DC lithium. otherwise continue current mgmt. 01/14: stable. slow, dulled. continue current mgmt. 01/15: no change. continue current mgmt. 01/16: no change. continue current mgmt. case consultation arranged with [facility] for next saturday at 1 pm. 01/19/2024: No changes to current regimen 01/19: no change in presentation. case consultation with sid of [facility] completed. 01/20: seen with JOSE Cancino and sander operator. denies all problems, has no questions. informed pt of plan to discharge him 01/27. evasive. 01/21: seen with JOSE Cancino and sander operator. as for yesterday. no change in mgmt. Reason for continued inpatient stay Substantial Risk for: inability to function and rapid decompensation Time Spent With Patient Time: Total time managing care of this patient today _25___ minutes.
[2024-01-22 20:00] VITALS: BP 125/78; PULSE 100; RESP 18; TEMP 36.9; O2SAT 98
[2024-01-23 07:00] VITALS: BMI 33.4
[2024-01-23 07:47] VITALS: BP 127/85; PULSE 104; RESP 16; TEMP 36.8; O2SAT 97
[2024-01-23] MEDS: OXcarbazepine 300 MG TABLET PO ×2 (08:35→20:43)
--- NOTE | 2024-01-23 13:28 | P.PNPSI_ITS ---
Subjective Subjective Date of Service: 01/23/24 Reason For Visit: Alfa Subjective Notes: Section 8 Interim History: Reviewed with Dr. Delatorre. Keeping to self. In bed most of shift. T/W utilized [employer] tetryl boiling tub operator services. Pt presents guarded during assessment. Pt reports he is feeling good today; pt stated, Everything is good. Everything is normal . When asked about his meeting with [facility] today; pt stated, Everything went normal. They were asking me what I'm going to do after discharge. 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 Pt denies SI/HI/VH/AH. Medication Compliance: Yes Side effects from medications: No Attending Groups: No Review of Systems Constitutional: Reports as per HPI Eyes: Reports as per HPI Reports as per HPI Cardiovascular: Reports as per HPI Respiratory: Reports as per HPI Gastrointestinal: Reports as per HPI Genitourinary: Reports as per HPI Musculoskeletal: Reports as per HPI Skin/Breast: Reports as per HPI Reports as per HPI Psychiatric: Reports as per HPI Endocrine: Reports as per HPI Hematologic/Lymphatic: Reports as per HPI Allergic/Immunologic: Reports as per HPI Mental Status Exam Mental Status Exam Patient Appearance: Appropriate Patient Orientation: Person, Place, Time and Situation Level of Consciousness: Awake Patient Behavior: Appropriate, Guarded and Cooperative Mood Description: Calm Affect Description: Calm Speech Pattern: Clear Hallucinations: None Thought Process: Intact Thought Content: positive for Intact Diagnostics Vital Signs (24Hr): Vital Signs - 24 hr 01/22/24 20:00 01/23/24 07:47 Temperature 98.5 F 98.3 F Pulse Rate 100 104 H Respiratory Rate 18 16 Blood Pressure 125/78 127/85 Pulse Oximetry 98 97 Oxygen Delivery Method Room Air Room Air BMI result Body Mass Index 33.1 Labs 11/25/23 18:46 12/17/23 20:25 Medications Medications Current Medications Acetaminophen (Acetaminophen 325 Mg Tablet) 650 mg PO Q6H PRN PRN Reason: Headache/Pain Mild Scale (1-3) Al Hydroxide/Mg Hydroxide (Magnesium Hydrox/Alum Hydrox 30 Ml Oral.Susp) 30 ml PO Q6H PRN PRN Reason: Heartburn/Nausea Diazepam (Diazepam 10 Mg/2 Ml Cartridge) 10 mg IM BEDTIME PRN PRN Reason: refusal of lithium, per court order Hydroxyzine HCl (Hydroxyzine Hcl 25 Mg Tablet) 25 mg PO Q6H PRN PRN Reason: Anxiety Magnesium Hydroxide (Milk Of Magnesia 30 Ml Oral.Susp) 30 ml PO DAILY PRN PRN Reason: Constipation Nicotine Polacrilex (Nicotine Polacrilex 2 Mg Gum) 4 mg BUCCAL Q2H PRN PRN Reason: Nicotine Cravings Last Admin: 12/14/23 09:02 Dose: 4 mg Oxcarbazepine (Oxcarbazepine 300 Mg Tablet) 300 mg PO BID KENDALL Last Admin: 01/23/24 08:35 Dose: 300 mg Trazodone HCl (Trazodone Hcl 50 Mg Tablet) 50 mg PO BEDTIME MRX1 PRN PRN Reason: Insomnia Allergies Allergies Allergy/AdvReac Type Severity Reaction Status Date / Time Unable to Assess Allergy Verified 11/25/23 17:57 Assessment & Plan Assessment & Plan (1) Moderate bipolar I disorder with alfa as current episode: Status: Acute Code(s): F31.12 - Bipolar disorder, current episode manic without psychotic features, moderate Plan 11/26: offer lithium. hold haldol for now. 11/27: took HS dose, refused morning dose. reportedly he will only take medications at night. reschedule all lithium to HS, 1200 mg. 11/28: pt refused lithium last night. screamed at MD yesterday, calmly declines interview today: see you in court. olanzapine 20 mg QHS added to regimen, commitment paperwork filed. records from [facility] received and reviewed. 11/29: Court hearing pending. Declining medications in the meantime. 11/30: no changes 12/01 intrusive, poor boundaries. declines medications. 12/02 easily agitated refuses medication pressured 12/04/2023 Continues to refuse medication bizarre behavior illogical poor impulse control writing things on the kaur smearing feces on himself and on the kaur stuffing toilet 12/05/2023 Patient continues to refuse medication refused to use social services manager periods of yelling agitated screaming about his sister having mental illness other times isolated and withdrawn 12/06/2023 Patient continues to refuse medication refuses to engage in ongoing conversation with social services manager difficult to have reality based conversation 12/07/2023: Continue current regimen and plans. Refuses meds and cord is scheduled for 12/0812/08/2023: Continue current regimen and plans 12/08: refusing medications, labile, angry. some posturing over weekend, yelling at staff for trying to clean the couch that he wrote all over in ink. declined interview today. court tomorrow. 12/09: declines to speak with MD beyond saying he does not wish to attend court or meet with MD. 1.5 hr hearing, pt was committed and meds ordered by court. will await in-person spanish social services manager tomorrow to inform pt of results of court and necessity to take medication. 12/10: discussion held with pt, tetryl boiling tub operator, various staff re commitment and court-ordered medication. changed context of hospitalization explained to pt, including PO refusal's leading to IM; pt appeared to understand. pt accepted Zydis and lithium this morning. 12/11: med-compliant. seen with JOSE Cancino and tetryl boiling tub operator. feeling overmedicated, slept all day yesterday. will change all meds to HS and decrease olanzapine to 10 mg. new regimen lithium ER 900 QHS and zyprexa 10 QHS. 12/12: more labile and agitated this morning, furiously punching his palm in making his point. refused HS lithium last night, took it this morning. up at 0500. will return HS olanzapine dosing to 20 mg. add valium IM if lithium is refused. 12/13 continue tx 12/14 continue tx. 12/15: substantially less labile, irritable than last week. able to sit and have calm discussion. check labs tomorrow night. 12/16: no notable behaviors, stable presentation, continue current mgmt. 12/17: irritable. lithium level 0.52, dosing increased to 1200 mg QHS. other labs reassuring. 12/18: remains irritable, rejecting interview. continue current mgmt. 12/19: continues irritable, rejecting interview. accuses MD and SW of having threatened him yesterday. continue current mgmt. 12/20 continue treatment. 12/21 continue same treatment. 12/23/23 continue plan of care 12/23 continue tx. 12/24 lithium level high 1.5, lowered lithium to 900mg po qhs, recheck lithium level tomorrow morning along with cmp and TSH. 12/25: pt declining labs, apparently fearful of needles. no signs of lithium toxicity. pt denies any problems or side effects, does not want to change medication. does c/o gaining weight, which he does not appreciate is related to medication. will DC zyprexa in favor of paliperidone. 12/26: DC zyprexa PO PRN, change to invega. increase HS invega to 9 mg. otherwise continue current mgmt. calm today, but the issue of needles was not raised. 12/27: continue current tx plan. 12/28: continue tx plan. 12/29: increase invega to 12 mg PO QHS for inadequately controlled alfa/psychosis. continue current mgmt otherwise. 12/30: calm, even inviting today. no complaints or requests. continue current mgmt. mtg with sister tomorrow. 12/31: labile, irritable paranoid, delusional today. planning to add trileptal later this week. otherwise continue current mgmt. T/C invega sustenna. 01/01: calm, cooperative. no complaints. med-compliant. 01/02: add trileptal for added mood stabilization, as it does not require blood draws. otherwise continue current mgmt. 01/03: Continue current treatment and plan 01/04: Continue current regimen and plans 01/05: DC PO invega, start sustenna 234 mg tomorrow. increase trileptal to 300 BID. otherwise continue current mgmt. still some impulsivity, irritability, and perhaps thought disorder interfering with attention/comprehension. 01/06: received sustenna 234 mg IM today. continue other medications as per prior. stable. 01/07: feeling tired and slowed. due to transition from PO to SMITH versus manuel has been quashed and now regimen is more than is necessary. will decrease lithium 900 QHS to 600 QHS. otherwise continue current medication. 01/08: feeling clearer mentally, speaking and moving more quickly than yesterday. no complaints or requests. continue current mgmt. 01/09: continues feeling clearer mentally. mood relaxed. decrease lithium to 300 mg QHS. otherwise continue current mgmt. 01/10: continue current management and treatment plan. 01/11: continue current management and treatment plan. 01/12: Will defer to primary team on timing of next Invega Sustenna dose. Otherwise continue current management and treatment plan. 01/13: hold invega sustenna booster dose for now as pt appears dulled. DC lithium. otherwise continue current mgmt. 01/14: stable. slow, dulled. continue current mgmt. 01/15: no change. continue current mgmt. 01/16: no change. continue current mgmt. case consultation arranged with [facility] for next saturday at 1 pm. 01/19/2024: No changes to current regimen 01/19: no change in presentation. case consultation with sid of [facility] completed. 01/20: seen with JOSE Cancino and tetryl boiling tub operator. denies all problems, has no questions. informed pt of plan to discharge him 01/27. evasive. 01/21: seen with JOSE Cancino and tetryl boiling tub operator. as for yesterday. no change in mgmt. 01/22: continue current tx plan. Patient educated on: diagnosis and medication risk/benefits Informed Consent: understands Reason for continued inpatient stay Substantial Risk for: med/psych decompensation Time Spent With Patient Time: Total time managing care of this patient today _20___ minutes.
[2024-01-23 20:00] VITALS: BP 135/75; PULSE 87; RESP 18; O2SAT 98
[2024-01-24 08:00] VITALS: BP 113/73; PULSE 100; RESP 16; TEMP 37.1; O2SAT 97
[2024-01-24] MEDS: OXcarbazepine 300 MG TABLET PO ×2 (08:17→20:35)
--- NOTE | 2024-01-24 16:05 | HO.PSYCHPN ---
Subjective Subjective Date of Service: 01/24/24 Reason For Visit: Alfa Interim History: seen with JOSE Cancino and territory sales professional. no change in presentation. per staff, +RIS, sleeping, pleasant. Mental Status Exam Mental Status Exam Narrative: adequately dressed. cooperative. decreased spontaneous movements. speech nml rate, decr amount; nml latency, loudness. thoughts linear. affect hypo-intense, non-labile. mood good. no SI/SIBI/HI/AVH expressed. Diagnostics Vital Signs (24Hr): Vital Signs - 24 hr 01/23/24 20:00 01/24/24 08:00 Temperature 98.7 F Pulse Rate 87 100 Respiratory Rate 18 16 Blood Pressure 135/75 113/73 Pulse Oximetry 98 97 Oxygen Delivery Method Room Air Room Air BMI result Body Mass Index 33.4 Labs 11/25/23 18:46 12/17/23 20:25 Medications Medications Current Medications Acetaminophen (Acetaminophen 325 Mg Tablet) 650 mg PO Q6H PRN PRN Reason: Headache/Pain Mild Scale (1-3) Al Hydroxide/Mg Hydroxide (Magnesium Hydrox/Alum Hydrox 30 Ml Oral.Susp) 30 ml PO Q6H PRN PRN Reason: Heartburn/Nausea Diazepam (Diazepam 10 Mg/2 Ml Cartridge) 10 mg IM BEDTIME PRN PRN Reason: refusal of lithium, per court order Hydroxyzine HCl (Hydroxyzine Hcl 25 Mg Tablet) 25 mg PO Q6H PRN PRN Reason: Anxiety Magnesium Hydroxide (Milk Of Magnesia 30 Ml Oral.Susp) 30 ml PO DAILY PRN PRN Reason: Constipation Nicotine Polacrilex (Nicotine Polacrilex 2 Mg Gum) 4 mg BUCCAL Q2H PRN PRN Reason: Nicotine Cravings Last Admin: 12/14/23 09:02 Dose: 4 mg Oxcarbazepine (Oxcarbazepine 300 Mg Tablet) 300 mg PO BID KENDALL Last Admin: 01/24/24 08:17 Dose: 300 mg Trazodone HCl (Trazodone Hcl 50 Mg Tablet) 50 mg PO BEDTIME MRX1 PRN PRN Reason: Insomnia Allergies Allergies Allergy/AdvReac Type Severity Reaction Status Date / Time Unable to Assess Allergy Verified 11/25/23 17:57 Assessment & Plan Assessment & Plan (1) Moderate bipolar I disorder with alfa as current episode: Status: Acute Code(s): F31.12 - Bipolar disorder, current episode manic without psychotic features, moderate Plan 11/26: offer lithium. hold haldol for now. 11/27: took HS dose, refused morning dose. reportedly he will only take medications at night. reschedule all lithium to HS, 1200 mg. 11/28: pt refused lithium last night. screamed at MD yesterday, calmly declines interview today: see you in court. olanzapine 20 mg QHS added to regimen, commitment paperwork filed. records from [facility] received and reviewed. 11/29: Court hearing pending. Declining medications in the meantime. 11/30: no changes 12/01 intrusive, poor boundaries. declines medications. 12/02 easily agitated refuses medication pressured 12/04/2023 Continues to refuse medication bizarre behavior illogical poor impulse control writing things on the kaur smearing feces on himself and on the kaur stuffing toilet 12/05/2023 Patient continues to refuse medication refused to use city superintendent periods of yelling agitated screaming about his sister having mental illness other times isolated and withdrawn 12/06/2023 Patient continues to refuse medication refuses to engage in ongoing conversation with city superintendent difficult to have reality based conversation 12/07/2023: Continue current regimen and plans. Refuses meds and cord is scheduled for 12/0812/08/2023: Continue current regimen and plans 12/08: refusing medications, labile, angry. some posturing over weekend, yelling at staff for trying to clean the couch that he wrote all over in ink. declined interview today. court tomorrow. 12/09: declines to speak with MD beyond saying he does not wish to attend court or meet with MD. 1.5 hr hearing, pt was committed and meds ordered by court. will await in-person [place] city superintendent tomorrow to inform pt of results of court and necessity to take medication. 12/10: discussion held with pt, territory sales professional, various staff re commitment and court-ordered medication. changed context of hospitalization explained to pt, including PO refusal's leading to IM; pt appeared to understand. pt accepted Zydis and lithium this morning. 12/11: med-compliant. seen with JOSE Cancino and territory sales professional. feeling overmedicated, slept all day yesterday. will change all meds to HS and decrease olanzapine to 10 mg. new regimen lithium ER 900 QHS and zyprexa 10 QHS. 12/12: more labile and agitated this morning, furiously punching his palm in making his point. refused HS lithium last night, took it this morning. up at 0500. will return HS olanzapine dosing to 20 mg. add valium IM if lithium is refused. 12/13 continue tx 12/14 continue tx. 12/15: substantially less labile, irritable than last week. able to sit and have calm discussion. check labs tomorrow night. 12/16: no notable behaviors, stable presentation, continue current mgmt. 12/17: irritable. lithium level 0.52, dosing increased to 1200 mg QHS. other labs reassuring. 12/18: remains irritable, rejecting interview. continue current mgmt. 12/19: continues irritable, rejecting interview. accuses MD and SW of having threatened him yesterday. continue current mgmt. 12/20 continue treatment. 12/21 continue same treatment. 12/23/23 continue plan of care 12/23 continue tx. 12/24 lithium level high 1.5, lowered lithium to 900mg po qhs, recheck lithium level tomorrow morning along with cmp and TSH. 12/25: pt declining labs, apparently fearful of needles. no signs of lithium toxicity. pt denies any problems or side effects, does not want to change medication. does c/o gaining weight, which he does not appreciate is related to medication. will DC zyprexa in favor of paliperidone. 12/26: DC zyprexa PO PRN, change to invega. increase HS invega to 9 mg. otherwise continue current mgmt. calm today, but the issue of needles was not raised. 12/27: continue current tx plan. 12/28: continue tx plan. 12/29: increase invega to 12 mg PO QHS for inadequately controlled alfa/psychosis. continue current mgmt otherwise. 12/30: calm, even inviting today. no complaints or requests. continue current mgmt. mtg with sister tomorrow. 12/31: labile, irritable paranoid, delusional today. planning to add trileptal later this week. otherwise continue current mgmt. T/C invega sustenna. 01/01: calm, cooperative. no complaints. med-compliant. 01/02: add trileptal for added mood stabilization, as it does not require blood draws. otherwise continue current mgmt. 01/03: Continue current treatment and plan 01/04: Continue current regimen and plans 01/05: DC PO invega, start sustenna 234 mg tomorrow. increase trileptal to 300 BID. otherwise continue current mgmt. still some impulsivity, irritability, and perhaps thought disorder interfering with attention/comprehension. 01/06: received sustenna 234 mg IM today. continue other medications as per prior. stable. 01/07: feeling tired and slowed. due to transition from PO to SMITH versus manuel has been quashed and now regimen is more than is necessary. will decrease lithium 900 QHS to 600 QHS. otherwise continue current medication. 01/08: feeling clearer mentally, speaking and moving more quickly than yesterday. no complaints or requests. continue current mgmt. 01/09: continues feeling clearer mentally. mood relaxed. decrease lithium to 300 mg QHS. otherwise continue current mgmt. 01/10: continue current management and treatment plan. 01/11: continue current management and treatment plan. 01/12: Will defer to primary team on timing of next Invega Sustenna dose. Otherwise continue current management and treatment plan. 01/13: hold invega sustenna booster dose for now as pt appears dulled. DC lithium. otherwise continue current mgmt. 01/14: stable. slow, dulled. continue current mgmt. 01/15: no change. continue current mgmt. 01/16: no change. continue current mgmt. case consultation arranged with [facility] for next saturday at 1 pm. 01/19/2024: No changes to current regimen 01/19: no change in presentation. case consultation with sid of [facility] completed. 01/20: seen with JOSE Cancino and territory sales professional. denies all problems, has no questions. informed pt of plan to discharge him 01/27. evasive. 01/21: seen with JOSE Cancino and territory sales professional. as for yesterday. no change in mgmt. 01/22: continue current tx plan. 01/23: continue current mgmt. no change in presentation. Reason for continued inpatient stay Substantial Risk for: rapid decompensation Time Spent With Patient Time: Total time managing care of this patient today __35__ minutes.
[2024-01-24 19:48] VITALS: BP 115/75; PULSE 104; RESP 18; TEMP 36.7; O2SAT 98
[2024-01-25 07:38] VITALS: BP 122/81; PULSE 96; RESP 20; TEMP 36.8; O2SAT 97
[2024-01-25] MEDS: OXcarbazepine 300 MG TABLET PO ×2 (08:42→20:41)
--- NOTE | 2024-01-25 16:49 | P.PNPSI_ITS ---
Subjective Subjective Date of Service: 01/25/24 Reason For Visit: Alfa Interim History: no change in presentation. per staff, no change in presentation. Mental Status Exam Mental Status Exam Narrative: adequately dressed. cooperative. decreased spontaneous movements. speech nml rate, decr amount; nml latency, loudness. thoughts linear. affect hypo- intense, non-labile. mood good. no SI/SIBI/HI/AVH expressed. Diagnostics Vital Signs (24Hr): Vital Signs - 24 hr 01/24/24 19:48 01/25/24 07:38 Temperature 98.1 F 98.3 F Pulse Rate 104 H 96 Respiratory Rate 18 20 Blood Pressure 115/75 122/81 Pulse Oximetry 98 97 Oxygen Delivery Method Room Air Room Air BMI result Body Mass Index 33.4 Labs 11/25/23 18:46 12/17/23 20:25 Medications Medications Current Medications Acetaminophen (Acetaminophen 325 Mg Tablet) 650 mg PO Q6H PRN PRN Reason: Headache/Pain Mild Scale (1-3) Al Hydroxide/Mg Hydroxide (Magnesium Hydrox/Alum Hydrox 30 Ml Oral.Susp) 30 ml PO Q6H PRN PRN Reason: Heartburn/Nausea Diazepam (Diazepam 10 Mg/2 Ml Cartridge) 10 mg IM BEDTIME PRN PRN Reason: refusal of lithium, per court order Hydroxyzine HCl (Hydroxyzine Hcl 25 Mg Tablet) 25 mg PO Q6H PRN PRN Reason: Anxiety Magnesium Hydroxide (Milk Of Magnesia 30 Ml Oral.Susp) 30 ml PO DAILY PRN PRN Reason: Constipation Nicotine Polacrilex (Nicotine Polacrilex 2 Mg Gum) 4 mg BUCCAL Q2H PRN PRN Reason: Nicotine Cravings Last Admin: 12/14/23 09:02 Dose: 4 mg Oxcarbazepine (Oxcarbazepine 300 Mg Tablet) 300 mg PO BID KENDALL Last Admin: 01/25/24 08:42 Dose: 300 mg Trazodone HCl (Trazodone Hcl 50 Mg Tablet) 50 mg PO BEDTIME MRX1 PRN PRN Reason: Insomnia Allergies Allergies Allergy/AdvReac Type Severity Reaction Status Date / Time Unable to Assess Allergy Verified 11/25/23 17:57 Assessment & Plan Assessment & Plan (1) Moderate bipolar I disorder with alfa as current episode: Status: Acute Code(s): F31.12 - Bipolar disorder, current episode manic without psychotic features, moderate Plan 4/10: offer lithium. hold haldol for now. 11/27: took HS dose, refused morning dose. reportedly he will only take medications at night. reschedule all lithium to HS, 1200 mg. 11/28: pt refused lithium last night. screamed at MD yesterday, calmly declines interview today: see you in court. olanzapine 20 mg QHS added to regimen, commitment paperwork filed. records from [facility] received and reviewed. 11/29: Court hearing pending. Declining medications in the meantime. 11/30: no changes 12/01 intrusive, poor boundaries. declines medications. 12/02 easily agitated refuses medication pressured 12/04/2023 Continues to refuse medication bizarre behavior illogical poor impulse control writing things on the kaur smearing feces on himself and on the kaur stuffing toilet 12/05/2023 Patient continues to refuse medication refused to use cloth printing back tender periods of yelling agitated screaming about his sister having mental illness other times isolated and withdrawn 12/06/2023 Patient continues to refuse medication refuses to engage in ongoing conversation with cloth printing back tender difficult to have reality based conversation 12/07/2023: Continue current regimen and plans. Refuses meds and cord is scheduled for 12/0812/08/2023: Continue current regimen and plans 12/08: refusing medications, labile, angry. some posturing over weekend, yelling at staff for trying to clean the couch that he wrote all over in ink. declined interview today. court tomorrow. 12/09: declines to speak with MD beyond saying he does not wish to attend court or meet with MD. 1.5 hr hearing, pt was committed and meds ordered by court. will await in-person [place] cloth printing back tender tomorrow to inform pt of results of court and necessity to take medication. 12/10: discussion held with pt, beam carrier hauler pusher, various staff re commitment and court-ordered medication. changed context of hospitalization explained to pt, including PO refusal's leading to IM; pt appeared to understand. pt accepted Zydis and lithium this morning. 12/11: med-compliant. seen with JOSE Cancino and beam carrier hauler pusher. feeling overmedicated, slept all day yesterday. will change all meds to HS and decrease olanzapine to 10 mg. new regimen lithium ER 900 QHS and zyprexa 10 QHS. 12/12: more labile and agitated this morning, furiously punching his palm in making his point. refused HS lithium last night, took it this morning. up at 0500. will return HS olanzapine dosing to 20 mg. add valium IM if lithium is refused. 12/13 continue tx 12/14 continue tx. 12/15: substantially less labile, irritable than last week. able to sit and have calm discussion. check labs tomorrow night. 12/16: no notable behaviors, stable presentation, continue current mgmt. 12/17: irritable. lithium level 0.52, dosing increased to 1200 mg QHS. other labs reassuring. 12/18: remains irritable, rejecting interview. continue current mgmt. 12/19: continues irritable, rejecting interview. accuses MD and SW of having threatened him yesterday. continue current mgmt. 12/20 continue treatment. 12/21 continue same treatment. 12/23/23 continue plan of care 12/23 continue tx. 12/24 lithium level high 1.5, lowered lithium to 900mg po qhs, recheck lithium level tomorrow morning along with cmp and TSH. 12/25: pt declining labs, apparently fearful of needles. no signs of lithium toxicity. pt denies any problems or side effects, does not want to change medication. does c/o gaining weight, which he does not appreciate is related to medication. will DC zyprexa in favor of paliperidone. 12/26: DC zyprexa PO PRN, change to invega. increase HS invega to 9 mg. otherwise continue current mgmt. calm today, but the issue of needles was not raised. 12/27: continue current tx plan. 12/28: continue tx plan. 12/29: increase invega to 12 mg PO QHS for inadequately controlled alfa/psychosis. continue current mgmt otherwise. 12/30: calm, even inviting today. no complaints or requests. continue current mgmt. mtg with sister tomorrow. 12/31: labile, irritable paranoid, delusional today. planning to add trileptal later this week. otherwise continue current mgmt. T/C invega sustenna. 01/01: calm, cooperative. no complaints. med-compliant. 01/02: add trileptal for added mood stabilization, as it does not require blood draws. otherwise continue current mgmt. 01/03: Continue current treatment and plan 01/04: Continue current regimen and plans 01/05: DC PO invega, start sustenna 234 mg tomorrow. increase trileptal to 300 BID. otherwise continue current mgmt. still some impulsivity, irritability, and perhaps thought disorder interfering with attention/comprehension. 01/06: received sustenna 234 mg IM today. continue other medications as per prior. stable. 01/07: feeling tired and slowed. due to transition from PO to SMITH versus manuel has been quashed and now regimen is more than is necessary. will decrease lithium 900 QHS to 600 QHS. otherwise continue current medication. 01/08: feeling clearer mentally, speaking and moving more quickly than yesterday. no complaints or requests. continue current mgmt. 01/09: continues feeling clearer mentally. mood relaxed. decrease lithium to 300 mg QHS. otherwise continue current mgmt. 01/10: continue current management and treatment plan. 01/11: continue current management and treatment plan. 01/12: Will defer to primary team on timing of next Invega Sustenna dose. Otherwise continue current management and treatment plan. 01/13: hold invega sustenna booster dose for now as pt appears dulled. DC lithium. otherwise continue current mgmt. 01/14: stable. slow, dulled. continue current mgmt. 01/15: no change. continue current mgmt. 01/16: no change. continue current mgmt. case consultation arranged with [facility] for next saturday at 1 pm. 01/19/2024: No changes to current regimen 01/19: no change in presentation. case consultation with sid of [facility] completed. 01/20: seen with JOSE Cancino and beam carrier hauler pusher. denies all problems, has no questions. informed pt of plan to discharge him 01/27. evasive. 01/21: seen with JOSE Cancino and beam carrier hauler pusher. as for yesterday. no change in mgmt. 01/22: continue current tx plan. 01/23: continue current mgmt. no change in presentation. 01/24: continue current mgmt. no change in presentation. Reason for continued inpatient stay Substantial Risk for: rapid decompensation Time Spent With Patient Time: Total time managing care of this patient today ____ minutes.
[2024-01-25 20:01] VITALS: BP 139/80; PULSE 93; RESP 18; TEMP 36.8; O2SAT 99
[2024-01-26 07:15] VITALS: BP 115/80; PULSE 83; RESP 14; TEMP 36.6; O2SAT 97
[2024-01-26] MEDS: OXcarbazepine 300 MG TABLET PO ×2 (08:45→20:12)
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
[2024-01-26 20:00] VITALS: BP 123/80; PULSE 99; RESP 18; TEMP 37; O2SAT 97
[2024-01-27 08:00] VITALS: BP 126/86; PULSE 74; RESP 16; TEMP 36.5; O2SAT 98
[2024-01-27] MEDS: OXcarbazepine 300 MG TABLET PO ×2 (08:32→20:05)
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
[2024-01-27 13:59] LABS: Creatinine Clr Calc Pharmacy 116.9; Estimated Glomerular Filt Rate > 60
[2024-01-27 20:00] VITALS: BP 125/74; PULSE 84; RESP 16; TEMP 36.8; O2SAT 98
[2024-01-28 08:00] VITALS: BP 119/79; PULSE 85; RESP 14; TEMP 37; O2SAT 98
[2024-01-28] MEDS: OXcarbazepine 300 MG TABLET PO (08:28)
[2024-01-28] MEDS: Paliperidone Palmitate 234 MG/1.5 ML SYRINGE IM (09:27)
--- NOTE | 2024-01-28 11:32 | PC.NURSE ---
Patient easily engaged. Reports mood is stable. Denies depression or sadness, denies anxiety, denies SI/HI plan or intent. Denies A/V hallucinations, denies suspiciousness or paranoia. Observed to quietly self dialogue this AM. Reviewed discharge paperwork with patient and Swiss computational sciences professor, reports understanding. Reviewed discharge medications and follow up appointments with patient reports understanding. Crisis numbers provided to patient. All belongings taken with patient. Discharge appointments and medications reviewed with sister per patient and provider request. Patient did not want appointment scheduled with PCP at this time. Information provided for walk in clinic if in need of immediate attention.
== END 2024-01-28 11:25 | disposition home or self-care (01) | DRG 753 ==
LOC: HO.ED 11-26 03:24 → HO.PADLT16 11-26 14:11
PROVIDERS: Psychiatry & Neurology Psychiatry; Admitting Provider Psychiatry & Neurology Psychiatry; Emergency Provider Emergency Medicine; Visit Provider Psychiatry & Neurology Psychiatry
DX: F31.12 Bipolar disorder, current episode manic without psychotic features, moderate (principal); Z91.148 Patient's other noncompliance with medication regimen for other reason; F10.129 Alcohol abuse with intoxication, unspecified; Z20.822 Contact with and (suspected) exposure to COVID-19; Y90.7 Blood alcohol level of 200-239 mg/100 ml; Z79.899 Other long term (current) drug therapy
CPT/HCPCS: 0241U; 36415; 80048; 80076; 80178; 80307; 81003; 82565; 83735; 85025; 93005; 99285; J2426; S9485

== ENCOUNTER → 2023-11-26 11:26 | Outpatient (BNV) | payer MEDICAID, SELFPAY | PROVIDERS: Admitting Provider Psychiatry & Neurology Psychiatry; Emergency Provider Emergency Medicine; Visit Provider Internal Medicine Cardiovascular Disease | DX: F31.12 Bipolar disorder, current episode manic without psychotic features, moderate (principal) | CPT/HCPCS: 93010 ==

== ENCOUNTER → 2023-11-26 14:03 | Outpatient (BNV) | payer OTHER, SELFPAY | PROVIDERS: Admitting Provider Psychiatry & Neurology Psychiatry; Emergency Provider Emergency Medicine; Visit Provider Psychiatry & Neurology Psychiatry | DX: F31.12 Bipolar disorder, current episode manic without psychotic features, moderate (principal) | CPT/HCPCS: 99231 ==

== ENCOUNTER → 2023-11-26 14:03 | Outpatient (BNV) | payer OTHER, SELFPAY | PROVIDERS: Admitting Provider Psychiatry & Neurology Psychiatry; Emergency Provider Emergency Medicine; Visit Provider Psychiatry & Neurology Psychiatry | DX: F31.12 Bipolar disorder, current episode manic without psychotic features, moderate (principal) | CPT/HCPCS: 99231; 99232; 99233 ==